=== PATIENT | male | born 1940 | race Caucasian/White ===

== ENCOUNTER 2019-05-30 20:07 | Emergency (ER) | payer MEDICARE, BC, SELFPAY ==
[2019-05-30 20:09] VITALS: BP 128/77; PULSE 89; RESP 18; TEMP 36.6; O2SAT 95; BMI 27.2
--- NOTE | 2019-05-30 20:13 | RAD_ITS ---
STUDY: X-RAY - LEFT WRIST REASON FOR EXAM: Male, 78 years old. Trauma TECHNIQUE: 3 view(s) of the wrist were obtained. COMPARISON: None. FINDINGS: The bones of the wrist are intact and located. Mineralization is normal. Soft tissues are intact. There are degenerative changes at the base of the thumb. RAD/Wrist min 3 Views IMPRESSION: 1. No acute osseous injury. Electronically Signed: Dean Peters, at 20:31 EDT Tel , Service support ,
--- NOTE | 2019-05-30 20:13 | RAD_ITS ---
STUDY: X-RAY - LEFT RADIUS AND ULNA REASON FOR EXAM: Male, 78 years old. Trauma TECHNIQUE: 2 view(s) of the forearm. COMPARISON: None. FINDINGS: Radius and ulna are intact and located. Mineralization is normal. Soft tissues are unremarkable. RAD/Forearm 2 Views IMPRESSION: 1. Unremarkable forearm. Electronically Signed: Dean Peters, at 20:33 EDT Tel , Service support ,
--- NOTE | 2019-05-30 22:24 | ED.DEP ---
ED Disposition - Plan for ED Patient: Instructions: CONTUSION, Upper Extremity Referrals: Vipin Rodriguez MD [Primary Care Provider] -
--- NOTE | 2019-05-30 22:27 | ED.VISSUMM ---
- ER Visit Summary Date of Service: 05/30/19 Chief Complaint: Left arm injury History of Present Illness: The patient is a 78 M presenting with left arm injury. Patient states he dropped a wooden gate on his left arm. This occurred just prior to arrival. He states it swelled immediately. He took Benadryl initially due to swelling. He now has ice on it and it is improving. He denies other injury. He is not on anticoagulants. Physical Examination: Vitals are stable. Patient is afebrile. Alert no acute distress. HEENT exam is unremarkable. Neck is supple. Lungs are clear and equal bilaterally. Heart is regular rate and rhythm. Extremities hematoma left dorsal forearm. Active full range of motion. Neurovascularly intact distally. Normal pulses. Compartments are soft. Skin is warm and dry. No focal neurologic deficit. Remainder of exam is unremarkable. Emergency Department Course and Treatment: X-ray left wrist and left forearm show no acute process. Patient is advised to ice and elevate. Advised to follow-up with primary care physician. Advised return to ED for worsening complaints. Disposition: Discharge home Impression: Left forearm hematoma This note was generated with [employer] dictation software. It may contain incorrect words, spelling, and punctuation that were not noted in review of the chart prior to signing ED Disposition - Plan for ED Patient: Instructions: CONTUSION, Upper Extremity Referrals: Vipin Rodriguez MD [Primary Care Provider] -
[2019-05-30 22:39] VITALS: BP 124/70; PULSE 71; RESP 16; O2SAT 98
== END 2019-05-30 22:41 | disposition home or self-care (01) ==
LOC: ED 22:14
PROVIDERS: Emergency Provider Emergency Medicine; Family Provider Family Medicine; PCP Family Medicine
DX: S50.12XA Contusion of left forearm, initial encounter (principal); W20.8XXA Other cause of strike by thrown, projected or falling object, initial encounter; Y93.9 Activity, unspecified; Y92.89 Other specified places as the place of occurrence of the external cause; Y99.9 Unspecified external cause status; I10 Essential (primary) hypertension
CPT/HCPCS: 73090; 73110; 99282

== ENCOUNTER 2022-05-26 11:34 | Emergency (ER) | payer MEDICARE, SELFPAY ==
[2022-05-26 11:35] VITALS: BP 159/80; PULSE 66; RESP 18; TEMP 36.3; O2SAT 95; BMI 29.7
--- NOTE | 2022-05-26 11:51 | CT_ITS ---
STUDY: CT ABDOMEN AND PELVIS WITHOUT CONTRAST REASON FOR EXAM: Male, 81 years old. Left flank pain RADIATION DOSAGE (If Supplied By Facility): CTDIvol = ( 12.24 ) mGy, DLP = ( 608.43 ) mGycm TECHNIQUE: Transaxial images were obtained from the dome of the diaphragm to the symphysis pubis without oral contrast, and without intravenous contrast. Sagittal and coronal images were reconstructed. Individualized dose optimization techniques were used for this CT. COMPARISON: None. FINDINGS: The visualized lung bases are unremarkable. The visualized portions of the heart are within normal limits. The lack of intravenous contrast limits evaluation of solid visceral organs. There are foci of low attenuation within the liver with an appearance suggestive of fatty infiltration. There is a well-circumscribed 4.7 cm low-attenuation focus within the left hepatic lobe. Normal gallbladder and extrahepatic biliary system. Normal spleen. Normal pancreas. Normal bilateral adrenal glands. Normal right kidney. There is left hydroureteronephrosis secondary to a 3.8 mm calculus within the distal ureter. There is a small hiatal hernia. Normal small intestine. There are multiple colonic diverticula consistent with diverticulosis. There are surgical clips in the region of the appendix consistent with a prior appendectomy. Normal abdominal aorta. Normal inferior vena cava. Normal retroperitoneum. Normal urinary bladder. There is enlargement of the prostate gland. Normal abdominal wall. There are diffuse degenerative changes of the visualized lumbar spine. There is an anterior compression deformity of T11 with approximately 50% height loss within the mid vertebral body that appears chronic. CT/Abdomen/Pelvis without Cont IMPRESSION: Left hydroureteronephrosis secondary to a 3.8 mm calculus within the distal ureter. Fatty infiltration of the liver. Round low attenuation 4.7 cm focus within the left hepatic lobe which may reflect a cyst or hemangioma, consider abdominal ultrasound for further characterization. Hiatal hernia. Colonic diverticulosis. Electronically Signed: Venus Ferris MD at 12:51 EDT ,
--- NOTE | 2022-05-26 11:53 | EDS_ITS ---
HPI HPI - GI History of Present Illness Chief Complaint: Flank Pain Detail of Chief Complaint: Left Informant: patient Abdominal Pain/Flank Pain Onset: Weeks Context: Gradual Onset Timing: Intermittent Quality: Aching Location: Left Flank Current Severity: Mild Maximum Severity: Mild Worsened by: Nothing Relieved by: Nothing Nausea/Vomiting/Emesis GI Symptom: Positive for Nausea and Vomiting Onset: Today and Yesterday Severity: Mild Diarrhea/Melena/Hematochezia GI Symptom: Negative for Diarrhea, Melena or Hematochezia Associated Symptoms Associated Symptoms: Negative for Dysuria, Frequency, Hematuria or Urgency Narrative Narrative: 81-year-old male 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 Since has had left lower back and flank pain for about a month. It was mild several weeks ago. It is slightly worse now. It is worse in the morning and better when he gets up and starts moving throughout the day. The last 2 days he has had mild nausea and vomiting. He denies any fall or trauma. He is never had a kidney stone. Several weeks ago he thinks he might have a small amount of blood in his urine but that resolved. He denies any fever or chills. No weight loss. Prior similar symptoms: No Recent Illness/Hospitalization: No PFSH PFSH Medical History Disc degeneration HTN (hypertension) Home Medications lisinopril 5 mg tablet 5 mg PO DAILY 10/08/14 [History Last Taken Unknown] tadalafil 5 mg tablet 5 mg PO DAILY 05/30/19 [History Last Taken Unknown] hydrocodone-acetaminophen 5-325mg 5mg-325mg 1 tab PO Q4H PRN pain 5 days #20 tabs 05/26/22 [Rx Last Taken Unknown] ondansetron 4 mg disintegrating tablet 4 mg PO Q8H PRN nausea and vomiting #7 tabs 05/26/22 [Rx Last Taken Unknown] Allergy/AdvReac Type Severity Reaction Status Date / Time yellow dye Allergy Hives Verified 05/26/22 11:35 Social History Smoking Status: Never smoker ROS ROS ED ROS Narrative Left flank pain. Nausea and vomiting. Review of Systems ROS Unobtainable: Denies due to encephalopathy Constitutional Constitutional ED: Denies chills or fever(s) Cardiovascular Cardiovascular: Denies chest pain Respiratory/Chest Respiratory/Chest: Denies dyspnea Gastrointestinal Gastrointestinal: Reports nausea and vomiting; Denies abdominal pain, constipation, diarrhea or melena Genitourinary Genitourinary ED: Denies dysuria or hematuria Musculoskeletal Musculoskeletal: Denies arthralgias Integumentary Denies abscess Neurologic Neurologic: Denies headache(s) Psychiatric Psychiatric: Denies anxiety Endocrine Endocrinology: Denies polydipsia Hematologic/Lymphatic Hematologic/Lymphatic: Denies easy bleeding Allergic/Immunologic Allergic/Immunologic ED: Denies mouth swelling EXAM Physical Exam Narrative Exam Narrative: 81-year-old male no acute distress. Vital signs stable afebrile. seated in the room. HEENT exam unremarkable. Lungs are clear. Heart regular rhythm rate about 65 no murmur. Abdomen soft nontender normal bowel sounds no peritoneal signs. Spine and back are completely nontender. No rashes. No signs of trauma. Moving all 4 extremities. Normal motor strength. No edema. Normal range of motion both upper and lower extremities. Neurologically is awake and alert with no focal motor deficits. Const Vital Signs: 05/26/22 11:35 Temperature 97.3 F L Temperature Source Temporal Pulse Rate 66 Respiratory Rate 18 Blood Pressure 159/80 H Blood Pressure Mean 106 Pulse Ox 95 Oxygen Delivery Method Room Air Positive well nourished and well developed; Negative for cachectic, contractures or unkempt General Appearance ED: well developed; Negative for unkempt, cachectic, contractures or pallor Nutritional Appearance: Negative for cachectic HEENT Reports moist mucous membranes normocephalic and atraumatic; Negative for trauma or tenderness Eyes PERRL and EOMs intact bilaterally General Eye ED: Negative for pale conjunctiva or scleral icterus Neck no lymphadenopathy, supple and no JVD General: Negative for tenderness Lymph Lymphatic: Negative for other Resp normal respiratory effort and clear to auscultation bilaterally Effort and Inspection: Negative for respiratory distress Auscultation: Negative for rales, rhonchi or wheezes Cardio regular rate, regular rhythm, S1 normal heart sound, S2 normal heart sound and no murmurs Rate: Negative for bradycardia Rhythm: Negative for abnormal rhythm GI non-tender, non-distended and no masses Inspection: Negative for abdominal distention Auscultation: normoactive bowel sounds Palpation: soft; Negative for tender, guarding or rigid Back/Spine no CVA tenderness General Back: Negative for CVA tenderness Cervical Spine: Negative for cervical spine tenderness Thoracic Spine / Upper Back: Negative for thoracic spinal tenderness Lumbar Spine / Lower Back: Negative for lumbar spinal tenderness Extremity full ROM General Extremety ED: Negative for edema or tenderness General Extremity: Negative for edema Neuro CN's II-XII intact bilaterally and moves all extremities Sensorium / Orientation: alert, oriented to person, oriented to place and oriented to time; Negative for orientation impaired, confused, lethargic or stuporous Motor Exam: strength 5/5 throughout Psych mental status grossly normal Appearance: Negative for unkempt Attitude: No agitated Mood & Affect: Negative for depressed Skin no wounds General Skin Exam: Negative for jaundice or pallor Lesions: no lesions Rashes: no rashes Trauma: Negative for abrasion Nails: Negative for discolored MDM MDM MDM Narrative Medical decision making narrative: 80-year-old male with several week history of left flank pain. Exam is benign and nontender. CAT scan evaluating for possible kidney stone versus other etiologies along with lab work and a urinalysis. Currently he did not want a t cedric for pain or nausea. Repeat exam patient is doing well at 1:50 PM. Had a long discussion with he and his that all his test results. He basically has a 3.8 mm distal left ureteral stone that should pass. He feels much better after the IV Zofran and morphine. He will be discharged home with [place] for pain and Zofran for nausea. Urine strainer. Follow-up with his doctor if not improving or return if worse. Lab Data Attestation: I reviewed the patient's lab results. Lab results narrative: CBC shows white count 11.6. H&H of 15 and 46. Platelets 213. Electrolytes show a gap of 6 and BUN 24 creatinine 1.21. Glucose 125. Urine shows occult blood 50-100 red cells no white cells no bacteria. No signs of infection. Labs: Laboratory Results - last 24 hr 05/26/22 05/26/22 05/26/22 12:20 12:25 12:25 WBC 11.6 H RBC 4.96 Hgb 15.7 Hct 46.6 MCV 94.0 MCH 31.7 MCHC 33.7 RDW Std Deviation 44.7 H RDW Coeff of Martir 13.0 Plt Count 213 MPV 9.4 Immature Gran % (Auto) 0.500 Neut % (Auto) 77.0 H Lymph % (Auto) 15.4 L [place] % (Auto) 5.9 Eos % (Auto) 0.9 Baso % (Auto) 0.3 Absolute Neuts (auto) 8.9 H Absolute Lymphs (auto) 1.78 Nucleated RBC % 0 Sodium 136 Potassium 4.2 Chloride 106 Carbon Dioxide 24.0 Anion Gap 6 BUN 24 H Creatinine 1.21 Estim Creat Clear Calc 51.11 Est GFR (MDRD) Af Amer 74 Est GFR (MDRD) Non-Af 61 BUN/Creatinine Ratio 19.8 Glucose 125 H Calcium 10.2 H Urine Color Yellow Urine Clarity Clear Urine pH 5.0 Ur Specific [place] 1.025 Urine Protein 15 H Urine Glucose (UA) NEGATIVE Urine Ketones 5 H Urine Occult Blood 250 H Urine Nitrite Negative Urine Bilirubin Negative Urine Urobilinogen Normal Ur Leukocyte Esterase 25 H Urine RBC 50-100 SEEN Urine WBC 0-5 SEEN Ur Squamous Epith Cells 0 SEEN Urine Bacteria 0 SEEN Urine Mucus 0 SEEN Radiography Diagnostic Testing: Clinical Impression(s) from Imaging Studies Abdomen/Pelvis CT 05/26/22 11:51 IMPRESSION: Left hydroureteronephrosis secondary to a 3.8 mm calculus within the distal ureter. Fatty infiltration of the liver. Round low attenuation 4.7 cm focus within the left hepatic lobe which may reflect a cyst or hemangioma, consider abdominal ultrasound for further characterization. Hiatal hernia. Colonic diverticulosis. Electronically Signed: Venus Ferris MD at 12:51 EDT , Discharge Plan Triage Chief Complaint: Flank Pain ED Provider: Moises Parada Dx/Rx/DC Orders Clinical Impression: Kidney stone on left side, Nausea & vomiting Instructions: ED Kidney Stone w/ Colic Prescriptions: New hydrocodone-acetaminophen 5-325 mg tablet 1 tab PO Q4H PRN (Reason: pain) 5 Days Qty: 20 0RF ondansetron 4 mg tablet,disintegrating 4 mg PO Q8H PRN (Reason: nausea and vomiting) Qty: 7 0RF No Action lisinopril 5 MG tablet 5 mg PO DAILY tadalafil 5 MG tablet 5 mg PO DAILY Primary Care Provider: Vipin Rodriguez Referrals: Joe England MD [Med Staff - Active Staff] - As Needed Vipin Rodriguez MD [Primary Care Provider] - 3-5 Days if not improving Activity Restrictions/Additional Instructions: 3.8 mm left-sided kidney stone almost to your bladder. Should pass. Plenty of fluids and rest. [place] and/or Motrin for pain. Zofran as needed for nausea. Make sure you are drinking plenty of water, eating plenty of fruits, vegetables and fiber to prevent constipation. Follow-up with the urologist Dr. Uriel England if not improving. Disposition Disposition: Home, Self Care
[2022-05-26] MEDS: Ondansetron 4 MG/2 ML Vial IV (12:26)
[2022-05-26 12:27] LABS: Bacteria 0 SEEN /hpf (None Seen); Mucous, Urine 0 SEEN /hpf (<or=2+); Squamous Epithelial Cells - UA 0 SEEN /hpf (0-5)
[2022-05-26 12:32] LABS: Absolute Lymphocyte Count 1.78 X10^3/uL (0.83-4.51); Absolute Neutrophil Count 8.9 X10^3/uL (2.0-7.7); Basophil# 0.03 X10^3/uL; Basophil% 0.3 % (0-1); Eosinophils% 0.9 % (0-5); Hematocrit 46.6 % (40-54); Hemoglobin 15.7 g/dL (13.0-16.5); Lymphocyte # 1.78 X10^3/ul (0.83-4.51); Lymphocyte % 15.4 % (19-41); Mean Corp Hgb Conc 33.7 g/dL (32-36); Mean Corpuscular Hgb 31.7 pg (27.0-32.0); Mean Platelet Vol. 9.4 fl (6.2-12.0); Monocyte# 0.68 X10^3/uL; Monocyte% 5.9 % (0-10); NRBC Flagged by Analyzer 0 % (0-5); Neutrophil # 8.91 X10^3/uL (2.7-7.7); Platelet Count 213 K/mm3 (150-450); RBC Distribution Width SD 44.7 fl (35.1-43.9); Red Blood Count 4.96 M/mm3 (4.6-6.2); White Blood Count 11.6 K/mm3 (4.4-11.0)
[2022-05-26 12:44] LABS: Anion Gap 6 (5-15); BUN 24 mg/dL (7-18); BUN/Creat Ratio 19.8 RATIO (10-20); Calcium,Total 10.2 mg/dL (8.5-10.1); Chloride 106 mmol/L (98-107); Creatinine, Serum 1.21 mg/dL (0.70-1.30); EST Glomerular Filtration Rate 61 mL/min (>60); Est Glom Filt Rate - Afr Amer 74 mL/min (>60); Estimated Creatinine Clearance 51.11 ml/min; Glucose 125 mg/dL (74-106); Potassium 4.2 mmol/L (3.5-5.1); Sodium Level 136 mmol/L (136-145)
[2022-05-26] MEDS: Morphine 4 MG/ML Syringe IV (13:07)
[2022-05-26 13:20] LABS: Color, Urine Yellow (Yellow); Glucose, Dipstick NEGATIVE (Normal); Ketone-Dipstick 5 mg/dl (Negative); Leukocyte Esterase-Dipstick 25 /ul (Negative); Nitrite-Dipstick Negative (Negative); Occult Blood-Urine 250 /ul (Negative); Protein-Dipstick 15 mg/dl (Negative); Red Blood Cells-Urine 50-100 SEEN /hpf (0-5); Specific Gravity, Urine 1.025 (1.002-1.030); Urine Bilirubin Dipstick Negative (Negative); Urine Clarity Clear (Clear); Urine Urobilinogen Normal (Normal); White Blood Cells 0-5 SEEN /hpf (0-5)
[2022-05-26 13:56] VITALS: BP 136/78; PULSE 78; RESP 14; O2SAT 98
== END 2022-05-26 14:06 | disposition home or self-care (01) ==
PROVIDERS: Emergency Provider Emergency Medicine; PCP Family Medicine; Visit Provider Emergency Medicine
DX: N20.0 Calculus of kidney (principal); R11.2 Nausea with vomiting, unspecified
CPT/HCPCS: 74176; 80048; 81001; 85025; 96374; 96375; 99283; A4216; J2405

== ENCOUNTER 2023-07-19 16:06 | Emergency (ER) | payer MEDICARE, SELFPAY ==
[2023-07-19 16:08] VITALS: BP 136/78; PULSE 83; RESP 18; TEMP 36.6; O2SAT 98; BMI 31.0
--- NOTE | 2023-07-19 18:01 | EX.ED.DYSGE1 ---
HPI History of Present Illness Chief Complaint: Dizziness Detail of Chief Complaint: Dizziness that is intermittent and positional for the past several months. Informant: patient and spouse/S.O. Onset/Context/Timing Onset: Month(s) Context: Sudden Onset Timing: Intermittent Quality: Spinning sensation especially when he arises from bed in the morning Location: Home Current Severity: Gone Maximum Severity: Severe Worsened by: Change in position Relieved by: Remaining still Associated Symptoms Associated Symptoms: Nausea without visual symptoms. Narrative Narrative: Patient is a 82-year-old male who contact his physician. He was instructed to come to the emergency room because of problems with balance. This is been an intermittent problem for months. Is been worse the last several days. It is positional. Worse in the morning when he rises from bed. He denies double vision, blurred vision loss of vision. He had recent cataract surgery and occasional have pain right eye. He denies ringing's ears or decreased hearing. He denies trouble with speech or swallowing. He denies paresthesia, anesthesia motors. He does report problems with balance. He denies black or maroon stool. He denies urologic symptoms. He denies respiratory symptoms. Prior similar symptoms: Yes (Paroxysmal benign positional vertigo) Recent Illness/Hospitalization: No PFSH PFSH Medical History (Updated 07/19/23 @ 21:[address] Rocky Willis MD) Cataract CPAP (continuous positive airway pressure) dependence Disc degeneration HTN (hypertension) Home Medications lisinopril 5 mg tablet 5 mg PO DAILY 10/08/14 [History Last Taken Unknown] tadalafil 5 mg tablet 5 mg PO DAILY 05/30/19 [History Last Taken Unknown] hydrocodone-acetaminophen 5-325mg 5mg-325mg 1 tab PO Q4H PRN pain 5 days #20 tabs 05/26/22 [Rx Last Taken Unknown] ondansetron 4 mg disintegrating tablet 4 mg PO Q8H PRN nausea and vomiting #7 tabs 05/26/22 [Rx Last Taken Unknown] Allergy/AdvReac Type Severity Reaction Status Date / Time yellow dye Allergy Hives Verified 07/19/23 16:08 Social History (Updated 07/19/23 @ 18:[address] Rocky Willis MD) household members: spouse Smoking Status: Never smoker substance use type: does not use ROS ROS ED Constitutional Constitutional ED: Denies chills, fever(s), subjective, sweats or weight loss Eyes Eyes: Denies blurry vision, change in vision or diplopia ENT ENT ED: Denies ear pain, rhinorrhea or sore throat Cardiovascular Cardiovascular: Denies chest pain, orthopnea, palpitations, paroxysmal nocturnal dyspnea or racing heartbeat Respiratory/Chest Respiratory/Chest: Denies cough, dyspnea, dyspnea on exertion, orthopnea or paroxysmal nocturnal dyspnea Gastrointestinal Gastrointestinal: Reports nausea; Denies abdominal pain, constipation, diarrhea, melena or vomiting Genitourinary Genitourinary ED: Reports urinary frequency and other Details: Has had trouble with urination due to benign prostatic 50 ; Denies dysuria or hematuria Musculoskeletal Musculoskeletal: Denies arthralgias, back pain, myalgias or neck pain Integumentary Denies rash Neurologic Neurologic: Denies headache(s), paresthesias or weakness Psychiatric Psychiatric: Denies anxiety Endocrine Endocrinology: Denies cold intolerance or heat intolerance Hematologic/Lymphatic Hematologic/Lymphatic: Reports systems reviewed and no addt'l complaints, except as documented EXAM Physical Exam Const Vital Signs: 07/19/23 16:08 07/19/23 18:13 07/19/23 18:13 Temperature 98 F Temperature Source Temporal Pulse Rate 83 83 Respiratory Rate 18 16 Respiratory Pattern Normal Blood Pressure 136/78 H 131/87 H Blood Pressure Mean 97 101 Pulse Ox 98 96 Oxygen Delivery Method Room Air Room Air 07/19/23 21:00 Temperature Temperature Source Pulse Rate 83 Respiratory Rate Respiratory Pattern Blood Pressure 143/77 H Blood Pressure Mean 99 Pulse Ox 97 Oxygen Delivery Method Room Air Positive well nourished, well developed and obese General Appearance ED: well developed and NAD; Negative for pallor Nutritional Appearance: obese HEENT Reports moist mucous membranes HEENT Narrative: Head is normocephalic and atraumatic. Ears normal. Unable to see the right or left TM due to cerumen impaction. Nares patent. Posterior pharynx without erythema or exudate. Uvula is midline. There is tongue with protrusion. Eyes PERRL and EOMs intact bilaterally Eyes Narrative: There is no nystagmus. There is no APD. General Eye ED: Negative for pale conjunctiva or scleral icterus Neck no lymphadenopathy, supple and no JVD Neck Narrative: There are no carotid bruits noted. Chest Wall inspection of chest normal and palpation of chest normal Resp normal respiratory effort and clear to auscultation bilaterally Cardio regular rate, regular rhythm, S1 normal heart sound, S2 normal heart sound and no murmurs GI normal to inspection, nondistended, normoactive bowel sounds Back/Spine no CVA tenderness Extremity normal to inspection General Extremety ED: Negative for edema or tenderness General Extremity: Negative for edema Neuro oriented x3, CN's II-XII intact bilaterally and no sensory deficits noted Neuro Narrative: There is no dysmetria. [place] with eyes open and close is normal. The eye askew test was negative. The hint test was negative. Gait was observed and normal. Able to walk on heels and toes. Patient did have some difficulty with tandem gait. He did complain of dizziness. DTRs were symmetric. There is no clonus or Babinski sign noted. Sensorium / Orientation: alert Motor Exam: strength 5/5 throughout Psych mental status grossly normal Skin no rashes or lesions noted, no wounds and skin turgor normal General Skin Exam: Negative for jaundice or pallor MDM MDM MDM Narrative Medical decision making narrative: Patient's history and physical is consistent with benign paroxysmal positional vertigo. Since patient has cerumen impaction we will treat the cerumen impaction to determine if this alleviates his dizziness . He defines dizziness as balance being off. Since it is intermittent positional this is not central and there is no indication for advanced imaging at this time. History & Record Review Additional record(s) reviewed:: Prior ED visit and Prior labs Treatment and Re-Evaluation :: Was unsuccessful in irrigating the cerumen. Large piece of cerumen were both removed from both the right and left ear with irrigation and use of curette by me. [place]-Hallpike maneuver was performed. Patient's vertigo has resolved. Therefore will discharge to home. Discharge Plan Triage Chief Complaint: Dizziness ED Provider: Rocky Willis Dx/Rx/DC Orders Clinical Impression: Episodic peripheral vertigo, Bilateral impacted cerumen Instructions: Impacted Earwax Prescriptions: No Action lisinopril 5 MG tablet 5 mg PO DAILY tadalafil 5 MG tablet 5 mg PO DAILY hydrocodone-acetaminophen 5-325 mg tablet 1 tab PO Q4H PRN (Reason: pain) 5 Days Qty: 20 0RF ondansetron 4 mg tablet,disintegrating 4 mg PO Q8H PRN (Reason: nausea and vomiting) Qty: 7 0RF Primary Care Provider: Vipin Rodriguez Referrals: Vipin Rodriguez MD [Primary Care Provider] - As Needed Disposition Disposition: Home, Self Care
[2023-07-19 18:13] VITALS: BP 131/87; PULSE 83; RESP 16; O2SAT 96
[2023-07-19] MEDS: Carbamide Peroxide 15 ML Bottle 5 DRP OTIC (18:15)
[2023-07-19 21:00] VITALS: BP 143/77; PULSE 83; O2SAT 97
== END 2023-07-19 21:19 | disposition home or self-care (01) ==
PROVIDERS: Emergency Provider Emergency Medicine; PCP Family Medicine; Visit Provider Emergency Medicine
DX: H81.399 Other peripheral vertigo, unspecified ear (principal); I10 Essential (primary) hypertension; H61.23 Impacted cerumen, bilateral
CPT/HCPCS: 69209; 99282

== ENCOUNTER 2024-07-01 23:35 | Emergency (ER) | payer MEDICARE, SELFPAY ==
[2024-07-01 23:36] VITALS: BP 107/51; PULSE 125; RESP 18; TEMP 36.1; O2SAT 96; BMI 29.4
--- NOTE | 2024-07-01 23:46 | EX.ED.DYSGE1 ---
HPI History of Present Illness Chief Complaint: Rash Narrative Narrative: 83-year-old male past medical history of hypertension presents with hives and itching mainly on his torso and legs that began approximately an hour ago. He took 4 teaspoons of Benadryl already which seemed to improve his symptoms. He denies any throat closing or shortness of breath, no difficulty breathing or wheezing. He states he had an allergic reaction remotely when he was in his 30s to yellow dye. He denies any new detergents or lotions. He did have a new cheese that he ate maybe 8 hours ago and this evening he had something with seasoning on it but he read the bottle it is normal he said caramel coloring, not yellow dye. He presents because of the continued hives and itching albeit improved over previous after taking Benadryl. [facility] Medical History Cataract CPAP (continuous positive airway pressure) dependence HTN (hypertension) Disc degeneration Home Medications ?Medication ?Instructions ?Recorded ?Last Taken ?Type lisinopril 5 mg tablet 5 mg PO DAILY 10/08/14 Unknown History tadalafil 5 mg tablet 5 mg PO DAILY 05/30/19 Unknown History hydrocodone-acetaminophen 5-325mg 1 tab PO Q4H PRN pain 5 days #20 05/26/22 Unknown Rx 5mg-325mg tabs ondansetron 4 mg disintegrating 4 mg PO Q8H PRN nausea and 05/26/22 Unknown Rx tablet vomiting #7 tabs famotidine 20 mg tablet (Pepcid) 20 mg PO DAILY #7 tabs 07/02/24 Unknown Rx prednisone 20 mg tablet 40 mg (2 x 20 mg) PO DAILY #14 tabs 07/02/24 Unknown Rx Allergy/AdvReac Type Severity Reaction Status Date / Time yellow dye Allergy Hives Verified 07/01/24 23:36 Social History household members: spouse Smoking Status: Never smoker substance use type: does not use ROS ROS ED ROS Narrative Constitutional: No fever, no chills. HEENT: No sore throat. No neck pain. No loss of vision. No rhinorrhea. No throat closing. Cardiovascular: No chest pain. No palpitations. No pedal edema. Respiratory: No cough, no shortness of breath. Abdominal: No abdominal pain. No nausea. No vomiting. Genitourinary: No dysuria. No hematuria. Musculoskeletal: No myalgias. No arthralgias. Neurologic: No headaches. No dizziness. No lightheadedness. Skin: Positive hives/rash. Itchiness. No change in color. EXAM Physical Exam Narrative Exam Narrative: Afebrile. Vital signs noted. HEENT: Normocephalic. Atraumatic. PERRL, EOMI. Neck soft and supple. No point tenderness or step off. Airway patent. No stridor. No oral lesions. Cardiovascular: Regular rate and rhythm with intermittent tachycardia. No murmurs, rubs, or gallops appreciated. Respiratory: No tachypnea. Lungs clear to auscultation bilaterally. Gastrointestinal: Abdomen soft, nontender, with normoactive bowel sounds. No rebound or guarding. Neurological: Awake. Alert. Nonfocal, nonlateralizing. Skin: Positive hives, improved on torso, blood present on bilateral thighs posteriorly and in belt line and on buttocks. Rash. Normal color. No pallor. Musculoskeletal: No pedal edema. Full range of motion extremities. Const Vital Signs: 07/01/24 23:36 Temperature 97 F L Temperature Source Temporal Pulse Rate 125 H Respiratory Rate 18 Blood Pressure 107/51 L Blood Pressure Mean 69 Pulse Ox 96 Oxygen Delivery Method Room Air MDM MDM MDM Narrative Medical decision making narrative: Differential diagnosis includes but not limited to allergic reaction to yellow dye versus food allergy versus contact dermatitis, I have low suspicion for Wallace-Jordan's based on his physical examination and history. I do not feel epinephrine is indicated. Pulse ox 96% on room air without hypoxia. He states that Benadryl has already improved his symptoms. He was given oral Pepcid 40 mg and a loading dose of prednisone 60 mg orally. He was observed in the emergency department. Repeat examination at approximately 1:05 AM shows him resting comfortably, he almost fell asleep. His hives have subsided especially on his legs. At this point in time, I feel he can be discharged to follow-up with his primary care provider. He was told he may need referral to an geotechnical intern. I do not feel he requires an epinephrine pen. He was written prescriptions for a steroid burst of 40 mg for the next 7 days and for Pepcid 20 mg orally for the next 7 days. He will take [id number] Benadryl 25 to 50 mg every 4-6 hours as needed, especially over the next 2 days. He feels improved and would like to be discharged. Return instructions to the emergency department were reviewed. Disposition is discharged home in stable condition. History & Record Review Discussion w/independent historian: Patient and Family (Spouse) Discharge Plan Triage Chief Complaint: Rash ED Provider: Peter Martin Dx/Rx/DC Orders Clinical Impression: Hives, Allergic reaction Instructions: ED General Allergic Reactions, ED Hives (Adult) Prescriptions: New famotidine [Pepcid] 20 mg tablet 20 mg PO DAILY Qty: 7 0RF prednisone 20 mg tablet 40 mg PO DAILY Qty: 14 0RF No Action lisinopril 5 MG tablet 5 mg PO DAILY tadalafil 5 MG tablet 5 mg PO DAILY hydrocodone-acetaminophen 5-325 mg tablet 1 tab PO Q4H PRN (Reason: pain) 5 Days Qty: 20 0RF ondansetron 4 mg tablet,disintegrating 4 mg PO Q8H PRN (Reason: nausea and vomiting) Qty: 7 0RF Primary Care Provider: Vipin Rodriguez Referrals: Vipin Rodriguez MD [Primary Care Provider] - 3-5 Days if not improving Activity Restrictions/Additional Instructions: Continue Benadryl 25 to 50 mg every 4-6 hours as needed for hives and itching especially over the next 48 hours. Return with difficulty breathing, throat closing, new or worsening symptoms. Print Language: Lithuanian Disposition Disposition: Home, Self Care
[2024-07-01] MEDS: predniSONE 20 MG Tablet 60 MG PO (23:48)
[2024-07-01] MEDS: Famotidine 20 MG Tablet 40 MG PO (23:48)
[2024-07-02 01:13] VITALS: BP 125/84; PULSE 100; RESP 18; TEMP 36.6; O2SAT 99
== END 2024-07-02 01:16 | disposition home or self-care (01) ==
PROVIDERS: Emergency Provider Emergency Medicine; PCP Family Medicine; Visit Provider Emergency Medicine
DX: T78.40XA Allergy, unspecified, initial encounter (principal); L50.9 Urticaria, unspecified; I10 Essential (primary) hypertension
CPT/HCPCS: 99283

== ENCOUNTER 2025-09-17 19:56 | Emergency (ER) | payer MEDICARE, SELFPAY ==
[2025-09-17] VITALS (8 sets, daily range): BP systolic 131–169; BP diastolic 65–85; PULSE 85–108; RESP 16–27; TEMP 37.7–39.1; O2SAT 97–100; BMI 28.4
--- NOTE | 2025-09-17 21:12 | EKG12_ITS ---
Test Reason : WEAKNESS Blood Pressure : */* mmHG Vent. Rate : 76 BPM Atrial Rate : 76 BPM P-R Int : 156 ms QRS Dur : 88 ms QT Int : 336 ms P-R-T Axes : 53 29 15 degrees QTcB Int : 378 ms Normal sinus rhythm Normal ECG Confirmed by CHARLES ENCARNACION, YVES ([id number]), scientific publications editor MAIRA WELLS ([id number]) on 09/20/2025 1:09:25 PM Referred By: Confirmed By: YVES SOTO MD
--- NOTE | 2025-09-17 21:13 | EDS_ITS ---
HPI History of Present Illness Chief Complaint: Dizziness Informant: patient Onset/Context/Timing Onset: Days (2) Context: Gradual Onset Timing: Continuous Quality: Staggering Location: Generalized Worsened by: Nothing Relieved by: Aspirin Narrative Narrative: Patient presents with dizziness that has been getting worse over the past 2 days. Patient states he feels like he is staggering. Patient states he took some aspirin which seemed to help with it. Patient admits to a fever of 101. Patient states he was in [place] when his symptoms began. Patient states he drove back from [place]. Patient states he was able to get out of the car occasionally and ambulate. Patient denies any chest pain or shortness of breath. Patient denies any nausea or vomiting. [facility] Medical History (Updated 09/17/25 @ 23:[address] Ta Kim, DO) Cataract CPAP (continuous positive airway pressure) dependence HTN (hypertension) Disc degeneration Home Medications ?Medication ?Instructions ?Recorded ?Last Taken ?Type lisinopril 5 mg tablet 5 mg PO DAILY 10/08/14 Unkno wn History tadalafil 5 mg tablet 5 mg PO DAILY 05/30/19 Unkno wn History hydrocodone-acetaminophen 5-325mg 1 tab PO Q4H PRN [place] 5 days #20 05/26/22 Unknown Rx 5mg-325mg tabs ondansetron 4 mg disintegrating 4 mg PO Q8H PRN nausea and 05/26/22 Unknown Rx tablet vomiting #7 tabs famotidine 20 mg tablet (Pepcid) 20 mg PO DAILY #7 tab s 07/02/24 Unknown Rx prednisone 20 mg tablet 40 mg (2 x 20 mg) PO DAILY # 14 tabs 07/02/24 Unknown Rx meclizine 12.5 mg tablet 12.5 mg PO TID PRN dizziness #30 09/17/25 Unknown Rx tabs Allergy/AdvReac Type Severity Reaction Status Date / Time yellow dye Allergy Hives Verified 07/01/24 23:36 Family History no significant family his Surgical History (Updated 09/17/25 @ 22:[address] Ta Kim, DO) Hx of tonsillectomy Hx of appendectomy Social History household members: spouse Smoking Status: Never smoker substance use type: does not use ROS ROS ED Constitutional Constitutional ED: Reports fever(s); Denies chills Eyes Eyes: Denies blurry vision or change in vision ENT ENT ED: Denies rhinorrhea or sore throat Cardiovascular Cardiovascular: Denies chest pain or palpitations Respiratory/Chest Respiratory/Chest: Denies cough or dyspnea Gastrointestinal Gastrointestinal: Denies nausea or vomiting Genitourinary Genitourinary ED: Denies dysuria or hematuria Musculoskeletal Musculoskeletal: Denies back pain or neck pain Integumentary Denies abscess or rash Neurologic Neurologic: Denies headache(s) or weakness Allergic/Immunologic Allergic/Immunologic ED: Denies mouth swelling or urticaria EXAM Physical Exam Const Vital Signs: 09/17/25 19:59 09/17/25 20:37 09/17/25 21:02 Temperature 102.4 F H 102.4 F H 102.4 F H Temperature Source Oral Oral Oral Pulse Rate 85 87 107 H Pulse Rate [Lying] Pulse Rate [Sitting (for 1 minute prior to obtaining)] Pulse Rate [Standing (for 1 minute prior to obtaining)] Respiratory Rate 16 21 H 20 H Blood Pressure 155/77 H 169/84 H 155/85 H Blood Pressure [Lying] Blood Pressure [Sitting (for 1 minute prior to obtaining)] Blood Pressure [Standing (for 1 minute prior to obtaining)] Blood Pressure Mean 103 112 108 Blood Pressure Mean [Lying] Blood Pressure Mean [Sitting (for 1 minute prior to obtaining)] Blood Pressure Mean [Standing (for 1 minute prior to obtaining)] Pulse Ox 98 100 97 Oxygen Delivery Method Room Air Room Air Room Air 09/17/25 21:42 09/17/25 22:00 09/17/25 22:57 Temperature 102.4 F H 99.9 F H Temperature Source Oral Oral Pulse Rate 97 92 Pulse Rate [Lying] 91 Pulse Rate [Sitting (for 1 minute prior to obtaining)] 101 H Pulse Rate [Standing (for 1 minute prior to obtaining)] 108 H Respiratory Rate 27 H 24 H Blood Pressure 142/74 H 143/72 H Blood Pressure [Lying] 143/69 H Blood Pressure [Sitting (for 1 minute prior to obtaining)] 166/83 H Blood Pressure [Standing (for 1 minute prior to obtaining)] 142/74 H Blood Pressure Mean 96 95 Blood Pressure Mean [Lying] 93 Blood Pressure Mean [Sitting (for 1 minute prior to obtaining)] 110 Blood Pressure Mean [Standing (for 1 minute prior to obtaining)] 96 Pulse Ox 97 97 Oxygen Delivery Method Room Air Room Air 09/17/25 23:00 Temperature Temperature Source Pulse Rate Pulse Rate [Lying] Pulse Rate [Sitting (for 1 minute prior to obtaining)] Pulse Rate [Standing (for 1 minute prior to obtaining)] Respiratory Rate Blood Pressure 143/72 H Blood Pressure [Lying] Blood Pressure [Sitting (for 1 minute prior to obtaining)] Blood Pressure [Standing (for 1 minute prior to obtaining)] Blood Pressure Mean 95 Blood Pressure Mean [Lying] Blood Pressure Mean [Sitting (for 1 minute prior to obtaining)] Blood Pressure Mean [Standing (for 1 minute prior to obtaining)] Pulse Ox Oxygen Delivery Method Positive well nourished and well developed General Appearance ED: well developed and NAD HEENT Reports moist mucous membranes Eyes PERRL and EOMs intact bilaterally Eyes Narrative: There is no nystagmus noted. Neck supple and no JVD Resp normal respiratory effort and clear to auscultation bilaterally Cardio regular rate and regular rhythm GI non-tender and non-distended Palpation: soft Extremity normal to inspection General Extremety ED: Negative for edema or tenderness General Extremity: Negative for edema Neuro oriented x3, CN's II-XII intact bilaterally and no sensory deficits noted Sensorium / Orientation: alert Motor Exam: strength 5/5 throughout Psych mental status grossly normal MDM MDM MDM Narrative Medical decision making narrative: Differential diagnose includes vertigo, labyrinthitis, electrolyte abnormality, dehydration, pneumonia, bronchitis, viral illness, stroke, sinusitis, urinary tract infection, and sepsis. CT scan of the brain will be obtained to assess for intracranial bleeding and stroke. Chest x-ray will be obtained to assess for pneumonia or bronchitis. CBC will be obtained to assess for leukocytosis and anemia. Basic metabolic profile will be obtained to assess for electrolyte abnormality and renal function. PT with INR and PTT will be obtained to assess for coagulopathy. Serum lactate will be obtained to assess for sepsis. Urinalysis will be obtained to assess for urinary tract infection and hematuria. History & Record Review Additional record(s) reviewed:: Prior ED visit and Prior labs Lab Data Attestation: I reviewed the patient's lab results. Lab results narrative: CBC was reviewed. White blood cell count was low at 2.0. Platelets were low at 68. Absolute neutrophil count was 1.5 and absolute lymphocyte count was 0.31. These are decreased from previous result. Basic metabolic profile was reviewed. Sodium was slightly low at 132. Glucose was 107. The remainder is within normal limits. Serum lactate was reviewed and was normal at 1.3. Urinalysis was reviewed. There is no evidence of urinary tract infection or hematuria. Labs: Laboratory Results - last 24 hr 09/17/25 09/17/25 09/17/25 21:00 21:20 21:45 WBC 2.0 L RBC 4.99 Hgb 15.7 Hct 45.9 MCV 92.0 MCH 31.5 MCHC 34.2 RDW Std Deviation 43.8 RDW Coeff of Martir 13.0 Plt Count 68 L MPV 10.7 Immature Gran % (Auto) 0.500 Neut % (Auto) 71.5 H Lymph % (Auto) 15.2 L [place] % (Auto) 10.3 H Eos % (Auto) 1.5 Baso % (Auto) 1.0 Absolute Neuts (auto) 1.5 L Absolute Lymphs (auto) 0.31 L Nucleated RBC % 0 Differential Comment SCANNED Platelet Estimate MOD DEC PT 13.8 INR 1.0 APTT 32.0 Sodium 132 L Potassium 4.4 Chloride 98 Carbon Dioxide 24.2 Anion Gap 9 BUN 19 Creatinine 0.98 Estim Creat Clear Calc 64.40 Est GFR (MDRD) Non-Af 77 BUN/Creatinine Ratio 19.3 Glucose 107 H Lactic Acid 1.3 Calcium 10.4 Urine Color Yellow Urine Clarity Clear Urine pH 5.0 Ur Specific [place] 1.025 Urine Protein 100 H Urine Glucose (UA) Normal Urine Ketones Negative Urine Occult Blood 25 H Urine Nitrite Negative Urine Bilirubin Negative Urine Urobilinogen 1 H Ur Leukocyte Esterase Negative Urine RBC 0-5 SEEN Urine WBC 0-5 SEEN Ur Squamous Epith Cells 0-5 SEEN Amorphous Sediment 2+ Urine Bacteria 2+ Urine Mucus 0 SEEN Radiography Chest X-Ray - ED: 2 View, Read by ED Physician, Read by Radiologist and No Acute Disease Diagnostic Testing: Clinical Impression(s) from Imaging Studies Brain CT 09/17/25 21:25 IMPRESSION: No acute intracranial abnormality. Reading Location: [facility] Chest X-Ray 09/17/25 21:30 IMPRESSION: NO ACUTE FINDINGS. Reading Location: [address] scan of the brain was obtained. There is no acute intracranial abnormality. This was interpreted by the radiologist.. I also independently reviewed the images and did not see any acute intracranial bleeding. PA and lateral chest x-ray was obtained. There are 2 views. On my independent interpretation, lung coates are clear. There is normal cardiac silhouette. Bony thorax is normal. There is no acute process noted. Radiologist also interpreted the x-ray and agrees. EKG Initial EKG: Attestation: I personally reviewed and interpreted this EKG as follows: Interpretation: Sinus Rhythm (91) and No Acute Injury Pattern Comments: EKG was obtained. On my independent interpretation, it showed a normal sinus rhythm with a rate of 91. WA interval, QRS interval, and QTc intervals were all normal. [place] was normal. There are no acute ST or T wave changes. Prior EKG tracings: not available for review Prior: No Prior Treatment and Re-Evaluation :: Patient was given a dose of meclizine here. Patient was able to ambulate without difficulty. Patient was feeling better on reevaluation. Patient was advised of his findings. Patient was advised that this could be a viral illness. Patient was given a prescription for meclizine. Patient was instructe d to continue Tylenol and ibuprofen as needed for any fevers. Patient was instructed to follow-up with his primary care physician in 3 to 5 days. Patient understood and was agreeable with the plan. All questions were answered. Discharge Plan Triage Chief Complaint: Dizziness ED Provider: Ta Kim Dx/Rx/DC Orders Clinical Impression: Vertigo, Thrombocytopenia, Leukocytopenia, unspecified, HTN (hypertension) Instructions: ED Dizziness, Uncertain Cause Prescriptions: New meclizine 12.5 mg tablet 12.5 mg PO TID PRN (Reason: dizziness) Qty: 30 0RF Rx Instructions: 1 to 2 tablets every 8 hours as needed for dizziness No Action lisinopril 5 MG tablet 5 mg PO DAILY tadalafil 5 MG tablet 5 mg PO DAILY hydrocodone-acetaminophen 5-325 mg tablet 1 tab PO Q4H PRN (Reason: pain) 5 Days Qty: 20 0RF ondansetron 4 mg tablet,disintegrating 4 mg PO Q8H PRN (Reason: nausea and vomiting) Qty: 7 0RF famotidine [Pepcid] 20 mg tablet 20 mg PO DAILY Qty: 7 0RF prednisone 20 mg tablet 40 mg PO DAILY Qty: 14 0RF Primary Care Provider: Gayatri Hector Referrals: Vipin Rodriguez MD [Non-Staff, Family Practice] Gayatri Hector MD [Primary Care Provider, [facility]] - 3-5 Days Print Language: Greenlandic Disposition Disposition: Home, Self Care
--- NOTE | 2025-09-17 21:25 | CT_ITS ---
PROCEDURE: CT BRAIN/HEAD WITHOUT CONTRAST 09/17/2025 REASON FOR EXAM: DIZZINESS TECHNIQUE: Procedure Code: CTBR Modality: CT Procedure: BRAIN/HEAD WITHOUT CONTRAST Coronal and Sagittal reconstruction series were provided. One or more dose reduction techniques were used (e.g., Automated exposure control, adjustment of the mA and/or kV according to patient size, use of iterative reconstruction technique. RADIATION DOSE SUMMARY: CTDlvol: 44.99 mGy DLP: 897.835 mGycm COMPARISON: None. FINDINGS: No acute intracranial hemorrhage, extra-axial collection, mass effect or evidence of acute infarct. Mild age-appropriate generalized brain parenchymal volume loss. Prior right orbital cataract surgery. Intact skull base and calvarium. Well-aerated paranasal sinuses and mastoid air cells. CT/Brain/Head without Contrast IMPRESSION: No acute intracranial abnormality. Reading Location: [id number]
--- NOTE | 2025-09-17 21:30 | RAD_ITS ---
PROCEDURE: CHEST PA AND LATERAL 09/17/2025 REASON FOR EXAM: FEVER TECHNIQUE: Procedure Code: RADCXR Modality: DX Procedure: CHEST PA AND LATERAL FINDINGS: The heart is normal in size. The lungs are clear. No acute osseous abnormalities. RAD/Chest PA and Lateral IMPRESSION: NO ACUTE FINDINGS. Reading Location: [id number]
[2025-09-17 21:41] LABS: Hematocrit 45.9 % (40-54); Hemoglobin 15.7 g/dL (13.0-16.5); Immature Granulocytes Count 0.010 X10^3/uL (0.0-0.0); Mean Corp Hgb Conc 34.2 g/dL (32-36); Mean Corpuscular Volume 92.0 fL (80-94); NRBC Flagged by Analyzer 0 % (0-5); POSITIVE COUNT YES; POSITIVE DIFFERENTIAL YES; RBC Distribution Width CV 13.0 % (11.6-14.6); RBC Distribution Width SD 43.8 fl (35.1-43.9); Red Blood Count 4.99 M/mm3 (4.6-6.2); White Blood Count 2.0 K/mm3 (4.4-11.0)
[2025-09-17 21:51] LABS: Mucous, Urine 0 SEEN /hpf (<or=2+)
[2025-09-17 21:55] LABS: Differential Indicated SCAN CRITERIA MET
[2025-09-17 22:06] LABS: Anion Gap 9 (5-15); BUN 19 mg/dL (4-19); BUN/Creat Ratio 19.3 RATIO (10-20); Calcium,Total 10.4 mg/dL (7.6-11.0); Carbon Dioxide 24.2 mmol/L (21.0-32.0); Chloride 98 mmol/L (98-108); Estimated Creatinine Clearance 64.40 ml/min (50-250); Glucose 107 mg/dL (70-99); Potassium 4.4 mmol/L (3.3-5.1)
[2025-09-17 22:12] LABS: Color, Urine Yellow (Yellow); Glucose, Dipstick Normal (Normal); Ketone-Dipstick Negative (Negative); Leukocyte Esterase-Dipstick Negative /ul (Negative); Nitrite-Dipstick Negative (Negative); Occult Blood-Urine 25 /ul (Negative); Protein-Dipstick 100 mg/dl (Negative); Specific Gravity, Urine 1.025 (1.002-1.030); Urine Bilirubin Dipstick Negative (Negative)
[2025-09-17 22:12] LABS: Partial Thromboplast Time 32.0 Seconds (24.1-36.2); Prothrombin Time (Protime)PT. 13.8 SECONDS (11.7-14.9)
[2025-09-17 22:29] LABS: Mean Platelet Vol. 10.7 fl (6.2-12.0); Platelet Count 68 K/mm3 (150-450)
[2025-09-17 22:30] LABS: Differential Comment SCANNED
--- OUTSIDE RECORDS SUMMARY | 2025-09-17 22:32 | XMS RPT_ITS | CCD ---
Author Organization [facility] Care Team Providers Care 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 Name Role Phone Eze Rodriguez MD Primary Care Provider EZE RODRIGUEZ Referring Unavailable EZE RODRIGUEZ Primary Care Unavailable Eze Rodriguez MD Primary Care Provider Eze Rodriguez MD Primary Care Provider Rocky Willis Attending Unavailable Eze Rodriguez Primary Care Unavailable Peter Martin Attending Unavailable Eze Rodriguez Primary Care Unavailable T[place]hof AGRICULTURE ENGINEER.Ashleigh MEZA Unavailable Akira AGRICULTURE ENGINEER.Terry MEZA Unavailable [place] AGRICULTURE ENGINEER.Ashleigh MEZA Unavailable Unavail able EZE RODRIGUEZ Referring Unavailable ELDERULYSSESCK, EZE Blackwell Primary Care Unavailable ELDEREZE LOPEZ Attending Unavailable ELDERLENORA, EZE Blackwell Primary Care Unavailable ELDEREZE LOPEZ Referring Unavailable ELDERLENORA, EZE Blackwell Primary Care Unavailable PRANEETH SEGURA II Attending Unavailabl e EZE RODRIGUEZ Primary Care Unavailable ELDERULYSSESCK, EZE Blackwell Referring Unavailable ELDERBROCK, EZE Rosalva Primary Care Unavailable ELDEREZE LOPEZ Attending Unavailable ELDERLENORA, EZE Rosalva Primary Care Unavailable Allergies Allergy Classification Reported Allergen(s) Allergy Type Date of Onset Reaction(s) Facility (18 sources) yellow food dye [Other] Propensity to adverse reactions 8 [facility] Work Phone: (2 sources) yellow dye; Translations: [yellow dye] Allergy to substance 2 [facility] Repository (1 source) OTHER; Translations: [OTHER] Propensity to adverse reactions (disorder) 8 [facility] Other [place] Repository (17 sources) Yellow Food Color (Bulk); Translations: [YELLOW FOOD COLOR (BULK)] Drug Allergy 4 Hives [facility] Work Phone: Medications Current Medications Medication Drug Class(es) Dates Sig (Normalized) Sig (Original) acetaminophen 325 mg / HYDROcodone bitartrate 5 mg oral tablet (2 sources) Opioid Agonist Start: 05-26-2022 take 1 tablet by mouth every four hours Hydrocodone-Acet aminophen Active 1 TABLET PO Q4H 20 5 May 26, 2022 ascorbic acid 1000 mg oral tablet (20 sources) Vitamin C Start: 02-11-2004 VITAMIN C 1000MG TABLET Take one(1) tablet 2 x a day 0 02/11/2004 Active Comment on above: Take one(1) tablet 2 x a day aspirin 500 mg oral tablet (20 sources) Platelet Aggregation Inhibitor, Nonsteroidal Anti-inflammatory Drug Start: 02-19-2017 take 1 tablet by mouth once daily Aspirin 500 mg tab Take 500 mg by mouth once daily. 0 02/19/2017 Active Comment on above: Take 500 mg by mouth once daily. benoxinate hydrochloride 4 mg/ml / fluorescein sodium 3 mg/ml ophthalmic solution (3 sources) Diagnostic Dye Start: 06-23-2025 End: 06-23-2025 fluorescein-bhanu xinate 0.3-0.4 % 1 drop (FLURESS) Start: 06-23-2025 End: 06-23-2025 1 drop, BOTH EYES, DIRECT ED, Starting on Sat06/23/25 at 0900, Until Sat06/23/25 at 2058, Administer for applanation tonometry. In the event of a Fluress shortage, administer [place]-Fluor 1 drop into both eyes as directed for applanation tonometry Start: 02-22-2023 End: 02-22-2023 fluorescein-benoxinate 0.25- 0.4 % 1 Drop (FLURESS) dexamethasone 1 mg/ml / neomycin 3.5 mg/ml / polymyxin b 46511 unt/ml ophthalmic suspension (2 sources) Aminoglycoside Antibacterial, Polymyxin-class Antibacterial, Corticosteroid Start: 04-23-2024 End: 04-30-2024 take 1 drop(s) into the eye(s) four times daily BQCHNALD-ANAJWRAGO-IUZGBKLK 3.5 MG/ML-10,000 UNIT/ML-0.1% EYE DROPS Use 1 Drop in both eyes four times daily for 7 days. 5 mL 0 04/23/2024 04/30/2024 Active famotidine 20 mg oral tablet (1 source) Histamine-2 Receptor Antagonist Start: 07-02-2024 take 1 tablet by mouth every twelve hours as needed famotidine (PEPCID) 20 mg tablet Take 20 mg by mouth two times a day as needed (for acid reflux). 07/02/2024 Active fluticasone propionate 0.05 mg/actuat metered dose nasal spray (20 sources) Corticosteroid Start: 12-04-2018 take 2 spray(s) by mouth once daily fluticasone (FLONASE) 50 mcg/actuation nasal spray Indications: Cough Use 2 Sprays in each nostril once daily. Rinse mouth after use. 1 Bottle 1 12/04/2018 Active Comment on above: Use 2 Sprays in each nostril once daily. Rinse mouth after use. Ginkgo biloba extract (20 sources) Start: 07-07-2008 GINKGO BILOBA 120 MG TAB 1 tablet 2 times daily 0 0 07/07/2008 Active Comment on above: 1 tablet 2 times daily GLUCOSAMINE/FARZANA DROITIN SULF A (GLUCOSAMINE-CHO NDROITIN ORAL) (20 sources) take 2 tablets by mouth once daily GLUCOSAMINE/CHONDROITIN SULF A (GLUCOSAMINE-CHONDROITIN ORAL) Take 2 tablets by mouth once daily. Active take 2 tablets by [facility] once daily GLUCOSAMINE/CHONDROITIN SULF A (GLUCOSAMINE-CHONDROITIN ORAL) Take 2 tablets by mouth once daily. 0 Active Comment on above: Take 2 tablets by [facility] once daily. lisinopril 5 mg oral tablet (20 sources) Angiotensin Converting Enzyme Inhibitor Start: 08-12-2024 End: 01-21-2026 take 1 tablet by mouth once daily lisinopril (ZESTRIL) 5 mg tablet Take 1 tablet by mouth once daily. 90 tablet 3 01/21/2025 01/21/2026 Active Start: 10-08-2014 End: 07-23-2024 take 1 tablet by mouth once daily lisinopril (ZESTRIL) 5 mg tablet Indications: Essential hypertension Take 1 tablet by mouth once daily. 90 tablet 3 01/03/2024 07/23/2024 Discontinued Comment on above: Take 1 tablet by [facility] once daily. lutein 25 mg / zeaxanthin 5 mg oral capsule (20 sources) Start: 06-13-2021 take 1 capsule by mouth twice daily lutein-zeaxanthin 25-5 mg cap Take 1 capsule by mouth twice daily. 06/13/2021 Active Comment on above: Take 1 capsule by [facility] twice daily. qdkpkfgl-lhf-IL-lycop en-lutein (CENTRUM SILVER MEN) 300-600-300 mcg tab (20 sources) Start: 11-04-2017 take 300-600 tablets by mouth once daily zftqjowq-goz-CT-l ycopen-lutein (CENTRUM SILVER MEN) 300-600-300 mcg tab Take 1 tablet by mouth once daily. 11/04/2017 Active Start: 11-04-2017 take 300-600 tablets by mouth once daily iebheaok-zns-DC-lycopen-lutein (CENTRUM SILVER MEN) 300-600-300 mcg tab Take 1 tablet by mouth once daily. 0 11/04/2017 Active Comment on above: Take 1 tablet by [facility] once daily. Vina-3 Fatty Acids-Vitamin E 1,000 mg cap (20 sources) take 2 capsules by mouth once daily Vina-3 Fatty Acids-Vitamin E 1,000 mg cap Take 2 capsules by mouth once daily. Active take 2 capsules by mouth once da vicente Vina-3 Fatty Acids-Vitamin E 1,000 mg cap Take 2 capsules by mouth once daily. 0 Active Comment on above: Take 2 capsules by [facility] once daily. ondansetron 4 mg disintegrating oral tablet (2 sources) Serotonin-3 Receptor Antagonist Start: take 4 mg by mouth every eight hours Ondansetron Active 4 MG PO Q8H May 26, 2022 12:00am plant stanol lexus 450 mg oral tablet (3 sources) End: take 2 tablets by mouth once daily Plant Stanol Lexus (CHOLEST OFF) 450 mg tab Take 2 tablets by mouth once daily. 0 06/14/2022 Discontinued Comment on above: Take 2 tablets by [facility] once daily. polyethylene glycol 3350 178841 mg / potassium chloride 2980 mg / sodium bicarbonate 6720 mg / sodium chloride 5840 mg / sodium sulfate 04946 mg powder for oral solution (1 source) Osmotic Laxative Start: End: 02-20-2 023 peg 3350-electrolytes (COLYTE) 240-22.72-6.72 -5.84 gram solution Indications: Personal history of colonic polyps , Special screening for malignant neoplasms, colon Take 4,000 mL by mouth one time only for 1 dose. 4000 mL 0 12/17/2022 12/17/2022 Active Comment on above: Take 4,000 mL by jean th one time only for 1 dose. prasterone 50 mg oral tablet (20 sources) Start: 018 take 1 tablet by mouth twice daily prasterone, dhea, (DHEA) 50 mg tab Take 50 mg by mouth twice daily. 11/04/2017 Active Comment on above: Take 50 mg by mouth twice daily. SELENIUM 200 MCG TAB (20 sources) Start: SELENIUM 200 MCG TAB take one tablet daily 0 0 07/07/2008 Active Comment on above: take one tablet ariel y sildenafil 100 mg oral tablet (16 sources) Phosphodiesterase 5 Inhibitor Start: take 1 tablet by mouth once daily as needed sildenafil (VIAGRA) 100 mg tablet Indications: ED (erectile dysfunction) of organic origin Take 1 tablet by mouth once daily as needed. Take 30-60 minutes before sexual activity. 9 tablet 5 12/19/2023 Active Comment on above: Take 1 tablet by jean th once daily as needed. Take 30-60 minutes before sexual activity. tadalafil 5 mg oral tablet (20 sources) Phosphodiesterase 5 Inhibitor Start: End: take 1 tablet by mouth once daily Tadalafil (CIALIS) 5 mg tablet Indications: BPH with obstruction/lower urinary tract symptoms Take 1 tablet by mouth once daily. 90 tablet 3 02/15/2025 Active Comment on above: Take 1 tablet by jean th once daily. tropicamide 10 mg/ml ophthalmic solution (3 sources) Anticholinergic Start: End: tropicamide 1 % 1 drop (MYDRIACYL) Start: 06-23-2025 End: 06-23-2025 1 drop, BOTH EYES, DIRECT ED, Starting on Sat06/23/25 at 0900, Until Sat06/23/25 at 2058, Administer for dilation Start: 02-22-2023 End: 02-22-2023 tropicamide 1 % 1 Drop (MYDR IACYL) Completed/Discontinued Medications Medication Drug Class(es) Dates Sig (Normalized) Sig (Original) fluorometholone 1 mg/ml ophthalmic suspension (5 sources) Corticosteroid Start: 12-31-2022 End: 04-16-2023 fluorometholone (FML LIQUID FILM) 0.1 % ophthalmic suspension Use 1 Drop in both eyes three times daily. 5 mL 3 12/31/2022 04/16/2023 Discontinued (Course of therapy completed) Comment on above: Use 1 Drop in both e yes three times daily. Vina-3 Fatty Acids-Vitamin E (FISH OIL) 1,000 mg cap (7 sources) take 2 capsules by mouth once daily Vina-3 Fatty Acids-Vitamin E (FISH OIL) 1,000 mg cap Take 2 capsules by mouth once daily. 0 Active Comment on above: Take 2 capsules by m outh once daily. phenylephrine hydrochloride 25 mg/ml ophthalmic solution (1 source) alpha-1 Adrenergic Agonist Start: 02-22-2023 End: 02-22-2023 PHENYLephrine 2.5 % 1 Drop (AK-DILATE, PETR-SYNEPHRINE) prednisoLONE acetate 10 mg/ml ophthalmic suspension (3 sources) Corticosteroid Start: 04-25-2023 End: 06-18-2023 prednisoLONE acetate (PRED FORTE) 1 % ophthalmic suspension Use 1 Drop in the right eye four times daily. 5 mL 2 04/25/2023 06/18/2023 Discontinued Start: 04-25-2023 prednisoLONE a cetate (PRED FORTE) 1 % ophthalmic suspension Use 1 Drop in the right eye four times daily. 5 mL 2 04/25/2023 Active Comment on above: Use 1 Drop in the ri ght eye four times daily. proparacaine hydrochloride 5 mg/ml ophthalmic solution (1 source) Local Anesthetic Start: 02-22-2023 End: 02-22-2023 proparacaine 0.5 % 1 Drop (ALCAINE) Problems Active Problems Problem Classification Problem Date Documented Date Episodic/Chronic Blindness and vision defects (2 sources) Myopia of right eye; Translations: [Myopia, right eye] 06-23-2025 Episodic Blindness and vision defects (2 sources) Hyperopia of left eye; Translations: [Hypermetropia, left eye] 06-23-2025 Episodic Calculus of urinary tract (2 sources) Kidney stone; Translations: [Calculus of kidney] 06-03-2022 Episodic Cataract (8 sources) Senile combined form cataract of right eye; Translations: [Combined forms of age-related cataract, right eye] Onset: 06-23-2025 Chronic Disorders of lipid metabolism (20 sources) Mixed hyperlipidemia; Translations: [Mixed hyperlipidemia] Onset: 07-07-2008 07-08-2008 Chronic Essential hypertension (20 sources) Essential hypertension; Translations: [Essential (primary) hypertension] Onset: 04-26-2017 Chronic Heart valve disorders (20 sources) Mitral valve regurgitation; Translations: [Nonrheumatic mitral (valve) insufficiency] Onset: 07-08-2008 Resolved: 04-26-2017 01-21-2013 Chronic Hyperplasia of prostate (20 sources) Benign prostatic hypertrophy with outflow obstruction; Translations: [Benign prostatic hyperplasia with lower urinary tract symptoms] Onset: 01-21-2013 01-21-2013 Chronic Immunizations and screening for infectious disease (5 sources) Patient encounter status; Translations: [Encounter for immunization] Onset: 08-24-2025 07-23-2024 Episodic Inflammation; infection of eye (except that caused by tuberculosis or sexually transmitteddisease) (1 source) Conjunctivitis of left eye caused by bacteria; Translations: [Unspecified conjunctivitis] 04-23-2024 Episodic Nausea and vomiting (2 sources) Nausea and vomiting; Translations: [Nausea with vomiting, unspecified] 06-03-2022 Episodic Other aftercare (1 source) Surgical follow-up; Translations: [Encounter for follow-up examination after completed treatment for conditions other than malignant neoplasm] Episodic Other ear and sense organ disorders (1 source) Impacted cerumen; Translations: [Impacted cerumen, bilateral] 07-19-2023 Episodic Other eye disorders (1 source) Dermatochalasis of right upper eyelid; Translations: [Dermatochalasis] 06-23-2025 Episodic Other lower respiratory disease (3 sources) Cough; Translations: [Cough, unspecified type] Episodic Other male genital disorders (2 sources) Secondary erectile dysfunction; Translations: [Male erectile dysfunction, unspecified] 12-19-2023 Chronic Other male genital disorders (1 source) Male erectile dysfunction, unspecified; Translations: [ED (erectile dysfunction) of organic origin] Onset: 08-24-2025 Chronic Other non-traumatic joint disorders (1 source) Pain in right knee; Translations: [Pain in joint, lower leg] 01-21-2025 Episodic Residual codes; unclassified (20 sources) Obstructive sleep apnea syndrome; Translations: [Obstructive sleep apnea (adult) (pediatric)] Onset: 07-13-2022 Chronic Residual codes; unclassified (1 source) Obstructive sleep apnea (adult) (pediatric); Translations: [JOSE (obstructive sleep apnea)] Onset: 07-13-2022 Chronic Screening and history of mental health and substance abuse codes (2 sources) Encounter for screening for depression; Translations: [Encounter for screening examination for other mental health and behavioral disorders] Onset: 08-24-2025 Episodic Past or Other Problems Problem Classification Problem Date Documented Date Episodic/Chronic Appendicitis and other appendiceal conditions (13 sources) Appendicitis; Translations: [Unspecified appendicitis] Onset: 03-01-2011 Resolved: 04-26-2017 10-23-2021 Episodic Conditions associated with dizziness or vertigo (2 sources) Peripheral vertigo; Translations: [Other peripheral vertigo, unspecified ear] Onset: 07-24-2023 07-19-2023 Episodic E Codes: Natural/environment (1 source) Bitten or stung by nonvenomous insect and other nonvenomous arthropods, initial encounter; Translations: [Tick bite, unspecified site, initial encounter] Onset: 04-13-2025 Episodic Other and unspecified benign neoplasm (20 sources) History of polyp of colon; Translations: [Personal history of colonic polyps] Onset: 11-07-2009 03-01-2011 Episodic Other and unspecified benign neoplasm (13 sources) Benign neoplasm of colon; Translations: [Benign neoplasm of colon, unspecified] Onset: 12-29-2009 Resolved: 04-26-2017 04-26-2017 Episodic Other diseases of kidney and ureters (1 source) Other obstructive and reflux uropathy; Translations: [BPH with obstruction/lower urinary tract symptoms] Onset: 01-21-2013 Episodic Other non-traumatic joint disorders (1 source) Pain in unspecified joint; Translations: [Arthralgia, unspecified joint] Onset: 04-13-2025 Episodic Other screening for suspected conditions (not mental disorders or infectious disease) (8 sources) Raised prostate specific antigen; Translations: [Elevated prostate specific antigen [PSA]] Onset: 01-14-2025 Episodic Residual codes; unclassified (20 sources) Family history of malignant neoplasm of gastrointestinal tract; Translations: [Family history of malignant neoplasm of digestive organs] Onset: 07-07-2008 07-08-2008 Episodic Residual codes; unclassified (20 sources) Family history of prostate cancer; Translations: [Family history of malignant neoplasm of prostate] Onset: 01-21-2013 01-21-2013 Episodic Residual codes; unclassified (13 sources) Family history of ischemic heart disease and other diseases of the circulatory system; Translations: [Family history of other cardiovascular diseases] Onset: 07-07-2008 Resolved: 04-26-2017 04-26-2017 Episodic Results Test Name Value Interpretation Reference Range Facility OV 08-24-2025 CNOV Office Visit ([facility] ) DOMO BOLDEN ([id number]) 1940 M Date Time Provider Department 08/24/25 10:40 AM [facility] During your visit today, we recorded the following information about you: Pulse Respiration Blood pressure Weight 70/minute 14/minute 118/74 87.8 kg Height 1.727 m Eze Rodriguez MD 08/24/2025 11:25 AM Signed Domo Bolden is a 84 year old male here for a Medicare wellness visit. Medicare Health Risk Assessment General Health Excellent Exercise: Minutes/Day 30 min Exercise: Days/Week 4 days Alcohol: Daily Use 2-3 times a week Alcohol: Drinks/Day 1 or 2 Alcohol: 6 or more drinks Never Feel off balance Yes (thinks it is ear related) Concerns: Teeth/Dentures No Concerns: Sexual function Yes (taking Viagra as needed) Troubled by feelings None of the above Frequency: Eating healthy diet Nearly every day ADLs requiring help None of the above Safety precautions in home/vehicle Yes Smoke, vape, chews tobacco No Difficulty hearing No Difficulty seeing No Current Providers Specialists: I have reviewed specialist-related care of the patient in the medical record. Current care team: Patient Care Team: Eze Rodriguez MD as PCP - General (Family Medicine) Terry Champion APRN.DERRICK as Administrative Supervisor (Family Medicine) Outside specialists seen: Eye-Dr. Segura, Dentist Medical/Family history review Reviewed and updated problem list, medical/surgical/family/soc ial history, medications, and allergies. Opioid use review Opioid Medications (last 90 days) No data to display Anxiety/Depression screening PHQ-2 Score: 0 (Lower risk for depression) Recommendation: no further intervention at this time Cognitive screening Mini Cog Score: 5 Cognitive screening reviewed and No further action needed (score 3-5). Functional Observation Was the patient's Timed Up AND Go test unsteady or >= 12 seconds? No Advance Care Planning Patient did not wish or was not able to name a surrogate decision maker or provide an advance care plan Measurements BP 118/74 Pulse 70 Resp 14 Ht 172.7 cm (5' 8) Wt 87.8 kg (193 lb 9 oz) BMI 29.43 kg/m? Vision Screening: Follows with optometry/ophthalmology Assessment/Plan Medicare annual wellness visit, initial (Z00.00) - Counseled on healthy diet and regular exercise - Fall avoidance information provided - Personalized prevention plan provided - Discussed need for and benefit of weight loss. BMI 29.43 kg/(m2) Chief Complaint Patient presents with: 6 Month Exam Medicare Wellness Exam Immunizations: Flu vaccination Recording using ambient [employer] software for draft documentation of the visit was discussed with the patient/authorized charter representative; all questions welcomed and answered. Patient/authorized charter representative agreed to proceed HPI Domo Bolden is a 84 year old male who presents here today for Medicare Annual Visit and 6 month follow up. No bowel, Gi, or urinary issues. Uses Cialis 5 mg daily. Uses Viagra prn ED. GERD: Sx stable on Pepcid 20 mg 1 pill BID prn. Pt not sure if he is taking this. HTN: Taking Lisinopril 5 mg daily. No chest pains, dizziness, or Shortness of Breath. Does check BP with readings running 130/75. Taking Aleve 220 mg once daily for normal aches and pains. He is on CPAP therapy for JOSE and reports significant improvement in daytime sleepiness since starting the treatment. He uses the CPAP for at least 4 hours per night to meet insurance requirements, and occasionally up to 5.5 hours. He notes that prior to CPAP use, he experienced episodes of falling asleep while driving, which have since resolved. 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 He denies any issues with memory. He does not have a living will or healthcare proxy. Recent lab work from last month shows a total cholesterol level of 183 mg/dL, LDL cholesterol under 130 mg/dL, and a stable PSA level. Calcium levels were slightly elevated, but not enough to be concerning. Blood glucose and renal function tests were normal. Past medical history, appointments, medications, allergies reviewed. 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 Normal [facility] Comprehensive metabolic 2000 panelon 07-22-2025 Albumin [Mass/Vol] 4.3 g/dL Normal 3.9-4.9 [facility] Comment on above: Order Comment: Speci men Type: BLOOD SPECIMEN Ordering Facility: [facility] Address: [address] [place] [address] Performed By: #### 2 4323-8, 95564-0 #### [facility] CLIA [id number] [address] [place] [address] [place] ALP [Catalytic activity/Vol] 71 U/L Normal 38-113 [facility] Comment on above: Order Comment: Speci men Type: BLOOD SPECIMEN Ordering Facility: [facility] Address: [address] [place] [address] Performed By: #### 2 4323-8, 42842-8 #### [facility] CLIA [id number] [address] [place], [place] [id number] [place] ALT [Catalytic activity/Vol] 20 U/L Normal 10-54 [facility] Comment on above: Order Comment: Speci men Type: BLOOD SPECIMEN Ordering Facility: [facility] Address: [address] [place] [address] Performed By: #### 2 4323-8, 66552-5 #### [facility] CLIA [id number] [address] [place] [address] [place] Anion gap [Moles/Vol] 11 mmol/L Normal 8-15 [facility] Comment on above: Order Comment: Speci men Type: BLOOD SPECIMEN Ordering Facility: [facility] Address: [address] [place] [address] Performed By: #### 2 4323-8, 62340-3 #### [facility] CLIA [id number] [address] [place] [address] [place] AST [Catalytic activity/Vol] 24 U/L Normal 14-40 [facility] Comment on above: Order Comment: Speci men Type: BLOOD SPECIMEN Ordering Facility: [facility] Address: [address] [place] [address] Performed By: #### 2 4323-8, 34103-2 #### [facility] CLIA [id number] [address] [place] [address] [place] Bilirubin [Mass/Vol] 1.1 mg/dL Normal 0.2-1.3 [facility] Comment on above: Order Comment: Speci men Type: BLOOD SPECIMEN Ordering Facility: [facility] Address: [address] [place] [address] Performed By: #### 2 4323-8, 83127-6 #### [facility] CLIA [id number] [address] [place], [place] [id number] [place] Calcium [Mass/Vol] 10.7 mg/dL High 8.5-10.2 [facility] Comment on above: Order Comment: Speci men Type: BLOOD SPECIMEN Ordering Facility: [facility] Address: [address] [place], [place] [id number] Performed By: #### 2 4323-8, 72363-9 #### [facility] CLIA [id number] [address] [place], [place] [id number] [place] Chloride [Moles/Vol] 105 mmol/L Normal 98-107 [facility] Comment on above: Order Comment: Speci men Type: BLOOD SPECIMEN Ordering Facility: [facility] Address: [address] [place], [place] [address] Performed By: #### 2 4323-8, 31119-5 #### [facility] CLIA [id number] [address] [place] [address] [place] CO2 [Moles/Vol] 24 mmol/L Normal 22-30 [facility] Comment on above: Order Comment: Speci men Type: BLOOD SPECIMEN Ordering Facility: [facility] Address: [address] [place], [place] [address] Performed By: #### 2 4323-8, 30963-1 #### [facility] CLIA [id number] [address] [place], [place] [address] [place] Creatinine [Mass/Vol] 1.06 mg/dL Normal 0.73-1.22 [facility] Comment on above: Order Comment: Speci men Type: BLOOD SPECIMEN Ordering Facility: [facility] Address: [address] [place], [place] [address] Performed By: #### 2 4323-8, 22335-2 #### [facility] CLIA [id number] [address] [place], [place] [address] [place] eGFRcr SerPlBld CKD-EPI 2020 70 mL/min/1.73m??? Normal >=60 [facility] Comment on above: Order Comment: Speci men Type: BLOOD SPECIMEN Ordering Facility: [facility] Address: [address] [place] [address] Result Comment: Magalie mated Glomerular Filtration Rate (eGFR) is calculated using the 2020 CKD-EPI creatinine equation. This equation utilizes serum creatinine, sex, and age as parameters. The creatinine assay has traceable calibration to isotope dilution-mass spectrometry. Refer to KDIGO guidelines for clinical interpretation. In patients with unstable renal function, e.g. those with acute kidney injury, the eGFR may not accurately reflect actual GFR. Performed By: #### 2 4323-8, 33239-3 #### [facility] CLIA [id number] [address] [place] [address] [place] Glucose [Mass/Vol] 91 mg/dL Normal 74-99 [facility] Comment on above: Order Comment: Neisha saenz Type: BLOOD SPECIMEN Ordering Facility: [facility] Address: [address] [place] [address] Result Comment: The [place] Diabetes Association (ADA) provides guidance for cutoff values for fasting glucose and random glucose. The ADA defines fasting as no caloric intake for at least 8 hours. Fasting plasma glucose results between 100 to 125 mg/dL indicate increased risk for diabetes (prediabetes). Fasting plasma glucose results greater than or equal to 126 mg/dL meet the criteria for diagnosis of diabetes. In the absence of unequivocal hyperglycemia, results should be confirmed by repeat testing. In a patient with classic symptoms of hyperglycemia or hyperglycemic crisis, random plasma glucose results greater than or equal to 200 mg/dL meet the criteria for diagnosis of diabetes. Reference: Standards of Medical Care in Diabetes 2016, [place] Diabetes Association. Diabetes Care. 2016.39(Suppl 1). Performed By: #### 2 4323-8, 23115-5 #### [facility] CLIA [id number] [address] [place] [address] [place] Potassium [Moles/Vol] 4.9 mmol/L Normal 3.7-5.1 [facility] Comment on above: Order Comment: Neisha saenz Type: BLOOD SPECIMEN Ordering Facility: [facility] Address: [address] [place] [address] Performed By: #### 2 4323-8, 95500-0 #### [facility] CLIA [id number] [address] [place], [place] [address] [place] Protein [Mass/Vol] 6.7 g/dL Normal 6.3-8.0 [facility] Comment on above: Order Comment: Speci men Type: BLOOD SPECIMEN Ordering Facility: [facility] Address: [address] [place] [address] Performed By: #### 2 4323-8, 23878-5 #### [facility] CLIA [id number] [address] [place] [address] [place] Sodium [Moles/Vol] 140 mmol/L Normal 136-144 [facility] Comment on above: Order Comment: Speci men Type: BLOOD SPECIMEN Ordering Facility: [facility] Address: [address] [place] [address] Performed By: #### 2 4323-8, 77023-3 #### [facility] CLIA [id number] [address] [place] [address] [place] Urea nitrogen [Mass/Vol] 20 mg/dL Normal 9-24 [facility] Comment on above: Order Comment: Speci men Type: BLOOD SPECIMEN Ordering Facility: [facility] Address: [address] [place] [address] Performed By: #### 2 4323-8, 54636-5 #### [facility] CLIA [id number] [address] [place] [address] [place] Lipid 1996 panelon 5 Cholesterol [Mass/Vol] 183 mg/dL Normal <200 [facility] Comment on above: Order Comment: Speci men Type: BLOOD SPECIMEN Ordering Facility: [facility] Address: [address] [place] [address] Result Comment: <200 mg/dL, Desirable 200-239 mg/dL, Borderline high >239 mg/dL, High Performed By: #### 2 4323-8, 91405-4 #### [facility] CLIA [id number] [address] [place] [address] OF [facility] Cholesterol in HDL [Mass/Vol] 47 mg/dL Normal >39 [facility] Comment on above: Order Comment: Neisha letty Type: BLOOD SPECIMEN Ordering Facility: [facility] Address: [address] [place] [address] Result Comment: 40-5 9 mg/dL, Acceptable >59 mg/dL, High: Negative risk factor for coronary heart disease <40 mg/dL, Low: Positive risk factor for coronary heart disease Performed By: #### 2 4323-8, 69880-0 #### [facility] CLIA [id number] [address] [place] [address] [place] Cholesterol in LDL [Mass/Vol] 126 mg/dL High <100 [facility] Comment on above: Order Comment: Neisha letty Type: BLOOD SPECIMEN Ordering Facility: [facility] Address: [address] [place] [address] Result Comment: <100 mg/dL, Optimal 100-129 mg/dL, Near optimal/above optimal 130-159 mg/dL, Borderline high 160-189 mg/dL, High >189 mg/dL, Very high Secondary prevention optimal LDL Cholesterol levels are recommended to be <70 mg/dL LDL cholesterol is calculated using the Gaytan-NIH equation. Performed By: #### 2 4323-8, #### [facility] CLIA [id number] [address] [place] [address] [place] Cholesterol in LDL/Cholesterol in HDL [Mass ratio] 2.68 {ratio} High <2.54 [facility] Comment on above: Order Comment: Leydahemanth saenz Type: BLOOD SPECIMEN Ordering Facility: [facility] Address: [address] [place] [address] Result Comment: Mario mathis: 1. National Cholesterol Education Program ATP III Guideline At-A-Glance Quick Desk Reference: National Heart, Lung, and Blood [place]. National Institutes of Health. 2001: NIH Publication No. 01-3305. 2. An International Atherosclerosis Society position paper: global recommendations for the management of dyslipidemia: executive summary, Atherosclerosis. 2014: 232(2):410-413. Performed By: #### 2 4323-8, 18337-7 #### [facility] CLIA [id number] [address] [place] [address] [place] Cholesterol in VLDL [Mass/Vol] 9 mg/dL Normal <30 [facility] Comment on above: Order Comment: Speci men Type: BLOOD SPECIMEN Ordering Facility: [facility] Address: [address] [place] [address] Performed By: #### 2 4323-8, 14585-7 #### [facility] CLIA [id number] [address] [place] [address] [place] Cholesterol non HDL [Mass/Vol] 136 mg/dL High <130 [facility] Comment on above: Order Comment: Speci men Type: BLOOD SPECIMEN Ordering Facility: [facility] Address: [address] [place] [address] Result Comment: <130 mg/dL, Optimal 130-159 mg/dL, Near optimal/above optimal 160-189 mg/dL, Borderline high 190-219 mg/dL, High >219 mg/dL, Very high Secondary prevention optimal non HDL Cholesterol levels are recommended to be <100 mg/dL Performed By: #### 2 4323-8, 10322-8 #### [facility] CLIA [id number] [address] [place] [address] [place] Cholesterol.total/C holesterol in HDL [Mass ratio] 3.89 {ratio} Normal <5.10 [facility] Comment on above: Order Comment: Speci men Type: BLOOD SPECIMEN Ordering Facility: [facility] Address: [address] [place] [address] Performed By: #### 2 4323-8, 58790-8 #### [facility] CLIA [id number] [address] [place] [id number] [place] FASTING TIME 14 hrs Normal [facility] Comment on above: Order Comment: Speci men Type: BLOOD SPECIMEN Ordering Facility: [facility] Address: [address] [place] [address] Performed By: #### 2 4323-8, 29689-1 #### [facility] CLIA [id number] [address] [place] [address] [place] Triglyceride [Mass/Vol] 50 mg/dL Normal <150 [facility] Comment on above: Order Comment: Speci men Type: BLOOD SPECIMEN Ordering Facility: [facility] Address: [address] [place] [address] Result Comment: <150 mg/dL, Normal 150-199 mg/dL, Borderline high 200-499 mg/dL, High >499 mg/dL, Very high Performed By: #### 2 4323-8, 49643-1 #### [facility] CLIA [id number] [address] [place] [address] [place] [facility] Prostate specific Ag [Mass/Vol] 5.90 ng/mL High <2.60 [facility] Comment on above: Order Comment: Speci men Type: BLOOD SPECIMEN Ordering Facility: [facility] Address: [address] [place] [address] Result Comment: Jaceka odette PSA test methodology used is the Electrochemiluminescence Immunoassay by [employer]. Total PSA values by differing methodologies cannot be interchanged. For an individual patient, the significance of a PSA level should be interpreted in a broad clinical context, including age, race, family history, digital rectal exam, prostate size, results of prior testing (prostate biopsy, free PSA, PCA3), and use of 5-alpha reductase inhibitors. Considering the high incidence of asymptomatic cancer in the general population that may not pose an ultimate risk to a patient, the decision to recommend urological evaluation or prostate biopsy should be individualized after consideration of all these factors. REFERENCE: Nuno Baca M.D., M.P.H., Eliot Villeda M.D., Ph.D., Artur Sosa M.D., Elke Joy, M.P.H., Stefanie Stratton Sc.D. Effect of Verification Bias on Screening for Prostate Cancer by Measurement of Prostatic Specific Antigen. N Engl J Med 2003,349:335-42. Performed By: #### 2 857-1 #### [facility] CLIA [id number] [address] [place] [address] [place] B. burgdorferi IgG and IgM p tarik (S)on 04-13-2025 B. burgdorferi IgG+IgM Qn (S) Negative Normal Negative [facility] Comment on above: Order Comment: Speci men Type: BLOOD SPECIMEN Ordering Facility: [facility] Address: [address] [place] [address] Result Comment: Rece nt infection with B. burgdorferi sensu lato cannot be excluded if the specimen collected within four weeks after the onset of signs and symptoms or within six weeks after a known tick exposure. Clinical and epidemiological correlation is required. Performed By: #### 3 4942-3 #### [facility] CLIA [id number] [address] [place] [address] [place] [facility] ([id number]) 1940 M Date Time Provider Department 02/15/25 EZE RODRIGUEZ INTMWS During your visit today, we recorded the following information about you: Annie Day LPN 02/15/2025 11:02 AM Signed Electronic [employer] rec'd and completed for tadalafil. This was approved. Prior authorization approved Payer: Trudy Note from payer: [employer] Case: [id number], Status: Approved, Coverage Starts on: 11/17/2024 12:00:00 AM, Coverage Ends on: 02/15/2026 12:00:00 AM. Approval Details Authorization number: [id number] Authorized from November 17, 2024 to February 15, 2026 Electronic appeal: Not supported View History Notes Time User Attachment Attachment received from payer. 02/15/2025 10:53 AM Cchs, Rx Priorauth In Document Medication Being Authorized Tadalafil (CIALIS) 5 mg tablet Take 1 tablet by mouth once daily. Dispense: 90 tablet Refills: 3 Start: 02/15/2025 Class: Normal Diagnoses: BPH with obstruction/lower urinary tract symptoms This order has been released to its destination. To be filled at: [place] [address] - [address] [phone] Allergies As of Date: 02/15/2025 Noted Allergy Reaction YELLOW FOOD COLOR (BULK) 12/19/2023 4 - Hives Date Reviewed: 01/21/2025 Reviewed by: Briseyda Diaz MA - Fully Assessed Reason for Visit: Insurance Authorization [[id number]] Prescriptions as of 02/15/2025 - Tadalafil (CIALIS) 5 mg tablet Take 1 tablet by mouth once daily. - lisinopril (ZESTRIL) 5 mg tablet Take 1 tablet by mouth once daily. - sildenafil (VIAGRA) 100 mg tablet Take 1 tablet by mouth once daily as needed. Take 30-60 minutes before sexual activity. - lutein-zeaxanthin 25-5 mg cap Take 1 capsule by mouth twice daily. - fluticasone (FLONASE) 50 mcg/actuation nasal spray Use 2 Sprays in each nostril once daily. Rinse mouth after use. - prasterone, dhea, (DHEA) 50 mg tab Take 50 mg by mouth twice daily. - mzojulli-jhh-LB-lycopen-lut ein (CENTRUM SILVER MEN) 300-600-300 mcg tab Take 1 tablet by mouth once daily. - Aspirin 500 mg tab Take 500 mg by mouth once daily. - Vina-3 Fatty Acids-Vitamin E 1,000 mg cap Take 2 capsules by mouth once daily. - GLUCOSAMINE/CHONDROITIN SULF A (GLUCOSAMINE-CHONDROITIN ORAL) Take 2 tablets by mouth once daily. 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] 07/08/2008 04/26/2017 Personal history of colonic polyps [Z86.0100] 11/07/2009 Benign neoplasm of colon [D12.6] 12/29/2009 04/26/2017 Appendicitis [K37] 03/01/2011 04/26/2017 Family history of prostate cancer [Z80.42] 01/21/2013 Mitral regurgitation [I34.0] 01/21/2013 BPH with obstruction/lower urinary tract sympto*01/21/2013 Essential hypertension [I10] 04/26/2017 JOSE (obstructive sleep apnea) [G47.33] 07/13/2022 Encounter Status:Closed by ANNIE DAY on 02/15/25 [facility] CNOVon 01-21-2025 CNOV Office Visit (FAMPWS ) DOMO BOLDEN ([id number]) 1940 M Date Time Provider Department 01/21/25 9:40 AM EZE RODRIGUEZ FAMPWS During your visit today, we recorded the following information about you: Pulse Respiration Blood pressure Weight 80/minute 16/minute 140/84 92.9 kg Eze Rodriguez MD 01/21/2025 10:26 AM Signed Chief Complaint Patient presents with: F/U 6 Month HPI Domo Bolden is a 84 year old male who presents here today for 6 month follow up. Denies any bowel, Gi, or urinary issues. Using Cialis daily for BPH and Viagra prn for ED. Lipid: Trying to control with lifestyle and taking Fish Oil. Tries to watch diet, no particular diet. Stopped buying tunisian fries and eliminate potato chips. 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 Domo is a 84-year-old male, with a history of HTN and BPH, presenting for a 6-month follow-up and evaluation of bilateral knee pain. Domo reports a 10-day onset of bilateral knee pain, primarily localized around the patellae, exacerbated by ascending and descending stairs. He suspects a possible minor twist while exiting his shop but denies any significant trauma or injury. The pain has improved over the past 4-5 days. He has been using a compression knee brace, which he reports has provided some relief. He denies using ice or heat for the pain. He is currently taking lisinopril 5 mg for HTN, with home blood pressure readings typically around 130/80 mmHg. He also takes Cialis for BPH and requests a refill for lisinopril. Additionally, he has been taking 2000 mg of vitamin C daily for approximately 55 years. 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 He expresses a desire for a full-time job but has not pursued employment. 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 - Reji having Adv Dir/Living Will. Prefers to wait on Covid vaccine at this time, received in 2023. Past medical history, appointments, medications, allergies reviewed. 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 Nick Bustamante, [facility] REMV CATARACT EXTRACAP,INSERT LENS Right 07/2023 Done at [facility] TONSILLECTOMY AND ADENOIDECTOMY TONSILLECTOMY HX Family History FAMILY HISTORY Adopted: Yes Problem Relation Age of Onset Colon Cancer Brother stomach and colon Colon Cancer Other at least one half-brother Coronary Artery Disease Father known, first at about age 67 Colon Cancer Other half brother Patient Allergies ALLERGIES Allergen Reactions Yellow Food Color (* Hives Current Medications Current Outpatient Medications on File Prior to Visit Medication Sig lisinopril (ZESTRIL) 5 mg tablet Take 1 tablet by mouth once daily. Tadalafil (CIALIS) 5 mg tablet Take 1 tablet by mouth once daily. sildenafil (VIAGRA) 100 mg tablet Take 1 tablet by mouth once daily as needed. Take 30-60 minutes before sexual activity. lutein-zeaxanthin 25-5 mg cap Take 1 capsule by mouth twice daily. fluticasone (FLONASE) 50 mcg/actuation nasal spray Use 2 Sprays in each nostril once daily. Rinse mouth after use. prasterone, dhea, (DHEA) 50 mg tab Take 50 mg by mouth twice daily. vstapwzc-kdk-NV-lycopen-lut ein (CENTRUM SILVER MEN) 300-600-300 mcg tab Take 1 tablet by mouth once daily. Aspirin 500 mg tab Take 500 mg by mouth once daily. Vina-3 Fatty Acids-Vitamin E 1,000 mg cap Take 2 capsules by mouth once daily. GLUCOSAMINE/CHONDROITIN SULF A (GLUCOSAMINE-CHONDROITIN ORAL) Take 2 tablets by mouth once daily. SELENIUM 200 MCG TAB take one tablet daily GINKGO BILOBA 120 MG TAB 1 tablet 2 times daily VITAMIN C 1000MG TABLET Take one(1) tablet 2 x a day No current facility-administered medications on file prior to visit. Social History Social History Tobacco Use Smoking status: Never Smokeless tobacco: Never Vaping Use Vaping status: Never Used Substance Use Topics Alcohol use: Yes Comment: moderate Drug use: No EXAM: BP 140/84 (BP Site: Left Arm, BP Position: Sitting, BP Cuff Size: Regular Adult) Pulse 80 Resp 16 (more content not included)... Normal [facility] CBC W Auto Differential pane l (Bld)on 01-14-2025 Basophils (Bld) [#/Vol] 0.04 10*3/uL Normal <0.11 [facility] Comment on above: Order Comment: Speci men Type: BLOOD SPECIMEN Ordering Facility: [facility] Address: [address] [place] [address] Performed By: #### 5 7021-8 #### [facility] CLIA [id number] [address] [place] [address] [place] Basophils/100 WBC (Bld) 0.8 % Normal [facility] Comment on above: Order Comment: Speci men Type: BLOOD SPECIMEN Ordering Facility: [facility] Address: [address] [place] [address] Performed By: #### 5 7021-8 #### [facility] CLIA [id number] [address] [place] [address] [place] Differential cell count method Nom (Bld) Auto Normal [facility] Comment on above: Order Comment: Speci men Type: BLOOD SPECIMEN Ordering Facility: [facility] Address: [address] [place] [address] Performed By: #### 5 7021-8 #### [facility] CLIA [id number] [address] [place] [address] [place] Eosinophils (Bld) [#/Vol] 0.35 10*3/uL Normal <0.46 [facility] Comment on above: Order Comment: Speci men Type: BLOOD SPECIMEN Ordering Facility: [facility] Address: [address] [place] [address] Performed By: #### 5 7021-8 #### [facility] CLIA [id number] [address] [place] [address] [place] Eosinophils/100 WBC (Bld) 6.7 % Normal [facility] Comment on above: Order Comment: Speci men Type: BLOOD SPECIMEN Ordering Facility: [facility] Address: [address] [place] [address] Performed By: #### 5 7021-8 #### [facility] CLIA [id number] [address] [place] [address] [place] Erythrocyte distribution width (RBC) [Ratio] 13.1 % Normal 11.5-15.0 [facility] Comment on above: Order Comment: Speci men Type: BLOOD SPECIMEN Ordering Facility: [facility] Address: [address] [place] [address] Performed By: #### 5 7021-8 #### [facility] CLIA [id number] [address] [place] [address] [place] Hematocrit (Bld) [Volume fraction] 46.5 % Normal 39.0-51.0 [facility] Comment on above: Order Comment: Speci men Type: BLOOD SPECIMEN Ordering Facility: [facility] Address: [address] [place] [address] Performed By: #### 5 7021-8 #### [facility] CLIA [id number] [address] [place] [address] [place] Hemoglobin (Bld) [Mass/Vol] 15.3 g/dL Normal 13.0-17.0 [facility] Comment on above: Order Comment: Speci men Type: BLOOD SPECIMEN Ordering Facility: [facility] Address: [address] [place] [address] Performed By: #### 5 7021-8 #### [facility] CLIA [id number] [address] [place] [address] [place] Immature granulocytes (Bld) [#/Vol] 10*3/uL Normal <0.10 [facility] Comment on above: Order Comment: Speci men Type: BLOOD SPECIMEN Ordering Facility: [facility] Address: [address] [place] [address] Performed By: #### 5 7021-8 #### [facility] CLIA [id number] [address] [place] [address] [place] Immature granulocytes/100 WBC (Bld) 0.2 % Normal [facility] Comment on above: Order Comment: Speci men Type: BLOOD SPECIMEN Ordering Facility: [facility] Address: [address] [place] [address] Performed By: #### 5 7021-8 #### [facility] CLIA [id number] [address] [place] [address] [place] Lymphocytes (Bld) [#/Vol] 1.84 10*3/uL Normal 1.00-4.00 [facility] Comment on above: Order Comment: Speci men Type: BLOOD SPECIMEN [facility] [facility] Address: [address] [place] [address] Performed By: #### 5 7021-8 #### [facility] CLIA [id number] [address] [place] [address] [place] Lymphocytes/100 WBC (Bld) 35.0 % Normal [facility] Comment on above: Order Comment: Speci men Type: BLOOD SPECIMEN Ordering Facility: [facility] Address: [address] [place] [address] Performed By: #### 5 7021-8 #### [facility] CLIA [id number] [address] [place] [address] [place] MCH (RBC) [Entitic mass] 31.4 pg Normal 26.0-34.0 [facility] Comment on above: Order Comment: Speci men Type: BLOOD SPECIMEN Ordering Facility: [facility] Address: [address] [place] [address] Performed By: #### 5 7021-8 #### [facility] CLIA [id number] [address] [place] [address] [place] MCHC (RBC) [Mass/Vol] 32.9 g/dL Normal 30.5-36.0 [facility] Comment on above: Order Comment: Speci men Type: BLOOD SPECIMEN Ordering Facility: [facility] Address: [address] [place] [address] Performed By: #### 5 7021-8 #### [facility] CLIA [id number] [address] [place] [address] [place] MCV (RBC) [Entitic vol] 95.3 fL Normal 80.0-100.0 [facility] Comment on above: Order Comment: Speci men Type: BLOOD SPECIMEN Ordering Facility: [facility] Address: [address] [place] [address] Performed By: #### 5 7021-8 #### [facility] CLIA [id number] [address] [place] [address] [place] Monocytes (Bld) [#/Vol] 0.49 10*3/uL Normal <0.87 [facility] Comment on above: Order Comment: Speci men Type: BLOOD SPECIMEN Ordering Facility: [facility] Address: [address] [place] [address] Performed By: #### 5 7021-8 #### [facility] CLIA [id number] [address] [place] [address] [place] Monocytes/100 WBC (Bld) 9.3 % Normal [facility] Comment on above: Order Comment: Speci men Type: BLOOD SPECIMEN Ordering Facility: [facility] Address: [address] [place] [address] Performed By: #### 5 7021-8 #### [facility] CLIA [id number] [address] [place] [address] [place] Neutrophils (Bld) [#/Vol] 2.53 10*3/uL Normal 1.45-7.50 [facility] Comment on above: Order Comment: Speci men Type: BLOOD SPECIMEN Ordering Facility: [facility] Address: [address] [place] [address] Performed By: #### 5 7021-8 #### [facility] CLIA [id number] [address] [place] [address] [place] Neutrophils/100 WBC (Bld) 48.0 % Normal [facility] Comment on above: Order Comment: Speci men Type: BLOOD SPECIMEN Ordering Facility: [facility] Address: [address] [place] [address] Performed By: #### 5 7021-8 #### [facility] CLIA [id number] [address] [place] [address] [place] Nucleated RBC (Bld) [#/Vol] 10*3/uL Normal <0.01 [facility] Comment on above: Order Comment: Speci men Type: BLOOD SPECIMEN Ordering Facility: [facility] Address: [address] [place] [address] Performed By: #### 5 7021-8 #### [facility] CLIA [id number] [address] [place] [address] [place] Nucleated RBC/100 WBC (Bld) [Ratio] 0.0 /100 WBC Normal [facility] Comment on above: Order Comment: Speci men Type: BLOOD SPECIMEN Ordering Facility: [facility] Address: [address] [place] [address] Performed By: #### 5 7021-8 #### [facility] CLIA [id number] [address] [place] [address] [place] Platelet mean volume (Bld) [Entitic vol] 10.5 fL Normal 9.0-12.7 [facility] Comment on above: Order Comment: Speci men Type: BLOOD SPECIMEN Ordering Facility: [facility] Address: [address] [place] [address] Performed By: #### 5 7021-8 #### [facility] CLIA [id number] [address] [place] [address] [place] Platelets (Bld) [#/Vol] 206 10*3/uL Normal 150-400 [facility] Comment on above: Order Comment: Speci men Type: BLOOD SPECIMEN Ordering Facility: [facility] Address: [address] [place] [address] Performed By: #### 5 7021-8 #### [facility] CLIA [id number] [address] [place] [address] [place] RBC (Bld) [#/Vol] 4.88 10*6/uL Normal 4.20-6.[address] [facility] Comment on above: Order Comment: Speci men Type: BLOOD SPECIMEN Ordering Facility: [facility] Address: [address] [place] [address] Performed By: #### 5 7021-8 #### [facility] CLIA [id number] [address] [place] [address] [place] WBC (Bld) [#/Vol] 5.26 10*3/uL Normal 3.70-11.[address] [facility] Comment on above: Order Comment: Speci men Type: BLOOD SPECIMEN Ordering Facility: [facility] Address: [address] [place] [address] Performed By: #### 5 7021-8 #### [facility] CLIA [id number] [address] [place] [address] [place] Comprehensive metabolic 2000 panelon 01-14-2025 Albumin [Mass/Vol] 4.1 g/dL Normal 3.9-4.9 [facility] Comment on above: Order Comment: Speci men Type: BLOOD SPECIMEN Ordering Facility: [facility] Address: [address] [place] [address] Performed By: #### 2 4323-8, 05648-0 #### [facility] CLIA [id number] [address] [place] [address] [place] ALP [Catalytic activity/Vol] 65 U/L Normal 38-113 [facility] Comment on above: Order Comment: Speci men Type: BLOOD SPECIMEN Ordering Facility: [facility] Address: [address] [place] [address] Performed By: #### 2 4323-8, 60415-4 #### [facility] CLIA [id number] [address] [place] [address] [place] ALT [Catalytic activity/Vol] 18 U/L Normal 10-54 [facility] Comment on above: Order Comment: Speci men Type: BLOOD SPECIMEN Ordering Facility: [facility] Address: [address] [id number] Performed By: #### 2 4323-8, 79613-4 #### [facility] CLIA [id number] [address] [place], [place] [address] [place] Anion gap [Moles/Vol] 8 mmol/L Normal 8-15 [facility] Comment on above: Order Comment: Speci men Type: BLOOD SPECIMEN Ordering Facility: [facility] Address: [address] [place] [address] Performed By: #### 2 4323-8, 60377-3 #### [facility] CLIA [id number] [address] [place] [address] [place] AST [Catalytic activity/Vol] 21 U/L Normal 14-40 [facility] Comment on above: Order Comment: Speci men Type: BLOOD SPECIMEN Ordering Facility: [facility] Address: [address] [place] [address] Performed By: #### 2 4323-8, 20411-8 #### [facility] CLIA [id number] [address] [place] [address] [place] Bilirubin [Mass/Vol] 1.2 mg/dL Normal 0.2-1.3 [facility] Comment on above: Order Comment: Speci men Type: BLOOD SPECIMEN Ordering Facility: [facility] Address: [address] [id number] Performed By: #### 2 4323-8, 63395-1 #### [facility] CLIA [id number] [address] [place] [address] [place] Calcium [Mass/Vol] 10.2 mg/dL Normal 8.5-10.2 [facility] Comment on above: Order Comment: Speci men Type: BLOOD SPECIMEN Ordering Facility: [facility] Address: [address] [place], [place] [id number] Performed By: #### 2 4323-8, 10955-9 #### [facility] CLIA [id number] [address] [place] [address] [place] Chloride [Moles/Vol] 110 mmol/L High 98-107 [facility] Comment on above: Order Comment: Speci men Type: BLOOD SPECIMEN Ordering Facility: [facility] Address: [address] [place] [address] Performed By: #### 2 4323-8, 48891-9 #### [facility] CLIA [id number] [address] [place] [address] [place] CO2 [Moles/Vol] 26 mmol/L Normal 22-30 [facility] Comment on above: Order Comment: Speci men Type: BLOOD SPECIMEN Ordering Facility: [facility] Address: [address] [place] [address] Performed By: #### 2 4323-8, 94070-5 #### [facility] CLIA [id number] [address] [place] [address] [place] Creatinine [Mass/Vol] 1.10 mg/dL Normal 0.73-1.22 [facility] Comment on above: Order Comment: Speci men Type: BLOOD SPECIMEN Ordering Facility: [facility] Address: [address] [place] [address] Performed By: #### 2 4323-8, 94127-0 #### [facility] CLIA [id number] [address] [place] [address] [place] Creatinine and Glomerular filtration rate.predicted panel (S/P/Bld) 67 mL/min/1.73m??? Normal >=60 [facility] Comment on above: Order Comment: Speci men Type: BLOOD SPECIMEN Ordering Facility: [facility] Address: [address] [place] [address] Result Comment: Magalie mated Glomerular Filtration Rate (eGFR) is calculated using the 2020 CKD-EPI creatinine equation. This equation utilizes serum creatinine, sex, and age as parameters. The creatinine assay has traceable calibration to isotope dilution-mass spectrometry. Refer to KDIGO guidelines for clinical interpretation. In patients with unstable renal function, e.g. those with acute kidney injury, the eGFR may not accurately reflect actual GFR. Performed By: #### 2 4323-8, 07607-6 #### [facility] CLIA [id number] [address] [place] [address] [place] Glucose [Mass/Vol] 96 mg/dL Normal 74-99 [facility] Comment on above: Order Comment: Neisha saenz Type: BLOOD SPECIMEN Ordering Facility: [facility] Address: [address] [place] [address] Result Comment: The [place] Diabetes Association (ADA) provides guidance for cutoff values for fasting glucose and random glucose. The ADA defines fasting as no caloric intake for at least 8 hours. Fasting plasma glucose results between 100 to 125 mg/dL indicate increased risk for diabetes (prediabetes). Fasting plasma glucose results greater than or equal to 126 mg/dL meet the criteria for diagnosis of diabetes. In the absence of unequivocal hyperglycemia, results should be confirmed by repeat testing. In a patient with classic symptoms of hyperglycemia or hyperglycemic crisis, random plasma glucose results greater than or equal to 200 mg/dL meet the criteria for diagnosis of diabetes. Reference: Standards of Medical Care in Diabetes 2016, [place] [employer]. Diabetes Care. 2016.39(Suppl 1). Performed By: #### 2 4323-8, #### [facility] CLIA [id number] [address] [place], [place] [address] [place] Potassium [Moles/Vol] 4.6 mmol/L Normal 3.7-5.1 [facility] Comment on above: Order Comment: Neisha saenz Type: BLOOD SPECIMEN Ordering Facility: [facility] Address: [address] [place] [address] Performed By: #### 2 4323-8, 83896-4 #### [facility] CLIA [id number] [address] [place], [place] [address] [place] Protein [Mass/Vol] 6.5 g/dL Normal 6.3-8.0 [facility] Comment on above: Order Comment: Speci men Type: BLOOD SPECIMEN Ordering Facility: [facility] Address: [address] [place] [address] Performed By: #### 2 4323-8, 68088-2 #### [facility] CLIA [id number] [address] [place] [address] [place] Sodium [Moles/Vol] 144 mmol/L Normal 136-144 [facility] Comment on above: Order Comment: Speci men Type: BLOOD SPECIMEN Ordering Facility: [facility] Address: [address] [place] [address] Performed By: #### 2 4323-8, 79328-5 #### [facility] CLIA [id number] [address] [place] [address] [place] Urea nitrogen [Mass/Vol] 20 mg/dL Normal 9-24 [facility] Comment on above: Order Comment: Speci men Type: BLOOD SPECIMEN Ordering Facility: [facility] Address: [address] [place] [address] Performed By: #### 2 4323-8, 65882-4 #### [facility] CLIA [id number] [address] [place], [place] [address] [place] Lipid 1996 panelon 5 Cholesterol [Mass/Vol] 161 mg/dL Normal <200 [facility] Comment on above: Order Comment: Speci men Type: BLOOD SPECIMEN Ordering Facility: [facility] Address: [address] [place], [place] [id number] Result Comment: <200 mg/dL, Desirable 200-239 mg/dL, Borderline high >239 mg/dL, High Performed By: #### 2 4323-8, 41166-5 #### [facility] CLIA [id number] [address] [place], [place] [address] [place] Cholesterol in HDL [Mass/Vol] 46 mg/dL Normal >39 [facility] Comment on above: Order Comment: Neisha asenz Type: BLOOD SPECIMEN Ordering Facility: [facility] Address: [address] [place] [address] Result Comment: 40-5 9 mg/dL, Acceptable >59 mg/dL, High: Negative risk factor for coronary heart disease <40 mg/dL, Low: Positive risk factor for coronary heart disease Performed By: #### 2 4323-8, 73873-9 #### [facility] CLIA [id number] [address] [place] [address] STATES OF [facility] Cholesterol in LDL [Mass/Vol] 104 mg/dL High <100 [facility] Comment on above: Order Comment: Neisha letty Type: BLOOD SPECIMEN Ordering Facility: [facility] Address: [address] [place] [address] Result Comment: <100 mg/dL, Optimal 100-129 mg/dL, Near optimal/above optimal 130-159 mg/dL, Borderline high 160-189 mg/dL, High >189 mg/dL, Very high Secondary prevention optimal LDL Cholesterol levels are recommended to be < 70 mg/dL Performed By: #### 2 4323-8, 49340-1 #### [facility] CLIA [id number] [address] [place] [address] STATES OF [facility] Cholesterol in LDL/Cholesterol in HDL [Mass ratio] 2.26 {ratio} Normal <2.54 [facility] Comment on above: Order Comment: Leydahemanth saenz Type: BLOOD SPECIMEN Ordering Facility: [facility] Address: [address] [place] [address] Result Comment: Refe rence: 1. National Cholesterol Education Program ATP III Guideline At-A-Glance Quick Desk Reference: National Heart, Lung, and Blood [place]. National Institutes of Health. 2001: NIH Publication No. 01-3305. 2. An International Atherosclerosis Society position paper: global recommendations for the management of dyslipidemia: executive summary, Atherosclerosis. 2014: 232(2):410-413. Performed By: #### 2 4323-8, 52553-8 #### [facility] CLIA [id number] [address] [place], [place] [address] [place] Cholesterol in VLDL [Mass/Vol] 11 mg/dL Normal <30 [facility] Comment on above: Order Comment: Speci men Type: BLOOD SPECIMEN Ordering Facility: [facility] Address: [address] [place] [address] Performed By: #### 2 4323-8, 92655-9 #### [facility] CLIA [id number] [address] [place] [address] [place] Cholesterol non HDL [Mass/Vol] 115 mg/dL Normal <130 [facility] Comment on above: Order Comment: Speci men Type: BLOOD SPECIMEN Ordering Facility: [facility] Address: [address] [place] [address] Result Comment: <130 mg/dL, Optimal 130-159 mg/dL, Near optimal/above optimal 160-189 mg/dL, Borderline high 190-219 mg/dL, High >219 mg/dL, Very high Secondary prevention optimal non HDL Cholesterol levels are recommended to be <100 mg/dL Performed By: #### 2 4323-8, 51909-0 #### [facility] CLIA [id number] [address] [place] [address] [place] Cholesterol.total/C holesterol in HDL [Mass ratio] 3.50 {ratio} Normal <5.10 [facility] Comment on above: Order Comment: Speci men Type: BLOOD SPECIMEN Ordering Facility: [facility] Address: [address] [place] [address] Performed By: #### 2 4323-8, 28653-2 #### [facility] CLIA [id number] [address] [place] [address] [place] FASTING TIME 12 hrs Normal [facility] Comment on above: Order Comment: Speci men Type: BLOOD SPECIMEN Ordering Facility: [facility] Address: [address] [place] [address] Performed By: #### 2 4323-8, 76876-6 #### [facility] CLIA [id number] [address] [place] [address] [place] Triglyceride [Mass/Vol] 53 mg/dL Normal <150 [facility] Comment on above: Order Comment: Speci men Type: BLOOD SPECIMEN Ordering Facility: [facility] Address: [address] [place] [address] Result Comment: <150 mg/dL, Normal 150-199 mg/dL, Borderline high 200-499 mg/dL, High >499 mg/dL, Very high Performed By: #### 2 4323-8, 81205-6 #### [facility] CLIA [id number] [address] [place] [address] [place] [facility] Prostate specific Ag [Mass/Vol] 5.73 ng/mL High <2.60 [facility] Comment on above: Order Comment: Speci men Type: BLOOD SPECIMEN Ordering Facility: [facility] Address: [address] [place] [address] Result Comment: Tota l PSA test methodology used is the Electrochemiluminescence Immunoassay by [employer]. Total PSA values by differing methodologies cannot be interchanged. For an individual patient, the significance of a PSA level should be interpreted in a broad clinical context, including age, race, family history, digital rectal exam, prostate size, results of prior testing (prostate biopsy, free PSA, PCA3), and use of 5-alpha reductase inhibitors. Considering the high incidence of asymptomatic cancer in the general population that may not pose an ultimate risk to a patient, the decision to recommend urological evaluation or prostate biopsy should be individualized after consideration of all these factors. REFERENCE: Nuno Baca M.D., M.P.H., Eliot Villeda M.D., Ph.D., Artur Sosa M.D., Elke Joy, M.P.H., Stefanie Stratton Sc.D. Effect of Verification Bias on Screening for Prostate Cancer by Measurement of Prostatic Specific Antigen. N Engl J Med 2003,349:335-42. Performed By: #### 2 857-1 #### [facility] CLIA [id number] [address] [place] [address] [place] [address] [place] Emergency Department Summary on 07-01-2024 Emergency Department Summary [facility] Medical Records Department [address] [place] [address] Emergency Department Summary 07/01/24 MR#: [id number] Acct: [id number] Name: DOMO BOLDEN Rep #: [id number] : 1940 83 From: Peter Martin MD PCP: Dr. Eze Rodriguez MD Status:REG ER Location: ED HPI History of Present Illness Chief Complaint: Rash Narrative Narrative: 83-year-old male past medical history of hypertension presents with hives and itching mainly on his torso and legs that began approximately an hour ago. He took 4 teaspoons of Benadryl already which seemed to improve his symptoms. He denies any throat closing or shortness of breath, no difficulty breathing or wheezing. He states he had an allergic reaction remotely when he was in his 30s to yellow dye. He denies any new detergents or lotions. He did have a new cheese that he ate maybe 8 hours ago and this evening he had something with seasoning on it but he read the bottle it is normal he said caramel coloring, not yellow dye. He presents because of the continued hives and itching albeit improved over previous after taking Benadryl. [facility] Medical History Cataract CPAP (continuous positive airway pressure) dependence HTN (hypertension) Disc degeneration Home Medications ???Medication ???Instructions ???Recorded ???Last Taken ???Type lisinopril 5 mg tablet 5 mg PO DAILY 10/08/14 Unknown History tadalafil 5 mg tablet 5 mg PO DAILY 05/30/19 Unknown History hydrocodone-acetaminophen 5-325mg 1 tab PO Q4H PRN pain 5 days #20 05/26/22 Unknown Rx 5mg-325mg tabs ondansetron 4 mg disintegrating 4 mg PO Q8H PRN nausea and 05/26/22 Unknown Rx tablet vomiting #7 tabs famotidine 20 mg tablet (Pepcid) 20 mg PO DAILY #7 tabs 07/02/24 Unknown Rx prednisone 20 mg tablet 40 mg (2 x 20 mg) PO DAILY #14 tabs 07/02/24 Unknown Rx Allergy/AdvReac Type Severity Reaction Status Date / Time yellow dye Allergy Hives Verified 07/01/24 23:36 Social History household members: spouse Smoking Status: Never smoker substance use type: does not use ROS ROS ED ROS Narrative Constitutional: No fever, no chills. HEENT: No sore throat. No neck pain. No loss of vision. No rhinorrhea. No throat closing. Cardiovascular: No chest pain. No palpitations. No pedal edema. Respiratory: No cough, no shortness of breath. Abdominal: No abdominal pain. No nausea. No vomiting. Genitourinary: No dysuria. No hematuria. Musculoskeletal: No myalgias. No arthralgias. Neurologic: No headaches. No dizziness. No lightheadedness. Skin: Positive hives/rash. Itchiness. No change in color. EXAM Physical Exam Narrative Exam Narrative: Afebrile. Vital signs noted. HEENT: Normocephalic. Atraumatic. PERRL, EOMI. Neck soft and supple. No point tenderness or step off. Airway patent. No stridor. No oral lesions. Cardiovascular: Regular rate and rhythm with intermittent tachycardia. No murmurs, rubs, or gallops appreciated. Respiratory: No tachypnea. Lungs clear to auscultation bilaterally. Gastrointestinal: Abdomen soft, nontender, with normoactive bowel sounds. No rebound or guarding. Neurological: Awake. Alert. Nonfocal, nonlateralizing. Skin: Positive hives, improved on torso, blood present on bilateral thighs posteriorly and in belt line and on buttocks. Rash. Normal color. No pallor. Musculoskeletal: No pedal edema. Full range of motion extremities. Const Vital Signs: 07/01/24 23:36 Temperature 97 F L Temperature Source Temporal Pulse Rate 125 H Respiratory Rate 18 Blood Pressure 107/51 L Blood Pressure Mean 69 Pulse Ox 96 Oxygen Delivery Method Room Air MDM MDM MDM Narrative Medical decision making narrative: Differential diagnosis includes but not limited to allergic reaction to yellow dye versus food allergy versus contact dermatitis, I have low suspicion for Wallace-Jordan's based on his physical examination and history. I do not feel epinephrine is indicated. Pulse ox 96% on room air without hypoxia. He states that Benadryl has already improved his symptoms. He was given oral Pepcid 40 mg and a loading dose of prednisone 60 mg orally. He was observed in the emergency department. Repeat examination at approximately 1:05 AM shows him resting comfortably, he almost fell asleep. His hives have subsided especially on his legs. At this point in time, I feel he can be discharged to follow-up with his primary care provider. He was told he may need referral to an recreational assistant. I do not feel he requires an epinephrine pen. He was written prescriptions for a steroid burst of 40 mg for the next 7 days and for Pepcid 20 mg orally for the next 7 days. He will take pgrw-ctc-[id number] Benadryl 25 to 50 mg (more content not included)... Normal [facility] Emergency Department Summary on 07-19-2023 Emergency Department Summary [facility] Medical Records Department [address] [place] [address] Emergency Department Summary 07/19/23 MR#: [id number] Acct: [id number] Name: DOMO BOLDEN Rep #: [id number] : 1940 82 From: Rocky Willis MD PCP: Dr. Eze Rodriguez MD Status:REG ER Location: ED HPI History of Present Illness Chief Complaint: Dizziness Detail of Chief Complaint: Dizziness that is intermittent and positional for the past several months. Informant: patient and spouse/S.O. Onset/Context/Timing Onset: Month(s) Context: Sudden Onset Timing: Intermittent Quality: Spinning sensation especially when he arises from bed in the morning Location: Home Current Severity: Gone Maximum Severity: Severe Worsened by: Change in position Relieved by: Remaining still Associated Symptoms Associated Symptoms: Nausea without visual symptoms. Narrative Narrative: Patient is a 82-year-old male who contact his physician. He was instructed to come to the emergency room because of problems with balance. This is been an intermittent problem for months. Is been worse the last several days. It is positional. Worse in the morning when he rises from bed. He denies double vision, blurred vision loss of vision. He had recent cataract surgery and occasional have pain right eye. He denies ringing's ears or decreased hearing. He denies trouble with speech or swallowing. He denies paresthesia, anesthesia motors. He does report problems with balance. He denies black or maroon stool. He denies urologic symptoms. He denies respiratory symptoms. Prior similar symptoms: Yes (Paroxysmal benign positional vertigo) Recent Illness/Hospitalization: No PFSH PFSH Medical History (Updated 07/19/23 @ 21:[address] Rocky Willis MD) Cataract CPAP (continuous positive airway pressure) dependence Disc degeneration HTN (hypertension) Home Medications lisinopril 5 mg tablet 5 mg PO DAILY 10/08/14 [History Last Taken Unknown] tadalafil 5 mg tablet 5 mg PO DAILY 05/30/19 [History Last Taken Unknown] hydrocodone-acetaminophen 5-325mg 5mg-325mg 1 tab PO Q4H PRN pain 5 days #20 tabs 05/26/22 [Rx Last Taken Unknown] ondansetron 4 mg disintegrating tablet 4 mg PO Q8H PRN nausea and vomiting #7 tabs 05/26/22 [Rx Last Taken Unknown] Allergy/AdvReac Type Severity Reaction Status Date / Time yellow dye Allergy Hives Verified 07/19/23 16:08 Social History (Updated 07/19/23 @ 18:[address] Rocky Willis MD) household members: spouse Smoking Status: Never smoker substance use type: does not use ROS ROS ED Constitutional Constitutional ED: Denies chills, fever(s), subjective, sweats or weight loss Eyes Eyes: Denies blurry vision, change in vision or diplopia ENT ENT ED: Denies ear pain, rhinorrhea or sore throat Cardiovascular Cardiovascular: Denies chest pain, orthopnea, palpitations, paroxysmal nocturnal dyspnea or racing heartbeat Respiratory/Chest Respiratory/Chest: Denies cough, dyspnea, dyspnea on exertion, orthopnea or paroxysmal nocturnal dyspnea Gastrointestinal Gastrointestinal: Reports nausea; Denies abdominal pain, constipation, diarrhea, melena or vomiting Genitourinary Genitourinary ED: Reports urinary frequency and other Details: Has had trouble with urination due to benign prostatic 50 ; Denies dysuria or hematuria Musculoskeletal Musculoskeletal: Denies arthralgias, back pain, myalgias or neck pain Integumentary Denies rash Neurologic Neurologic: Denies headache(s), paresthesias or weakness Psychiatric Psychiatric: Denies anxiety Endocrine Endocrinology: Denies cold intolerance or heat intolerance Hematologic/Lymphatic Hematologic/Lymphatic: Reports systems reviewed and no addt'l complaints, except as documented EXAM Physical Exam Const Vital Signs: 07/19/23 16:08 07/19/23 18:13 07/19/23 18:13 Temperature 98 F Temperature Source Temporal Pulse Rate 83 83 Respiratory Rate 18 16 Respiratory Pattern Normal Blood Pressure 136/78 H 131/87 H Blood Pressure Mean 97 101 Pulse Ox 98 96 Oxygen Delivery Method Room Air Room Air 07/19/23 21:00 Temperature Temperature Source Pulse Rate 83 Respiratory Rate Respiratory Pattern Blood Pressure 143/77 H Blood Pressure Mean 99 Pulse Ox 97 Oxygen Delivery Method Room Air Positive well nourished, well developed and obese General Appearance ED: well developed and NAD; Negative for pallor Nutritional Appearance: obese HEENT Reports moist mucous membranes HEENT Narrative: Head is normocephalic and atraumatic. Ears normal. Unable to see the right or left TM due to cerumen impaction. Nares patent. Posterior pharynx without erythema or exudate. Uvula is midline. There is tongue with protrusion. Eyes PERRL and EOMs intact bilaterally Eyes Narrative: T (more content not included)... Normal [facility] 02-09-2023 [facility] Telephone (MEPRAD) DOMO BOLDEN ([id number]) 1940 Date Time Provider Department 02/09/23 BRENDA MOORE During your visit today, we recorded the following information about you: Brenda Moore MD 02/09/2023 11:19 AM Signed FOLLOW UP ENDOSCOPY - RESULTS AND RECOMMENDATIONS NAME: Domo Bolden CLINIC NO.: [id number] : 1940 DATE: February 09, 2023 PRIMARY CARE PROVIDER: MD Domo Matta is a patient referred for endoscopy for screening colonoscopy . I performed lower endoscopy on January. The patient was found to have: Lower Endoscopy: Impression: - One 6 mm polyp in the sigmoid colon, removed with a cold snare. Resected and retrieved. - Diverticulosis in the left colon. - The examination was otherwise normal on direct and retroflexion views. Pathology demonstrated: FINAL DIAGNOSIS A. Sigmoid colon, polypectomy: - Tubular adenoma. IMPRESSION: Adenomatous polyp PLAN: INSTRUCTIONS FOLLOWING A POLYP FOUND AT COLONOSCOPY You were found to have an adenomatous colon polyp. I recommend you undergo repeat endoscopy in 5 years. If you note bleeding, change in bowel habits, or other suspicious colon related symptoms before that time, those symptoms should be evaluated as necessary. If you have any difficulties or concerns, you should contact our office immediately. The patient is instructed to follow-up with your primary care provider I have instructed my staff to forward the above information to the patient and to the appropriate providers Cally Euceda RN 02/11/2023 12:13 PM Signed My Chart message sent to patient. Health maintenance and surgical history updated. Recall letter placed. Cally Euceda RN Allergies As of Date: 02/09/2023 Noted Allergy Reaction yellow food dye [Other] 07/02/2008 4 - Hives Date Reviewed: 02/05/2023 Reviewed by: Nan Amaya RN - Fully Assessed Reason for Visit: Results [95] Prescriptions as of 02/11/2023 - fluorometholone (FML LIQUID FILM) 0.1 % ophthalmic suspension Use 1 Drop in both eyes three times daily. - lisinopril (ZESTRIL, PRINIVIL) 5 mg tablet Take 1 tablet by mouth once daily. - Tadalafil (CIALIS) 5 mg tablet Take 1 tablet by mouth once daily. - lutein-zeaxanthin 25-5 mg cap Take 1 capsule by mouth twice daily. - fluticasone (FLONASE) 50 mcg/actuation nasal spray Use 2 Sprays in each nostril once daily. Rinse mouth after use. - prasterone, dhea, (DHEA) 50 mg tab Take 50 mg by mouth twice daily. - divtamws-dfd-FB-lycopen-lut ein (CENTRUM SILVER MEN) 300-600-300 mcg tab Take 1 tablet by mouth once daily. - Aspirin 500 mg tab Take 500 mg by mouth once daily. - Vina-3 Fatty Acids-Vitamin E 1,000 mg cap Take 2 capsules by mouth once daily. - GLUCOSAMINE/CHONDROITIN SULF A (GLUCOSAMINE-CHONDROITIN ORAL) Take 2 tablets by mouth once daily. 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] 07/08/2008 04/26/2017 Personal history of colonic polyps [Z86.010] 11/07/2009 Benign neoplasm of colon [D12.6] 12/29/2009 04/26/2017 Appendicitis [K37] 03/01/2011 04/26/2017 Family history of prostate cancer [Z80.42] 01/21/2013 Mitral regurgitation [I34.0] 01/21/2013 BPH with obstruction/lower urinary tract sympto*01/21/2013 Essential hypertension [I10] 04/26/2017 JOSE (obstructive sleep apnea) [G47.33] 07/13/2022 Encounter Status:Closed by BRENDA MOORE on 02/09/23 [facility] XR CHEST 2V FRONTAL/LATon [facility] XR Chest PA and Lateralon IMPRESSION: No acute radiographic abnormality. Mild wedging of lower thoracic vertebral body Director Paid Media: JAVON Transcribe Date/Time: Jun 14 2022 1:46P Dictated by : LINDA BOYD MD This examination was interpreted and the report reviewed and electronically signed by: LINDA BOYD MD on Jun 14 2022 1:49PM [facility] DIVISION OF RADIOLOGY * * *Final Report* * * DATE OF EXAM: Jun 14 2022 10:05AM WOX [id number] - XR CHEST 2V FRONTAL/LAT / PROCEDURE REASON: Cough, unspecified type * * * * Physician Interpretation * * * * EXAMINATION: CHEST RADIOGRAPH (2 VIEW FRONTAL & LATERAL) CLINICAL HISTORY: Cough, unspecified type MQ: XC2_6 EXAM DATE/TIME: 06/14/2022 10:05 AM COMPARISON: No relevant prior studies available. RESULT: Lines, tubes, and devices: None. Lungs and pleura: No consolidation. No lung mass. No pleural effusion. No pneumothorax. Cardiomediastinal silhouette: Normal cardiomediastinal silhouette. Bones and soft tissues: Mild wedging of lower thoracic vertebral body. Age indeterminate DIVISION [facility]OLOGY [facility] * * *Final Report* * * DATE OF EXAM: Jun 14 2022 10:05AM WOX [id number] - XR CHEST 2V FRONTAL/LAT / PROCEDURE REASON: Cough, unspecified type * * * * Physician Interpretation * * * * EXAMINATION: CHEST RADIOGRAPH (2 VIEW FRONTAL & LATERAL) CLINICAL HISTORY: Cough, unspecified type MQ: XC2_6 EXAM DATE/TIME: 06/14/2022 10:05 AM COMPARISON: No relevant prior studies available. RESULT: Lines, tubes, and devices: None. Lungs and pleura: No consolidation. No lung mass. No pleural effusion. No pneumothorax. Cardiomediastinal silhouette: Normal cardiomediastinal silhouette. Bones and soft tissues: Mild wedging of lower thoracic vertebral body. Age indeterminate IMPRESSION IMPRESSION: No acute radiographic abnormality. Mild wedging of lower thoracic vertebral body Director Paid Media: [facility] Transcribe Date/Time: Jun 14 2022 1:46P Dictated by : LINDA BOYD MD This examination was interpreted and the report reviewed and electronically signed by: LINDA BOYD MD on Jun 14 2022 1:49PM EST [facility] Radiology Study observation (narrative) [facility] XR Chest PA and LateralOrder ed By: [facility]cf Provider on 06-14-2022 [facility] Absolute lymphocyte counton 05-26-2022 Lymphocytes Auto (Unsp spec) [#/Vol] 1.78 10*3/uL 0.83-4.51 [facility] Work Phone: Basophil percentageon 2021 Basophils/100 WBC (Bld) 0.3 % 0-1 [facility] Work Phone: Chloride [Moles/Vol] 106 mmol/L 98-107 [facility] Work Phone: Eosinophils/100 WBC (Bld) 0.9 % 0-5 [facility] Work Phone: Glucose [Mass/Vol] 125 mg/dL 74-106 [facility] Work Phone: Comment on above: Fasting Glucose resu lt from 100 to 125 mg/dL suggests IMPAIRED HOMEOSTASIS per A.D.A. criteria. Neutrophils (Bld) [#/Vol] 8.9 10*3/uL 2.0-7.7 [facility] Work Phone: Neutrophils/100 WBC (Bld) 77.0 % 47-70 [facility] Work Phone: Potassium [Moles/Vol] 4.2 mmol/L 3.5-5.1 [facility] Work Phone: [phone] Sodium [Moles/Vol] 136 mmol/L 136-145 [facility] Work Phone: WBC (Bld) [#/Vol] 11.6 10*3/uL 4.4-11.0 [facility] Work Phone: Basophil percentage 0-5 SEEN /hpf 0-5 [facility] Work Phone: [phone] Bilirubin Test strip Ql (U)o n 05-26-2022 Bilirubin Ql (U) Negative Negative [facility] Work Phone: [phone] Blood erythrocytes count (nu mber/volume)on 05-26-2022 RBC (Bld) [#/Vol] 4.96 10*6/uL 4.6-6.2 [facility] Work Phone: Blood hemoglobin measurement (mass/volume)on 05-26-2022 Hemoglobin (Bld) [Mass/Vol] 15.7 g/dL 13.0-16.5 [facility] Work Phone: Blood lymphocytes/100 leukoc yteson 05-26-2022 Lymphocytes/100 WBC (Bld) 15.4 % 19-41 [facility] Work Phone: Blood monocytes/100 leukocyt eson 05-26-2022 Monocytes/100 WBC (Bld) 5.9 % 0-10 [facility] Work Phone: [phone] Blood platelet mean volumeon 05-26-2022 Platelet mean volume (Bld) [Entitic vol] 9.4 fL 6.2-12.0 [facility] Work Phone: [phone] Determination of erythrocyte mean corpuscular volume (MCV)on 05-26-2022 MCV (RBC) [Entitic vol] 94.0 fL 80-94 [facility] Work Phone: [phone] Hematocrit Auto (Bld) [Volum e fraction]on 05-26-2022 Hematocrit (Bld) [Volume fraction] 46.6 % 40-54 [facility] Work Phone: [phone] Ketones Test strip Ql (U)on 05-26-2022 Ketones Ql (U) 5 mg/dl Negative [facility] Work Phone: [phone] Laboratory - Chemistry and C hemistry - challengeon 05-26-2022 CO2 [Moles/Vol] 24.0 mmol/L 21.0-32.0 [facility] Work Phone: [phone] Urea nitrogen/Creatinine [Mass ratio] 19.8 mg/mg 10-20 [facility] Work Phone: [phone] Laboratory - Hematology and Cell countson 05-26-2022 Erythrocyte distribution width (RBC) [Entitic vol] 44.7 fL 35.1-43.9 [facility] Work Phone: [phone] Erythrocyte distribution width (RBC) [Ratio] 13.0 % 11.6-14.6 [facility] Work Phone: [phone] Immature granulocytes/100 WBC (Bld) 0.500 % 0.0-0.9 [facility] Work Phone: [phone] Comment on above: IG% - Immature Granu locytes (promyelocytes, myelocytes and metamyelocytes) > 1% indicates that a LEFT SHIFT is Present. MCH (RBC) [Entitic mass] 31.7 pg 27.0-32.0 [facility] Work Phone: [phone] Nucleated RBC/100 WBC (Bld) [Ratio] 0 % 0-5 [facility] Work Phone: MCHC Auto (RBC) [Mass/Vol]on 05-26-2022 MCHC (RBC) [Mass/Vol] 33.7 g/dL 32-36 [facility] Work Phone: Mucus LM Ql (Urine sed)on Mucus Ql (Urine sed) 0 SEEN /hpf [facility] Work Phone: [phone] Nitrite Test strip Ql (U)on 05-26-2022 Nitrite Ql (U) Negative Negative [facility] Work Phone: No Panel Informationon 05-26 Estimated Creatinine Clearance Calc 51.11 ml/min [facility] Work Phone: Estimated GFR (MDRD) Amer 74 mL/min >60 [facility] Work Phone: Comment on above: GFR Calc Estimated GFR (MDRD) Non-Af Amer 61 mL/min >60 [facility] Work Phone: Comment on above: Non- GFR Calc Platelets bldon 05-26-2022 Platelets (Bld) [#/Vol] 213 10*3/uL 150-450 [facility] Work Phone: Protein Test strip Ql (U)on 05-26-2022 Protein Ql (U) 15 mg/dl Negative [facility] Work Phone: [phone] Serum or plasma calcium cody urement (mass/volume)on 05-26-2022 Calcium [Mass/Vol] 10.2 mg/dL 8.5-10.1 [facility] Work Phone: [phone] Serum or plasma creatinine m easurement (mass/volume)on 05-26-2022 Creatinine [Mass/Vol] 1.21 mg/dL 0.70-1.30 [facility] Work Phone: Comment on above: The validity of the calculated GFR & GFRAA in patients over 70 years has not been determined. Clinical correlation is essential. Serum or plasma urea nitroge n measurement (mass/volume)on 05-26-2022 Urea nitrogen [Mass/Vol] 24 mg/dL 7-18 [facility] Work Phone: Squamous epithelial cells de tection in urine sediment by light microscopyon 05-26-2022 Epithelial cells.squamous LM Ql (Urine sed) 0 SEEN /hpf 0-5 [facility] Work Phone: Thin prep Papanicolaou smear with manual screeningon 05-26-2022 Thin prep Papanicolaou smear with manual screening 6 5-15 [facility] Work Phone: Urine blood detectionon 04-29 RBC Ql (U) 250 /ul Negative [facility] Work Phone: [phone] RBC Ql (U) 50-100 SEEN /hpf 0-5 [facility] Work Phone: Urine clarityon 05-26-2022 Clarity (U) Clear Clear [facility] Work Phone: Urine color determinationon 05-26-2022 Color (U) Yellow Yellow [facility] Work Phone: Urine glucose detectionon Glucose Ql (U) Negative Normal [facility] Work Phone: Urine leukocyte esterase det ection by dipstickon 05-26-2022 Leukocyte esterase Test strip Ql (U) 25 /ul Negative [facility] Work Phone: Urine pHon 05-26-2022 pH (U) 5.0 [pH] 5.0 - 8.0 [facility] Work Phone: Urine sediment bacteria coun t by microscopy (number/high power field)on 05-26-2022 Bacteria LM.HPF (Urine sed) [#/Area] 0 /[HPF] None Seen [facility] Work Phone: Urine specific gravity measu rementon 05-26-2022 Specific gravity (U) [Rel density] 1.025 1.002-1.030 [facility] Work Phone: Urobilinogen Auto test strip Ql (U)on 05-26-2022 Urobilinogen Ql (U) Normal mg/dl Normal [facility] Work Phone: Vital Signs Date Time Vital Sign Value Performing Clinician Marge lopez 01-21-2025 09:56-0400 Body mass index (BMI) [Ratio] 29.81 kg/m2 Eze Rodriguez MD Work Phone: [facility] 01-21-2025 09:56-0400 Body weight 92.9 kg Eze Rodriguez MD Work Phone: [facility] 01-21-2025 09:56-0400 Diastolic blood pressure 84 mm[Hg] Eze Rodriguez MD Work Phone: [facility] 01-21-2025 09:56-0400 Heart rate 80 /min Eze Rodriguez MD Work Phone: [facility] 01-21-2025 09:56-0400 Respiratory rate 16 /min Eze Rodriguez MD Work Phone: [facility] 01-21-2025 09:56-0400 Systolic blood pressure 140 mm[Hg] Eze Rodriguez MD Work Phone: [facility] 07-23-2024 08:17-0400 Diastolic blood pressure 84 mm[Hg] Eze Rodriguez MD Work Phone: [facility] 07-23-2024 08:17-0400 Systolic blood pressure 142 mm[Hg] Eze Rodriguez MD Work Phone: [facility] 07-23-2024 08:15-0400 Body height 176.5 cm Eze Rodriguez MD Work Phone: [facility] 07-23-2024 08:15-0400 Body mass index (BMI) [Ratio] 30.07 kg/m2 Eze Rodriguez MD Work Phone: [facility] 07-23-2024 08:15-0400 Body weight 93.7 kg Eze Rodriguez MD Work Phone: [facility] 07-23-2024 08:15-0400 Heart rate 76 /min Eze Rodriguez MD Work Phone: [facility] 07-23-2024 08:15-0400 Respiratory rate 18 /min Eze Rodriguez MD Work Phone: [facility] 12-19-2023 11:27-0500 Body weight 93.53 kg Eze Rodriguez MD Work Phone: [facility] 12-19-2023 11:27-0500 Diastolic blood pressure 74 mm[Hg] Eze Rodriguez MD Work Phone: [facility] 12-19-2023 11:27-0500 Heart rate 74 /min Eze Rodriguez MD Work Phone: [facility] 12-19-2023 11:27-0500 Respiratory rate 1 /min Eze Rodriguez MD Work Phone: [facility] 12-19-2023 11:27-0500 Systolic blood pressure 124 mm[Hg] Eze Rodriguez MD Work Phone: [facility] 07-19-2023 21:00-0400 Diastolic blood pressure 77 mm[Hg] [facility] 07-19-2023 21:00-0400 Heart rate 83 /min [facility] 07-19-2023 21:00-0400 SaO2% (BldA) [Mass fraction] 97 % [facility] 07-19-2023 21:00-0400 Systolic blood pressure 143 mm[Hg] [facility] 07-19-2023 18:13-0400 Respiratory rate 16 /min [facility] 07-19-2023 16:08-0400 Body height 175.26 cm [facility] 07-19-2023 16:08-0400 Body mass index (BMI) [Ratio] 31 kg/m2 [facility] 07-19-2023 16:08-0400 Body temperature 98 [degF] [facility] 07-19-2023 16:08-0400 Body weight 95.29 kg [facility] 06-18-2023 11:34-0400 Body weight 92.14 kg Eze Rodriguez MD Work Phone: [facility] 06-18-2023 11:34-0400 Diastolic blood pressure 80 mm[Hg] Eze Rodriguez MD Work Phone: [facility] 06-18-2023 11:34-0400 Heart rate 74 /min Eze Rodriguez MD Work Phone: [facility] 06-18-2023 11:34-0400 Respiratory rate 16 /min Eze Rodriguez MD Work Phone: [facility] 06-18-2023 11:34-0400 Systolic blood pressure 116 mm[Hg] Eze Rodriguez MD Work Phone: [facility] 04-16-2023 10:56-0400 Body height 176.5 cm Nicki Loffelmann PA-C Work Phone: [facility] 04-16-2023 10:56-0400 Body weight 93.67 kg Nicki Loffelmann PA-C Work Phone: [facility] 04-16-2023 10:56-0400 Diastolic blood pressure 74 mm[Hg] Nicki Loffelmann PA-C Work Phone: [facility] 04-16-2023 10:56-0400 Heart rate 72 /min Nicki Loffelmann PA-C Work Phone: [facility] 04-16-2023 10:56-0400 SaO2% (BldA) [Mass fraction] 97 % Nicki Loffelmann PA-C Work Phone: [facility] 04-16-2023 10:56-0400 Systolic blood pressure 126 mm[Hg] Nicki Loffelmann PA-C Work Phone: [facility] 01-21-2023 04:20-0400 Body height 176.5 cm [facility] Work Phone: [facility] 01-21-2023 04:20-0400 Body weight 94.8 kg [facility] Work Phone: [facility] 12-17-2022 12:41-0500 Body weight 94.85 kg Eze Rodriguez MD Work Phone: [facility] 12-17-2022 12:41-0500 Diastolic blood pressure 78 mm[Hg] Eze Rodriguez MD Work Phone: [facility] 12-17-2022 12:41-0500 Heart rate 74 /min Eze Rodriguez MD Work Phone: [facility] 12-17-2022 12:41-0500 Respiratory rate 16 /min Eze Rodriguez MD Work Phone: [facility] 12-17-2022 12:41-0500 Systolic blood pressure 120 mm[Hg] Eze Rodriguez MD Work Phone: [facility] 06-14-2022 09:16-0400 Body weight 91.44 kg Eze Rodriguez MD Work Phone: [facility] 06-14-2022 09:16-0400 Diastolic blood pressure 74 mm[Hg] Eze Rodriguez MD Work Phone: [facility] 06-14-2022 09:16-0400 Heart rate 80 /min Eze Rodriguez MD Work Phone: [facility] 06-14-2022 09:16-0400 Respiratory rate 16 /min Eze Rodriguez MD Work Phone: [facility] 06-14-2022 09:16-0400 Systolic blood pressure 122 mm[Hg] Eze Rodriguez MD Work Phone: [facility] 05-26-2022 13:56-0400 Diastolic blood pressure 78 mm[Hg] [facility] Work Phone: 05-26-2022 13:56-0400 Heart rate 78 /min [facility] Work Phone: 05-26-2022 13:56-0400 Respiratory rate 14 /min [facility] Work Phone: 05-26-2022 13:56-0400 SaO2% (BldA) [Mass fraction] 98 % [facility] Work Phone: 05-26-2022 13:56-0400 Systolic blood pressure 136 mm[Hg] [facility] Work Phone: 05-26-2022 11:35-0400 Body height 177.8 cm [facility] Work Phone: 05-26-2022 11:35-0400 Body mass index (BMI) [Ratio] 29.7 kg/m2 [facility] Work Phone: 05-26-2022 11:35-0400 Body temperature 97.3 [degF] [facility] Work Phone: 05-26-2022 11:35-0400 Body weight 93.89 kg [facility] Work Phone: Encounters Encounter Date Encounter Type Care Provider Facility Start: 08-24-2025 End: 08-24-2025 ambulatory EZE RODRIGUEZ Facility:[facility] Start: 08-24-2025 Patient encounter procedure EZE RODRIGUEZ [facility] Start: 07-22-2025 End: 07-22-2025 ambulatory EZE RODRIGUEZ Facility:[facility] Start: 06-23-2025 End: 06-23-2025 ambulatory PRANEETH SEGURA II Facility:[facility] Start: 06-23-2025 End: 06-23-2025 Patient encounter procedure Praneeth Segura OD Work Phone: Optometry Comment on above: 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); Dermatochalasis of both upper eyelids; Pseudophakia of right eye; Myopia, right; Hyperopia, left; Regular astigmatism of left eye; Presbyopia Start: 04-14-2025 End: 06-14-2025 Follow-up encounter Eze Rodriguez MD Work Phone: [facility] Start: 04-13-2025 End: 04-13-2025 ambulatory EZE RODRIGUEZ Facility:[facility] Start: 02-15-2025 End: 02-15-2025 Refill Eze Rodriguez MD Work Phone: [facility] [place] Comment on above: Refill Request Insurance Authorizat ion Start: 01-21-2025 End: 01-21-2025 ambulatory EZE RODRIGUEZ Facility:[facility] Start: 01-21-2025 End: 01-21-2025 Office outpatient visit 25 minutes Eze Rodriguez MD Work Phone: [facility] Comment on above: Essential hypertensi on (Primary Dx); Mixed hyperlipidemia; BPH with obstruction/lower urinary tract symptoms; Elevated PSA; Acute pain of right knee Start: 01-14-2025 End: 01-14-2025 ambulatory EZE RODRIGUEZ Facility:[facility] Start: 08-12-2024 End: 08-12-2024 Refill Eze Rodriguez MD Work Phone: [facility] [place] Comment on above: Refill Request Start: 07-23-2024 End: 07-23-2024 Patient encounter procedure Eze Rodriguez MD Work Phone: [facility] Comment on above: Encounter for Medica re annual wellness exam (Primary Dx); Essential hypertension; Mixed hyperlipidemia; BPH with obstruction/lower urinary tract symptoms; ED (erectile dysfunction) of organic origin; Elevated PSA; Screening for depression; Encounter for screening examination for other mental health and behavioral disorders; Encounter for immunization Start: 07-01-2024 End: 07-02-2024 Emergency department patient visit Peter Martin Facility:[facility] Start: 05-19-2024 ambulatory Sabiha Estrada [facility] Start: 05-19-2024 Patient encounter [facility] Comment on above: Population Health Na vigation Outreach (Trudy Montesinos - [facility] PCSA) Start: 04-27-2024 ambulatory Varsha Ohara [facility] Start: 04-27-2024 Patient encounter procedure [facility] Comment on above: Population Health Na vigation Outreach (Trudy Med Adherence ) Start: 04-23-2024 End: 04-23-2024 Patient encounter procedure Praneeth Segura OD Work Phone: Optometry Comment on above: Bacterial conjunctiv itis of left eye (Primary Dx); Pseudophakia of right eye; Combined forms of age-related cataract of left eye Start: 04-09-2024 ambulatory Varsha Ohara [facility] Start: 04-09-2024 Patient encounter procedure Varsha Ohara MA [facility] Comment on above: Population Health Na vigation Outreach ([place] [facility] Adherence ) Start: 03-28-2024 Refill Terry AMEZCUA RN.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 Work Phone: Family [facility] Comment on above: Refill Request Start: 01-06-2024 Telephone encounter Eze alva MD Work Phone: [facility] [place] Comment on above: Insurance Authorizat ion Start: 01-03-2024 Refill Eze olsen MD Work Phone: [facility] Comment on above: Refill Request Start: 12-19-2023 End: 12-19-2023 Patient encounter procedure Eze Rodriguez MD Work Phone: [facility] Comment on above: Essential hypertensi on (Primary Dx); Mixed hyperlipidemia; JOSE (obstructive sleep apnea); BPH with obstruction/lower urinary tract symptoms; Family history of prostate cancer; Acute cough; ED (erectile dysfunction) of organic origin; Elevated PSA Start: 12-17-2023 ambulatory Eze olsen MD Work Phone: [facility] Comment on above: Allied Health Visit (Medication Adherence Outreach) Start: 07-19-2023 End: 07-19-2023 Emergency department patient visit [facility] Work Phone: Start: 07-19-2023 ambulatory Eze olsen MD Work Phone: [facility] Comment on above: Unsteadiness of Feet Start: 06-18-2023 End: 06-18-2023 Patient encounter procedure Eze Rodriguez MD Work Phone: [facility] Comment on above: Essential hypertensi on (Primary Dx); Mixed hyperlipidemia; BPH with obstruction/lower urinary tract symptoms; JOSE (obstructive sleep apnea); Elevated PSA Start: 05-24-2023 End: 05-24-2023 Patient encounter procedure Nick Abreu OD Work Phone: Ophthalmology Comment on above: Pseudophakia (Primar y Dx) Start: 04-26-2023 End: 04-26-2023 Patient encounter procedure Isamar Platt MD Work Phone: Ophthalmology Comment on above: Follow-up examinatio n following surgery (Primary Dx) Start: 04-16-2023 End: 04-16-2023 Patient encounter procedure Nicki Gomez PA-C Work Phone: Internal Medicine Comment on above: Preoperative examina tion (Primary Dx); Combined form of age-related cataract, right eye; Essential hypertension; Mitral valve insufficiency, unspecified etiology; JOSE (obstructive sleep apnea) Start: 04-16-2023 End: 04-16-2023 Preprocedural examination done Nicki Gomez PA-C Work Phone: Internal Medicine Start: 02-22-2023 End: 02-22-2023 Patient encounter procedure Isamar Platt MD Work Phone: Ophthalmology Comment on above: Combined forms of ag e-related cataract of right eye (Primary Dx) Start: 02-11-2023 ambulatory Brenda morse MD Work Phone: General Surgery Comment on above: Colonoscopy Results Start: 02-11-2023 E-mail encounter fro m caregiver Brenda Moore MD Work Phone: [facility] Start: 02-09-2023 Telephone encounter Brenda Moore MD Work Phone: [facility] Comment on above: Results Start: 01-24-2023 Telephone encounter Eze alva MD Work Phone: [facility] Comment on above: DME to fax Cpap orde rs to Start: 01-20-2023 End: 01-21-2023 [facility] Start: 12-19-2022 Telephone encounter Eze alva MD Work Phone: [facility] Comment on above: Orders Start: 12-18-2022 Chart abstracting [facility] Work Phone: Neurology Start: 12-17-2022 End: 12-17-2022 Patient encounter procedure Eze Rodriguez MD Work Phone: [facility] Comment on above: Essential hypertensi on (Primary Dx); Mixed hyperlipidemia; JOSE (obstructive sleep apnea); BPH with obstruction/lower urinary tract symptoms; Screening PSA (prostate specific antigen); Personal history of colonic polyps; Special screening for malignant neoplasms, colon Start: 07-13-2022 Telephone encounter Terry Lopezhemanth pino APRN.CNP Work Phone: [facility] Comment on above: Results Start: 06-15-2022 Chart abstracting [facility] Work Phone: Neurology Start: 06-14-2022 End: 06-14-2022 Subsequent hospital visit by physician X[facility] Work Phone: Radiology Comment on above: Cough, unspecified t ype [R05.9] Start: 06-14-2022 End: 06-14-2022 Patient encounter procedure Eze Rodriguez MD Work Phone: [facility] Comment on above: Essential hypertensi on (Primary Dx); Cough, unspecified type; JOSE (obstructive sleep apnea); Mixed hyperlipidemia; Elevated PSA Start: 05-28-2022 Chart abstracting Eze lopez MD Work Phone: [facility] Comment on above: external report Start: 05-26-2022 End: 05-26-2022 [facility] Start: 02-07-2022 Refill Eze olsen MD Work Phone: [facility] Comment on above: Refill Request Procedures Date Procedure Procedure Detail Performing Clinician Start: 07-23-2024 PFIZER-BIONTECH COVI D-19 VACCINE AGE 12+ YR (COMIRNATY) Eze Rodriguez MD Work Phone: Start: 07-23-2024 Adult depression scr eening assessment Eze Rodrgiuez MD Work Phone: Start: 02-05-2023 Colonoscopy Brenda montoya MD Work Phone: Start: 06-14-2022 Radiologic exam ches t 2 views Eze Rodriguez MD Work Phone: Start: 06-14-2022 Adult depression scr eening assessment Eze Rodriguez MD Work Phone: Start: 05-26-2022 CT of abdomen and pe lvis without contrast Start: 06-13-2021 Adult depression scr eening assessment Eze Rodriguez MD Work Phone: Plan of Treatment Date Care Activity Detail Author Start: 12-04-2028 Urine microalbumin profile [facility] Start: 02-06-2028 Colonoscopy COLONOSCOPY [facility] Start: 02-06-2028 COLORECTAL CANCER SCREENING COLORECTAL CANCER SCREENING [facility] Start: 02-06-2028 Screening for malign ant neoplasm of colon [facility] Start: 01-15-2028 [facility] Start: 12-16-2026 Diabetes Screening Diabetes Screenin [facility] Start: 06-29-2026 End: 06-29-2026 Patient encounter procedure 06/29/2026 8:30 AM EDT Office Visit [facility] [address] [place] [address] Praneeth Segura II, OD [address] [place] [address] [facility] [address] [address] Return in about one year for Eye Exam; Optometry Comment on above: Return in about one year for Eye Exam; Start: 06-13-2026 DIABETES SCREEN DIABETES SCREEN [facility] Start: 06-13-2026 Diabetes Screening Diabetes Screenin g [facility] Start: 01-21-2026 Covid-19 Vaccine ( season) Covid-19 Vaccine () [facility] Comment on above: Postponed from 01/20 (Declined at this time) Start: 12-12-2025 DIABETES SCREEN DIABETES SCREEN [facility] Start: 07-27-2025 End: 07-27-2025 Patient encounter procedure 07/27/2025 10:40 AM EDT Office Visit [facility] [address] [place] [address] zEe Rodriguez MD [address] [facility] [place] [id number] 6 mo f/u [facility] Comment on above: 6 mo f/u Start: 07-24-2025 End: 10-23-2025 Comprehensive metabolic 2000 panel - Serum or Plasma COMPREHENSIVE METABOLIC PANEL Lab Routine Essential hypertension Mixed hyperlipidemia Expected: 07/24/2025 (Approximate), Expires: 10/23/2025 [facility] Comment on above: Expected: 07/24/2025 (Approximate), Expires: 10/23/2025 Start: 07-24-2025 End: 10-23-2025 Lipid 1996 panel - Serum or Plasma LIPID PANEL, FASTING Lab Routine Essential hypertension Mixed hyperlipidemia Expected: 07/24/2025 (Approximate), Expires: 10/23/2025 [facility] Comment on above: Expected: 07/24/2025 (Approximate), Expires: 10/23/2025 Start: 07-24-2025 End: 10-23-2025 Prostate specific Ag [Mass/volume] in Serum or Plasma PROSTATE-SPECIFIC ANTIGEN DIAGNOSTIC Lab Routine Elevated PSA Expected: 07/24/2025 (Approximate), Expires: 10/23/2025 [facility] Work Phone: Comment on above: Expected: 07/24/2025 (Approximate), Expires: 10/23/2025 Start: 07-23-2025 Anxiety Screening Anxiety Screening [facility] Start: 07-23-2025 Depression Screening Depression Scre ening [facility] Start: 06-28-2025 Influenza vaccination Influenza Vacc ine (#1) [facility] Start: 06-11-2025 DIABETES SCREEN DIABETES SCREEN [facility] Start: 01-21-2025 End: 01-21-2025 Patient encounter procedure 01/21/2025 9:40 AM EDT Office Visit [facility] [address] [place] [address] Eze Rodriguez MD [address] [place] [address] 6 mo f/u [facility] Comment on above: 6 mo f/u Start: 01-20-2025 End: 04-21-2025 CBC W Auto Differential panel - Blood COMPLETE BLOOD COUNT AND DIFFERENTIAL Lab Routine Essential hypertension Expected: 01/20/2025 (Approximate), Expires: 04/21/2025 [facility] Comment on above: Expected: 01/20/2025 (Approximate), Expires: 04/21/2025 Start: 01-20-2025 End: 04-21-2025 Comprehensive metabolic 2000 panel - Serum or Plasma COMPREHENSIVE METABOLIC PANEL Lab Routine Essential hypertension Mixed hyperlipidemia Expected: 01/20/2025 (Approximate), Expires: 04/21/2025 [facility] Work Phone: Comment on above: Expected: 01/20/2025 (Approximate), Expires: 04/21/2025 Start: 01-20-2025 End: 04-21-2025 Lipid 1996 panel - Serum or Plasma LIPID PANEL BASIC Lab Routine Essential hypertension Mixed hyperlipidemia Expected: 01/20/2025 (Approximate), Expires: 04/21/2025 [facility] Comment on above: Expected: 01/20/2025 (Approximate), Expires: 04/21/2025 Start: 01-20-2025 End: 04-21-2025 Prostate specific Ag [Mass/volume] in Serum or Plasma PROSTATE-SPECIFIC ANTIGEN DIAGNOSTIC Lab Routine BPH with obstruction/lower urinary tract symptoms Elevated PSA Expected: 01/20/2025 (Approximate), Expires: 04/21/2025 [facility] Comment on above: Expected: 01/20/2025 (Approximate), Expires: 04/21/2025 Start: 01-14-2025 End: 01-14-2025 ambulatory 01/14/2025 9:30 AM EDT [facility] [address] [place] [address] lab [facility] Comment on above: lab Start: 12-07-2024 DIABETES SCREEN DIABETES SCREEN [facility] Start: 10-28-2024 Medicare Advantage Annual Wellness Visit Medicare Advantage Annual Wellness Visit [facility] Start: 07-23-2024 End: 07-23-2024 Patient encounter procedure 07/23/2024 8:00 AM EDT Office Visit [facility] [address] [place] [address] Eze Rodriguez MD [address] [place] [address] Annual Wellness - 6 month follow up [facility] Comment on above: Annual Wellness - 6 month follow up Start: 06-28-2024 Influenza vaccination Influenza Vacc ine (#1) [facility] Start: 06-23-2024 End: 06-23-2024 Patient encounter procedure 06/23/2024 9:00 AM EDT Office Visit Family [facility] [address] [place] [address] Eze Rodriguez MD [address] [place] [address] 6 month follow up [facility] Bel[facility] L[facility] Comment on above: 6 month follow up Start: 06-18-2024 ANNUAL PCP TEAM SCHEDULE ANALYST RADHA DISEASE VISIT ANNUAL PCP TEAM CHRONIC DISEASE VISIT [facility] Start: 06-18-2024 End: 09-17-2024 Prostate specific Ag [Mass/volume] in Serum or Plasma PSA/PROSTSPECAG DIAG Lab Routine BPH with obstruction/lower urinary tract symptoms Elevated PSA Expected: 06/18/2024 (Approximate), Expires: 09/17/2024 [facility] Work Phone: Comment on above: Expected: 06/18/2024 (Approximate), Expires: 09/17/2024 Start: 06-18-2024 End: 06-18-2024 ambulatory 06/18/2024 10:00 AM EDT Results Only [facility] [address] [place] [address] [facility] Start: 04-16-2024 BP CONTROLLED (<130/80) BP CONTROLLE D (<130/80) [facility] Start: 03-08-2024 End: 08-15-2024 OCT MACULA CIRRUS OU (BOTH EYES) OCT MACULA CIRRUS OU (BOTH EYES) [facility] Imaging Routine Combined forms of age-related cataract of right eye Expected: 03/08/2024, Expires: 08/15/2024 [facility] Work Phone: Comment on above: Expected: 03/08/2024 , Expires: 08/15/2024 Start: 12-19-2023 End: 02-18-2024 Comprehensive metabolic 2000 panel - Serum or Plasma COMP METABOLIC PANEL Lab Routine Mixed hyperlipidemia Expected: 12/19/2023 (Approximate), Expires: 02/18/2024 [facility] Work Phone: Comment on above: Expected: 12/19/2023 (Approximate), Expires: 02/18/2024 Start: 12-19-2023 End: 02-18-2024 Lipid 1996 panel - Serum or Plasma LIPID PANEL BASIC Lab Routine Mixed hyperlipidemia Expected: 12/19/2023 (Approximate), Expires: 02/18/2024 [facility] Work Phone: Comment on above: Expected: 12/19/2023 (Approximate), Expires: 02/18/2024 Start: 12-19-2023 End: 02-18-2024 Prostate specific Ag [Mass/volume] in Serum or Plasma PSA/PROSTSPECAG DIAG Lab Routine BPH with obstruction/lower urinary tract symptoms Elevated PSA Expected: 12/19/2023 (Approximate), Expires: 02/18/2024 [facility] Work Phone: Comment on above: Expected: 12/19/2023 (Approximate), Expires: 02/18/2024 Start: 12-17-2023 ANNUAL PCP TEAM SCHEDULE ANALYST RADHA DISEASE VISIT ANNUAL PCP TEAM CHRONIC DISEASE VISIT [facility] Start: 12-17-2023 BP CONTROLLED (<130/80) BP CONTROLLE D (<130/80) [facility] Start: 10-28-2023 Advance Directive Discussion Advance Directive Discussion [facility] Start: 10-28-2023 Behavioral Health Screening Behavioral Health Screening [facility] Start: 10-28-2023 Depression Assessment Depression Ass essment [facility] Start: 06-28-2023 Covid-19 Vaccine () Covid-19 Vaccine () [facility] Start: 06-28-2023 Influenza vaccination C [facility] Start: 06-16-2023 End: 08-16-2023 Comprehensive metabolic 2000 panel - Serum or Plasma COMP METABOLIC PANEL Lab Routine Mixed hyperlipidemia Expected: 06/16/2023 (Approximate), Expires: 08/16/2023 [facility] Work Phone: Comment on above: Expected: 06/16/2023 (Approximate), Expires: 08/16/2023 Start: 06-16-2023 End: 08-16-2023 Lipid 1996 panel - Serum or Plasma LIPID PANEL BASIC Lab Routine Mixed hyperlipidemia Expected: 06/16/2023 (Approximate), Expires: 08/16/2023 [facility] Work Phone: Comment on above: Expected: 06/16/2023 (Approximate), Expires: 08/16/2023 Start: 06-16-2023 End: 08-16-2023 PSA/PROSTSPECAG SCRN PSA/PROSTSPECAG SCRN Lab Routine BPH with obstruction/lower urinary tract symptoms Screening PSA (prostate specific antigen) Expected: 06/16/2023 (Approximate), Expires: 08/16/2023 [facility] Work Phone: Comment on above: Expected: 06/16/2023 (Approximate), Expires: 08/16/2023 Start: 06-14-2023 Adult depression screening assessment DEPRESSION SCREENING [facility] Start: 06-14-2023 ANNUAL PCP TEAM SCHEDULE ANALYST RADHA DISEASE VISIT ANNUAL PCP TEAM CHRONIC DISEASE VISIT [facility] Start: 06-14-2023 BP CONTROLLED (<130/80) BP CONTROLLE D (<130/80) [facility] Start: 05-13-2023 SHINGRIX VACCINE (3 of 3) SHINGRIX VACCINE (3 of 3) [facility] Start: 02-08-2023 COVID-19 VACCINE (7 - Mixed Product series) COVID-19 VACCINE (7 - Mixed Product series) [facility] Start: 12-15-2022 End: 02-14-2023 CBC panel - Blood by Automated count CBC Lab Routine Essential hypertension Expected: 12/15/2022 (Approximate), Expires: 02/14/2023 [facility] Work Phone: Comment on above: Expected: 12/15/2022 (Approximate), Expires: 02/14/2023 Start: 12-15-2022 End: 02-14-2023 Comprehensive metabolic 2000 panel - Serum or Plasma COMP METABOLIC PANEL Lab Routine Essential hypertension Mixed hyperlipidemia Expected: 12/15/2022 (Approximate), Expires: 02/14/2023 [facility] Work Phone: Comment on above: Expected: 12/15/2022 (Approximate), Expires: 02/14/2023 Start: 12-15-2022 End: 02-14-2023 Lipid 1996 panel - Serum or Plasma LIPID PANEL BASIC Lab Routine Essential hypertension Mixed hyperlipidemia Expected: 12/15/2022 (Approximate), Expires: 02/14/2023 [facility] Work Phone: Comment on above: Expected: 12/15/2022 (Approximate), Expires: 02/14/2023 Start: 12-15-2022 End: 02-14-2023 Prostate specific Ag [Mass/volume] in Serum or Plasma PSA/PROSTSPECAG DIAG Lab Routine Elevated PSA Expected: 12/15/2022 (Approximate), Expires: 02/14/2023 [facility] Work Phone: Comment on above: Expected: 12/15/2022 (Approximate), Expires: 02/14/2023 Start: 12-14-2022 ANNUAL PCP TEAM SCHEDULE ANALYST RADHA DISEASE VISIT ANNUAL PCP TEAM CHRONIC DISEASE VISIT [facility] Start: 12-14-2022 BP CONTROLLED (<130/80) BP CONTROLLE D (<130/80) [facility] Start: 07-12-2022 COVID-19 VACCINE (5 - Booster) COVID-19 VACCINE (5 - Booster) [facility] Start: 06-28-2022 Influenza vaccination INFLUENZA (#1) [facility] Start: 06-13-2022 Adult depression screening assessment DEPRESSION SCREENING [facility] Start: 12-25-2021 COVID-19 VACCINE (4 - Booster) COVID-19 VACCINE (4 - Booster) [facility] Start: 10-28-2021 ADVANCE DIRECTIVE DISCUSSION ADVANCE DIRECTIVE DISCUSSION [facility] Start: 12-04-2011 SHINGRIX VACCINE (2 of 3) SHINGRIX VACCINE (2 of 3) [facility] Start: 1987 COLOGUARD (FIT-DNA) COLOGUARD (FIT-D NA) [facility] Start: [address] COLONOGRAPHY [facility] Start: 1987 FECAL OCCULT BLOOD FECAL OCCULT BLOO D [facility] Start: 1987 Screening for malign ant neoplasm of colon [facility] Start: 1987 SIGMOIDOSCOPY SIGMOIDOSCOPY [facility] Start: 1960 BP CONTROLLED (<130/80) BP CONTROLLE D (<130/80) [facility] CORNEAL TOPOGRAPHY ATLAS OU (BOTH EYES) CORNEAL TOPOGRAPHY ATLAS OU (BOTH EYES) [facility] Imaging Routine Combined forms of age-related cataract of right eye Ordered: 02/22/2023 [facility] Work Phone: Comment on above: Ordered: 02/22/2023 End: 06-14-2023 HOME SLEEP APNEA TEST (HSAT) HOME SLEEP APNEA TEST (HSAT) Procedures Routine JOSE (obstructive sleep apnea) 1 Occurrences starting 06/14/2022 until 06/14/2023 [facility] Work Phone: Comment on above: 1 Occurrences starti ng 06/14/2022 until 06/14/2023 End: 12-17-2023 HOME SLEEP APNEA TEST (HSAT) HOME SLEEP APNEA TEST (HSAT) Procedures Routine JOSE (obstructive sleep apnea) 1 Occurrences starting 12/17/2022 until 12/17/2023 [facility] Work Phone: Comment on above: 1 Occurrences starti ng 12/17/2022 until 12/17/2023 End: 08-12-2023 PAP TITRATION PSG (CPAP, BIPAP, ASV) PAP TITRATION PSG (CPAP, BIPAP, ASV) Procedures Routine JOSE (obstructive sleep apnea) 1 Occurrences starting 07/13/2022 until 08/12/2023 [facility] Work Phone: Comment on above: 1 Occurrences starti ng 07/13/2022 until 08/12/2023 End: 01-16-2024 PAP TITRATION PSG (CPAP, BIPAP, ASV) PAP TITRATION PSG (CPAP, BIPAP, ASV) Procedures Routine JOSE (obstructive sleep apnea) 1 Occurrences starting 12/17/2022 until 01/16/2024 [facility] Work Phone: Comment on above: 1 Occurrences starti ng 12/17/2022 until 01/16/2024 Patient Education [facility] Work Phone: Patient referral [facility] Work Phone: End: 12-17-2023 Screening colonoscopy COLONOSCOPY SCREENING Endoscopy Routine Personal history of colonic polyps Special screening for malignant neoplasms, colon 1 Occurrences starting 12/17/2022 until 12/17/2023 [facility] Work Phone: Comment on above: 1 Occurrences starti ng 12/17/2022 until 12/17/2023 [facility] Immunizations Immunization Date Immunization Notes Care Provider Fa [facility] 07-23-2024 COVID-19 vaccine, ag e 12+ yr ([employer] [facility]) Eze Rodriguez MD Work Phone: [facility] 07-23-2024 influenza, high dose seasonal, preservative-free Eze Rodriguez MD Work Phone: [facility] 07-23-2024 influenza virus vacc ine, unspecified formulation Eze Rodriguez MD Work Phone: [facility] 08-12-2023 influenza (aIIV4) vaccine, age 65+ yr, quadrivalent, PF (FLUAD QUAD) Eze Rodriguez MD Work Phone: [facility] 08-12-2023 pneumococcal conjuga te (PCV20) vaccine, 20 valent (PREVNAR 20) Eze Rodriguez MD Work Phone: [facility] 08-12-2023 respiratory syncytia l virus (RSV) vaccine, bivalent (ABRYSVO) Eze Rodriguez MD Work Phone: [facility] 08-12-2023 influenza virus vacc ine, unspecified formulation Varsha Manleyarmin GRAVES [facility] [facility] 05-20-2023 zoster vaccine recombinant Eze Rodriguez MD Work Phone: [facility] 03-18-2023 zoster vaccine recombinant Nicki Gomez PA-C Work Phone: [facility] Work Phone: 10-10-2022 influenza (aIIV4) vaccine, age 65+ yr, quadrivalent, PF (FLUAD QUAD) Nicki Patricia PA-C Work Phone: [facility] Work Phone: 10-10-2022 influenza virus vacc ine, unspecified formulation Eze Rodriguez MD Work Phone: [facility] 05-25-2022 zoster vaccine recombinant Eze Rodriguez MD Work Phone: [facility] 05-17-2022 COVID-19 original vaccine, full dose, monovalent (MODERNA) Nicki Shemarann PA-C Work Phone: [facility] Work Phone: 10-17-2021 influenza (aIIV4) vaccine, age 65+ yr, quadrivalent, PF (FLUAD QUAD) Nicki Toddlmann PA-C Work Phone: [facility] Work Phone: 08-24-2021 COVID-19 original vaccine, full dose, monovalent (MODERNA) Nicki oTddlmann PA-C Work Phone: [facility] Work Phone: 12-29-2020 COVID-19 vaccine, fu ll dose (MODERNA) Eze Rodriguez MD Work Phone: [facility] 12-01-2020 COVID-19 original vaccine, full dose, monovalent (MODERNA) Nicki Toddlmann PA-C Work Phone: [facility] Work Phone: 12-01-2020 COVID-19 vaccine (UNSPECIFIED) Eze Rodriguez MD Work Phone: [facility] 07-08-2020 influenza, injectabl e, quadrivalent, preservative free Nicki Gomez PA-C Work Phone: [facility] Work Phone: 08-26-2019 Seasonal trivalent influenza vaccine, adjuvanted, preservative free Nicki Gomez PA-C Work Phone: [facility] Work Phone: 12-04-2018 tetanus toxoid, redu natacha diphtheria toxoid, and acellular pertussis vaccine, adsorbed Eze Rodriguez MD Work Phone: [facility] 10-04-2018 Seasonal trivalent influenza vaccine, adjuvanted, preservative free Eze Rodriguez MD Work Phone: [facility] 10-02-2018 influenza, high dose seasonal, preservative-free Eze Rodriguez MD Work Phone: [facility] 08-28-2017 influenza, high dose seasonal, preservative-free Eze Rodriguez MD Work Phone: [facility] 08-17-2017 Seasonal trivalent influenza vaccine, adjuvanted, preservative free Eze Rodriguez MD Work Phone: [facility] 07-22-2015 influenza, seasonal, injectable Eze Rodriguez MD Work Phone: [facility] 07-22-2015 pneumococcal conjuga te vaccine, 13 valent Eze Rodriguez MD Work Phone: [facility] 07-20-2014 influenza, seasonal, injectable Eze Rodriguez MD Work Phone: [facility] 10-09-2011 pneumococcal polysaccharide vaccine, 23 valent Eze Rodriguez MD Work Phone: [facility] Work Phone: 10-09-2011 tetanus toxoid, adsorbed Kylie Rodriguez MD Work Phone: [facility] Work Phone: 10-09-2011 zoster vaccine, live Eze desir MD Work Phone: [facility] Work Phone: 07-31-2011 influenza virus vacc ine, unspecified formulation Eze Rodriguez MD Work Phone: [facility] Work Phone: 10-14-2009 influenza virus vacc ine, unspecified formulation Eze Rodriguez MD Work Phone: [facility] Work Phone: 09-09-2007 influenza virus vacc ine, whole virus Eze Rodriguez MD Work Phone: [facility] Payers Date Payer Category Payer Private Health Insurance [employer] [facility] Address: [address] [place] [address] [address] [place] [address] [id number] 10-28-2024 Unknown [id number] 07-19-2023 Self-pay [id number] 10-28-2021 Medicare (Managed Care) [employer] PPO [id number] 10-28-2021 Unknown ANTHEM BLUE [facility] S AND BLUE SHIELD ANTHEM MEDIBLUE ACCESS [id number] 10/28/2021-Present [phone] [address] [place] [address] PPO [id number] 10-28-2021 Unknown [id number] 10-28-2021 Unknown [id number] Medicare [id number] Unknown [id number] Unknown [id number] Social History Date Type Detail Facility Start: 08-15-2015 Tobacco smoking status WYIS Never smoked tobacco [facility] Start: 12-14-2021 End: 06-23-2025 Alcohol intake Current drinker of alcohol (finding) [facility] Start: 10-09-2011 History SDOH Alcohol Comment moderate [facility] Start: 1940 Sex Assigned At Male [facility] Start: 05-26-2022 End: 07-19-2023 Tobacco smoking status WYIS Unknown if ever smoked [facility] Start: 08-15-2015 Tobacco use and exposure Smokeless tobacco non-user [facility] Start: 06-04-2022 End: 06-14-2022 Exposure to SARS-CoV-2 (event) Not sure [facility] Start: 05-03-2023 End: 07-22-2024 History of Social function [facility] Work Phone: Start: 05-03-2023 End: 07-22-2024 Tobacco use panel [facility] Work Phone: Start: 09-28-2012 Adult Depression Screening Assessment 0 [facility] Work Phone: Start: 12-07-2021 Gender identity Identifies as male gender (finding) [facility] Start: 10-16-2018 Sexual orientation Heterosexual (finding) [facility] Do you belong to any clubs or organizations such as adventism groups, unions, fraternal or athletic groups, or school groups? No [facility] Are you now , , , , never or living with a partner? [facility] How often to you hav e a drink containing alcohol? 2-3 time sa week [facility] How many standard dr inks containing alcohol do you have on a typical day? 1 or 2 [facility] How often do you hav e 6 or more drinks on 1 occasion? Never [facility] Do you feel stress - tense, restless, nervous, or anxious, or unable to sleep at night because your mind is troubled all the time - these days [OSQ] Not at all [facility] ([facility]We[facility] would run out before (I/we) got money to buy more. Never true [facility] Medical Equipment Procedure Code Equipment Code Equipment Origin al Text Equipment Identifier Dates [employer] [id number] 18.0d [id number] Start: 04-25-2023 Comment on above: Description: -0.19 Mental Status Date Assessment Result Facility 07-19-2023 Cognitive function Level Of Cons ciousness Awake;Alert;Appropriate;Follow s Commands [facility] Work Phone: Clinical Notes 03-01-2011 to 08-24-2025 Patient InstructionsCoPraneeth fagan II, OD - 06/23/2025 9:52 AM EDTTelephone Encounter - Annie Day LPN - 02/15/2025 11:01 AM Eze Nicolas MD - 01/21/2025 9:40 AM EDT Note Date & Type Note Facility 08-24-2025 Note HNO ID: [id number] Author: EZE RODRIGUEZ MD Service: ? Author Type: Physician Type: Progress Notes Filed: 08/24/2025 11:25 Note Text: Domo Bolden is a 84 year old male here for a Medicare wellness visit. Medicare Health Risk Assessment General Health Excellent Exercise: Minutes/Day 30 min Exercise: Days/Week 4 days Alcohol: Daily Use 2-3 times a week Alcohol: Drinks/Day 1 or 2 Alcohol: 6 or more drinks Never Feel off balance Yes (thinks it is ear related) Concerns: Teeth/Dentures No Concerns: Sexual function Yes (taking Viagra as needed) Troubled by feelings None of the above Frequency: Eating healthy diet Nearly every day ADLs requiring help None of the above Safety precautions in home/vehicle Yes Smoke, vape, chews tobacco No Difficulty hearing No Difficulty seeing No Current Providers Specialists: I have reviewed specialist-related care of the patient in the medical record. Current care team: Patient Care Team: Eze Rodriguez MD as PCP - General (Family Medicine) Terry Champion APRN.DERRICK as Administrative Supervisor (Family Medicine) Outside specialists seen: Eye-Dr. Segura, Dentist Medical/Family history review Reviewed and updated problem list, medical/surgical/family/social history, medications, and allergies. Opioid use review Opioid Medications (last 90 days) No data to display Anxiety/Depression screening PHQ-2 Score: 0 (Lower risk for depression) Recommendation: no further intervention at this time Cognitive screening Mini Cog Score: 5 Cognitive screening reviewed and No further action needed (score 3-5). Functional Observation Was the patient's Timed Up AND Go test unsteady or >= 12 seconds? No Advance Care Planning Patient did not wish or was not able to name a surrogate decision maker or provide an advance care plan Measurements BP 118/74 Pulse 70 Resp 14 Ht 172.7 cm (5' 8) Wt 87.8 kg (193 lb 9 oz) BMI 29.43 kg/m? Vision Screening: Follows with optometry/ophthalmology Assessment/Plan Medicare annual wellness visit, initial (Z00.00) - Counseled on healthy diet and regular exercise - Fall avoidance information provided - Personalized prevention plan provided - Discussed need for and benefit of weight loss. BMI 29.43 kg/(m2) Chief Complaint Patient presents with: 6 Month Exam Medicare Wellness Exam Immunizations: Flu vaccination Recording using ambient [employer] software for draft documentation of the visit was discussed with the patient/authorized charter representative; all questions welcomed and answered. Patient/authorized charter representative agreed to proceed HPI Domo Bolden is a 84 year old male who presents here today for Medicare Annual Visit and 6 month follow up. No bowel, Gi, or urinary issues. Uses Cialis 5 mg daily. Uses Viagra prn ED. GERD: Sx stable on Pepcid 20 mg 1 pill BID prn. Pt not sure if he is taking this. HTN: Taking Lisinopril 5 mg daily. No chest pains, dizziness, or Shortness of Breath. Does check BP with readings running 130/75. Taking Aleve 220 mg once daily for normal aches and pains. He is on CPAP therapy for JOSE and reports significant improvement in daytime sleepiness since starting the treatment. He uses the CPAP for at least 4 hours per night to meet insurance requirements, and occasionally up to 5.5 hours. He notes that prior to CPAP use, he experienced episodes of falling asleep while driving, which have since resolved. 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 He denies any issues with memory. He does not have a living will or healthcare proxy. Recent lab work from last month shows a total cholesterol level of 183 mg/dL, LDL cholesterol under 130 mg/dL, and a stable PSA level. Calcium levels were slightly elevated, but not enough to be concerning. Blood glucose and renal function tests were normal. Past medical history, appointments, medications, allergies reviewed. 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 Nick Bustamante, [facility] REMV CATARACT EXTRACAP,INSERT LENS Right 07/2023 Done at [facility] TONSILLECTOMY AND ADENOIDECTOMY TONSILLECTOMY HX Family Histor (more content not included)... 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 H25.812 Combined forms of age-related cataract of left eye Comment: Patient noticing yellowing of vision left eye. Will tolerate. Monitor. H02.831, H02.834 Dermatochalasis of both upper eyelids Comment: Patient notes more interference with vision L>R. Will tolerate. Monitor. Z96.1 Pseudophakia of right eye Comment: Posterior chamber intraocular lens is well positioned and clear. I have confirmed and edited as necessary the relevant HPI, ophthalmic history, ROS, and the neuro exam findings as obtained by others. I have seen and examined Domo Bolden. I have discussed the case and the management of this patient's care with the Resident/Fellow, if applicable. I also have reviewed and agree with the assessment and plan as stated above and agree with all of its relevant components. documented in this encounter [facility] 06-23-2025 Note HNO ID: [id number] Author: PRANEETH SEGURA II, OD Service: ? 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 H25.812 Combined forms of age-related cataract of left eye Comment: Patient noticing yellowing of vision left eye. Will tolerate. Monitor. H02.831, H02.834 Dermatochalasis of both upper eyelids Comment: Patient notes more interference with vision L>R. Will tolerate. Monitor. Z96.1 Pseudophakia of right eye Comment: Posterior chamber intraocular lens is well positioned and clear. I have confirmed and edited as necessary the relevant HPI, ophthalmic history, ROS, and the neuro exam findings as obtained by others. I have seen and examined Domo Bolden. I have discussed the case and the management of this patient's care with the Resident/Fellow, if applicable. I also have reviewed and agree with the assessment and plan as stated above and agree with all of its relevant components. 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 H25.812 Combined forms of age-related cataract of left eye Comment: Patient noticing yellowing of vision left eye. Will tolerate. Monitor. H02.831, H02.834 Dermatochalasis of both upper eyelids Comment: Patient notes more interference with vision L>R. Will tolerate. Monitor. Z96.1 Pseudophakia of right eye Comment: Posterior chamber intraocular lens is well positioned and clear. I have confirmed and edited as necessary the relevant HPI, ophthalmic history, ROS, and the neuro exam findings as obtained by others. I have seen and examined Domo Bolden. I have discussed the case and the management of this patient's care with the Resident/Fellow, if applicable. I also have reviewed and agree with the assessment and plan as stated above and agree with all of its relevant components. documented in this encounter [facility] 02-15-2025 Telephone encounter Note Images from the original note were not included. Electronic PA rec'd and completed for tadalafil. This was approved. Prior authorization approved Payer: Trudy Note from radha: [employer] Case: [id number], Status: Approved, Coverage Starts on: 11/17/2024 12:00:00 AM, Coverage Ends on: 02/15/2026 12:00:00 AM. Approval Details Authorization number: [id number] Authorized from November 17, 2024 to February 15, 2026 Electronic appeal: Not supported View History Notes Time User Attachment Attachment received from pay. 02/15/2025 10:53 AM [facility], Rx Priorauth In Document Medication Being Authorized Tadalafil (CIALIS) 5 mg tablet Take 1 tablet by mouth once daily. Dispense: 90 tablet Refills: 3 Start: 02/15/2025 Class: Normal Diagnoses: BPH with obstruction/lower urinary tract symptoms This order has been released to its destination. To be filled at: [place] [address] - [address] [phone] [facility] 02-15-2025 Miscellaneous Notes Images from the original note were not included. Electronic [employer] rec'd and completed for tadalafil. This was approved. Prior authorization approved Payer: Trudy Note from payer: [employer] Case: [id number], Status: Approved, Coverage Starts on: 11/17/2024 12:00:00 AM, Coverage Ends on: 02/15/2026 12:00:00 AM. Approval Details Authorization number: [id number] Authorized from November 17, 2024 to February 15, 2026 Electronic appeal: Not supported View History Notes Time User Attachment Attachment received from [employer]. 02/15/2025 10:53 AM [facility], Rx Priorauth In Document Medication Being Authorized Tadalafil (CIALIS) 5 mg tablet Take 1 tablet by mouth once daily. Dispense: 90 tablet Refills: 3 Start: 02/15/2025 Class: Normal Diagnoses: BPH with obstruction/lower urinary tract symptoms This order has been released to its destination. To be filled at: [place] [address] - [address] [facility] [phone] documented in this encounter [facility] 02-15-2025 Telephone encounter Note The following approved medication requests have been transmitted electronically. Requested Prescriptions Pending Prescriptions Disp Refills Tadalafil (CIALIS) 5 mg tablet 90 tablet 3 Sig: Take 1 tablet by mouth once daily. Terry Champion APRN.CNP [facility] 02-15-2025 Miscellaneous Notes The following approved medication requests have been transmitted electronically. Requested Prescriptions Pending Prescriptions Disp Refills Tadalafil (CIALIS) 5 mg tablet 90 tablet 3 Sig: Take 1 tablet by mouth once daily. Terry Champion APRN.CNP Prescription Refill Information The patient has been identified by name and date of : Yes Caregiver verified no other encounters exist for this prescription request: Yes Caregiver confirmed with patient/requestor that no other refills are due, in the near future, with this provider at this time: Yes The last office visit in the department: 01/21/2025 Does the patient have a future office visit with this provider/department: Yes Requested Prescriptions Pending Prescriptions Disp Refills Tadalafil (CIALIS) 5 mg tablet 90 tablet 3 Sig: Take 1 tablet by mouth once daily. Sara Mendoza LPN February 15, 2025 10:21 AM documented in this encounter [facility] 02-15-2025 Telephone encounter Note Prescription Refill Information The patient has been identified by name and date of : Yes Caregiver verified no other encounters exist for this prescription request: Yes Caregiver confirmed with patient/requestor that no other refills are due, in the near future, with this provider at this time: Yes The last office visit in the department: 01/21/2025 Does the patient have a future office visit with this provider/department: Yes Requested Prescriptions Pending Prescriptions Disp Refills Tadalafil (CIALIS) 5 mg tablet 90 tablet 3 Sig: Take 1 tablet by mouth once daily. Sara Mendoza LPN February 15, 2025 10:21 AM [facility] 01-21-2025 History of Presen t illness Narrative Chief Complaint Patient presents with: F/U 6 Month HPI Domo Bolden is a 84 year old male who presents here today for 6 month follow up. Denies any bowel, Gi, or urinary issues. Using Cialis daily for BPH and Viagra prn for ED. Lipid: Trying to control with lifestyle and taking Fish Oil. Tries to watch diet, no particular diet. Stopped buying tunisian fries and eliminate potato chips. 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 Domo is a 84-year-old male, with a history of HTN and BPH, presenting for a 6-month follow-up and evaluation of bilateral knee pain. Domo reports a 10-day onset of bilateral knee pain, primarily localized around the patellae, exacerbated by ascending and descending stairs. He suspects a possible minor twist while exiting his shop but denies any significant trauma or injury. The pain has improved over the past 4-5 days. He has been using a compression knee brace, which he reports has provided some relief. He denies using ice or heat for the pain. He is currently taking lisinopril 5 mg for HTN, with home blood pressure readings typically around 130/80 mmHg. He also takes Cialis for BPH and requests a refill for lisinopril. Additionally, he has been taking 2000 mg of vitamin C daily for approximately 55 years. 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 He expresses a desire for a full-time job but has not pursued employment. 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 HM - Reji having Adv Dir/Living Will. Prefers to wait on Covid vaccine at this time, received in 2023. Past medical history, appointments, medications, allergies reviewed. 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 Nick Bustamante, [facility] REMV CATARACT EXTRACAP,INSERT LENS Right 07/2023 Done at [facility] TONSILLECTOMY & ADENOIDECTOMY <AGE 14 childhood TONSILLECTOMY HX Family History FAMILY HISTORY Adopted: Yes Problem Relation Age of Onset Colon Cancer Brother stomach and colon Colon Cancer Other at least one half-brother Coronary Artery Disease Father known, first at about age 67 Colon Cancer Other half brother Patient Allergies ALLERGIES Allergen Reactions Yellow Food Color (* Hives Current Medications Current Outpatient Medications on File Prior to Visit Medication Sig lisinopril (ZESTRIL) 5 mg tablet Take 1 tablet by mouth once daily. Tadalafil (CIALIS) 5 mg tablet Take 1 tablet by mouth once daily. sildenafil (VIAGRA) 100 mg tablet Take 1 tablet by mouth once daily as needed. Take 30-60 minutes before sexual activity. lutein-zeaxanthin 25-5 mg cap Take 1 capsule by mouth twice daily. fluticasone (FLONASE) 50 mcg/actuation nasal spray Use 2 Sprays in each nostril once daily. Rinse mouth after use. prasterone, dhea, (DHEA) 50 mg tab Take 50 mg by mouth twice daily. dbtkzuth-rvb-UP-lycopen-lutein (CENTRUM SILVER MEN) 300-600-300 mcg tab Take 1 tablet by mouth once daily. Aspirin 500 mg tab Take 500 mg by mouth once daily. Vina-3 Fatty Acids-Vitamin E 1,000 mg cap Take 2 capsules by mouth once daily. GLUCOSAMINE/CHONDROITIN SULF A (GLUCOSAMINE-CHONDROITIN ORAL) Take 2 tablets by mouth once daily. SELENIUM 200 MCG TAB take one tablet daily GINKGO BILOBA 120 MG TAB 1 tablet 2 times daily VITAMIN C 1000MG TABLET Take one(1) tablet 2 x a day No current facility-administered medications on file prior to visit. Social History Social History Tobacco Use Smoking status: Never Smokeless tobacco: Never Vaping Use Vaping status: Never Used Substance Use Topics Alcohol use: Yes Comment: moderate Drug use: No EXAM: BP 140/84 (BP Site: Left Arm, BP Position: Sitting, BP Cuff Size: Regular Adult) Pulse 80 Resp 16 Wt 92.9 kg (204 lb 12.9 oz) BMI 29.81 kg/m General Appearance: Well appearing, alert, in no acute distress, well-hydrated, well nourished.. Lungs: Lungs clear to auscultation. No wheezing, rhonchi, rales.. Heart: RRR without murmur, gallop, or rubs. No ectopy. Extremities: right knee: FROM, no swelling, indicates pian around kneecap area. Health Maintenance List Advance Directive Discussion due on 10/28/2024 Covid-19 Vaccine() due on 01/20/2025 Depression Screening due on 07/23/2025 Anxiety Screening due on 07/23/2025 Diabetes Screening due on 01/15/2028 Colorectal Cancer Screening due on 02/06/2028 DTaP,Tdap,Td Vaccine(2 - Td or Tdap) due on 12/04/2028 Influenza Vaccine Completed RSV Vaccine Completed Shingrix Vaccine Completed Pneumococcal Vaccine: 50+ Completed Data reviewed Appointment on 01/14/2025 Component Date Value Protein, Total 01/14/2025 6.5 Albumin 01/14/2025 4.1 Calcium, Total 01/14/2025 10.2 Bilirubin, Total 01/14/2025 1.2 Alkaline Phosphatase 01/14/2025 65 AST 01/14/2025 21 ALT 01/14/2025 18 Glucose 01/14/2025 96 BUN 01/14/2025 20 Creatinine 01/14/2025 1.10 Sodium 01/14/2025 144 Potassium 01/14/2025 4.6 Chloride 01/14/2025 110 (H) CO2 01/14/2025 26 Anion Gap 01/14/2025 8 Estimated Glomerular Eric* 01/14/2025 67 Cholesterol, Total 01/14/2025 161 Triglyceride 01/14/2025 53 HDL Cholesterol 01/14/2025 46 Non HDL Cholesterol 01/14/2025 115 Fasting Time 01/14/2025 12 VLDL Cholesterol 01/14/2025 11 TC:HDL Ratio 01/14/2025 3.50 LDL Cholesterol 01/14/2025 104 (H) LDL:HDL Ratio 01/14/2025 2.26 WBC 01/14/2025 5.26 RBC 01/14/2025 4.88 Hemoglobin 01/14/2025 15.3 Hematocrit 01/14/2025 46.5 MCV 01/14/2025 95.3 MCH 01/14/2025 31.4 MCHC 01/14/2025 32.9 RDW-CV 01/14/2025 13.1 Platelet Count 01/14/2025 206 MPV 01/14/2025 10.5 Neutrophils % 01/14/2025 48.0 Abs Neut 01/14/2025 2.53 Lymphocytes % 01/14/2025 35.0 Abs Lymph 01/14/2025 1.84 Monocytes % 01/14/2025 9.3 Abs Jasper 01/14/2025 0.49 Eosinophils % 01/14/2025 6.7 Abs Eosin 01/14/2025 0.35 Basophils % 01/14/2025 0.8 Abs Baso 01/14/2025 0.04 Immature Granulocytes % 01/14/2025 0.2 Abs Immature Gran 01/14/2025 <0.03 NRBC 01/14/2025 0.0 Absolute nRBC 01/14/2025 <0.01 Diff Type 01/14/2025 Auto PSA 01/14/2025 5.73 (H) 1. Essential hypertension (I10) Blood pressure readings are consistently near high but not elevated, with home measurements around 130 mmHg systolic. Current medication regimen includes Lisinopril 5 mg daily. - Continue Lisinopril 5 mg daily; refill sent to [facility]. - Monitor blood pressure at home. 2. Mixed hyperlipidemia (E78.2) Cholesterol levels are well-controlled with a total cholesterol of 160 mg/dL and LDL slightly above 100 mg/dL. - Continue current management. 3. BPH with obstruction/lower urinary tract symptoms (N40.1) Symptoms are managed with Cialis. - Continue Cialis as prescribed. 4. Elevated PSA (R97.20) PSA levels show typical fluctuations but are stable compared to previous measurements. - Order annual PSA test prior to next visit. 5. Acute pain of right knee (M25.561) Onset of pain in the right knee, localized around the patella, began approximately 10 days ago. No significant injury reported. Pain is improving and is also present in the left knee. Physical exam reveals no signs of significant damage or structural abnormalities. - Continue using knee brace for support. - Apply ice to the affected area as needed. - Monitor for any changes or worsening symptoms. Follow up in 6 months with labs prior Call if knee not improving Medical Decision Making: Problems: Low: Acute, uncomplicated illness or injury Moderate: 2+ stable chronic illnesses Data: Unique test result(s) reviewed: 3+ Unique test(s) ordered: 3+ Risk: Moderate: Drug management Medical Decision Making Level: 4 - Moderate Eze Rodriguez MD The patient consented to the use of [employer] software for draft documentation of the visit consistent with [facility] s Notice of Privacy Practices. documented in this encounter [facility] 01-21-2025 Note HNO ID: [id number] Author: EZE RODRIGUEZ MD Service: ? Author Type: Physician Type: Progress Notes Filed: 01/21/2025 10:26 Note Text: Chief Complaint Patient presents with: F/U 6 Month HPI Domo Bolden is a 84 year old male who presents here today for 6 month follow up. Denies any bowel, Gi, or urinary issues. Using Cialis daily for BPH and Viagra prn for ED. Lipid: Trying to control with lifestyle and taking Fish Oil. Tries to watch diet, no particular diet. Stopped buying tunisian fries and eliminate potato chips. 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 Domo is a 84-year-old male, with a history of HTN and BPH, presenting for a 6-month follow-up and evaluation of bilateral knee pain. Domo reports a 10-day onset of bilateral knee pain, primarily localized around the patellae, exacerbated by ascending and descending stairs. He suspects a possible minor twist while exiting his shop but denies any significant trauma or injury. The pain has improved over the past 4-5 days. He has been using a compression knee brace, which he reports has provided some relief. He denies using ice or heat for the pain. He is currently taking lisinopril 5 mg for HTN, with home blood pressure readings typically around 130/80 mmHg. He also takes Cialis for BPH and requests a refill for lisinopril. Additionally, he has been taking 2000 mg of vitamin C daily for approximately 55 years. 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 He expresses a desire for a full-time job but has not pursued employment. 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 HM - Reji having Adv Dir/Living Will. Prefers to wait on Covid vaccine at this time, received in 2023. Past medical history, appointments, medications, allergies reviewed. 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 Nick Bustamante, [facility] REMV CATARACT EXTRACAP,INSERT LENS Right 07/2023 Done at [facility] TONSILLECTOMY AND ADENOIDECTOMY TONSILLECTOMY HX Family History FAMILY HISTORY Adopted: Yes Problem Relation Age of Onset Colon Cancer Brother stomach and colon Colon Cancer Other at least one half-brother Coronary Artery Disease Father known, first at about age 67 Colon Cancer Other half brother Patient Allergies ALLERGIES Allergen Reactions Yellow Food Color (* Hives Current Medications Current Outpatient Medications on File Prior to Visit Medication Sig lisinopril (ZESTRIL) 5 mg tablet Take 1 tablet by mouth once daily. Tadalafil (CIALIS) 5 mg tablet Take 1 tablet by mouth once daily. sildenafil (VIAGRA) 100 mg tablet Take 1 tablet by mouth once daily as needed. Take 30-60 minutes before sexual activity. lutein-zeaxanthin 25-5 mg cap Take 1 capsule by mouth twice daily. fluticasone (FLONASE) 50 mcg/actuation nasal spray Use 2 Sprays in each nostril once daily. Rinse mouth after use. prasterone, dhea, (DHEA) 50 mg tab Take 50 mg by mouth twice daily. iwodzdfh-url-JP-lycopen-lutein (CENTRUM SILVER MEN) 300-600-300 mcg tab Take 1 tablet by mouth once daily. Aspirin 500 mg tab Take 500 mg by mouth once daily. Vina-3 Fatty Acids-Vitamin E 1,000 mg cap Take 2 capsules by mouth once daily. GLUCOSAMINE/CHONDROITIN SULF A (GLUCOSAMINE-CHONDROITIN ORAL) Take 2 tablets by mouth once daily. SELENIUM 200 MCG TAB take one tablet daily GINKGO BILOBA 120 MG TAB 1 tablet 2 times daily VITAMIN C 1000MG TABLET Take one(1) tablet 2 x a day No current facility-administered medications on file prior to visit. Social History Social History Tobacco Use Smoking status: Never Smokeless tobacco: Never Vaping Use Vaping status: Never Used Substance Use Topics Alcohol use: Yes Comment: moderate Drug use: No EXAM: BP 140/84 (BP Site: Left Arm, BP Position: Sitting, BP Cuff Size: Regular Adult) Pulse 80 Resp 16 Wt 92.9 kg (204 lb 12.9 oz) BMI 29.81 kg/m? General Appearance: Well appearing, alert, in no acute distress, well-hydrated, well nourished.. Lungs: Lungs clear to auscultation. No wheezing, rhonchi, rales.. Heart: RRR without murmur, gallop, or rubs. No ectopy. Extrem (more content not included)... [facility] 08-12-2024 Telephone encounter Note Patient calling to request refill of Lisinopril 5 mg. He says his BP was running 170's-180's/80's-90's so he resumed his Lisinopril 5 mg a few days ago. His BP since then is running 130-140's/70's-80's. HR-70's-80's. No symptoms of dizziness or lightheadedness since resuming med. Pended. Gabbi Esparza, RN [facility] 08-12-2024 Miscellaneous Notes Patient calling to request refill of Lisinopril 5 mg. He says his BP was running 170's-180's/80's-90's so he resumed his Lisinopril 5 mg a few days ago. His BP since then is running 130-140's/70's-80's. HR-70's-80's. No symptoms of dizziness or lightheadedness since resuming med. Pended. Gabbi Esparza, RN documented in this encounter [facility] 07-23-2024 History of Presen t illness Narrative Images from the original note were not included. Domo Bolden is a 83 year old male here for a Medicare wellness visit. Uro - Has routine PSA checks due to being elevated. Takes Cialis 5 mg daily for BPH. Overall urinating is okay. ED - Taking Viagra prn. HTN - Checks BP at home couple times per week, generally WNL occasionally not. Feels he needs a new BP cuff. Denies any chest pain or sob. Started having dizziness upon standing earlier this week and stopped taking Lisinopril 5 mg once daily. Symptoms have since stopped, unsure if related. Feels different from when he went to the ED. Pt notes possible hx of heart murmur with cardiac testing over 10 years ago. Lipids - Acceptable diet. Exercise is fair, could probably do a little more. Feels he is doing pretty well for his age with activity. On on current medication, takes Fish Oil. Reports last week he was having difficulty walking a straight line, almost like he was drunk but he wasn't. This has seemed to improve since going off the Lisinopril. Was seen in the ED on 07/01/24 for dizziness. Had his ears lavaged which seemed to help. Does clean out his ear every month. Does wear hearing aids. HM - Anxiety/Depression screening negative. Does not have Adv Dir/Living Will. Agreeable to Flu and Covid. Medicare Health Risk Assessment General Health Very good Exercise: Minutes/Day Patient declined Exercise: Days/Week 4 days Alcohol: Daily Use 2-3 times a week Alcohol: Drinks/Day 1 or 2 Alcohol: 6 or more drinks Never Feel off balance Yes Concerns: Teeth/Dentures No Concerns: Sexual function No Troubled by feelings None of the above Frequency: Eating healthy diet Nearly every day ADLs requiring help None of the above Safety precautions in home/vehicle Yes Smoke, vape, chews tobacco No Difficulty hearing Yes, I wear a hearing aid Difficulty seeing No Current Providers Specialists: I have reviewed specialist-related care of the patient in the medical record. Current care team: Patient Care Team: Eze Rodriguez MD as PCP - General (Family Medicine) Praneeth Alvarez II OD - Optometry. Dentist - Follows with Provider in [place]. Medical/Family history review Reviewed and updated problem list, medical/surgical/family/social history, medications, and allergies. Opioid use review Opioid Medications (last 90 days) No data to display Anxiety/Depression screening PHQ-9 Score: 0. STEPHANIE-7 Score: 0. Recommendation: no further intervention at this time Cognitive screening Cognitive screening reviewed and No further action needed (score 3-5). Functional Observation Was the patient's Timed Up & Go test unsteady or >= 12 seconds? No Advance Care Planning Patient did not wish or was not able to name a surrogate decision maker or provide an advance care plan Measurements BP 142/84 Pulse 76 Resp 18 Ht 176.5 cm (5' 9.5) Wt 93.7 kg (206 lb 9.1 oz) BMI 30.07 kg/m Vision Screening: Follows with optometry/ophthalmology - recent visit on 04/23/24 Physical Exam Constitutional: Appearance: Normal appearance. HENT: Right Ear: Tympanic membrane, ear canal and external ear normal. Left Ear: Tympanic membrane, ear canal and external ear normal. Ears: Comments: Minimal wax noted on exam. Cardiovascular: Rate and Rhythm: Normal rate and regular rhythm. Pulses: Normal pulses. Heart sounds: Normal heart sounds. No murmur heard. No gallop. Pulmonary: Effort: Pulmonary effort is normal. No respiratory distress. Breath sounds: Normal breath sounds. No wheezing or rales. Comments: Does have a cough on exam. Neurological: General: No focal deficit present. Mental Status: He is alert and oriented to person, place, and time. Psychiatric: Mood and Affect: Mood normal. Behavior: Behavior normal. Assessment/Plan Medicare annual wellness visit, subsequent (Z00.00) - Counseled on healthy diet and regular exercise - Fall avoidance information provided - Personalized prevention plan provided Chief Complaint Follow up HPI Domo Bolden is a 83 year old male who presents here today for follow up, in addition to Medicare Wellness. Uro - Has routine PSA checks due to being elevated. Takes Cialis 5 mg daily for BPH. Overall urinating is okay. ED - Taking Viagra prn. HTN - Checks BP at home couple times per week, generally WNL occasionally not. Feels he needs a new BP cuff. Denies any chest pain or sob. Started having dizziness upon standing earlier this week and stopped taking Lisinopril 5 mg once daily. Symptoms have since stopped, unsure if related. Feels different from when he went to the ED. Pt notes possible hx of heart murmur with cardiac testing over 10 years ago. Lipids - Acceptable diet. Exercise is fair, could probably do a little more. Feels he is doing pretty well for his age with activity. On on current medication, takes Fish Oil. Reports last week he was having difficulty walking a straight line, almost like he was drunk but he wasn't. This has seemed to improve since going off the Lisinopril. Was seen in the ED on 07/01/24 for dizziness. Had his ears lavaged which seemed to help. Does clean out his ear every month. Does wear hearing aids. Past medical history, appointments, medications, allergies reviewed. 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 Nick Bustamante, [facility] REMV CATARACT EXTRACAP,INSERT LENS Right 07/2023 Done at [facility] TONSILLECTOMY & ADENOIDECTOMY <AGE 14 childhood TONSILLECTOMY HX Family History FAMILY HISTORY Adopted: Yes Problem Relation Age of Onset Colon Cancer Brother stomach and colon Colon Cancer Other at least one half-brother Coronary Artery Disease Father known, first at about age 67 Colon Cancer Other half brother Patient Allergies ALLERGIES Allergen Reactions Yellow Food Color (* Hives Current Medications Current Outpatient Medications on File Prior to Visit Medication Sig Tadalafil (CIALIS) 5 mg tablet Take 1 tablet by mouth once daily. sildenafil (VIAGRA) 100 mg tablet Take 1 tablet by mouth once daily as needed. Take 30-60 minutes before sexual activity. lutein-zeaxanthin 25-5 mg cap Take 1 capsule by mouth twice daily. fluticasone (FLONASE) 50 mcg/actuation nasal spray Use 2 Sprays in each nostril once daily. Rinse mouth after use. prasterone, dhea, (DHEA) 50 mg tab Take 50 mg by mouth twice daily. uzwomuej-voa-AP-lycopen-lutein (CENTRUM SILVER MEN) 300-600-300 mcg tab Take 1 tablet by mouth once daily. Aspirin 500 mg tab Take 500 mg by mouth once daily. Vina-3 Fatty Acids-Vitamin E 1,000 mg cap Take 2 capsules by mouth once daily. GLUCOSAMINE/CHONDROITIN SULF A (GLUCOSAMINE-CHONDROITIN ORAL) Take 2 tablets by mouth once daily. SELENIUM 200 MCG TAB take one tablet daily GINKGO BILOBA 120 MG TAB 1 tablet 2 times daily VITAMIN C 1000MG TABLET Take one(1) tablet 2 x a day No current facility-administered medications on file prior to visit. Social History Social History Tobacco Use Smoking status: Never Smokeless tobacco: Never Vaping Use Vaping status: Never Used Substance Use Topics Alcohol use: Yes Comment: moderate Drug use: No EXAM: BP 142/84 Pulse 76 Resp 18 Ht 176.5 cm (5' 9.5) Wt 93.7 kg (206 lb 9.1 oz) BMI 30.07 kg/m General Appearance: Well appearing, alert, in no acute distress, well-hydrated, well nourished.. Lungs: Lungs clear to auscultation. No wheezing, rhonchi, rales.. Heart: RRR without murmur, gallop, or rubs. No ectopy. Health Maintenance List Depression Screening Never done Anxiety Screening Never done Advance Directive Discussion due on 10/28/2023 Covid-19 Vaccine( season) due on 06/28/2024 Influenza Vaccine(1) due on 06/28/2024 Diabetes Screening due on 12/16/2026 Colorectal Cancer Screening due on 02/06/2028 DTaP,Tdap,Td Vaccine(2 - Td or Tdap) due on 12/04/2028 RSV Vaccine Completed Shingrix Vaccine Completed Pneumococcal Vaccine: 65+ Completed Data reviewed Appointment on 06/19/2024 Component Date Value PSA 06/19/2024 6.34 (H) 1. Essential hypertension - ICD9: 401.9, ICD10: I10 - Elevated today in office, currently not taking medication. - Stay off Lisinopril at this time. - Start Lisinopril if BP is 150 and higher, can update office. - Recommend home blood pressure monitoring, to bring results to next visit - Encouraged sodium restriction, DASH or Mediterranean diet - Recommend regular aerobic exercise 2. 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 4. ED (erectile dysfunction) of organic origin - ICD9: 607.84, ICD10: N52.9 - Stable - Continue current medication regimen. 5. Elevated PSA - ICD9: 790.93, ICD10: R97.20 - Stable, continue to monitor. 6. Screening for depression - ICD9: V79.0, ICD10: Z13.31 - Negative screening - DEPRESSION SCREENING 7. Encounter for screening examination for other mental health and behavioral disorders - ICD9: V79.8, ICD10: Z13.39 - Negative screening. - ANXIETY SCREENING 8. Encounter for immunization - ICD9: V03.89, ICD10: Z23 - Receive in office today. - INFLUENZA VACCINE, PRSV FREE, AGE 65+ YR, HIGH DOSE, TRIVALENT (FLUZONE HIGH-DOSE) - [employer] COVID-19 VACCINE AGE 12+ YR (COMIRNATY) Follow up in 6 months with fasting labs. I agree with the Chief Complaint, ROS, and Past Histories independently gathered by the clinical bilingual patient support caseworker and the remaining scribed note accurately describes my personal service to the patient. Eze Rodriguez MD The documentation for this note was completed by Briseyda Diaz MA acting as scribe for Eze Rodriguez MD. July 23, 2024 8:29 AM. 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 Scheduled 07-23-24 with PCP. Noted upcoming appointment to address due care gaps and HCC gap closure. Reason for Outreach Care Gap/HCC or Scheduling Wellness Visits Care Gaps due: Medicare Annual Wellness Visit Advance Directives Patient Contacted: Spoke to patient/parent/or legal guardian Patient identified by name and : Yes Care Gap/HCC/Scheduling Wellness actions taken: Patient scheduled/pended labs: Medicare Annual Wellness Visit 07/23/2024 in [facility] with EZE RODRIGUEZ - Annual Wellness - 6 month follow up, Please address due care gaps and HCC gap closure Updated appointment note Navigation Signature: Sabiha Estrada MA May 19, 2024 8:30 AM documented in this encounter [facility] 04-27-2024 History of Presen t illness Narrative POPULATION HEALTH NAVIGATION OUTREACH Action/April 27, 2024 7:35 AM Patient is on [facility] Medication Adherence list for the following medications: lisinopril 5 mg tablet Sig: take 1 tablet by mouth once daily. Dispensed: 04/20/2024 12:00 AM Unit strength: 5 mg Unit form: tablet Days supply: 90 Quantity: 90 Each Refills remainin Dispense due date 03.20.2024 Unable to access [facility] at this time to review Medication dispense history. [facility] [id number] Outcome: Per Medication Dispense History, medication was dispensed on late on 04.20.2024 Reason for Outreach Med Adherence Patient Contacted: No outreach needed: RX filled per reconcile dispense Navigation Signature: Varsha Ohara MA April 27, 2024 7:35 AM documented in this encounter [facility] 04-23-2024 Instructions Praneeth Segura II, OD - 04/23/2024 9:20 AM EDT Assessment and Plan H10.9 Bacterial conjunctivitis of left eye (primary encounter diagnosis) Comment: Recommend start use of Maxitrol suspension 1 gt both eyes four times a day x 1 week. Recheck as needed. Instruct patient to immediately report any change in condition outside of expected and discussed symptoms. Z96.1 Pseudophakia of right eye Comment: Posterior chamber intraocular lens is well positioned and clear. 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 Monitor for progression. I have confirmed and edited as necessary the relevant HPI, ophthalmic history, ROS, and the neuro exam findings as obtained by others. I have seen and examined Domo Bolden. I have discussed the case and the management of this patient's care with the Resident/Fellow, if applicable. I also have reviewed and agree with the assessment and plan as stated above and agree with all of its relevant components. documented in this encounter [facility] 04-23-2024 History of Presen t illness Narrative Assessment and Plan H10.9 Bacterial conjunctivitis of left eye (primary encounter diagnosis) Comment: Recommend start use of Maxitrol suspension 1 gt both eyes four times a day x 1 week. Recheck as needed. Instruct patient to immediately report any change in condition outside of expected and discussed symptoms. Z96.1 Pseudophakia of right eye Comment: Posterior chamber intraocular lens is well positioned and clear. 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 Monitor for progression. I have confirmed and edited as necessary the relevant HPI, ophthalmic history, ROS, and the neuro exam findings as obtained by others. I have seen and examined Domo Bolden. I have discussed the case and the management of this patient's care with the Resident/Fellow, if applicable. I also have reviewed and agree with the assessment and plan as stated above and agree with all of its relevant components. documented in this encounter [facility] 04-09-2024 History of Presen t illness Narrative POPULATION HEALTH NAVIGATION OUTREACH Action/FYI April 09, 2024 11:25 AM Patient is on [employer] Medication Adherence list for the following medications: LISINOPRIL 5 MG TABLET Sig: take 1 tablet by mouth once daily Dispensed: 12/21/2023 12:00 AM Unit strength: 5 mg Unit form: tablet Days supply: 90 Quantity: 90 Each Refills remainin Dispense due date 03.20.2024 [id number] - [address] [facility] [place] [id number] lisinopril (ZESTRIL) 5 mg tablet 90 tablet 3 01/03/2024 -- Sig: Take 1 tablet by mouth once daily. Sent to [facility] pharmacy per patient request Unable to access [employer] portal at this time to review Medication dispense history. Per Medication dispense reconcile in [facility], patient is due for refill, 0 refills remain NOV with PCP is scheduled on 06.23.2024 Outcome: Spoke with patients April. Discussed his medication for Lisinopril. She will give message to patient to contact [facility]'s pharmacy to get his next refill. Thank you Reason for Outreach Med Adherence Patient Contacted: Spoke to patient/parent/or legal guardian Patient identified by name and date of : Yes Med Adherence actions taken: Patient Med Adherence responses: Patient would like to take care of managing medication(s) on their own Navigation Signature: Varsha Ohara MA April 09, 2024 11:24 AM documented in this encounter [facility] 01-06-2024 Miscellaneous Notes Images from the original note were not included. Prior authorization approved Payer: Trudy ESPITIA Case: [id number], Status: Approved, Coverage Starts on: 10/28/2023 12:00:00 AM, Coverage Ends on: 01/05/2025 12:00:00 AM. Approval Details Authorization number: [id number] Authorized from October 28, 2023 to January 05, 2025 Electronic appeal: Not supported View History Medication Being Authorized Tadalafil (CIALIS) 5 mg tablet Take 1 tablet by mouth once daily. Dispense: 90 tablet Refills: 3 Start: 01/03/2024 Class: Normal Diagnoses: BPH with obstruction/lower urinary tract symptoms This order has been released to its destination. To be filled at: [facility] [place] [address] - [address] [place] [phone] [id number] Pharmacy notified. Covermymeds PA recc'd for tadalafil. This PA was completed electronically. documented in this encounter [facility] 01-03-2024 Miscellaneous Notes OK to refill as ordered Eze Rodriguez MD Patient has been identified by name and date of : Yes, Provider Dr. Rodriguez Date 01-03-24 Time 12:13 pm Patient phones for refill(s): Requested Prescriptions Pending Prescriptions Disp Refills lisinopril (ZESTRIL) 5 mg tablet 90 tablet 3 Sig: Take 1 tablet by mouth once daily. Date of last office visit in primary care: 12/19/2023 Date of next office visit in primary care: 06/23/2024 Please advise. Thank you. Yesi Yuriy Pss. documented in this encounter [facility] 01-03-2024 Miscellaneous Notes OK to refill as ordered Eze Rodriguez MD Patient is calling in to change the pharmacy to [facility]. Yesi Elena documented in this encounter [facility] 12-19-2023 History of Presen t illness Narrative Chief Complaint Patient presents with: 6 Month Exam HPI Domo Bolden is a 83 year old male who presents here today for 6 month follow up. HM: Depression screening; denies feeling depressed or hopeless. Depression screening tool completed and reviewed. Based on score and interview, patient is not at risk for depression. Screening tool discussed with patient, and I recommended no further intervention at this time. No advanced directive. Pt does not think he has any obvious sx of memory issues other than occ forgetting peoples names but remember their faces. He says the names will come to him eventually. He is just aware of it due to knowing people who have dementia or Alzheimer's. Had right eye cataract removed and was given a special lens which cost him thousands of dollars. He has put off the left eye at this time. No bowel, Gi, or urinary issues. Uses Cialis 5 mg daily for elevated PSA and BPH, that helps with the urination some. No urologist. Hx of kidney stones, Fhx of colon cancer and prostate cancer. ED: Would like to get an rx for Viagra. Has noticed more stiffness of the hands in the mornings, harder to open up jars. HTN: Taking Lisinopril 5 mg daily. No chest pains, dizziness, or SOB. Checking BP at home with readings running 130/60. His has noticed a slight cough, sometimes with a little mucous. The cough is not worse at any time of day. He thinks it might be due to the post nasal drip, occ uses Flonase nasal spray. Lipid: Tries to control with lifestyle, no medication at this time. Getting moderate amounts of exercise but diet is sporadic. 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 JOSE: Uses CPAP machine, getting supplies through [employer]. That is working well for him. Pressure setting is 12. Since using the CPAP he has not had any further issues with daytime sleepiness especially while driving. Past medical history, appointments, medications, allergies reviewed. 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 Nick Bustamante, [facility] REMV CATARACT EXTRACAP,INSERT LENS Right 07/2023 Done at [facility] TONSILLECTOMY & ADENOIDECTOMY <AGE 14 childhood TONSILLECTOMY HX Family History FAMILY HISTORY Adopted: Yes Problem Relation Age of Onset Colon Cancer Brother stomach and colon Colon Cancer Other at least one half-brother Coronary Artery Disease Father known, first at about age 67 Colon Cancer Other half brother Patient Allergies ALLERGIES Allergen Reactions Yellow Food Dye [Ot* Hives Current Medications Current Outpatient Medications on File Prior to Visit Medication Sig lisinopril (ZESTRIL) 5 mg tablet Take 1 tablet by mouth once daily. Tadalafil (CIALIS) 5 mg tablet Take 1 tablet by mouth once daily. lutein-zeaxanthin 25-5 mg cap Take 1 capsule by mouth twice daily. fluticasone (FLONASE) 50 mcg/actuation nasal spray Use 2 Sprays in each nostril once daily. Rinse mouth after use. prasterone, dhea, (DHEA) 50 mg tab Take 50 mg by mouth twice daily. quxzyhjd-fob-DF-lycopen-lutein (CENTRUM SILVER MEN) 300-600-300 mcg tab Take 1 tablet by mouth once daily. Aspirin 500 mg tab Take 500 mg by mouth once daily. Vina-3 Fatty Acids-Vitamin E 1,000 mg cap Take 2 capsules by mouth once daily. GLUCOSAMINE/CHONDROITIN SULF A (GLUCOSAMINE-CHONDROITIN ORAL) Take 2 tablets by mouth once daily. SELENIUM 200 MCG TAB take one tablet daily GINKGO BILOBA 120 MG TAB 1 tablet 2 times daily VITAMIN C 1000MG TABLET Take one(1) tablet 2 x a day No current facility-administered medications on file prior to visit. Social History Social History Tobacco Use Smoking status: Never Smokeless tobacco: Never Substance Use Topics Alcohol use: Yes Comment: moderate Drug use: No EXAM: BP 124/74 Pulse 74 Resp (!) 1 Wt 93.5 kg (206 lb 3.2 oz) BMI 30.02 kg/m General Appearance: Well appearing, alert, in no acute distress, well-hydrated, well nourished. and Overweight. Lungs: Lungs clear to auscultation. No wheezing, rhonchi, rales.. Heart: RRR without murmur, gallop, or rubs. No ectopy. Health Maintenance List RSV Vaccine(1 - 1-dose 60+ series) Never done Influenza Vaccine(1) due on 06/28/2023 Covid-19 Vaccine(2022-24 season) due on 06/28/2023 Advance Directive Discussion due on 10/28/2023 Depression Assessment due on 10/28/2023 Diabetes Screening due on 06/13/2026 Colorectal Cancer Screening due on 02/06/2028 DTaP,Tdap,Td Vaccine(2 - Td or Tdap) due on 12/04/2028 Shingrix Vaccine Completed Pneumococcal Vaccine: 65+ Completed Data reviewed Appointment on 12/16/2023 Component Date Value Cholesterol, Total 12/16/2023 170 Triglyceride 12/16/2023 67 HDL Cholesterol 12/16/2023 45 Non HDL Cholesterol 12/16/2023 125 Fasting Time 12/16/2023 12 VLDL Cholesterol 12/16/2023 13 TC:HDL Ratio 12/16/2023 3.78 LDL Cholesterol 12/16/2023 112 (H) LDL:HDL Ratio 12/16/2023 2.49 Protein, Total 12/16/2023 6.2 (L) Albumin 12/16/2023 4.1 Calcium, Total 12/16/2023 9.9 Bilirubin, Total 12/16/2023 0.8 Alkaline Phosphatase 12/16/2023 64 AST 12/16/2023 24 ALT 12/16/2023 27 Glucose 12/16/2023 95 BUN 12/16/2023 15 Creatinine 12/16/2023 1.10 Sodium 12/16/2023 141 Potassium 12/16/2023 4.5 Chloride 12/16/2023 108 (H) CO2 12/16/2023 25 Anion Gap 12/16/2023 8 (L) Estimated Glomerular Eric* 12/16/2023 67 PSA 12/16/2023 6.50 (H) ASSESSMENT/PLAN: 1. Essential hypertension - ICD9: 401.9, ICD10: I10 (primary diagnosis) - Controlled - Continue current medications - Recommend home blood pressure monitoring, to bring results to next visit - Encouraged sodium restriction, DASH or Mediterranean diet - Recommend regular aerobic exercise 2. Mixed hyperlipidemia - ICD9: 272.2, ICD10: E78.2 - Controlled - Counseled on healthy diet and regular exercise - Discussed need for and benefit of weight loss. BMI 30.02 kg/(m^2) 3. 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 Monitor PSA labs 5. Family history of prostate cancer - ICD9: V16.42, ICD10: Z80.42 Continue current medications. Monitor with PSA labs 6. Acute cough - ICD9: 786.2, ICD10: R05.1 Continue to monitor No treatment needed Follow up in 6 months with PSA lab prior. Will check fasting labs yearly. I agree with the Chief Complaint, ROS, and Past Histories independently gathered by the clinical bilingual patient support caseworker and the remaining scribed note accurately describes my personal service to the patient. Medical Decision Making: Problems: Moderate: 2+ stable chronic illnesses Data: Unique test result(s) reviewed: 3+ Unique test(s) ordered: 1 Risk: Moderate: Drug management Medical Decision Making Level: 4 - Moderate Eze Rodrgiuez MD The documentation for this note was completed by Verena Hurt Ma acting as scribe for Eze Rodriguez MD. December 19, 2023 11:18 AM. Verena Hurt Ma documented in this encounter [facility] 12-17-2023 History of Presen t illness Narrative Domo Bolden is identified through a medication adherence outreach initiative based on pharmacy claims data from [employer] (insurer) for EMILIA medication(s). Patient is reviewed 12/17/23 due to medication adherence concerns with the following medications (name, strength, sig): Lisinopril 5mg take 1 tablet every day. Per reconcile dispense, last fill date and days supply: last fill 09/25/23 and next fill due 12/24/23 Outcome of review/outreach: (choose outcome source and status) - sent mychart reminder Ashleigh Ruth ([employer]) documented in this encounter [facility] 07-19-2023 Discharge summary Note Date/Time July 19, 2023 6:06pm [facility] Medical Records Department [address] [place] [address] Emergency Department Summary 07/19/23 MR#: [id number] Acct: [id number] Name: DOMO BOLDEN Rep #:[id number] : 1940 82 From: Rocky Willis MD PCP: Dr. Eze Rodriguez MD Status:RE G ER Location: ED HPI History of Present Illness Chief Complaint: Dizziness Detail of Chief Complaint: Dizziness that is intermittent and positional for thepast several months. Informant: patient and spouse/S.O. Onset/Context/Timing Onset: Month(s) Context: Sudden Onset Timing: Intermittent Quality: Spinning sensation especially when he arises from bed in the morning Location: Home Current Severity: Gone Maximum Severity: Severe Worsened by: Change in position Relieved by: Remaining still Associated Symptoms Associated Symptoms: Nausea without visual symptoms. Narrative Narrative: Patient is a 82-year-old male who contact his physician. He was instructed to come to the emergency room because of problems with balance. This is been an intermittent problem for months. Is been worse the last several days. It is positional. Worse in the morning when he rises from bed. He denies double vision, blurred vision loss of vision. He had recent cataract surgery and occasional have pain right eye. He denies ringing's ears or decreased hearing. Hedenies trouble with speech or swallowing. He denies paresthesia, anesthesia motors. He does report problems with balance. He denies black or maroon stool. He denies urologic symptoms. He denies respiratory symptoms. Prior similar symptoms: Yes (Paroxysmal benign positional vertigo) Recent Illness/Hospitalization: No PFSH PFSH Medical History (Updated 07/19/23 @ 21:[address] Rocky Willis MD) Cataract CPAP (continuous positive airway pressure) dependence Disc degeneration HTN (hypertension) Home Medications lisinopril 5 mg tablet 5 mg PO DAILY 10/08/14 [History Last Taken Unknown] tadalafil 5 mg tablet 5 mg PO DAILY 05/30/19 [History Last Taken Unknown] hydrocodone-acetaminophen 5-325mg 5mg-325mg 1 tab PO Q4H PRN pain 5 days #20 tabs 05/26/22 [Rx Last Taken Unknown] ondansetron 4 mg disintegrating tablet 4 mg PO Q8H PRN nausea and vomiting #7 tabs 05/26/22 [Rx Last Taken Unknown] Allergy/AdvReac Type Severity Reaction Status Date / Time yellow dye Allergy Hives Verified 07/19/23 16:08 Social History (Updated 07/19/23 @ 18:[address] Rocky Willis MD) household members: spouse Smoking Status: Never smoker substance use type: does not use ROS ROS ED Constitutional Constitutional ED: Denies chills, fever(s), subjective, sweats or weight loss Eyes Eyes: Denies blurry vision, change in vision or diplopia ENT ENT ED: Denies ear pain, rhinorrhea or sore throat Cardiovascular Cardiovascular: Denies chest pain, orthopnea, palpitations, paroxysmal nocturnaldyspnea or racing heartbeat Respiratory/Chest Respiratory/Chest: Denies cough, dyspnea, dyspnea on exertion, orthopnea or paroxysmal nocturnal dyspnea Gastrointestinal Gastrointestinal: Reports nausea; Denies abdominal pain, constipation, diarrhea,melena or vomiting Genitourinary Genitourinary ED: Reports urinary frequency and other Details: Has had trouble with urination due to benign prostatic 50 ; Denies dysuria or hematuria Musculoskeletal Musculoskeletal: Denies arthralgias, back pain, myalgias or neck pain Integumentary Denies rash Neurologic Neurologic: Denies headache(s), paresthesias or weakness Psychiatric Psychiatric: Denies anxiety Endocrine Endocrinology: Denies cold intolerance or heat intolerance Hematologic/Lymphatic Hematologic/Lymphatic: Reports systems reviewed and no addt'l complaints, exceptas documented EXAM Physical Exam Const Vital Signs: 07/19/23 16:08 07/19/23 18:13 07/19/23 18:13 Temperature 98 F Temperature Source Temporal Pulse Rate 83 83 Respiratory Rate 18 16 Respiratory Pattern Normal Blood Pressure 136/78 H 131/87 H Blood Pressure Mean 97 101 Pulse Ox 98 96 Oxygen Delivery Method Room Air Room Air 07/19/23 21:00 Temperature Temperature Source Pulse Rate 83 Respiratory Rate Respiratory Pattern Blood Pressure 143/77 H Blood Pressure Mean 99 Pulse Ox 97 Oxygen Delivery Method Room Air Positive well nourished, well developed and obese General Appearance ED: well developed and NAD; Negative for pallor Nutritional Appearance: obese HEENT Reports moist mucous membranes HEENT Narrative: Head is normocephalic and atraumatic. Ears normal. Unable to see the right or left TM due to cerumen impaction. Nares patent. Posterior pharynx without erythema or exudate. Uvula is midline. There is tongue with protrusion. Eyes PERRL and EOMs intact bilaterally Eyes Narrative: There is no nystagmus. There is no APD. General Eye ED: Negative for pale conjunctiva or scleral icterus Neck no lymphadenopathy, supple and no JVD Neck Narrative: There are no carotid bruits noted. Chest Wall inspection of chest normal and palpation of chest normal Resp normal respiratory effort and clear to auscultation bilaterally Cardio regular rate, regular rhythm, S1 normal heart sound, S2 normal heart sound and no murmurs GI normal to inspection, nondistended, normoactive bowel sounds Back/Spine no CVA tenderness Extremity normal to inspection General Extremety ED: Negative for edema or tenderness General Extremity: Negative for edema Neuro oriented x3, CN's II-XII intact bilaterally and no sensory deficits noted Neuro Narrative: There is no dysmetria. Romberg with eyes open and close is normal. The eye askew test was negative. The hint test was negative. Gait was observed and normal. Able to walk on heels and toes. Patient did have some difficulty with tandem gait. He did complain of dizziness. DTRs were symmetric. There is no clonus or Babinski sign noted. Sensorium / Orientation: alert Motor Exam: strength 5/5 throughout Psych mental status grossly normal Skin no rashes or lesions noted, no wounds and skin turgor normal General Skin Exam: Negative for jaundice or pallor MDM MDM MDM Narrative Medical decision making narrative: Patient's history and physical is consistent with benign paroxysmal positional vertigo. Since patient has cerumen impaction we will treat the cerumen impaction to determine if this alleviates his dizziness . He defines dizziness as balance being off. Since it is intermittent positional this is notcentral and there is no indication for advanced imaging at this time. History & Record Review Additional record(s) reviewed:: Prior ED visit and Prior labs Treatment and Re-Evaluation :: Was unsuccessful in irrigating the cerumen. Large piece of cerumen were both removed from both the right and left ear with irrigation and use of curette by me. Shankar-Hallpike maneuver was performed. Patient's vertigo has resolved. Therefore will discharge to home. Discharge Plan Triage Chief Complaint: Dizziness ED Provider: Rocky Willis Dx/Rx/DC Orders Clinical Impression: Episodic peripheral vertigo, Bilateral impacted cerumen Instructions: Impacted Earwax Prescriptions: No Action lisinopril 5 MG tablet 5 mg PO DAILY tadalafil 5 MG tablet 5 mg PO DAILY hydrocodone-acetaminophen 5-325 mg tablet 1 tab PO Q4H PRN (Reason: pain) 5 Days Qty: 20 0RF ondansetron 4 mg tablet,disintegrating 4 mg PO Q8H PRN (Reason: nausea and vomiting) Qty: 7 0RF Primary Care Provider: Eze Rodriguez Referrals: Eze Rodriguez MD [Primary Care Provider] - As Needed Disposition Disposition: Home, Self Care What to do if you have Problems For any increased pain, shortness of breath, bleeding, nausea or vomiting, chestpain, or any unexpected problems, contact your Primary Care Provider. Call [facility] ([phone]) or report to the closest Emergency Room. Call 911 if necessary. 07/19/232115 <Electronically signed by Rocky Willis MD> Cosigner Signature (if applicable): CC: Dr. Eze Rodriguez MD ~ Signed [facility] Work Phone: 1(209) 404-447209-22-2023 Miscellaneous Notes* Telephone Encounter - Ankita Jones RN - 07/19/2023 2:39 PM EDT Patient call in for dizziness which patient usually feels when waking up but it usually goes away. Today he notices that dizziness has not gone away. Patient reports that during these spells he feelslike the left side of body is weaker/affected. Patient concerned because he has had symptoms all day today. Nurse Triage assessment completed with protocol recommending for disposition of Go to ED now. Patient voiced understanding. Care advice reviewed with patient, patient stated understanding. Reason for Disposition [1] Weakness (i.e., paralysis, loss of muscle strength) of the face, arm / hand, or leg / foot on one side of the body AND [2] sudden onset AND [3] brief (now gone) Answer Assessment - Initial Assessment Questions 1. DESCRIPTION: Feels like he has to steady himself on wall/objects. 2. LIGHTHEADED: Feels Lightheaded upon standing 3. VERTIGO: Denies 4. SEVERITY: Moderate; Feels like he might have had a little too much to drink but hasn't drank anything. 5. ONSET: Has had issue with this in morning when he wakes up off and on for last several weeks. Today issue has not gone away. 6. AGGRAVATING FACTORS: Standing; Walking; Does not feel it when sitting. 7. HEART RATE: 75-80 8. CAUSE: Unsure 9. RECURRENT SYMPTOM: Nothing to this degree. 10. OTHER SYMPTOMS: Denies other symptoms Protocols used: Dizziness - [id number] [facility] History of Present illness Narrative* Eze Rodriguez MD - 06/18/2023 11:20 AM EDT Chief Complaint Patient presents with: 6 Month Exam HPI Domo Bolden is a 82 year old male who presents here today for 6 month follow up. No bowel, Gi, or urinary issues. Hx of kidney stones. Fhx colon cancer. His last Colonoscopy was [id number] with recommended 5 year repeat. Using Cialis 5 mg daily for prostate. PSA up from 5.20 to 5.73. Will continue to monitor. Lipid: Tries to control with diet and exercise. Not on any statins at this time. HTN: Checks BP at home with readings running 130/70. No chest pains, dizziness, or SOB. Taking Lisinopril 5 mg daily. Skin: Scab on the back of the neck that he would like to have cryo tx again. He said it was done last time but did not go away completely. JOSE: Started using CPAP machine, he is tolerating that well, feels well rested. He is unsure what the settings are at this time. He does not snore. Much improvement with the machine. He is not as fatigued during the day or while driving. Getting supplies from [employer] Past medical history, appointments, medications, allergies reviewed. 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 per stress echo 2002 Diverticulosis of colon Family history of malignant neoplasm of gastrointestinal tract Personal history of colonic polyps Previous Surgical History PAST SURGICAL HISTORY Procedure Laterality Date ABDOMINAL SURGERY HX APPENDECTOMY HX COLONOSCOPY 02/05/2023 Tubular adenoma, repeat in 5 years COLONOSCOPY FLX DX W/COLLJ SPEC WHEN PFRMD 05/02/2006 Colonoscopy COLONOSCOPY FLX DX W/COLLJ SPEC WHEN PFRMD 11/29/2017 Colonoscopy COLONOSCOPY W/BIOPSY SINGLE/MULTIPLE 12/29/2009 LAP APPY AT [facility] OTHR SRGY PAST SURGICAL HISTORY OF 02/2011 Laparoscopic Appendectomy and Drainage - Dr. Nick Bustamante, [facility] TONSILLECTOMY & ADENOIDECTOMY <AGE 14 childhood TONSILLECTOMY HX Family History FAMILY HISTORY Adopted: Yes Problem Relation Age of Onset Colon Cancer Brother stomach and colon Colon Cancer Other at least one half-brother Coronary Artery Disease Father known, first at about age 67 Colon Cancer Other half brother Patient Allergies ALLERGIES Allergen Reactions Yellow Food Dye [Ot* Hives Current Medications Current Outpatient Medications on File Prior to Visit Medication Sig prednisoLONE acetate (PRED FORTE) 1 % ophthalmic suspension Use 1 Drop in the right eye four times daily. lisinopril (ZESTRIL) 5 mg tablet Take 1 tablet by mouth once daily. Tadalafil (CIALIS) 5 mg tablet Take 1 tablet by mouth once daily. lutein-zeaxanthin 25-5 mg cap Take 1 capsule by mouth twice daily. fluticasone (FLONASE) 50 mcg/actuation nasal spray Use 2 Sprays in each nostril once daily. Rinse mouth after use. prasterone, dhea, (DHEA) 50 mg tab Take 50 mg by mouth twice daily. onfknymz-dgk-AS-lycopen-lutein (CENTRUM SILVER MEN) 300-600-300 mcg tab Take 1 tablet by mouth oncedaily. Aspirin 500 mg tab Take 500 mg by mouth once daily. Vina-3 Fatty Acids-Vitamin E 1,000 mg cap Take 2 capsules by mouth once daily. GLUCOSAMINE/CHONDROITIN SULF A (GLUCOSAMINE-CHONDROITIN ORAL) Take 2 tablets by mouth once daily. SELENIUM 200 MCG TAB take one tablet daily GINKGO BILOBA 120 MG TAB 1 tablet 2 times daily VITAMIN C 1000MG TABLET Take one(1) tablet 2 x a day No current facility-administered medications on file prior to visit. Social History Social History Tobacco Use Smoking status: Never Smokeless tobacco: Never Substance Use Topics Alcohol use: Yes Comment: moderate Drug use: No EXAM: BP 116/80 Pulse 74 Resp 16 Wt 92.1 kg (203 lb 1.9 oz) BMI 29.58 kg/m General Appearance: Well appearing, alert, in no acute distress, well-hydrated, well nourished. andOverweight. Skin: scaly area midline back of neck, with small cyst underneath Lungs: Lungs clear to auscultation. No wheezing, rhonchi, rales.. Heart: RRR without murmur, gallop, or rubs. No ectopy. Health Maintenance List COVID-19 VACCINE(7 - Mixed Product series) due on 02/08/2023 SHINGRIX VACCINE(3 of 3) due on 05/13/2023 INFLUENZA(1) due on 06/28/2023 ANNUAL PCP TEAM CHRONIC DISEASE VISIT due on 12/17/2023 BP CONTROLLED (<130/80) due on 04/16/2024 DIABETES SCREEN due on 12/12/2025 COLORECTAL CANCER SCREENING due on 02/06/2028 DTAP,TDAP,TD(2 - Td or Tdap) due on 12/04/2028 ADVANCE DIRECTIVE DISCUSSION Completed DEPRESSION ASSESSMENT Completed PNEUMOCOCCAL: 65+ Completed Data reviewed Appointment on 06/13/2023 Component Date Value Cholesterol, Total 06/13/2023 168 Triglyceride 06/13/2023 56 HDL Cholesterol 06/13/2023 45 Non HDL Cholesterol 06/13/2023 123 Fasting Time 06/13/2023 14 VLDL Cholesterol 06/13/2023 11 TC:HDL Ratio 06/13/2023 3.73 LDL Cholesterol 06/13/2023 112 (H) LDL:HDL Ratio 06/13/2023 2.49 Protein, Total 06/13/2023 6.4 Albumin 06/13/2023 4.3 Calcium, Total 06/13/2023 10.3 (H) Bilirubin, Total 06/13/2023 0.8 Alkaline Phosphatase 06/13/2023 60 AST 06/13/2023 30 ALT 06/13/2023 34 Glucose 06/13/2023 91 BUN 06/13/2023 15 Creatinine 06/13/2023 1.11 Sodium 06/13/2023 140 Potassium 06/13/2023 5.1 Chloride 06/13/2023 106 (H) CO2 06/13/2023 25 Anion Gap 06/13/2023 9 Estimated Glomerular Eric* 06/13/2023 67 PSA Screening 06/13/2023 5.73 (H) ASSESSMENT/PLAN: 1. Essential hypertension - ICD9: 401.9, ICD10: I10 (primary diagnosis) - Controlled - Continue current medications - Recommend home blood pressure monitoring, to bring results to next visit - Encouraged sodium restriction, DASH or Mediterranean diet - Recommend regular aerobic exercise - Discussed need for and benefit of weight loss. BMI 29.58 kg/(m^2) 2. Mixed hyperlipidemia - ICD9: 272.2, ICD10: E78.2 - Controlled - Counseled on healthy diet and regular exercise - Discussed need for and benefit of weight loss. 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 Monitor PSA in 6 months 4. Dermoid cyst - ICD9: 229.9, ICD10: D36.9 Cryo for scabbing lesion Consider refer to Surgeon if continues to bother pt 5. JOSE (obstructive sleep apnea) - ICD9: 327.23, ICD10: G47.33 Continue with CPAP machine Follow up in 6 months with fasting labs prior. I agree with the Chief Complaint, ROS, and Past Histories independently gathered by the clinical bilingual patient support caseworker and the remaining scribed note accurately describes my personal service to the patient. Medical Decision Making: Problems: Moderate: 2+ stable chronic illnesses Data: Unique test result(s) reviewed: 3+ Unique test(s) ordered: 3+ Risk: Moderate: Drug management Medical Decision Making Level: 4 - Moderate Eze Rodriguez MD The documentation for this note was completed by Verena Hurt Ma acting as scribe for Eze Rodriguez MD. June 18, 2023 11:43 AM. Verena Hurt Ma documented in this encounterPromedica [facility]07-28-2023 History of Present illness Narrative* Nick Abreu, OD - 05/24/2023 9:33 AM EDT S/P Cataract Surgery with a Posterior Chamber lens implant 1 week -- Doing Well with Panoptix --residual Posterior subcapsular cataract (PSC) that may need to be addressed in future --20/25 distance, 20/25 near (all without prescription) --new glasses rx given --pt. to consider phacoemulsification left eye with Panoptix Nick Abreu, JOHANN May 24, 2023 9:34 AM documented in this encounterPromedica Bay Park Hospital06-30-2023 Instructions* Patient Instructions* Isamar Platt MD - 04/26/2023 10:17 AM EDT Images from the original note were not included. INSTRUCTIONS AFTER CATARACT SURGERY It is very important to follow these instructions after your eye surgery to ensure its success. A responsible adult must drive you home after the surgery. You might feel well, but the medicines given during the surgery might affect you for several hours. Do not drive or operate machinery for the rest of the day. For 1 week: Wear the eye shield at night and the eye shield or glasses during the day. Please do not push on or rub your eye. You may shower and wash your face. However, do not let water run directly into your eye (simply close the eye if the water is running directly over your face.) Please do not swim for 2 weeks Wear your eye shield at night. Do not place make-up near the edges of your eyelids (ie eyeliner, mascara.) You may exercise, bend, and lift right away as long as you feel comfortable. Daily hygiene - You may shower and wash your hair and face as usual, but DO NOT rub your operated eye. Try to avoid getting soap or water in your eyes. Pain management - Mild pain after eye surgery is not uncommon. Most people do not need oral pain medicine. If you do have some eye pain or a headache, you may take acetaminophen, ibuprofen, naproxyn Alleve) or similar medications you have at home (unless there is some reason you cannot these this medication such liver disease, allergies, etc.). Follow the instructions on the bottle. You may resume aspirin products the day after surgery. Diet - If you feel sick to your stomach, drink only clear liquids. Clear liquids include clear broth, tea, strained fruit juices, strained vegetable soup, black coffee, plain gelatin, and nando oracio.Eat a regular meal when you do not feel sick. Do not drink alcoholic beverages for 24 hours after the surgery. Eye medications -You will be given a home-going kit with eye drops. Please bring that kit, this handout and any previous eye drops you have to your follow up appointment. Your eye medications will beexplained during your follow up appointment. How to give yourself eye drops or ointment Wash your hands with soap and warm water. Dry them with a clean towel. If you are putting in your own eye medicine, lie down or use a mirror. Ask someone to check that you are getting the medicine in your eye. Look up to the ceiling with both eyes. Pull the lower lid of your eye down with one hand. Hold the medicine bottle or tube in your other hand. (If necessary, rest part of your hand on your forehead to keep it steady). Place a drop of medicine or a small amount of ointment inside your lower lid. The tip of the medicine bottle or tube should not touch your eye. Close your eyes for a minute after putting in the medicine. If you are prescribed both eye drops and eye ointment, use the eye drops first. If you have more than one eye medicine to put in your eyes, wait about 5 minutes between drops. Call your surgeon immediately if you experience: Increased or severe eye pain Bleeding from the eye Sudden decrease in vision or decreased ability to see light Discharge from the eye Any questions or problems Call your doctor immediately or go to the nearest emergency room if you experience: Nausea or vomiting that won't go away Chest pain Leg cramps A temperature above 101 F or 38.3 C Trouble breathing If you have questions, my office phone number is [phone]. After hours, and on weekends or holidays, please call the [facility] boomswing operator at [phone] and ask for the eye doctor mechanical commissioning engineer. 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 Domo Bolden has confirmed that he is no longer able to function adequately on a day-to-day basis because of his current visual condition. Further, it is my medical opinion that the cataract is the primary cause, or at least a significantly contributory cause of his visual dysfunction. With uncomplicated cataract surgery and lens implantation, it is my expectation that his visual function and quality of life will improve, significantly. The risks, benefits, alternatives, personnel and complications of cataract surgery with lens implantation were discussed with Domo Bolden in detail. he appeared to understand and asked that I proceed with plans for surgery. Left eye at a later date I, Isamar Platt MD, have confirmed and edited as necessary the relevant ophthalmic history, ROS, and the neuro exam findings as obtained by others. I have seen and examined Domo Bolden. I have discussed the case and the management of this patient's care with the Resident/Fellow, if applicable. I also have reviewed and agree with the assessment and plan as stated above and agree withall of its relevant components. documented in this encounterPromedica Bay [facility] Hospital06-20-2023 Instructions* Patient Instructions* Nicki Gomez PA-C - 04/16/2023 11:31 AM EDT [facility] Patient Instructions for Surgery FOOD INSTRUCTIONS: NO solid food or non-clear liquids for 8 hours prior to the arrival time for your surgery. Unless you are instructed otherwise, you are allowed to drink up to 12 ounces of clear liquids (e.g. water, black tea/coffee, fruit juice without pulp, Nando Oracio, etc.) up until 2 hours prior to the arrival time for surgery. MEDICATION INSTRUCTIONS: Prior to Surgery: You are allowed to take Tylenol if needed until the day of surgery. Continue all medications until the night prior to surgery MEDICATION INSTRUCTIONS: Day/Morning of Surgery: The following medications should be taken with sips of water: take morning medications. Tylenol, if needed for pain, can be taken on morning of surgery. Because you are going under anesthesia, you must have a responsible adult armored car driver take you home, andbe with you after surgery. You may use a ride service such as Lyft, Uber, or [employer] as longas you have a responsible adult accompanying you and taking responsibility for you. We strongly recommend a reliable adult stays with you overnight to help take care of you. If you have any questions or concerns regarding today's visit please do not hesitate to contact [facility] at [phone] or [phone], ext [phone]. Signature: Nicki Merrill Date: April 16, 2023 documented in this encounterPromedica Bay [facility] Hospital06-20-2023 History and physical note * Nicki Gomez PA-C - 04/16/2023 11:05 AM EDT HISTORY AND PHYSICAL EXAMINATION (IMPACT) SERVICE DATE: 04/16/2023 SERVICE TIME: 11:05 AM PRIMARY CARE PHYSICIAN: Eze Rodriguez MD CHIEF COMPLAINT/HISTORY OF PRESENT ILLNESS: Mr. Bolden is a 82 year old male referred to me for preoperative evaluation. My final recommendations will be communicated back to the requesting physician/surgeon by the way of the shared medical record. Referring Surgeon: Dr. Isamar Platt Date of Surgery: 04/25/2023 Planned Surgery/Procedure: Phacoemulsification Cataract Toric Implant Intraocular Lens without endoscopic cyclophotocoagulation and laser photocoagulation argon right eye Indication for Planned Surgery / Procedure: Cataract right eye MAC - Veto Refer to Assessment section for details of any comorbidities. 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 Significant Anesthesia Considerations: None. 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 2+ TR per stress echo 2002 Diverticulosis of colon Family history of malignant neoplasm of gastrointestinal tract Personal history of colonic polyps PAST SURGICAL HISTORY Procedure Laterality Date ABDOMINAL SURGERY HX APPENDECTOMY HX COLONOSCOPY 02/05/2023 Tubular adenoma, repeat in 5 years COLONOSCOPY FLX DX W/COLLJ SPEC WHEN PFRMD 05/02/2006 Colonoscopy COLONOSCOPY FLX DX W/COLLJ SPEC WHEN PFRMD 11/29/2017 Colonoscopy COLONOSCOPY W/BIOPSY SINGLE/MULTIPLE 12/29/2009 LAP APPY AT [facility] OTHR SRGY PAST SURGICAL HISTORY OF 02/2011 Laparoscopic Appendectomy and Drainage - Dr. Nick Bustamante, [facility] TONSILLECTOMY & ADENOIDECTOMY <AGE 14 childhood TONSILLECTOMY HX FAMILY HISTORY Adopted: Yes Problem Relation Age of Onset Colon Cancer Brother stomach and colon Colon Cancer Other at least one half-brother Coronary Artery Disease Father known, first at about age 67 Colon Cancer Other half brother SOCIAL HISTORY Social History Tobacco Use Smoking status: Never Smokeless tobacco: Never Substance Use Topics Alcohol use: Yes Comment: moderate Drug use: No MEDICATIONS/ALLERGIES Current Outpatient Medications Medication Sig Dispense Refill lisinopril (ZESTRIL) 5 mg tablet Take 1 tablet by mouth once daily. 90 tablet 3 Tadalafil (CIALIS) 5 mg tablet Take 1 tablet by mouth once daily. 90 tablet 3 lutein-zeaxanthin 25-5 mg cap Take 1 capsule by mouth twice daily. fluticasone (FLONASE) 50 mcg/actuation nasal spray Use 2 Sprays in each nostril once daily. Rinse mouth after use. 1 Bottle 1 prasterone, dhea, (DHEA) 50 mg tab Take 50 mg by mouth twice daily. ivmpqtja-fcw-XL-lycopen-lutein (CENTRUM SILVER MEN) 300-600-300 mcg tab Take 1 tablet by mouth oncedaily. Aspirin 500 mg tab Take 500 mg by mouth once daily. 0 Vina-3 Fatty Acids-Vitamin E 1,000 mg cap Take 2 capsules by mouth once daily. GLUCOSAMINE/CHONDROITIN SULF A (GLUCOSAMINE-CHONDROITIN ORAL) Take 2 tablets by mouth once daily. SELENIUM 200 MCG TAB take one tablet daily 0 0 GINKGO BILOBA 120 MG TAB 1 tablet 2 times daily 0 0 VITAMIN C 1000MG TABLET Take one(1) tablet 2 x a day 0 fluorometholone (FML LIQUID FILM) 0.1 % ophthalmic suspension Use 1 Drop in both eyes three times daily. 5 mL 3 No current facility-administered medications for this visit. ALLERGIES Allergen Reactions Yellow Food Dye [Ot* Hives REVIEW OF SYSTEMS General: No weight loss, malaise or fevers. Neuro: No history of TIA's, stroke, CLINICAL SPECIALIST VASCULAR tumor, impaired sensorium, hemiplegia, paraplegia or quadriplegia. No neurological symptoms or problems. Respiratory: Obstructive Sleep Apnea (on CPAP), Denies orthopnea Cardiovascular: Hypertension requiring meds, Valvular heart disease tricuspid regurgitation, Denieschest pain GI: No history of GI symptoms or problems. No history of esophageal varices, recent ascites, or ETOH greater than 2 drinks per day. : No history of UTI in past 6 weeks. No history of renal failure. Not currently on or requiring dialysis. No history of symptoms or problems. Endocrine: No history of diabetes. Has not taken steroids within the past 30 days. No history of endocrinological symptoms or problems. Hematology: No history of bleeding or clotting disorder. No history of hematological symptoms or problems. Oncology: No history of CA metastasis, chemo within 30 days, or radiotherapy within 90 days. No history of oncological symptoms or problems. Psych: No history of psychiatric symptoms or problems. Skin: Negative for lesions, rash, and itching. PHYSICAL EXAM VITALS: BP 126/74 Pulse 72 Ht 5' 9.488 (1.77m) Wt 206 lb 8 oz (93.7kg) SpO2 97% BMI 30.07 kg/(m^2). General: Alert and oriented, No acute distress, Obese Skin: Normal color, no rash, no lesions. HEENT: EOM, pupils equal, round and reactive., No carotid bruits Cardiovascular: Normal S1 & S2, no rubs, murmurs or gallops. No JVD. Pulse regular. Lungs: Normal breath sounds, no wheezes or crackles., No chest deformities or chest wall tenderness. Abdomen: Soft, non-tender, no rigidity., No masses or organomegaly., Positive bowel sounds Extremities: No deformity, no edema or tenderness, no joint swelling or clubbing. Neurological: Normal cognition and motor skills. Gait normal. No weakness or sensory deficit. Pulses: Carotid and radial pulses normal +2. Pedal pulses normal +2. ASSESSMENT Mr. Bolden is a 82 year old male referred to me for preoperative evaluation. Patient has the following medical comorbidities which might affect the perioperative course: (I10) Essential hypertension Comment: controlled on lisinopril (I34.0) Mitral valve insufficiency, unspecified etiology Comment: asymptomatic - echo 01/2013 mild tricuspid regurgitation (G47.33) JOSE (obstructive sleep apnea) Comment: controlled on CPAP Patient's RCRI (Revised Cardiac Risk Index: CAD/CHF/Stroke or TIA/SCr>2/DM on Insulin/High Risk Surgery) score is 0 and is at low risk for major adverse cardiac events in the perioperative period. Diagnostic tests reviewed for today's visit: No new labs or tests All in Epic Reviewed labs PLAN/RECOMMENDATIONS CARDIAC: Patient is at optimal cardiac condition for scheduled surgery / procedure. PULMONARY: Patient is at optimal Pulmonary status for scheduled surgery / procedure. Patient is optimally prepared for surgery. Patient Instructions: As per patient instructions section. General Preoperative/Medication/Fasting Instructions No Cialis 2 days before surgery I have discussed the above recommendations with the patient in detail, in luis and lay terms, and provided a written summary of instructions as needed. We have discussed that no surgery is without risk, but that the goal of preoperative assessment is to optimize that risk, and that was clearly understood by the patient. I have given ample opportunity for the patient to ask questions, and answered all questions to their stated satisfaction. SIGNATURE: Nicki Merrill PA-C PATIENT NAME: Domo Bolden DATE: April 16, 2023 TIME: 11:05 AM documented in this encounterPromedica Bay [facility]06-20-2023 Nurse Note* Jennifer Jones LPN - 04/16/2023 10:55 AM EDT Surgeon:Dr Ester Platt Type of surgery: PHACOEMULSIFICATION CATARACT IMPLANT INTRAOCULAR LENS W/O ENDOSCOPIC CYCLOPHOTOCOAGULATION Laterality Anesthesia Op Region Right Monitored Anesthesia Care Eye Procedure: OPHTHALMIC BIOMETRY BY PARTIAL COHERENCE INTERFEROMETRY W/INTRAOCULAR LENS POWER CALCULATION Laterality Anesthesia Op Region Right Monitored Anesthesia Care Eye Procedure: LASER CORRECTION OF ASTIGMATISM MULTIFOCAL LENS (FEMTOSECOND MULTIFOCAL) Laterality Anesthesia Date of surgery:04/25/23 Identified patient by name and ?yes Pacemaker or ICD?no Last pacemaker check: Reviewed medications?yes documented in this encounterPromedica Bay [facility]04-28-2023 History of Present illness Narrative* Isamar Platt MD - 02/22/2023 11:31 AM EDT 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 Desires cataract surgery with femto and multifocal IOL Measure for panoptix and eyehance Poor pupil dilation Cataract Presurgical Documentation Cataract: Right eye (OD) Current Visual Acuity Right Eye Distance CC 20/25 Left Eye Distance CC 20/25 Glare Testing: Right Eye Off 20/25 -1 Right Eye Low 20/30-1 Right Eye Medium 20/50 Right Eye High 20/80 -2 Left Eye Off 20/20 Left Eye Low 20/20 -1 Left Eye Medium 20/25 -1 Left Eye High 20/30 Visual Function: Domo Bolden states that the decline in vision from the cataract impedes his abilities as listed in the HPI, as well as other activities of daily living. Domo Bolden has confirmed that he is no longer able to function adequately on a day-to-day basis because of his current visual condition. Further, it is my medical opinion that the cataract is the primary cause, or at least a significantly contributory cause of his visual dysfunction. With uncomplicated cataract surgery and lens implantation, it is my expectation that his visual function and quality of life will improve, significantly. The risks, benefits, alternatives, personnel and complications of cataract surgery with lens implantation were discussed with Domo Bolden in detail. he appeared to understand and asked that I proceed with plans for surgery. Left eye at a later date I, Isamar Platt MD, have confirmed and edited as necessary the relevant ophthalmic history, ROS, and the neuro exam findings as obtained by others. I have seen and examined Domo Bolden. I have discussed the case and the management of this patient's care with the Resident/Fellow, if applicable. I also have reviewed and agree with the assessment and plan as stated above and agree withall of its relevant components. documented in this encounterPromedica Bay Park Hospital04-17-2023 Miscellaneous Notes* Telephone Encounter - Cally Euceda RN - 02/11/2023 12:09 PM EDT Colonoscopy Results documented in this encounterPromedica Bay Park Hospital04-15-2023 Miscellaneous Notes* Telephone Encounter - Brenda Moore MD - 02/09/2023 11:12 AM EDT FOLLOW UP ENDOSCOPY - RESULTS AND RECOMMENDATIONS NAME: Domo Bolden CLINIC NO.: [id number] : 1940 DATE: February 09, 2023 PRIMARY CARE PROVIDER: Eze Rodriguez MD Domo Bolden is a patient referred for endoscopy for screening colonoscopy . I performed lower endoscopy on January. The patient was found to have: Lower Endoscopy: Impression: - One 6 mm polyp in the sigmoid colon, removed with a cold snare. Resected and retrieved. - Diverticulosis in the left colon. - The examination was otherwise normal on direct and retroflexion views. Pathology demonstrated: FINAL DIAGNOSIS A. Sigmoid colon, polypectomy: - Tubular adenoma. IMPRESSION: Adenomatous polyp PLAN: INSTRUCTIONS FOLLOWING A POLYP FOUND AT COLONOSCOPY You were found to have an adenomatous colon polyp. I recommend you undergo repeat endoscopy in 5 years. If you note bleeding, change in bowel habits, or other suspicious colon related symptoms beforethat time, those symptoms should be evaluated as necessary. If you have any difficulties or concerns, you should contact our office immediately. The patient is instructed to follow-up with your primary care provider I have instructed my staff to forward the above information to the patient and to the appropriate providers documented in this encounterPromedica Bay Park Hospital04-03-2023 Miscellaneous Notes* Telephone Encounter - Ankita Jones RN - 01/28/2023 11:46 AM EDT Patient calls back and is requesting CPAP order to be faxed to [facility] [phone]. Order, face sheet, office notes, PAP titration settings faxed as requested. Ankita Jones RN * Telephone Encounter - Lorin Bethea RN - 01/24/2023 4:16 PM EDT Pt called and is notified of providers message and instructions. Pt voices understanding. Pt is going to call his insurance company to see what DME they would like order sent to and will call back. Lorin Bethea RN * Telephone Encounter - Eze Rodriguez MD - 01/24/2023 4:03 PM EDT Please notify patient that I have ordered CPAP for him, based on his titration study. May fax to supplier of his choice. Eze Rodriguez MD documented in this encounterPromedica Bay Park Hospital03-27-2023 History of Present illness Narrative* Heather Arevalo - 01/21/2023 4:20 AM EDT Sleep Study Check-In Documentation Date: January 21, 2023 Name: Domo Bolden Patient was accompanied by Self. Location: [place] allergy: No Tape allergy: No Current medications were reviewed with the patient:Yes Sleep aid taken by patient for the sleep study: [place] of sleep aid: Not Applicable Procedure was explained to the patient and all questions were answered. PAP treatment discussed and shown to patient: Yes If PAP used enter mask info: Mask Name Simplus MakeF&P MaskTypeFull Face Mask SizeMedium Chin Sharp Used No Knowledge Program (KP): KP was not completed in [facility] by patient and accepted Study type: PAP titration Adverse Event: No (If yes create a new abstract) Comments: Patient was advised to follow up with their ordering provider regarding test results Heather Irina * Lucho Mello III, PhD - 12/19/2022 4:36 PM EST December 19, 2022 Standing PSG Orders signed in the last 90 days None Future PSG Orders signed in the last 90 days Ordered Auth. provider PAP TITRATION PSG (CPAP, BIPAP, ASV) [[id number]] 12/17/22 Eze Rodriguez MD Assoc. diagnoses: JOSE (obstructive sleep apnea) [G47.33] Q: Indications: A: Obstructive sleep apnea Q: STOP-BANG conditions - Select All That Apply: A: GENDER = male A2: AGE > 50 A3: high blood PRESSURE Q: Special Needs (e.g.behavior, non-ambulatory, >450 lbs)?: A: No Q: Prior PAP (CPAP or Bilevel PAP) Use?: A: No Q: Sleep History: A: Sleep apnea Q: Current use of supplemental oxygen during sleep period?: A: No Q: Add supplemental oxygen if needed per sleep lab policy?: A: Yes HOME SLEEP APNEA TEST (HSAT) [[id number]] 12/17/22 Eze Rodriguez MD Assoc. diagnoses: JOSE (obstructive sleep apnea) [G47.33] Q: Indications: A: Obstructive sleep apnea Q: STOP-BANG conditions - Select All That Apply: A: GENDER = male A2: AGE > 50 A3: high blood PRESSURE A4: SNORING that is loud or disruptive A5: OBSERVED sleep apnea Q: Current use of supplemental oxygen during sleep period?: A: No All Prior Sleep Studies (past 365 days) Some values may be hidden. Unless noted otherwise, only the newest values recorded on each date aredisplayed. 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 Indications for study: JOSE previously diagnosed: Evaluate response to PAP therapy Sleep study to be performed: PAP titration study Special instructions: Start titration at PAP setting of 5 cmH2O Target REM/supine sleep Nati Candy Sleep Medicine Staff Note: I have read the above protocol, edited as needed, and agree to the plan. Lucho Mello III, PhD 5:26 PM, 12/19/2022 * Lavern Hummel - 12/18/2022 6:46 PM EST December 18, 2022 An order has been received for Polysomnogram (PSG) from Dr. Eze Rodriguez MD, a B. [facility] Staff. Visit prep complete. Comments :No The sleep study is scheduled for 01/20. Insurance: Payor: [employer] AND World Reviewer / Plan: ANTHEM MEDIBLUE ACCESS / Product Type: PPO / Payer/Plan Subscr Sex Relation Sub. Ins. ID Effective Group Num 1. DOMO ADLER 1940 Male Self [id number] 10[birth year] [id number] Lavern Hummel documented in this encounterPromedica [facility]02-22-2023 Miscellaneous Notes* Telephone Encounter - Varsha Herrera Ma - 12/19/2022 9:58 AM EST Order was canceled for home test Varsha Herrera Ma * Telephone Encounter - Christine Kendrick Pss - 12/19/2022 9:28 AM EST Patient called stating he received a call to schedule a home sleep study. Patient states he completed that already and new order needs to be deleted. documented in this encounterPromedica Bay [facility]02-20-2023 History of Present illness Narrative* Eze Rodriguez MD - 12/17/2022 12:40 PM EST Chief Complaint Patient presents with: 6 Month Exam HPI Domo Boldne is a 82 year old male who presents here today for 6 month follow up. No advanced directive or living will. No bowel, Gi, or urinary issues. He had kidney stones 6 months ago. He had colonoscopy done in 2018, repeat 5 years. Family hx of colon cancer. Uses Cialis 5 mg daily for prostate. HTN: Taking Lisinopril 5 mg daily. Checking BP at home with readings WNL around 130/75. No chest pains, dizziness, or SOB. JOSE: Had home sleep study done in Jun 2022, showed severe sleep apnea. Pt advised to get overnightpap titration study done but pt declined, stated he didn't know if he wanted to use a machine. Pt states his and his son are on him about not using any apnea devices. His son uses a nasal pillowmask that he tolerates well. Lipid: Not on any statins. Tries to watch diet. Gets moderate exercise but plans to do more. [place] farm. He states that he feels like his weight is staying the same but his belly has become bigger. Skin: lesion on the back of the neck that he keeps bumping and becomes irritated. Does not seem to be getting in bigger. Follows with Dr. Lin for eye exams, referred to Dr. Bhatia to discuss getting cataracts removed. Nails: has ridges in the finger nails. Pain: occ back pain, has a few discs that flare up. He wonders if this pain is related to kidney stones. He feels that the pain is centrally located. He states if he uses a binder or back brace it helps. No back pain currently, has not had for a few months. Arthritis: jyothi hands, uses Aleve prn. Past medical history, appointments, medications, allergies reviewed. 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 Nick Bustamante, [facility] TONSILLECTOMY & ADENOIDECTOMY <AGE 14 childhood Family History FAMILY HISTORY Adopted: Yes Problem Relation Age of Onset Colon Cancer Brother stomach and colon Colon Cancer Other at least one half-brother Coronary Artery Disease Father known, first at about age 67 Colon Cancer Other half brother Patient Allergies ALLERGIES Allergen Reactions Yellow Food Dye [Ot* Hives Current Medications Current Outpatient Medications on File Prior to Visit Medication Sig lisinopril (ZESTRIL, PRINIVIL) 5 mg tablet Take 1 tablet by mouth once daily. Tadalafil (CIALIS) 5 mg tablet Take 1 tablet by mouth once daily. lutein-zeaxanthin 25-5 mg cap Take 1 capsule by mouth twice daily. fluticasone (FLONASE) 50 mcg/actuation nasal spray Use 2 Sprays in each nostril once daily. Rinse mouth after use. prasterone, dhea, (DHEA) 50 mg tab Take 50 mg by mouth twice daily. qopavkus-fhl-DJ-lycopen-lutein (CENTRUM SILVER MEN) 300-600-300 mcg tab Take 1 tablet by mouth oncedaily. Aspirin 500 mg tab Take 500 mg by mouth once daily. Vina-3 Fatty Acids-Vitamin E (FISH OIL) 1,000 mg cap Take 2 capsules by mouth once daily. GLUCOSAMINE/CHONDROITIN SULF A (GLUCOSAMINE-CHONDROITIN ORAL) Take 2 tablets by mouth once daily. SELENIUM 200 MCG TAB take one tablet daily GINKGO BILOBA 120 MG TAB 1 tablet 2 times daily VITAMIN C 1000MG TABLET Take one(1) tablet 2 x a day No current facility-administered medications on file prior to visit. Social History Social History Tobacco Use Smoking status: Never Smokeless tobacco: Never Substance Use Topics Alcohol use: Yes Comment: moderate Drug use: No EXAM: BP 120/78 Pulse 74 Resp 16 Wt 94.8 kg (209 lb 1.6 oz) BMI 30.44 kg/m General Appearance: Well appearing, alert, in no acute distress, well-hydrated, well nourished. andObese. Skin: seborrheic keratosis on back of neck treated with cryotherapy times two. Lungs: Lungs clear to auscultation. No wheezing, rhonchi, rales.. Heart: RRR without murmur, gallop, or rubs. No ectopy.. Nails: hands; minimal vertical ridging Health Maintenance List SHINGRIX VACCINE(2 of 3) due on 12/04/2011 INFLUENZA(1) due on 06/28/2022 COVID-19 VACCINE(5 - Booster) due on 07/12/2022 ADVANCE DIRECTIVE DISCUSSION due on 10/28/2022 DEPRESSION ASSESSMENT Never done ANNUAL PCP TEAM CHRONIC DISEASE VISIT due on 06/14/2023 BP CONTROLLED (<130/80) due on 06/14/2023 DIABETES SCREEN due on 06/11/2025 DTAP,TDAP,TD(2 - Td or Tdap) due on 12/04/2028 PNEUMOCOCCAL: 65+ Completed Data reviewed Appointment on 12/12/2022 Component Date Value Protein, Total 12/12/2022 6.6 Albumin 12/12/2022 4.3 Calcium, Total 12/12/2022 10.5 (A) Bilirubin, Total 12/12/2022 1.1 Alkaline Phosphatase 12/12/2022 54 AST 12/12/2022 24 ALT 12/12/2022 26 Glucose 12/12/2022 86 BUN 12/12/2022 13 Creatinine 12/12/2022 1.13 Sodium 12/12/2022 139 Potassium 12/12/2022 4.5 Chloride 12/12/2022 106 (A) CO2 12/12/2022 25 Anion Gap 12/12/2022 8 (A) Estimated Glomerular Eric* 12/12/2022 66 WBC 12/12/2022 6.61 RBC 12/12/2022 5.07 Hemoglobin 12/12/2022 16.2 Hematocrit 12/12/2022 48.6 MCV 12/12/2022 95.9 MCH 12/12/2022 32.0 MCHC 12/12/2022 33.3 RDW-CV 12/12/2022 13.2 Platelet Count 12/12/2022 213 MPV 12/12/2022 10.4 Absolute nRBC 12/12/2022 <0.01 PSA 12/12/2022 5.20 (A) Cholesterol, Total 12/12/2022 185 Triglyceride 12/12/2022 64 HDL Cholesterol 12/12/2022 45 Non HDL Cholesterol 12/12/2022 140 (A) Fasting Time 12/12/2022 13 VLDL Cholesterol 12/12/2022 13 TC:HDL Ratio 12/12/2022 4.11 LDL Cholesterol 12/12/2022 127 (A) LDL:HDL Ratio 12/12/2022 2.82 (A) ASSESSMENT/PLAN: 1. Essential hypertension - ICD9: 401.9, ICD10: I10 (primary diagnosis) - good control - Continue current medication(s) - Recommended regular aerobic exercise. - Recommend home blood pressure monitoring, to bring results in on next visit - Discussed need and benefit for weight loss. - Goal of BP <140/90 2. Mixed hyperlipidemia - ICD9: 272.2, ICD10: E78.2 - good control - LIPID PANEL BASIC - COMP METABOLIC PANEL 3. 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 Screening PSA (prostate specific antigen) - ICD9: V76.44, ICD10: Z12.5 - PSA/PROSTSPECAG SCRN 6. Personal history of colonic polyps - ICD9: V12.72, ICD10: Z86.010 - COLONOSCOPY SCREENING - PEG 3350 240 GRAM-ELECTROLYTES 22.72 GRAM-6.72 G-5.84 G POWDR FOR SOLN 7. 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 Medical Decision Making: Problems: Moderate: 2+ stable chronic illnesses Data: Unique test result(s) reviewed: 3+ Unique test(s) ordered: 3+ Risk: Moderate: Drug management Medical Decision Making Level: 4 - Moderate Eze Rodriguez MD The documentation for this note was completed by Verena Hurt Ma acting as scribe for Eze Rodriguez MD. December 17, 2022 12:49 PM. Verena Hurt Ma [facility] OPEN ACCESS QUESTIONNAIRE 1. Are you currently having any new or unusual stomach/gastrointestinal issues at this time such asconstipation, diarrhea, abdominal pain, rectal bleeding etc?No 2. Do you have any difficulty swallowing? No 3. Do you have any implanted devices such as a defibrillator, pacemaker, cardiac stents or deep brain stimulator? No 4. Do you take any Blood thinners such as Coumadin, Plavix, Xarelto, Eliquis, Brilinta or any otherblood thinner? No 5. Do you have any new or past cardiac (heart) or pulmonary (lung) issues? No 6. Do you currently use any oxygen? No 7. Have you been hospitalized in the past 6 weeks? No 8. Have you had difficulty with anesthesia previously re: Difficult intubation? No Other difficulty or allergic reaction to anesthesia other than post op N/V? No 9. Are you on dialysis? No 10. Do you have any bleeding disorders such as hemophilia or Factor 5? No 11. Are you an Insulin Dependent Diabetic? No IF ANY OF THE TOP ELEVEN QUESTIONS ARE ANSWERED YES PLEASE SCHEDULE THE PATIENT FOR A CONSULT. scheduled 12. Is the patient's BMI 40 or greater? No:Body mass index is 30.44 kg/m .. 13. Do you take any narcotics or anti-Anxiety medications? No 14. Do you use any illegal or recreational drugs including marijuana? No 15. Any alcohol use: No. 16. Have you been diagnosed with chronic liver disease such as hepatitis or cirrhosis? No 17. Do you have a seizure disorder? No 18. Do you have ulcerative colitis or Crohn's disease? No 19. Are you or could you be ? NA 20. Any other important health information we should be made aware of prior to your colonoscopy? No To be completed by LIP: Did patient have MAC anesthesia with a previous endoscopy procedure? No Patient appropriate for Open Access Colonoscopy: Yes: appropriate for Open Access Procedure Checklist: Prior to closing the encounter: Complete questionnaire: Yes Confirm Prep order has been Ordered/Pended: Yes. Patient's procedure could be delayed if not given the script for the prep. Please ensure the prep is escripted to pharmacy or printed. Instructions for the prep will print upon filing or pending thissmartset. Please send all open access questionnaires to [facility] Pool #[id number] documented in this encounterPromedica Bay Park Hospital09-22-2022 Miscellaneous Notes* Telephone Encounter - Briseyda Diaz Ma - 07/19/2022 9:16 AM EDT Sent [employer] message to pt notifying him of response below from Provider. Await pt response via [employer]. Briseyda Diaz Ma * Telephone Encounter - Briseyda Diaz Ma - 07/17/2022 10:51 AM EDT Tried calling pt received busy signal. Will try calling again later. Briseyda Diaz Ma * Telephone Encounter - Terry Champion APRN.CNP - 07/17/2022 9:10 AM EDT Please let the patient know that if he does not wish to use a device, then we can have him see sleep medicine to see if there are other options. I placed a referral. Terry Champion APRN.CNP * Telephone Encounter - Jessie Ballard MA - 07/16/2022 8:50 AM EDT Unable to reach patient. Left VM to return call to office. Please read below and advise. Jessie Ballard MA * Telephone Encounter - Elena Elena - 07/14/2022 1:46 PM EDT Spoke with the patient and he is declining to schedule as he is not sure he wants to use a PAP machine. Patient is requesting a nurse call him back as he has additional questions * Telephone Encounter - Modesto Clark Ma - 07/13/2022 2:28 PM EDT Patient notified, verbalized understanding. Please contact patient to schedule. * Telephone Encounter - Terry Champion APRN.CNP - 07/13/2022 2:24 PM EDT Please let the patient know that his sleep study shows that he has severe sleep apnea. Needs an overnight PAP titration study to get settings for a device. Order placed. Terry Champion APRN.CNP documented in this encounterPromedica Bay Park Hospital09-13-2022 History of Present illness Narrative* Leigh Blackburn - 07/10/2022 10:39 AM EDT Sleep Study Check-In Documentation Date: July 10, 2022 Name: Domo Bolden Comments: HST was returned in working order with all sleep questionnaires Leigh Blackburn * Leigh Blackburn - 07/10/2022 10:39 AM EDT Nom[employer]# , date shipped out 07-03 Tracking mailout:n/a Tracking return: n/a Josselyn has this patient but didn't place notes in abstract for deployment. * Josie Mckeon PSS - 06/21/2022 6:08 PM EDT Sleep Study Check-In Documentation Date: June 21, 2022 Name: DiegoHali Bolden Comments: HST was returned in work order. Study did not occur. Poor reading from belts and SAO2 sensors. Unable to redeploy. Patient will be contacted for repeat testing. Scheduled retry for 07/04 Josie ELENA * Josselyn Alexis - 06/18/2022 8:31 AM EDT Nom[employer]# [id number] Mail out date: 07/03/2022 [employer] Shipping #: [id number] [employer] Return #: [phone] * Lucho Mello III, PhD - 06/15/2022 12:49 PM EDT June 15, 2022 Standing PSG Orders signed in the last 90 days None Future PSG Orders signed in the last 90 days Ordered Auth. provider HOME SLEEP APNEA TEST (HSAT) [[id number]] 06/14/22 Eze Rodriguez MD Assoc. diagnoses: JOSE (obstructive sleep apnea) [G47.33] Q: Indications: A: Obstructive sleep apnea Q: STOP-BANG conditions - Select All That Apply: A: GENDER = male A2: AGE > 50 A3: high blood PRESSURE A4: SNORING that is loud or disruptive A5: OBSERVED sleep apnea A6: TIREDNESS, fatigue or sleepiness during the day Q: Current use of supplemental oxygen during sleep period?: A: No All Prior Sleep Studies (past 365 days) Some values may be hidden. Unless noted otherwise, only the newest values recorded on each date aredisplayed. 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 Indications for study: JOSE suspected without comorbid medical or sleep disorders Sleep study to be performed: Home Sleep Apnea Test (HSAT) Special instructions: None-follow laboratory protocol Nati Gupta Sleep Medicine Staff Note: I have read the above protocol, edited as needed, and agree to the plan. Lucho Mello III, PhD 4:09 PM, 06/15/2022 * Chanel Jones - 06/15/2022 8:02 AM EDT June 15, 2022 An order has been received for Home Sleep Apnea Test (HSAT) from Dr. Eze Rodriguez, a B. [facility] Staff. Visit prep complete. Comments :No The sleep study is scheduled for 06/19/2022. Insurance: Payor: [employer] AND BLUE SHIELD / Plan: ANTHEM MEDIBLUE ACCESS / Product Type: PPO / Payer/Plan Subscr Sex Relation Sub. Ins. ID Effective Group Num 1. DOMO ADLER 1940 Male Self [id number] [birth year] [id number] Chanel Jones documented in this encounterPromedica Bay Park Hospital08-18-2022 History of Present illness Narrative* Cheryl Esparza, RT(R) - 06/14/2022 10:00 AM EDT Radiology Service Progress Note PATIENT NAME: Domo Bolden DATE OF SERVICE: June 14, 2022 TIME: 10:07 AM PATIENT IDENTITY VERIFICATION COMPLETED USING TWO (2) IDENTIFIERS: Name and Date of confirmedby patient verbally. FALL SCREENING: Has the patient had 2 falls in the last year or 1 fall with injury or currently using an Ambulatory Assistive Device (Walker, Cane, Wheelchair, Crutches, etc.)? No PATIENT GENDER DATA: Male PATIENT RELEVANT IMPLANT DATA REVIEWED: Not Applicable RADIOLOGY DEPARTMENT: General X-ray: Exam(s) Completed: Chest X-Ray PERIPHERAL IV DATA: Not applicable SIGNED BY: RT Yaz(R) June 14, 2022 10:07 AM documented in this encounterPromedica Bay Park Hospital08-18-2022 History of Present illness Narrative* Eze Rodriguez MD - 06/14/2022 9:00 AM EDT Chief Complaint Patient presents with: F/U 6 Month HPI Domo Bolden is a 81 year old male who presents here today for 6 month follow up. No bowel, Gi, or urinary concerns. Using Cialis 5 mg daily. HTN: No chest pains, dizziness, or SOB. Taking Lisinopril 5 mg daily. Does check his BP at home, reports readings in the normal range. Pt reports about 3-4 weeks ago he was in [facility] ED for a kidney stone. Pt states that his symptoms have resolved, but was not able to find a stone. Was in quite a bit of pain. Pt reports that he did have hematuria a few months prior to this but never f/u with anyone. Fatigue - Falls asleep in the afternoon more; less energy Back pain - Off and on, lower back. Has history of T11 compression fracture, DDD lumbar spine Cough - frequent cough with some phlegm, ongoing. Denies SOB. Sleep - says he stops breathing at night; snores. Son has sleep apnea Fogginess in right eye - comes and goes, has been seen by three Optomitrists HM - Declines having Adv Dir/Living Will. Declines depression symptoms. Past medical history, appointments, medications, allergies reviewed. 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 Nick Bustamante, [facility] TONSILLECTOMY & ADENOIDECTOMY <AGE 14 childhood Family History FAMILY HISTORY Adopted: Yes Problem Relation Age of Onset Colon Cancer Brother stomach and colon Colon Cancer Other at least one half-brother Coronary Artery Disease Father known, first at about age 67 Colon Cancer Other half brother Patient Allergies ALLERGIES Allergen Reactions Yellow Food Dye [Ot* Hives Current Medications Current Outpatient Medications on File Prior to Visit Medication Sig lisinopril (ZESTRIL, PRINIVIL) 5 mg tablet Take 1 tablet by mouth once daily. Tadalafil (CIALIS) 5 mg tablet Take 1 tablet by mouth once daily. lutein-zeaxanthin 25-5 mg cap Take 1 capsule by mouth twice daily. fluticasone (FLONASE) 50 mcg/actuation nasal spray Use 2 Sprays in each nostril once daily. Rinse mouth after use. prasterone, dhea, (DHEA) 50 mg tab Take 50 mg by mouth twice daily. wcrlsbnr-bsz-WH-lycopen-lutein (CENTRUM SILVER MEN) 300-600-300 mcg tab Take 1 tablet by mouth oncedaily. Aspirin 500 mg tab Take 500 mg by mouth once daily. Vina-3 Fatty Acids-Vitamin E (FISH OIL) 1,000 mg cap Take 2 capsules by mouth once daily. GLUCOSAMINE/CHONDROITIN SULF A (GLUCOSAMINE-CHONDROITIN ORAL) Take 2 tablets by mouth once daily. Plant Stanol Lexus (CHOLEST OFF) 450 mg tab Take 2 tablets by mouth once daily. SELENIUM 200 MCG TAB take one tablet daily GINKGO BILOBA 120 MG TAB 1 tablet 2 times daily VITAMIN C 1000MG TABLET Take one(1) tablet 2 x a day No current facility-administered medications on file prior to visit. Social History Social History Tobacco Use Smoking status: Never Smokeless tobacco: Never Substance Use Topics Alcohol use: Yes Comment: moderate Drug use: No EXAM: BP 122/74 (BP Site: Left Arm, BP Position: Sitting, BP Cuff Size: Regular Adult) Pulse 80 Resp 16 Wt 91.4 kg (201 lb 9.6 oz) BMI 29.34 kg/m General Appearance: Well appearing, alert, in no acute distress, well-hydrated, well nourished.. Back: no tenderness Lungs: Lungs clear to auscultation. No wheezing, rhonchi, rales.. Heart: RRR without murmur, gallop, or rubs. No ectopy. Health Maintenance List SHINGRIX VACCINE(2 of 3) due on 12/04/2011 ADVANCE DIRECTIVE DISCUSSION Never done COVID-19 VACCINE(4 - Booster) due on 12/25/2021 DEPRESSION SCREENING due on 06/13/2022 INFLUENZA(1) due on 06/28/2022 ANNUAL PCP TEAM CHRONIC DISEASE VISIT due on 12/14/2022 BP CONTROLLED (<130/80) due on 12/14/2022 DIABETES SCREEN due on 12/07/2024 DTAP,TDAP,TD(2 - Td or Tdap) due on 12/04/2028 PNEUMOCOCCAL: 65+ Completed Data reviewed Appointment on 06/11/2022 Component Date Value Protein, Total 06/11/2022 6.6 Albumin 06/11/2022 4.4 Calcium, Total 06/11/2022 10.3 (A) Bilirubin, Total 06/11/2022 1.1 Alkaline Phosphatase 06/11/2022 68 AST 06/11/2022 23 ALT 06/11/2022 23 Glucose 06/11/2022 82 BUN 06/11/2022 13 Creatinine 06/11/2022 1.05 Sodium 06/11/2022 139 Potassium 06/11/2022 4.7 Chloride 06/11/2022 105 CO2 06/11/2022 24 Anion Gap 06/11/2022 10 Estimated Glomerular Eric* 06/11/2022 72 Cholesterol, Total 06/11/2022 163 Triglyceride 06/11/2022 101 HDL Cholesterol 06/11/2022 44 Non HDL Cholesterol 06/11/2022 119 Fasting Time 06/11/2022 15 VLDL Cholesterol 06/11/2022 20 TC:HDL Ratio 06/11/2022 3.70 LDL Cholesterol 06/11/2022 99 LDL:HDL Ratio 06/11/2022 2.25 PSA 06/11/2022 5.56 (A) ASSESSMENT/PLAN: 1. Essential hypertension - ICD9: 401.9, ICD10: I10 (primary diagnosis) - good control - Continue current medication(s) - Recommended regular aerobic exercise. - Goal of BP <140/90 - COMP METABOLIC PANEL - CBC - LIPID PANEL BASIC 2. Cough, unspecified type - ICD9: 786.2, ICD10: R05.9 Check CXR today - XR CHEST 2V FRONTAL/LAT 3. JOSE (obstructive sleep apnea) - ICD9: 327.23, ICD10: G47.33 - HOME SLEEP APNEA TEST (HSAT) 4. Mixed hyperlipidemia - ICD9: 272.2, ICD10: E78.2 - good control - Encouraged following a low fat, low cholesterol diet. - COMP METABOLIC PANEL - LIPID PANEL BASIC 5. Elevated PSA - ICD9: 790.93, ICD10: R97.20 Monitor - PSA/PROSTSPECAG DIAG Follow up in 6 months with labs prior He mentions that his son is in need of PCP, may want to establish with me, which I would agree to Medical Decision Making: Problems: Moderate: New problem with uncertain prognosis and 2+ stable chronic illnesses Data: Unique test result(s) reviewed: 3+ Unique test(s) ordered: 3+ Risk: Moderate: Drug management Medical Decision Making Level: 4 - Moderate Eze Rodriguez MD documented [facility] History of Present illness Narrative* Verena Hurt Ma - 05/28/2022 9:44 AM EDT View External Imaging - CT Scan [ID [id number]] Scan on 05/26/2022 2:04 PM by External Provider: Consultation - Emergency Medicine [facility] ER Reports and CT abd/pelv. Has appt on 06/14/22 for 6 month follow up. Verena Hurt Ma documented in this encounterProm[facility]04-13-[facility] Miscellaneous Notes* Telephone Encounter - Verena Hurt Ma - 02/07/2022 1:08 PM EDT The following approved medication requests have been transmitted electronically. Signed Prescriptions Disp Refills lisinopril (ZESTRIL, PRINIVIL) 5 mg tablet 90 tablet 3 Sig: Take 1 tablet by mouth once daily. ADRIANNA: No Authorizing Provider: EZE RODRIGUEZ Ma * Telephone Encounter - Eze Rodriguez MD - 02/07/2022 12:45 PM EDT OK to refill as ordered Eze Rodriguez MD documented in this encounterProm[facility]05-05-[facility] History of Past illness Narrative* Problem Noted Date Resolved Date Appendicitis 03/01/2011 04/26/2017 Overview: S/p laparoscopic appendectomy/drainage -- Dr. Azucena Bustamante [facility] --- 02/2011 Benign neoplasm of colon 12/29/2009 017 Diseases of tricuspid valve 07/08/200803/30 Overview: 2+ TR per stress echo 2003 (incidental finding) 1+ in 1998 Family history of other cardiovascular diseases( V17.49) 07/07/2008 04/26/2017 Overview: Uncertain details, but father of CVD at around age 67; brother 2 years older, heart healthy documented as of this encounter (statuses as of 02/07/2022) [facility] of Past illness Narrative* Problem Noted Date Resolved Date Appendicitis 03/01/2011 04/26/2017 Overview: S/p laparoscopic appendectomy/drainage -- Dr. Azucena Bustamante [facility] --- 02/2011 Benign neoplasm of colon 12/29/2009 017 Diseases of tricuspid valve 07/08/200803/30 Overview: 2+ TR per stress echo 2004 (incidental finding) 1+ in 1998 Family history of other cardiovascular diseases( V17.49) 07/07/2008 04/26/2017 Overview: Uncertain details, but father of CVD at around age 67; brother 2 years older, heart healthy documented as of this encounter (statuses as of 06/01/2022) [facility] illness Narrative* Problem Noted Date Resolved Date Appendicitis 03/01/2011 04/26/2017 Overview: S/p laparoscopic appendectomy/drainage -- Dr. Azucena Bustamante [facility] --- 02/2011 Benign neoplasm of colon 12/29/2009 017 Diseases of tricuspid valve 07/08/200803/30 Overview: 2+ TR per stress echo 2003 (incidental finding) 1+ in 1998 Family history of other cardiovascular diseases( V17.49) 07/07/2008 04/26/2017 Overview: Uncertain details, but father of CVD at around age 67; brother 2 years older, heart healthy documented as of this encounter (statuses as of 06/14/2022) [facility] illness Narrative* Problem Noted Date Resolved Date Appendicitis 03/01/2011 04/26/2017 Overview: S/p laparoscopic appendectomy/drainage -- Dr. Azucena Bustamante [facility] --- 02/2011 Benign neoplasm of colon 12/29/2009 017 Diseases of tricuspid valve 07/08/200803/30 Overview: 2+ TR per stress echo 2003 (incidental finding) 1+ in 1998 Family history of other cardiovascular diseases( V17.49) 07/07/2008 04/26/2017 Overview: Uncertain details, but father of CVD at around age 67; brother 2 years older, heart healthy documented as of this encounter (statuses as of 07/10/2022) [facility] Narrative* Problem Noted Date Resolved Date Appendicitis 03/01/2011 04/26/2017 Overview: S/p laparoscopic appendectomy/drainage -- Dr. Azucena Bustamante [facility] --- 02/2011 Benign neoplasm of colon 12/29/2009 017 Diseases of tricuspid valve 07/08/200803/30 Overview: 2+ TR per stress echo 2004 (incidental finding) 1+ in 1998 Family history of other cardiovascular diseases( V17.49) 07/07/2008 04/26/2017 Overview: Uncertain details, but father of CVD at around age 67; brother 2 years older, heart healthy documented as of this encounter (statuses as of 07/19/2022) [facility] of [facility] illness Narrative* Problem Noted Date Resolved Date Appendicitis 03/01/2011 04/26/2017 Overview: S/p laparoscopic appendectomy/drainage -- Dr. Azucena Bustamante [facility] --- 02/2011 Benign neoplasm of colon 12/29/2009 017 Diseases of tricuspid valve 07/08/200803/30 Overview: 2+ TR per stress echo 2003 (incidental finding) 1+ in 1998 Family history of other cardiovascular diseases( V17.49) 07/07/2008 04/26/2017 Overview: Uncertain details, but father of CVD at around age 67; brother 2 years older, heart healthy documented as of this encounter (statuses as of 12/17/2022) [facility] of [facility] illness Narrative* Problem Noted Date Resolved Date Appendicitis 03/01/2011 04/26/2017 Overview: S/p laparoscopic appendectomy/drainage -- Dr. Azucena Bustamante [facility] --- 02/2011 Benign neoplasm of colon 12/29/2009 017 Diseases of tricuspid valve 07/08/200803/30 Overview: 2+ TR per stress echo 2003 (incidental finding) 1+ in 1998 Family history of other cardiovascular diseases( V17.49) 07/07/2008 04/26/2017 Overview: Uncertain details, but father of CVD at around age 67; brother 2 years older, heart healthy documented as of this encounter (statuses as of 12/19/2022) [facility] Narrative* Problem Noted Date Resolved Date Appendicitis 03/01/2011 04/26/2017 Overview: S/p laparoscopic appendectomy/drainage -- Dr. Azucena Bustamante [facility] --- 02/2011 Benign neoplasm of colon 12/29/2009 017 Diseases of tricuspid valve 07/08/200803/30 Overview: 2+ TR per stress echo 2003 (incidental finding) 1+ in 1998 Family history of other cardiovascular diseases( V17.49) 07/07/2008 04/26/2017 Overview: Uncertain details, but father of CVD at around age 67; brother 2 years older, heart healthy documented as of this encounter (statuses as of 01/21/2023) [facility] illness Narrative* Problem Noted Date Resolved Date Appendicitis 03/01/2011 04/26/2017 Overview: S/p laparoscopic appendectomy/drainage -- Dr. Azucena Bustamante [facility] --- 02/2011 Benign neoplasm of colon 12/29/2009 017 Diseases of tricuspid valve 07/08/200803/30 Overview: 2+ TR per stress echo 2003 (incidental finding) 1+ in 1998 Family history of other cardiovascular diseases( V17.49) 07/07/2008 04/26/2017 Overview: Uncertain details, but father of CVD at around age 67; brother 2 years older, heart healthy documented as of this encounter (statuses as of 01/28/2023) [facility] illness Narrative* Problem Noted Date Resolved Date Appendicitis 03/01/2011 04/26/2017 Overview: S/p laparoscopic appendectomy/drainage -- Dr. Azucena Bustamante [facility] --- 02/2011 Benign neoplasm of colon 12/29/2009 017 Diseases of tricuspid valve 07/08/200803/30 Overview: 2+ TR per stress echo 2003 (incidental finding) 1+ in 1998 Family history of other cardiovascular diseases( V17.49) 07/07/2008 04/26/2017 Overview: Uncertain details, but father of CVD at around age 67; brother 2 years older, heart healthy documented as of this encounter (statuses as of 02/09/2023) [facility] Narrative* Problem Noted Date Resolved Date Appendicitis 03/01/2011 04/26/2017 Overview: S/p laparoscopic appendectomy/drainage -- Dr. Azucena Bustamante [facility] --- 02/2011 Benign neoplasm of colon 12/29/2009 017 Diseases of tricuspid valve 07/08/200803/30 Overview: 2+ TR per stress echo 2003 (incidental finding) 1+ in 1998 Family history of other cardiovascular diseases( V17.49) 07/07/2008 04/26/2017 Overview: Uncertain details, but father of CVD at around age 67; brother 2 years older, heart healthy documented as of this encounter (statuses as of 02/11/2023) [facility] Narrative* Problem Noted Date Resolved Date Appendicitis 03/01/2011 04/26/2017 Overview: S/p laparoscopic appendectomy/drainage -- Dr. Azucena Bustamante [facility] --- 02/2011 Benign neoplasm of colon 12/29/2009 017 Diseases of tricuspid valve 07/08/200803/30 Overview: 2+ TR per stress echo 2004 (incidental finding) 1+ in 1998 Family history of other cardiovascular diseases( V17.49) 07/07/2008 04/26/2017 Overview: Uncertain details, but father of CVD at around age 67; brother 2 years older, heart healthy documented as of this encounter (statuses as of 02/26/2023) [facility] Narrative* Problem Noted Date Resolved Date Appendicitis 03/01/2011 04/26/2017 Overview: S/p laparoscopic appendectomy/drainage -- Dr. Azucena Bustamante [facility] --- 02/2011 Benign neoplasm of colon 12/29/2009 017 Diseases of tricuspid valve 07/08/200803/30 Overview: 2+ TR per stress echo 2004 (incidental finding) 1+ in 1998 Family history of other cardiovascular diseases( V17.49) 07/07/2008 04/26/2017 Overview: Uncertain details, but father of CVD at around age 67; brother 2 years older, heart healthy documented as of this encounter (statuses as of 04/16/2023) [facility] Narrative* Problem Noted Date Resolved Date Appendicitis 03/01/2011 04/26/2017 Overview: S/p laparoscopic appendectomy/drainage -- Dr. Azucena Bustamante [facility] --- 02/2011 Benign neoplasm of colon 12/29/2009 017 Diseases of tricuspid valve 07/08/200803/30 Overview: 2+ TR per stress echo 2004 (incidental finding) 1+ in 1998 Family history of other cardiovascular diseases( V17.49) 07/07/2008 04/26/2017 Overview: Uncertain details, but father of CVD at around age 67; brother 2 years older, heart healthy documented as of this encounter (statuses as of 04/26/2023) [facility] Narrative* Problem Noted Date Diagnosed Date Resolved Date Appendicitis 03/01/2011 04/26/2017 Overview: S/p laparoscopic appendectomy/drainage -- Dr. Azucena Bustamante [facility] --- 02/2011 Benign neoplasm of colon 12/29/2009 Diseases of tricuspid valve 07/08/2008 04/26/2017 Overview: 2+ TR per stress echo 2004 (incidental finding) 1+ in 1998 Family history of other card iovascular diseases(V17.49) 07/07/2008 04/26/2017 Overview: Uncertain details, but father of CVD at around age 67; brother 2 years older, heart healthy documented as of this encounter (statuses as of 05/24/2023) [facility] Narrative* Problem Noted Date Diagnosed Date Resolved Date Appendicitis 03/01/2011 04/26/2017 Overview: S/p laparoscopic appendectomy/drainage -- Dr. Azucena Bustamante [facility] --- 02/2011 Benign neoplasm of colon 12/29/2009 Diseases of tricuspid valve 07/08/2008 04/26/2017 Overview: 2+ TR per stress echo 2004 (incidental finding) 1+ in 1998 Family history of other card iovascular diseases(V17.49) 07/07/2008 04/26/2017 Overview: Uncertain details, but father of CVD at around age 67; brother 2 years older, heart healthy documented as of this encounter (statuses as of 06/18/2023) [facility] Narrative* Problem Noted Date Diagnosed Date Resolved Date Appendicitis 03/01/2011 04/26/2017 Overview: S/p laparoscopic appendectomy/drainage -- Dr. Azucena Bustamante [facility] --- 02/2011 Benign neoplasm of colon 12/29/2009 Diseases of tricuspid valve 07/08/2008 04/26/2017 Overview: 2+ TR per stress echo 2004 (incidental finding) 1+ in 1998 Family history of other card iovascular diseases(V17.49) 07/07/2008 04/26/2017 Overview: Uncertain details, but father of CVD at around age 67; brother 2 years older, heart healthy documented as of this encounter (statuses as of 07/20/2023) [facility] Narrative* Problem Noted Date Diagnosed Date Resolved Date Appendicitis 03/01/2011 04/26/2017 Overview: S/p laparoscopic appendectomy/drainage -- Dr. Azucena Bustamante [facility] --- 02/2011 Benign neoplasm of colon 12/29/2009 Diseases of tricuspid valve 07/08/2008 04/26/2017 Overview: 2+ TR per stress echo 2004 (incidental finding) 1+ in 1998 Family history of other card iovascular diseases(V17.49) 07/07/2008 04/26/2017 Overview: Uncertain details, but father of CVD at around age 67; brother 2 years older, heart healthy documented as of this encounter (statuses as of 12/17/2023) [facility] Narrative* Problem Noted Date Diagnosed Date Resolved Date Appendicitis 03/01/2011 04/26/2017 Overview: S/p laparoscopic appendectomy/drainage -- Dr. Azucena Bustamante [facility] --- 02/2011 Benign neoplasm of colon 12/29/2009 Diseases of tricuspid valve 07/08/2008 04/26/2017 Overview: 2+ TR per stress echo 2004 (incidental finding) 1+ in 1998 Family history of other card iovascular diseases(V17.49) 07/07/2008 04/26/2017 Overview: Uncertain details, but father of CVD at around age 67; brother 2 years older, heart healthy documented as of this encounter (statuses as of 12/19/2023) [facility] Narrative* Problem Noted Date Diagnosed Date Resolved Date Appendicitis 03/01/2011 04/26/2017 Overview: S/p laparoscopic appendectomy/drainage -- Dr. Azucena Bustamante, [facility] --- 02/2011 Benign neoplasm of colon 12/29/2009 Diseases of tricuspid valve 07/08/2008 04/26/2017 Overview: 2+ TR per stress echo 2004 (incidental finding) 1+ in 1998 Family history of other card iovascular diseases(V17.49) 07/07/2008 04/26/2017 Overview: Uncertain details, but father of CVD at around age 67; brother 2 years older, heart healthy documented as of this encounter (statuses as of 01/03/2024) [facility] Narrative* Problem Noted Date Diagnosed Date Resolved Date Appendicitis 03/01/2011 04/26/2017 Overview: S/p laparoscopic appendectomy/drainage -- Dr. Azucena Bustamante [facility] --- 02/2011 Benign neoplasm of colon 12/29/2009 Diseases of tricuspid valve 07/08/2008 04/26/2017 Overview: 2+ TR per stress echo 2004 (incidental finding) 1+ in 1998 Family history of other card iovascular diseases(V17.49) 07/07/2008 04/26/2017 Overview: Uncertain details, but father of CVD at around age 67; brother 2 years older, heart healthy documented as of this encounter (statuses as of 01/06/2024) [facility] Diagnosis Essential hypertension Unspecified essential hypertension [facility] noteNo assessment information availableWMercy [facility] Work Phone: Evaluation note* Diagnosis Essential hypertension- Primary Unspecified essential hypertension Cough, unspecified type JOSE (obstructive sleep apnea) Obstructive sleep apnea (adult) (pediatric) Mixed hyperlipidemia Elevated PSA Elevated prostate specific antigen (PSA) [facility]* Diagnosis JOSE (obstructive sleep apnea)- Primary Obstructive sleep apnea (adult) (pediatric) [facility]* Diagnosis Essential hypertension- Primary Unspecified essential hypertension Mixed hyperlipidemia JOSE (obstructive sleep apnea) Obstructive sleep apnea (adult) (pediatric) BPH with obstruction/lower urinary tract symptoms Hypertrophy of prostate with urinary obstruction and other lower urinary tract symptoms (LUTS) Screening PSA (prostate specific antigen) Special screening for malignant neoplasm of prostate Personal history of colonic polyps Special screening for malignant neoplasms, colon [facility]* Diagnosis JOSE (obstructive sleep apnea)- Primary Obstructive sleep apnea (adult) (pediatric) [facility]* Diagnosis 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 Other and combined forms of senile cataract [facility]* Diagnosis Preoperative examination- Primary Preoperative examination, unspecified Combined form of age-related cataract, right eye Essential hypertension Unspecified essential hypertension Mitral valve insufficiency, unspecified etiology JOSE (obstructive sleep apnea) Obstructive sleep apnea (adult) (pediatric) Combined forms of age-related cataract of right eye Other and combined forms of senile cataract documented [facility] encounter [facility]* Diagnosis Follow-up examination following surgery- Primary Follow-up examination, following unspecified surgery [facility]* Diagnosis Pseudophakia- Primary Lens replaced by other means [facility]* Diagnosis Essential hypertension- Primary Unspecified essential hypertension 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) JOSE (obstructive sleep apnea) Obstructive sleep apnea (adult) (pediatric) Elevated PSA Elevated prostate specific antigen (PSA) [facility] this [facility]* Diagnosis Essential hypertension- Primary Unspecified essential hypertension Mixed hyperlipidemia JOSE (obstructive sleep apnea) Obstructive sleep apnea (adult) (pediatric) BPH with obstruction/lower urinary tract symptoms Hypertrophy of prostate with urinary obstruction and other lower urinary tract symptoms (LUTS) Family history of prostate cancer Family history of malignant neoplasm of prostate Acute cough ED (erectile dysfunction) of organic origin Impotence of organic origin Elevated PSA Elevated prostate specific antigen (PSA) [facility] Diagnosis Essential hypertension Unspecified essential hypertension [facility]* Diagnosis BPH with obstruction/lower urinary tract symptoms Hypertrophy of prostate with urinary obstruction and other lower urinary tract symptoms (LUTS) [facility] Essential hypertension Unspecified essential hypertension [facility]* Diagnosis Bacterial conjunctivitis of left eye- Primary Other conjunctivitis Pseudophakia of right eye Lens replaced by other means Combined forms of age-related cataract of left eye Other and combined forms of senile cataract [facility]* Diagnosis Encounter for Medicare annual wellness exam- Primary Routine general medical examination at a health care facility Essential hypertension Unspecified essential hypertension 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) ED (erectile dysfunction) of organic origin Impotence of organic origin Elevated PSA Elevated prostate specific antigen (PSA) Screening for depression Encounter for screening examination for other mental health and behavioral disorders Encounter for immunization Need for other specified prophylactic vaccination against single bacterial disease [facility] this [facility]* Diagnosis Cough, unspecified type [facility] this [facility]* Diagnosis Essential hypertension- Primary Unspecified essential hypertension 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) Elevated PSA Elevated prostate specific antigen (PSA) Acute pain of right knee [facility] this [facility] Diagnosis BPH with obstruction/lower urinary tract symptoms Hypertrophy of prostate with urinary obstruction and other lower urinary tract symptoms (LUTS) documented [facility] this [facility]* Diagnosis Combined forms of age-related cataract of left eye- Primary Other and combined forms of senile cataract Dermatochalasis of both upper eyelids Pseudophakia of right eye Lens replaced by other means Myopia, right Hyperopia, left Regular astigmatism of left eye Regular astigmatism Presbyopia [facility] Additional Instructions 3.8 mm left-sided kidney stone almost to your bladder. Should pass. Plenty of fluids and rest. [place] and/or Motrin for pain. Zofran as needed for nausea. Make sure you are drinking plenty of water, eating plenty of fruits, vegetables and fiber to prevent constipation. Follow-up with the urologist Dr. Uriel England if not improving. [facility] Work Phone: Reason for referral (narrative)* Diagnostic Procedure Only (Routine) - Open Specialty Diagnoses / Procedures Referred By Natan bonilla Referred To Contact [facility] Diagnoses JOSE (obstructive sleep apnea) Procedures HOME SLEEP APNEA TEST (HSAT) SLEEP STD AIRFLOW HRT RATE&O2 [place] [address] [place] [address] [id number] [place] [address] Referral ID Status Reason Start Date Expiration Date V isits Requested Visits Authorized [id number] Open Auto-Generate d Referral 06/14/2022 06/14/2023 1 1 [facility] for referral (narrative)* Diagnostic Procedure Only (Routine) - Pending Review Specialty Diagnoses / Procedures Referred By Natan bonilla Referred To Contact [facility] Diagnoses JOSE (obstructive sleep apnea) Procedures HOME SLEEP APNEA TEST (HSAT) SLEEP STD AIRFLOW HRT RATE&O2 SAT EFFORT Eze Washington MD [address] [place] [address] [address] [address] [place] [address] Referral ID Status Reason Start Date Expiration Date Visits Requested Visits Authorized [id number] Pending Review Auto-Generat ed Referral 12/17/2022 12/17/2023 1 1 * Outpatient Procedure (Routine) - Pending Review Specialty Diagnoses / Procedures Referred By Natan bonilla Referred To Contact [facility] Diagnoses Personal history of colonic polyps Special screening for malignant neoplasms, colon Procedures COLONOSCOPY SCREENING COLONOSCOPY FLX DX W/COLLJ SPEC WHEN PFRMD Eze Rodriguez MD [address] [place] [address] [facility] [address] [place] [address] Referral ID Status Reason Start Date Expiration Date Visits Requested Visits Authorized [id number] Pending Review Auto-Generat ed Referral 12/17/2022 12/17/2023 1 1 [facility] Advance Directives No Advanced Directives Records FoundDocuments on File Type Date Recorded 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 Advance Directive(s) 11/29/2017 9:45 AM Advance Directive(s) 11/20/2017 5:46 PM Advance Directive Response Recorded Date/ Time Living Will No May 26, 2022 11:42am 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 No May 26 11:42am Advance Directive Response Recorded Date/ Time Living Will No July 19, 2023 6:13pm 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 No June 6:13pm Chief Complaint and Reason for Visit Chief Complaint LT flank pain, vomit ing Chief Complaint dizziness Reason for Referral Specialty Diagnoses / Procedures Referred By Natan bonilla Referred To Contact Diagnoses JOSE (obstructive sleep apnea) Procedures CONSULT TO SLEEP MEDICINE - ADULT OFFICE/OUTPATIENT [facility]3] 60-74 MINUTES Terry Champion APRN.CNP [address] [place] [address] Referral ID Status Reason Start Date Expiration Date Visits Requested Visits Authorized [id number] Pending Review PCP Requested Referral 07/17/2022 07/17/2023 1 1 Summary Purpose Family History No Family History Records FoundNo Family History Records FoundNo Family History Records Found Medications Administered Section Inactive Administered Medications - up to 3 most recent administrations Medication Order MAR Action Action Date Dose Rate Site fluorescein-benoxinate 0.25-0.4 % 1 Drop (FLURESS) 1 Drop, BOTH EYES, DIRECTED, Starting on Sat02/22/23 at 1000, Until Sat02/22/23 at 2159, Administer for applanation tonometry. In the event of a Fluress shortage, administer [place]-Fluor 1 drop into both eyes as directed for applanation tonometry Given 02/22/2023 10:05 AM EDT 1 Drop tropicamide 1 % 1 Drop (MYDRIACYL) 1 Drop, BOTH EYES, DIRECTED, Starting on Sat02/22/23 at 1000, Until Sat02/22/23 at 2159, Administer for dilation Given 02/22/2023 10:20 AM EDT 1 Drop Additional Source Comments Source Comments (unrecognize d section and content) In the event this informatio n is protected by the Federal Confidentiality of Alcohol and Drug Abuse Patient Records regulations: The Federal rules restrict any use of the information to criminally investigate or prosecute any alcohol or drug abuse patient.[facility] the event this information is protected by the Federal Confidentiality of Alcohol and Drug Abuse Patient Records regulations: The Federal rules restrict any use of the information to criminally investigate or prosecute any alcohol or drug abuse patient.[facility] the event this information is protected by the Federal Confidentiality of Alcohol and Drug Abuse Patient Records regulations: The Federal rules restrict any use of the information to criminally investigate or prosecute any alcohol or drug abuse patient.[facility] the event this information is protected by the Federal Confidentiality of Alcohol and Drug Abuse Patient Records regulations: The Federal rules restrict any use of the information to criminally investigate or prosecute any alcohol or drug abuse patient.[facility] the event this information is protected by the Federal Confidentiality of Alcohol and Drug Abuse Patient Records regulations: The Federal rules restrict any use of the information to criminally investigate or prosecute any alcohol or drug abuse patient.[facility] the event this information is protected by the Federal Confidentiality of Alcohol and Drug Abuse Patient Records regulations: The Federal rules restrict any use of the information to criminally investigate or prosecute any alcohol or drug abuse patient.[facility] the event this information is protected by the Federal Confidentiality of Alcohol and Drug Abuse Patient Records regulations: The Federal rules restrict any use of the information to criminally investigate or prosecute any alcohol or drug abuse patient.[facility] the event this information is protected by the Federal Confidentiality of Alcohol and Drug Abuse Patient Records regulations: The Federal rules restrict any use of the information to criminally investigate or prosecute any alcohol or drug abuse patient.[facility] the event this information is protected by the Federal Confidentiality of Alcohol and Drug Abuse Patient Records regulations: The Federal rules restrict any use of the information to criminally investigate or prosecute any alcohol or drug abuse patient.[facility] the event this information is protected by the Federal Confidentiality of Alcohol and Drug Abuse Patient Records regulations: The Federal rules restrict any use of the information to criminally investigate or prosecute any alcohol or drug abuse patient.[facility] the event this information is protected by the Federal Confidentiality of Alcohol and Drug Abuse Patient Records regulations: The Federal rules restrict any use of the information to criminally investigate or prosecute any alcohol or drug abuse patient.[facility] the event this information is protected by the Federal Confidentiality of Alcohol and Drug Abuse Patient Records regulations: The Federal rules restrict any use of the information to criminally investigate or prosecute any alcohol or drug abuse patient.[facility] the event this information is protected by the Federal Confidentiality of Alcohol and Drug Abuse Patient Records regulations: The Federal rules restrict any use of the information to criminally investigate or prosecute any alcohol or drug abuse patient.[facility] the event this information is protected by the Federal Confidentiality of Alcohol and Drug Abuse Patient Records regulations: The Federal rules restrict any use of the information to criminally investigate or prosecute any alcohol or drug abuse patient.[facility] the event this information is protected by the Federal Confidentiality of Alcohol and Drug Abuse Patient Records regulations: The Federal rules restrict any use of the information to criminally investigate or prosecute any alcohol or drug abuse patient.[facility] the event this information is protected by the Federal Confidentiality of Alcohol and Drug Abuse Patient Records regulations: The Federal rules restrict any use of the information to criminally investigate or prosecute any alcohol or drug abuse patient.[facility] HospitalIn the event this information is protected by the Federal Confidentiality of Alcohol and Drug Abuse Patient Records regulations: The Federal rules restrict any use of the information to criminally investigate or prosecute any alcohol or drug abuse patient.[facility] HospitalIn the event this information is protected by the Federal Confidentiality of Alcohol and Drug Abuse Patient Records regulations: The Federal rules restrict any use of the information to criminally investigate or prosecute any alcohol or drug abuse patient.[facility]In the event this information is protected by the Federal Confidentiality of Alcohol and Drug Abuse Patient Records regulations: The Federal rules restrict any use of the information to criminally investigate or prosecute any alcohol or drug abuse patient.[facility]In the event this information is protected by the Federal Confidentiality of Alcohol and Drug Abuse Patient Records regulations: The Federal rules restrict any use of the information to criminally investigate or prosecute any alcohol or drug abuse patient.[facility] the event this information is protected by the Federal Confidentiality of Alcohol and Drug Abuse Patient Records regulations: The Federal rules restrict any use of the information to criminally investigate or prosecute any alcohol or drug abuse patient.[facility]In the event this information is protected by the Federal Confidentiality of Alcohol and Drug Abuse Patient Records regulations: The Federal rules restrict any use of the information to criminally investigate or prosecute any alcohol or drug abuse patient.[facility] the event this information is protected by the Federal Confidentiality of Alcohol and Drug Abuse Patient Records regulations: The Federal rules restrict any use of the information to criminally investigate or prosecute any alcohol or drug abuse patient.[facility] the event this information is protected by the Federal Confidentiality of Alcohol and Drug Abuse Patient Records regulations: The Federal rules restrict any use of the information to criminally investigate or prosecute any alcohol or drug abuse patient.[facility]In the event this information is protected by the Federal Confidentiality of Alcohol and Drug Abuse Patient Records regulations: The Federal rules restrict any use of the information to criminally investigate or prosecute any alcohol or drug abuse patient.[facility] the event this information is protected by the Federal Confidentiality of Alcohol and Drug Abuse Patient Records regulations: The Federal rules restrict any use of the information to criminally investigate or prosecute any alcohol or drug abuse patient.[facility] HospitalIn the event this information is protected by the Federal Confidentiality of Alcohol and Drug Abuse Patient Records regulations: The Federal rules restrict any use of the information to criminally investigate or prosecute any alcohol or drug abuse patient.[facility]In the event this information is protected by the Federal Confidentiality of Alcohol and Drug Abuse Patient Records regulations: The Federal rules restrict any use of the information to criminally investigate or prosecute any alcohol or drug abuse patient.[facility]In the event this information is protected by the Federal Confidentiality of Alcohol and Drug Abuse Patient Records regulations: The Federal rules restrict any use of the information to criminally investigate or prosecute any alcohol or drug abuse patient.[facility] HospitalIn the event this information is protected by the Federal Confidentiality of Alcohol and Drug Abuse Patient Records regulations: The Federal rules restrict any use of the information to criminally investigate or prosecute any alcohol or drug abuse patient.[facility] HospitalIn the event this information is protected by the Federal Confidentiality of Alcohol and Drug Abuse Patient Records regulations: The Federal rules restrict any use of the information to criminally investigate or prosecute any alcohol or drug abuse patient.[facility] HospitalIn the event this information is protected by the Federal Confidentiality of Alcohol and Drug Abuse Patient Records regulations: The Federal rules restrict any use of the information to criminally investigate or prosecute any alcohol or drug abuse patient.[facility] HospitalIn the event this information is protected by the Federal Confidentiality of Alcohol and Drug Abuse Patient Records regulations: The Federal rules restrict any use of the information to criminally investigate or prosecute any alcohol or drug abuse patient.[facility] HospitalIn the event this information is protected by the Federal Confidentiality of Alcohol and Drug Abuse Patient Records regulations: The Federal rules restrict any use of the information to criminally investigate or prosecute any alcohol or drug abuse patient.[facility] HospitalIn the event this information is protected by the Federal Confidentiality of Alcohol and Drug Abuse Patient Records regulations: The Federal rules restrict any use of the information to criminally investigate or prosecute any alcohol or drug abuse patient.[facility] Reason for Visit (unrecogniz ed section and content) Reason Onset Date Comments Refill Request 02/07/2022 Reason Comments external report Reason Comments F/U 6 Month Reason Comments Results Reason Comments 6 Month Exam Reason Comments Orders Reason Comments DME to fax Cpap orders to Reason Comments Results Reason Comments Cataract Evaluation Reason Comments Pre-Op Exam Reason Comments Post-op (Ophthalmology) Right Eye Reason Comments Pseudophakia Follow Up 1month post op od Reason Comments 6 Month Exam Reason Comments Unsteadiness of Feet Reason Onset Date Comments Allied Health Visit 12/17/2023 Medication A dherence Outreach Reason Comments Refill Request Reason Onset Date Comments Refill Request 01/03/2024 Reason Comments Insurance Authorization Reason Onset Date Comments Population Health Navigation Outreach 04/09/2024 [facility] Ad[facility] Reason Comments Red Eye Left Eye Reason Onset Date Comments Population Health Navigation Outreach 04/27/2024 [facility] Reason Onset Date Comments Population Health Navigation Outreach 05/19/2024 [facility] Reason Comments Medicare Wellness Exam Reason Onset Date Comments Refill Request 08/12/2024 Reason Comments F/U 6 Month Reason Onset Date Comments Refill Request 02/15/2025 Reason Comments Cataract The left eye Care Teams (unrecognized sec tion and content) 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 Relationship Specialty Start Date End Date Eze Rodriguez MD [address] [place] [address] PCP - General Family Practice 04/26/17 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 Relationship Specialty Start Date End Date Eze Rodriguez MD [address] [facility] [place] [address] PCP - General Family Practice 04/26/17 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 Relationship Specialty Start Date End Date Eze Rodriguez MD [address] [facility] [place] [address] PCP - General Family Practice 04/26/17 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 Relationship Specialty Start Date End Date Eze Rodriguez MD [address] [facility] [place] [address] PCP - General Family Practice 04/26/17 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 Relationship Specialty Start Date End Date Eze Rodriguez MD [facility] [facility] [place] [address] PCP - General Family Medicine 04/26/17 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 Relationship Specialty Start Date End Date Eze Rodriguez MD [facility] [facility] [place] [address] PCP - General Family Medicine 04/26/17 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 Relationship Specialty Start Date End Date Eze Rodriguez MD [facility] [facility] [place] [address] PCP - General Family Medicine 04/26/17 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 Relationship Specialty Start Date End Date Eze Rodriguez MD [facility] [facility] [place] [address] PCP - General Family Medicine 04/26/17 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 Relationship Specialty Start Date End Date Eze Rodriguez MD [address] [facility] [place] [address] PCP - General Family Medicine 04/26/17 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 Relationship Specialty Start Date End Date Eze Rodriguez MD [facility] [place] [address] PCP - General Family Medicine 04/26/17 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 Relationship Specialty Start Date End Date Eze Rodriguez MD [address] [facility] [place] [address] PCP - General Family Medicine 04/26/17 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 Relationship Specialty Start Date End Date Eze Rodirguez MD [address] [facility] [place] [address] PCP - General Family Medicine 04/26/17 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 Relationship Specialty Start Date End Date Eze Rodriguez MD [address] [facility] [place] [address] PCP - General Family Medicine 04/26/17 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 Relationship Specialty Start Date End Date Eze Rodriguez MD [address] [facility] [place] [address] PCP - General Family Medicine 04/26/17 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 Relationship Specialty Start Date End Date Eze Rodriguez MD [address] [facility] [place] [address] PCP - General Family Medicine 04/26/17 Team Status: Active Member Role Status Dates Dr. Eze Rodriguez MD Family Provider Active Dr. Eze Rodriguez MD Primary Care Provider Active Team Status: Inactive Member Role Status Dates Dr. Eze Rodriguez MD Primary Care Provider Active Dr. Rocky Willis MD Emergency Provider Active 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 Relationship Specialty Start Date End Date Eze Rodriguez MD [address] [facility] [place] [address] PCP - General Family Medicine 04/26/17 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 Relationship Specialty Start Date End Date Eze Rodriguez MD [address] [facility] [place] [address] PCP - General Family Medicine 04/26/17 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 Relationship Specialty Start Date End Date Eze Rodriguez MD [address] [facility] [place] [address] PCP - General Family Medicine 04/26/17 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 Relationship Specialty Start Date End Date Eze Rodriguez MD [address] [facility] [place] [address] PCP - General Family Medicine 04/26/17 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 Relationship Specialty Start Date End Date Eze Rodriguez MD [address] [place] [address] PCP - General Family Medicine 04/26/17 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 Relationship Specialty Start Date End Date Eze Rodriguez MD [address] [place] [address] PCP - General Family Medicine 04/26/17 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 Relationship Specialty Start Date End Date Eze Rodriguez MD [address] [place] [address] PCP - General Family Medicine 04/26/17 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 Relationship Specialty Start Date End Date Eze Rodriguez MD [address] [place] [address] PCP - General Family Medicine 04/26/17 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 Relationship Specialty Start Date End Date Eze Rodriguez MD [address] [facility] [place] [address] PCP - General Family Medicine 04/26/17 Ashleigh García APRN.CNP [address] [place] [address] Administrative Supervisor Family Medicine 10/04/24 Terry Champion APRN.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 [address] [facility] [place] [address] Administrative Supervisor Family Medicine 10/13/24 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 Relationship Specialty Start Date End Date Eze Rodriguez MD [address] [facility] [place] [address] PCP - General Family Medicine 04/26/17 Ashleigh García APRN.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 [address] [facility] [place] [address] Administrative Supervisor Family Medicine 10/04/24 Terry Champion APRN.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 [address] [facility] [place] [address] Administrative Supervisor Family Medicine 10/13/24 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 Relationship Specialty Start Date End Date Eze Rodriguez MD [address] [facility] [place] [address] PCP - General Family Medicine 04/26/17 Ashleigh García AGRICULTURE ENGINEER.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 [address] [facility] [place] [address] Administrative Supervisor Family Medicine 10/04/24 Terry Champion AGRICULTURE ENGINEER.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 [address] [facility] [place] [address] Administrative Supervisor Family Medicine 10/13/24 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 Relationship Specialty Start Date End Date Eze Rodriguez MD [address] [facility] [place] [address] PCP - General Family Medicine 04/26/17 Terry Champion 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 ENGINEER.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 [address] [facility] [place] [address] Administrative Supervisor Family Medicine 10/13/24 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 Relationship Specialty Start Date End Date Eze Rodriguez MD [address], [place] [address] PCP - General Family Medicine 04/26/17 Terry Champion APRN.CNP [address], [place] [id number] [facility] 10/13/24 Goals (unrecognized section and content) Goals may be documented in a n alternate sectionGoals may be documented in an alternate section (unrecognized sect ion and content) No Status Records FoundNo Status Records FoundNo Status Records Found INFORMATION SOURCE (unrecogn ized section and content) DATE CREATED AUTHOR 02/12/2023 [facility] DATE CREATED AUTHOR AUTHOR'S ORGANIZ ATION 07/03/2024 [facility] DATE CREATED AUTHOR AUTHOR'S ORGANIZ ATION 08/25/2025 [facility] FOR RECORDS PERTAINING TO PATIENTS WHO ARE OR HAVE BEEN ENROLLED IN A CHEMICAL DEPENDENCY/SUBSTANCEABUSE PROGRAM, SOME INFORMATION MAY BE OMITTED. This clinical summary was aggregated from multiple sources. Caution should be exercised in using it in the provision of clinical care. This summary normalizes information from multiple sources, and as a consequence, information in this document may materially change the coding, format and clinical context of patient data. In addition, data may be omitted in some cases. CLINICAL DECISIONS SHOULD BE BASED ON THE PRIMARY CLINICAL RECORDS. [employer] provides no warranty or guarantee of the accuracy or completeness of information in this document.
[2025-09-17 22:46] LABS: Red Blood Cells-Urine 0-5 SEEN /hpf (0-5); Squamous Epithelial Cells - UA 0-5 SEEN /hpf (0-5)
== END 2025-09-17 23:56 | disposition home or self-care (01) ==
PROVIDERS: Emergency Provider Emergency Medicine; PCP Pediatrics; Visit Provider Emergency Medicine
DX: R42 Dizziness and giddiness (principal); D69.6 Thrombocytopenia, unspecified; R50.9 Fever, unspecified; D72.819 Decreased white blood cell count, unspecified; I10 Essential (primary) hypertension; Z99.89 Dependence on other enabling machines and devices
CPT/HCPCS: 70450; 71046; 80048; 81001; 83605; 85025; 85610; 85730; 93005; 99284; A4216

== ENCOUNTER 2025-09-19 18:48 | Observation (INO) | payer MEDICARE, SELFPAY ==
[2025-09-19 18:53] VITALS: BP 138/78; PULSE 76; RESP 18; TEMP 36.6; O2SAT 100; BMI 28.3
--- NOTE | 2025-09-19 20:02 | CT_ITS ---
PROCEDURE: CTA HEAD AND NECK W/ CONTRAST 09/19/2025 REASON FOR EXAM: STROKE, ATAXIA TECHNIQUE: Procedure Code: CTCTA.HDNCK Modality: CT Procedure: CTA HEAD AND NECK W/ CONTRAST Multiplanar Sagittal and Coronal images were obtained. CONTRAST: VOLUME: mL One or more dose reduction techniques were used (e.g., Automated exposure control, adjustment of the mA and/or kV according to patient size, use of iterative reconstruction technique). FINDINGS: HEAD: The intracranial segments of the bilateral ICAs appear unremarkable. The bilateral ACAs appear unremarkable. The anterior communicating artery is patent. The bilateral MCAs appear unremarkable. The intracranial segments of the bilateral vertebral arteries (V4) appear unremarkable. The basilar artery is unremarkable. The bilateral parking meter mechanic are unremarkable. NECK: The bilateral common carotid arteries, carotid bulbs, and cervical ICAs appear unremarkable. The cervical segments of the bilateral vertebral arteries appear unremarkable. CT/CTA Head AND Neck W/ Contrast IMPRESSION: No hemodynamically significant stenosis, major vessel occlusion/dissection, or aneurysm greater than 3 millimeters. Reading Location: [id number]
--- NOTE | 2025-09-19 20:03 | EKG12_ITS ---
Test Reason : DYSRHYTHMIA Blood Pressure : */* mmHG Vent. Rate : 91 BPM Atrial Rate : 91 BPM P-R Int : 148 ms QRS Dur : 74 ms QT Int : 316 ms P-R-T Axes : 44 26 16 degrees QTcB Int : 388 ms Normal sinus rhythm Normal ECG Confirmed by CHARLES ENCARNACION, YVES ([id number]), school photograph editor MAIRA WELLS ([id number]) on 09/20/2025 1:33:28 PM Referred By: Confirmed By: YVES SOTO MD
--- OUTSIDE RECORDS SUMMARY | 2025-09-19 20:11 | XMS RPT_ITS | CCD ---
Author Organization [facility] Care Team Providers Care Math Professor Name Role Phone Eze Rodriguez MD Primary Care Provider EZE RODRIGUEZ Referring Unavailable EZE RODRIGUEZ Primary Care Unavailable Eze Rodriguez MD Primary Care Provider Eze Rodriguez MD Primary Care Provider Rocky Willis Attending Unavailable Eze Rodriguez Primary Care Unavailable Peter Martin Attending Unavailable Eze Rodriguez Primary Care Unavailable [place] APPLICATION SUPPORT CONSULTANT.Ashleigh MEZA Unavailable Akira APPLICATION SUPPORT CONSULTANT.Terry MEZA Unavailable [place] APPLICATION SUPPORT CONSULTANT.Ashleigh MEZA Unavailable Unavail able EZE RODRIGUEZ Referring [...] dye [Other] Propensity to adverse reactions 8 [facility] Work Phone: (2 sources) yellow dye; Translations: [yellow dye] Allergy to substance 2 [facility] Repository (1 source) OTHER; Translations: [OTHER] Propensity to adverse reactions (disorder) 8 [facility] Other [place] Repository (17 sources) Yellow Food Color (Bulk); Translations: [YELLOW FOOD COLOR (BULK)] Drug Allergy 4 Hives [facility] Work Phone: Medications Current Medications Medication [...] the event of a Fluress shortage, administer [place]-Fluor 1 drop into both eyes as directed for applanation tonometry Start: 02-22-2023 End: 02-22-2023 fluorescein-benoxinate 0.25- 0.4 % 1 Drop (FLURESS) dexamethasone 1 mg/ml / neomycin 3.5 mg/ml / polymyxin b 02778 unt/ml ophthalmic suspension (2 sources) Aminoglycoside Antibacterial, Polymyxin-class Antibacterial, Corticosteroid Start: 04-23-2024 End: 04-30-2024 take 1 drop(s) into the eye(s) four times daily FOHTKCRF-YAJSYSHCI-LCGMTYVT 3.5 MG/ML-10,000 UNIT/ML-0.1% EYE DROPS Use 1 [...] once daily. Active take 2 tablets by [facility] once daily GLUCOSAMINE/CHONDROITIN SULF A (GLUCOSAMINE-CHONDROITIN ORAL) Take 2 tablets by mouth once daily. 0 Active Comment on above: Take 2 tablets by [facility] once daily. lisinopril 5 mg oral tablet [...] Comment on above: Take 1 tablet by [facility] once daily. lutein 25 mg / zeaxanthin 5 mg oral capsule (20 sources) Start: 06-13-2021 take 1 capsule by mouth twice daily lutein-zeaxanthin 25-5 mg cap Take 1 capsule by mouth twice daily. 06/13/2021 Active Comment on above: Take 1 capsule by [facility] twice daily. cgvsdwzl-oft-PR-lycop en-lutein (CENTRUM SILVER MEN) 300-600-300 mcg tab (20 sources) Start: 11-04-2017 take 300-600 tablets by mouth once daily nhmlypam-obg-DX-l ycopen-lutein (CENTRUM SILVER MEN) 300-600-300 mcg tab Take 1 tablet by mouth once daily. 11/04/2017 Active Start: 11-04-2017 take 300-600 tablets by mouth once daily nmakgbjk-avq-OP-lycopen-lutein (CENTRUM SILVER MEN) 300-600-300 mcg tab Take 1 tablet by mouth once daily. 0 11/04/2017 Active Comment on above: Take 1 tablet by [facility] once daily. [place]-3 Fatty Acids-Vitamin E 1,000 mg cap (20 sources) take 2 capsules by mouth once daily [place]-3 Fatty Acids-Vitamin E 1,000 mg cap Take 2 capsules by mouth once daily. Active take 2 capsules by mouth once da vicente [place]-3 Fatty Acids-Vitamin E 1,000 mg cap Take 2 capsules by mouth once daily. 0 Active Comment on above: Take 2 capsules by [facility] once daily. ondansetron 4 mg disintegrating oral [...] Comment on above: Take 2 tablets by [facility] once daily. polyethylene glycol 3350 476807 mg / potassium chloride 2980 mg / sodium bicarbonate 6720 mg / sodium chloride 5840 mg / sodium sulfate 07799 mg powder for oral solution (1 source) [...] in both e yes three times daily. [place]-3 Fatty Acids-Vitamin E (FISH OIL) 1,000 mg cap (7 sources) take 2 capsules by mouth once daily [place]-3 Fatty Acids-Vitamin E (FISH OIL) 1,000 mg [...] CNOV Office Visit (FAMPWS ) DOMO BOLDEN ([id number]) 1940 M Date Time Provider Department 08/24/25 10:40 AM [facility] During your visit today, we recorded the [...] General (Family Medicine) Terry Champion APRN.DERRICK as Micro Computer Data Processor (Family Medicine) Outside specialists seen: Eye-Dr. Segura, [...] Exam Immunizations: Flu vaccination Recording using ambient [employer] software for draft documentation of the visit was discussed with the patient/authorized outbound sales representative; all questions welcomed and answered. Patient/authorized outbound sales representative agreed to proceed HPI Domo Bolden [...] COLONOSCOPY W/BIOPSY (more content not included)... Normal [facility] Comprehensive metabolic 2000 panelon 07-22-2025 Albumin [Mass/Vol] 4.3 g/dL Normal 3.9-4.9 [facility] Comment on above: Order Comment: Speci men Type: BLOOD SPECIMEN Ordering Facility: [facility] Address: [address] [place] [address] Performed By: #### 2 4323-8, 73420-7 #### [facility] CLIA [id number] [address] [place] [address] [place] ALP [Catalytic activity/Vol] 71 U/L Normal 38-113 [facility] Comment on above: Order Comment: Speci men Type: BLOOD SPECIMEN Ordering Facility: [facility] Address: [address] [place] [address] Performed By: #### 2 4323-8, 15385-0 #### [facility] CLIA [id number] [address] [place], [place] [address] [place] ALT [Catalytic activity/Vol] 20 U/L Normal 10-54 [facility] Comment on above: Order Comment: Speci men Type: BLOOD SPECIMEN Ordering Facility: [facility] Address: [address] [place] [address] Performed By: #### 2 4323-8, 60363-5 #### [facility] CLIA [id number] [address] [place] [address] [place] Anion gap [Moles/Vol] 11 mmol/L Normal 8-15 [facility] Comment on above: Order Comment: Speci men Type: BLOOD SPECIMEN Ordering Facility: [facility] Address: [address] [place] [address] Performed By: #### 2 4323-8, 44144-5 #### [facility] CLIA [id number] [address] [place] [address] [place] AST [Catalytic activity/Vol] 24 U/L Normal 14-40 [facility] Comment on above: Order Comment: Speci men Type: BLOOD SPECIMEN Ordering Facility: [facility] Address: [address] [place] [address] Performed By: #### 2 4323-8, 20926-7 #### [facility] CLIA [id number] [address] [place] [address] [place] Bilirubin [Mass/Vol] 1.1 mg/dL Normal 0.2-1.3 [facility] Comment on above: Order Comment: Speci men Type: BLOOD SPECIMEN Ordering Facility: [facility] Address: [address] [place] [address] Performed By: #### 2 4323-8, 99727-1 #### [facility] CLIA [id number] [address] [place], [place] [address] [place] Calcium [Mass/Vol] 10.7 mg/dL High 8.5-10.2 [facility] Comment on above: Order Comment: Speci men Type: BLOOD SPECIMEN Ordering Facility: [facility] Address: [address] [place], [place] [address] Performed By: #### 2 4323-8, 12462-5 #### [facility] CLIA [id number] [address] [place], [place] [address] [place] Chloride [Moles/Vol] 105 mmol/L Normal 98-107 [facility] Comment on above: Order Comment: Speci men Type: BLOOD SPECIMEN Ordering Facility: [facility] Address: [address] [place], [place] [address] Performed By: #### 2 4323-8, 46968-5 #### [facility] CLIA [id number] [address] [place] [address] [place] CO2 [Moles/Vol] 24 mmol/L Normal 22-30 [facility] Comment on above: Order Comment: Speci men Type: BLOOD SPECIMEN Ordering Facility: [facility] Address: [address] [place], [place] [address] Performed By: #### 2 4323-8, 70132-6 #### [facility] CLIA [id number] [address] [place], [place] [address] [place] Creatinine [Mass/Vol] 1.06 mg/dL Normal 0.73-1.22 [facility] Comment on above: Order Comment: Speci men Type: BLOOD SPECIMEN Ordering Facility: [facility] Address: [address] [place], [place] [address] Performed By: #### 2 4323-8, 46615-7 #### [facility] CLIA [id number] [address] [place], [place] [address] [place] eGFRcr SerPlBld CKD-EPI 2020 70 mL/min/1.73m??? Normal >=60 [facility] Comment on above: Order Comment: Speci men Type: BLOOD SPECIMEN Ordering Facility: [facility] Address: [address] [place] [address] Result Comment: Magalie mated Glomerular Filtration Rate [...] actual GFR. Performed By: #### 2 4323-8, 30302-1 #### [facility] CLIA [id number] [address] [place] [address] [place] Glucose [Mass/Vol] 91 mg/dL Normal 74-99 [facility] Comment on above: Order Comment: Neisha saenz Type: BLOOD SPECIMEN Ordering Facility: [facility] Address: [address] [place] [address] Result Comment: The [place] Diabetes Association (ADA) provides guidance for cutoff [...] Standards of Medical Care in Diabetes 2016, [place] Diabetes Association. Diabetes Care. 2016.39(Suppl 1). Performed By: #### 2 4323-8, 84023-5 #### [facility] CLIA [id number] [address] [place] [address] [place] Potassium [Moles/Vol] 4.9 mmol/L Normal 3.7-5.1 [facility] Comment on above: Order Comment: Neisha saenz Type: BLOOD SPECIMEN Ordering Facility: [facility] Address: [address] [place] [address] Performed By: #### 2 4323-8, 31975-8 #### [facility] CLIA [id number] [address] [place], [place] [address] [place] Protein [Mass/Vol] 6.7 g/dL Normal 6.3-8.0 [facility] Comment on above: Order Comment: Speci men Type: BLOOD SPECIMEN Ordering Facility: [facility] Address: [address] [place] [address] Performed By: #### 2 4323-8, 70867-2 #### [facility] CLIA [id number] [address] [place] [address] [place] Sodium [Moles/Vol] 140 mmol/L Normal 136-144 [facility] Comment on above: Order Comment: Speci men Type: BLOOD SPECIMEN Ordering Facility: [facility] Address: [address] [place] [address] Performed By: #### 2 4323-8, 39005-7 #### [facility] CLIA [id number] [address] [place] [address] [place] Urea nitrogen [Mass/Vol] 20 mg/dL Normal 9-24 [facility] Comment on above: Order Comment: Speci men Type: BLOOD SPECIMEN Ordering Facility: [facility] Address: [address] [place] [address] Performed By: #### 2 4323-8, 71664-0 #### [facility] CLIA [id number] [address] [place] [address] [place] Lipid 1996 panelon 5 Cholesterol [Mass/Vol] 183 mg/dL Normal <200 [facility] Comment on above: Order Comment: Speci men Type: BLOOD SPECIMEN Ordering Facility: [facility] Address: [address] [place] [address] Result Comment: <200 mg/dL, Desirable 200-239 mg/dL, Borderline high >239 mg/dL, High Performed By: #### 2 4323-8, 96696-7 #### [facility] CLIA [id number] [address] [place] [address] OF [facility] Cholesterol in HDL [Mass/Vol] 47 mg/dL Normal >39 [facility] Comment on above: Order Comment: Neisha letty Type: BLOOD SPECIMEN Ordering Facility: [facility] Address: [address] [place] [address] Result Comment: 40-5 9 mg/dL, Acceptable >59 mg/dL, High: Negative risk factor for coronary heart disease <40 mg/dL, Low: Positive risk factor for coronary heart disease Performed By: #### 2 4323-8, 41284-9 #### [facility] CLIA [id number] [address] [place] [address] [place] Cholesterol in LDL [Mass/Vol] 126 mg/dL High <100 [facility] Comment on above: Order Comment: Neisha letty Type: BLOOD SPECIMEN Ordering Facility: [facility] Address: [address] [place] [address] Result Comment: <100 mg/dL, Optimal 100-129 mg/dL, Near optimal/above optimal 130-159 mg/dL, Borderline high 160-189 mg/dL, High >189 mg/dL, Very high Secondary prevention optimal LDL Cholesterol levels are recommended to be <70 mg/dL LDL cholesterol is calculated using the Gaytan-NIH equation. Performed By: #### 2 4323-8, #### [facility] CLIA [id number] [address] [place] [address] [place] Cholesterol in LDL/Cholesterol in HDL [Mass ratio] 2.68 {ratio} High <2.54 [facility] Comment on above: Order Comment: Leydahemanth saenz Type: BLOOD SPECIMEN Ordering Facility: [facility] Address: [address] [place] [address] Result Comment: Mario mathis: 1. National Cholesterol Education Program ATP III Guideline At-A-Glance Quick Desk Reference: National Heart, Lung, and Blood [place]. National Institutes of Health. 2001: NIH Publication No. 01-3305. 2. An International Atherosclerosis Society position paper: global recommendations for the management of dyslipidemia: executive summary, Atherosclerosis. 2014: 232(2):410-413. Performed By: #### 2 4323-8, 97904-5 #### [facility] CLIA [id number] [address] [place] [address] [place] Cholesterol in VLDL [Mass/Vol] 9 mg/dL Normal <30 [facility] Comment on above: Order Comment: Speci men Type: BLOOD SPECIMEN Ordering Facility: [facility] Address: [address] [place] [address] Performed By: #### 2 4323-8, 08244-1 #### [facility] CLIA [id number] [address] [place] [address] [place] Cholesterol non HDL [Mass/Vol] 136 mg/dL High <130 [facility] Comment on above: Order Comment: Speci men Type: BLOOD SPECIMEN Ordering Facility: [facility] Address: [address] [place] [address] Result Comment: <130 mg/dL, Optimal 130-159 mg/dL, Near optimal/above optimal 160-189 mg/dL, Borderline high 190-219 mg/dL, High >219 mg/dL, Very high Secondary prevention optimal non HDL Cholesterol levels are recommended to be <100 mg/dL Performed By: #### 2 4323-8, 75561-4 #### [facility] CLIA [id number] [address] [place] [address] [place] Cholesterol.total/C holesterol in HDL [Mass ratio] 3.89 {ratio} Normal <5.10 [facility] Comment on above: Order Comment: Speci men Type: BLOOD SPECIMEN Ordering Facility: [facility] Address: [address] [place] [address] Performed By: #### 2 4323-8, 57534-0 #### [facility] CLIA [id number] [address] [place] [id number] [place] FASTING TIME 14 hrs Normal [facility] Comment on above: Order Comment: Speci men Type: BLOOD SPECIMEN Ordering Facility: [facility] Address: [address] [place] [address] Performed By: #### 2 4323-8, 13372-9 #### [facility] CLIA [id number] [address] [place] [address] [place] Triglyceride [Mass/Vol] 50 mg/dL Normal <150 [facility] Comment on above: Order Comment: Speci men Type: BLOOD SPECIMEN Ordering Facility: [facility] Address: [address] [place] [address] Result Comment: <150 mg/dL, Normal 150-199 mg/dL, Borderline high 200-499 mg/dL, High >499 mg/dL, Very high Performed By: #### 2 4323-8, 87246-5 #### [facility] CLIA [id number] [address] [place] [address] [place] [facility] Prostate specific Ag [Mass/Vol] 5.90 ng/mL High <2.60 [facility] Comment on above: Order Comment: Speci men Type: BLOOD SPECIMEN Ordering Facility: [facility] Address: [address] [place] [address] Result Comment: Jaceka odette PSA test methodology [...] 2003,349:335-42. Performed By: #### 2 857-1 #### [facility] CLIA [id number] [address] [place] [address] [place] B. burgdorferi IgG and IgM p tarik (S)on 04-13-2025 B. burgdorferi IgG+IgM Qn (S) Negative Normal Negative [facility] Comment on above: Order Comment: Speci men Type: BLOOD SPECIMEN Ordering Facility: [facility] Address: [address] [place] [address] Result Comment: Rece nt infection with B. burgdorferi sensu lato cannot be excluded if the specimen collected within four weeks after the onset of signs and symptoms or within six weeks after a known tick exposure. Clinical and epidemiological correlation is required. Performed By: #### 3 4942-3 #### [facility] CLIA [id number] [address] [place] [address] [place] [facility] ([id number]) 1940 M Date Time Provider Department 02/15/25 EZE RODRIGUEZ INTMWS During your visit today, we recorded the following information about you: Annie Day LPN 02/15/2025 11:02 AM Signed Electronic [employer] rec'd and completed for tadalafil. This was approved. Prior authorization approved Payer: Trudy Note from payer: [employer] Case: [id number], Status: Approved, Coverage Starts on: 11/17/2024 12:00:00 AM, Coverage Ends on: 02/15/2026 12:00:00 AM. Approval Details Authorization number: [id number] Authorized from November 17, 2024 to February [...] to its destination. To be filled at: [place] [phone] - [address] [phone] Allergies As of Date: 02/15/2025 Noted Allergy [...] 50 mg by mouth twice daily. - nvnqrcwk-msy-BF-lycopen-lut ein (CENTRUM SILVER MEN) 300-600-300 mcg tab Take 1 tablet by mouth once daily. - Aspirin 500 mg tab Take 500 mg by mouth once daily. - [place]-3 Fatty Acids-Vitamin E 1,000 mg cap Take [...] Encounter Status:Closed by ANNIE DAY on 02/15/25 [facility] CNOVon 01-21-2025 CNOV Office Visit (FAMPWS ) DOMO BOLDEN ([id number]) 1940 M Date Time Provider Department 01/21/25 [...] watch diet, no particular diet. Stopped buying niuean fries and eliminate potato chips. 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 - Reji having Adv Dir/Living Will. Prefers [...] COLONOSCOPY W/BIOPSY SINGLE/MULTIPLE 12/29/2009 [facility] OTHR SRGY PAST SURGICAL HISTORY OF 02/2011 Laparoscopic Appendectomy and Drainage - Dr. Nick Bustamante, [facility] REMV CATARACT EXTRACAP,INSERT LENS Right 07/2023 Done at [facility] TONSILLECTOMY AND ADENOIDECTOMY TONSILLECTOMY HX [...] Take 50 mg by mouth twice daily. qmgqxqox-qsx-KH-lycopen-lut ein (CENTRUM SILVER MEN) 300-600-300 mcg tab Take 1 tablet by mouth once daily. Aspirin 500 mg tab Take 500 mg by mouth once daily. [place]-3 Fatty Acids-Vitamin E 1,000 mg cap Take [...] Resp 16 (more content not included)... Normal [facility] CBC W Auto Differential pane l (Bld)on 01-14-2025 Basophils (Bld) [#/Vol] 0.04 10*3/uL Normal <0.11 [facility] Comment on above: Order Comment: Speci men Type: BLOOD SPECIMEN Ordering Facility: [facility] Address: [address] [place] [address] Performed By: #### 5 7021-8 #### [facility] CLIA [id number] [address] [place] [address] [place] Basophils/100 WBC (Bld) 0.8 % Normal [facility] Comment on above: Order Comment: Speci men Type: BLOOD SPECIMEN Ordering Facility: [facility] Address: [address] [place] [address] Performed By: #### 5 7021-8 #### [facility] CLIA [id number] [address] [place] [address] [place] Differential cell count method Nom (Bld) Auto Normal [facility] Comment on above: Order Comment: Speci men Type: BLOOD SPECIMEN Ordering Facility: [facility] Address: [address] [place] [address] Performed By: #### 5 7021-8 #### [facility] CLIA [id number] [address] [place] [address] [place] Eosinophils (Bld) [#/Vol] 0.35 10*3/uL Normal <0.46 [facility] Comment on above: Order Comment: Speci men Type: BLOOD SPECIMEN Ordering Facility: [facility] Address: [address] [place] [address] Performed By: #### 5 7021-8 #### [facility] CLIA [id number] [address] [place] [address] [place] Eosinophils/100 WBC (Bld) 6.7 % Normal [facility] Comment on above: Order Comment: Speci men Type: BLOOD SPECIMEN Ordering Facility: [facility] Address: [address] [place] [address] Performed By: #### 5 7021-8 #### [facility] CLIA [id number] [address] [place] [address] [place] Erythrocyte distribution width (RBC) [Ratio] 13.1 % Normal 11.5-15.0 [facility] Comment on above: Order Comment: Speci men Type: BLOOD SPECIMEN Ordering Facility: [facility] Address: [address] [place] [address] Performed By: #### 5 7021-8 #### [facility] CLIA [id number] [address] [place] [address] [place] Hematocrit (Bld) [Volume fraction] 46.5 % Normal 39.0-51.0 [facility] Comment on above: Order Comment: Speci men Type: BLOOD SPECIMEN Ordering Facility: [facility] Address: [address] [place] [address] Performed By: #### 5 7021-8 #### [facility] CLIA [id number] [address] [place] [address] [place] Hemoglobin (Bld) [Mass/Vol] 15.3 g/dL Normal 13.0-17.0 [facility] Comment on above: Order Comment: Speci men Type: BLOOD SPECIMEN Ordering Facility: [facility] Address: [address] [place] [address] Performed By: #### 5 7021-8 #### [facility] CLIA [id number] [address] [place] [address] [place] Immature granulocytes (Bld) [#/Vol] 10*3/uL Normal <0.10 [facility] Comment on above: Order Comment: Speci men Type: BLOOD SPECIMEN Ordering Facility: [facility] Address: [address] [place] [address] Performed By: #### 5 7021-8 #### [facility] CLIA [id number] [address] [place] [address] [place] Immature granulocytes/100 WBC (Bld) 0.2 % Normal [facility] Comment on above: Order Comment: Speci men Type: BLOOD SPECIMEN Ordering Facility: [facility] Address: [address] [place] [address] Performed By: #### 5 7021-8 #### [facility] CLIA [id number] [address] [place] [address] [place] Lymphocytes (Bld) [#/Vol] 1.84 10*3/uL Normal 1.00-4.00 [facility] Comment on above: Order Comment: Speci men Type: BLOOD SPECIMEN Ordering Facility: [facility] Address: [address] [place] [address] Performed By: #### 5 7021-8 #### [facility] CLIA [id number] [address] [place] [address] [place] Lymphocytes/100 WBC (Bld) 35.0 % Normal [facility] Comment on above: Order Comment: Speci men Type: BLOOD SPECIMEN Ordering Facility: [facility] Address: [address] [place] [address] Performed By: #### 5 7021-8 #### [facility] CLIA [id number] [address] [place] [address] [place] MCH (RBC) [Entitic mass] 31.4 pg Normal 26.0-34.0 [facility] Comment on above: Order Comment: Speci men Type: BLOOD SPECIMEN Ordering Facility: [facility] Address: [address] [place] [address] Performed By: #### 5 7021-8 #### [facility] CLIA [id number] [address] [place] [address] [place] MCHC (RBC) [Mass/Vol] 32.9 g/dL Normal 30.5-36.0 [facility] Comment on above: Order Comment: Speci men Type: BLOOD SPECIMEN Ordering Facility: [facility] Address: [address] [place] [address] Performed By: #### 5 7021-8 #### [facility] CLIA [id number] [address] [place] [address] [place] MCV (RBC) [Entitic vol] 95.3 fL Normal 80.0-100.0 [facility] Comment on above: Order Comment: Speci men Type: BLOOD SPECIMEN Ordering Facility: [facility] Address: [address] [place] [address] Performed By: #### 5 7021-8 #### [facility] CLIA [id number] [address] [place] [address] [place] Monocytes (Bld) [#/Vol] 0.49 10*3/uL Normal <0.87 [facility] Comment on above: Order Comment: Speci men Type: BLOOD SPECIMEN Ordering Facility: [facility] Address: [address] [place] [address] Performed By: #### 5 7021-8 #### [facility] CLIA [id number] [address] [place] [address] [place] Monocytes/100 WBC (Bld) 9.3 % Normal [facility] Comment on above: Order Comment: Speci men Type: BLOOD SPECIMEN Ordering Facility: [facility] Address: [address] [place] [address] Performed By: #### 5 7021-8 #### [facility] CLIA [id number] [address] [place] [address] [place] Neutrophils (Bld) [#/Vol] 2.53 10*3/uL Normal 1.45-7.50 [facility] Comment on above: Order Comment: Speci men Type: BLOOD SPECIMEN Ordering Facility: [facility] Address: [address] [place] [address] Performed By: #### 5 7021-8 #### [facility] CLIA [id number] [address] [place] [address] [place] Neutrophils/100 WBC (Bld) 48.0 % Normal [facility] Comment on above: Order Comment: Speci men Type: BLOOD SPECIMEN Ordering Facility: [facility] Address: [address] [place] [address] Performed By: #### 5 7021-8 #### [facility] CLIA [id number] [address] [place] [address] [place] Nucleated RBC (Bld) [#/Vol] 10*3/uL Normal <0.01 [facility] Comment on above: Order Comment: Speci men Type: BLOOD SPECIMEN Ordering Facility: [facility] Address: [address] [place] [address] Performed By: #### 5 7021-8 #### [facility] CLIA [id number] [address] [place] [address] [place] Nucleated RBC/100 WBC (Bld) [Ratio] 0.0 /100 WBC Normal [facility] Comment on above: Order Comment: Speci men Type: BLOOD SPECIMEN Ordering Facility: [facility] Address: [address] [place] [address] Performed By: #### 5 7021-8 #### [facility] CLIA [id number] [address] [place] [address] [place] Platelet mean volume (Bld) [Entitic vol] 10.5 fL Normal 9.0-12.7 [facility] Comment on above: Order Comment: Speci men Type: BLOOD SPECIMEN Ordering Facility: [facility] Address: [address] [place] [address] Performed By: #### 5 7021-8 #### [facility] CLIA [id number] [address] [place] [address] [place] Platelets (Bld) [#/Vol] 206 10*3/uL Normal 150-400 [facility] Comment on above: Order Comment: Speci men Type: BLOOD SPECIMEN Ordering Facility: [facility] Address: [address] [place] [address] Performed By: #### 5 7021-8 #### [facility] CLIA [id number] [address] [place] [address] [place] RBC (Bld) [#/Vol] 4.88 10*6/uL Normal 4.20-6.00 [facility] Comment on above: Order Comment: Speci men Type: BLOOD SPECIMEN Ordering Facility: [facility] Address: [address] [place] [address] Performed By: #### 5 7021-8 #### [facility] CLIA [id number] [address] [place] [address] [place] WBC (Bld) [#/Vol] 5.26 10*3/uL Normal 3.70-11.00 [facility] Comment on above: Order Comment: Speci men Type: BLOOD SPECIMEN Ordering Facility: [facility] Address: [address] [place] [address] Performed By: #### 5 7021-8 #### [facility] CLIA [id number] [address] [place] [address] [place] Comprehensive metabolic 2000 panelon 01-14-2025 Albumin [Mass/Vol] 4.1 g/dL Normal 3.9-4.9 [facility] Comment on above: Order Comment: Speci men Type: BLOOD SPECIMEN Ordering Facility: [facility] Address: [address] [place] [address] Performed By: #### 2 4323-8, 00368-7 #### [facility] CLIA [id number] [address] [place] [address] [place] ALP [Catalytic activity/Vol] 65 U/L Normal 38-113 [facility] Comment on above: Order Comment: Speci men Type: BLOOD SPECIMEN Ordering Facility: [facility] Address: [address] [place] [address] Performed By: #### 2 4323-8, 21100-1 #### [facility] CLIA [id number] [address] [place] [address] [place] ALT [Catalytic activity/Vol] 18 U/L Normal 10-54 [facility] Comment on above: Order Comment: Speci men Type: BLOOD SPECIMEN Ordering Facility: [facility] Address: [address] [id number] Performed By: #### 2 4323-8, 06165-0 #### [facility] CLIA [id number] [address] [place], [place] [address] [place] Anion gap [Moles/Vol] 8 mmol/L Normal 8-15 [facility] Comment on above: Order Comment: Speci men Type: BLOOD SPECIMEN Ordering Facility: [facility] Address: [address] [place] [address] Performed By: #### 2 4323-8, 73611-0 #### [facility] CLIA [id number] [address] [place] [address] [place] AST [Catalytic activity/Vol] 21 U/L Normal 14-40 [facility] Comment on above: Order Comment: Speci men Type: BLOOD SPECIMEN Ordering Facility: [facility] Address: [address] [place] [address] Performed By: #### 2 4323-8, 65768-0 #### [facility] CLIA [id number] [address] [place] [address] [place] Bilirubin [Mass/Vol] 1.2 mg/dL Normal 0.2-1.3 [facility] Comment on above: Order Comment: Speci men Type: BLOOD SPECIMEN Ordering Facility: [facility] Address: [address] [id number] Performed By: #### 2 4323-8, 17760-6 #### [facility] CLIA [id number] [address] [place] [address] [place] Calcium [Mass/Vol] 10.2 mg/dL Normal 8.5-10.2 [facility] Comment on above: Order Comment: Speci men Type: BLOOD SPECIMEN Ordering Facility: [facility] Address: [address] [place], [place] [address] Performed By: #### 2 4323-8, 15997-4 #### [facility] CLIA [id number] [address] [place] [address] [place] Chloride [Moles/Vol] 110 mmol/L High 98-107 [facility] Comment on above: Order Comment: Speci men Type: BLOOD SPECIMEN Ordering Facility: [facility] Address: [address] [place] [address] Performed By: #### 2 4323-8, 92239-5 #### [facility] CLIA [id number] [address] [place] [address] [place] CO2 [Moles/Vol] 26 mmol/L Normal 22-30 [facility] Comment on above: Order Comment: Speci men Type: BLOOD SPECIMEN Ordering Facility: [facility] Address: [address] [place] [address] Performed By: #### 2 4323-8, 36361-0 #### [facility] CLIA [id number] [address] [place] [address] [place] Creatinine [Mass/Vol] 1.10 mg/dL Normal 0.73-1.22 [facility] Comment on above: Order Comment: Speci men Type: BLOOD SPECIMEN Ordering Facility: [facility] Address: [address] [place] [address] Performed By: #### 2 4323-8, 08081-4 #### [facility] CLIA [id number] [address] [place] [address] [place] Creatinine and Glomerular filtration rate.predicted panel (S/P/Bld) 67 mL/min/1.73m??? Normal >=60 [facility] Comment on above: Order Comment: Speci men Type: BLOOD SPECIMEN Ordering Facility: [facility] Address: [address] [place] [address] Result Comment: Magalie mated Glomerular Filtration Rate [...] actual GFR. Performed By: #### 2 4323-8, 56396-2 #### [facility] CLIA [id number] [address] [place] [address] [place] Glucose [Mass/Vol] 96 mg/dL Normal 74-99 [facility] Comment on above: Order Comment: Neisha saenz Type: BLOOD SPECIMEN Ordering Facility: [facility] Address: [address] [place] [address] Result Comment: The [place] Diabetes Association (ADA) provides guidance for cutoff [...] Standards of Medical Care in Diabetes 2016, [place] [employer]. Diabetes Care. 2016.39(Suppl 1). Performed By: #### 2 4323-8, #### [facility] CLIA [id number] [address] [place], [place] [address] [place] Potassium [Moles/Vol] 4.6 mmol/L Normal 3.7-5.1 [facility] Comment on above: Order Comment: Neisha saenz Type: BLOOD SPECIMEN Ordering Facility: [facility] Address: [address] [place] [address] Performed By: #### 2 4323-8, 79199-6 #### [facility] CLIA [id number] [address] [place], [place] [address] [place] Protein [Mass/Vol] 6.5 g/dL Normal 6.3-8.0 [facility] Comment on above: Order Comment: Speci men Type: BLOOD SPECIMEN Ordering Facility: [facility] Address: [address] [place] [address] Performed By: #### 2 4323-8, 46611-5 #### [facility] CLIA [id number] [address] [place] [address] [place] Sodium [Moles/Vol] 144 mmol/L Normal 136-144 [facility] Comment on above: Order Comment: Speci men Type: BLOOD SPECIMEN Ordering Facility: [facility] Address: [address] [place] [address] Performed By: #### 2 4323-8, 99486-0 #### [facility] CLIA [id number] [address] [place] [address] [place] Urea nitrogen [Mass/Vol] 20 mg/dL Normal 9-24 [facility] Comment on above: Order Comment: Speci men Type: BLOOD SPECIMEN Ordering Facility: [facility] Address: [address] [place] [address] Performed By: #### 2 4323-8, 72974-8 #### [facility] CLIA [id number] [address] [place], [place] [address] [place] Lipid 1996 panelon 5 Cholesterol [Mass/Vol] 161 mg/dL Normal <200 [facility] Comment on above: Order Comment: Speci men Type: BLOOD SPECIMEN Ordering Facility: [facility] Address: [address] [place], [place] [address] Result Comment: <200 mg/dL, Desirable 200-239 mg/dL, Borderline high >239 mg/dL, High Performed By: #### 2 4323-8, 97344-2 #### [facility] CLIA [id number] [address] [place], [place] [address] [place] Cholesterol in HDL [Mass/Vol] 46 mg/dL Normal >39 [facility] Comment on above: Order Comment: Neisha saenz Type: BLOOD SPECIMEN Ordering Facility: [facility] Address: [address] [place] [address] Result Comment: 40-5 9 mg/dL, Acceptable >59 mg/dL, High: Negative risk factor for coronary heart disease <40 mg/dL, Low: Positive risk factor for coronary heart disease Performed By: #### 2 4323-8, 07315-0 #### [facility] CLIA [id number] [address] [place] [address] [place] Cholesterol in LDL [Mass/Vol] 104 mg/dL High <100 [facility] Comment on above: Order Comment: Neisha letty Type: BLOOD SPECIMEN Ordering Facility: [facility] Address: [address] [place] [address] Result Comment: <100 mg/dL, Optimal 100-129 mg/dL, Near optimal/above optimal 130-159 mg/dL, Borderline high 160-189 mg/dL, High >189 mg/dL, Very high Secondary prevention optimal LDL Cholesterol levels are recommended to be < 70 mg/dL Performed By: #### 2 4323-8, 23440-3 #### [facility] CLIA [id number] [address] [place] [address] [place] Cholesterol in LDL/Cholesterol in HDL [Mass ratio] 2.26 {ratio} Normal <2.54 [facility] Comment on above: Order Comment: Leydahemanth asenz Type: BLOOD SPECIMEN Ordering Facility: [facility] Address: [address] [place] [address] Result Comment: Refe rence: 1. National Cholesterol Education Program ATP III Guideline At-A-Glance Quick Desk Reference: National Heart, Lung, and Blood [place]. National Institutes of Health. 2001: NIH Publication No. 01-3305. 2. An International Atherosclerosis Society position paper: global recommendations for the management of dyslipidemia: executive summary, Atherosclerosis. 2014: 232(2):410-413. Performed By: #### 2 4323-8, 46148-4 #### [facility] CLIA [id number] [address] [place], [place] [address] [place] Cholesterol in VLDL [Mass/Vol] 11 mg/dL Normal <30 [facility] Comment on above: Order Comment: Speci men Type: BLOOD SPECIMEN Ordering Facility: [facility] Address: [address] [place] [address] Performed By: #### 2 4323-8, 63421-7 #### [facility] CLIA [id number] [address] [place] [address] [place] Cholesterol non HDL [Mass/Vol] 115 mg/dL Normal <130 [facility] Comment on above: Order Comment: Speci men Type: BLOOD SPECIMEN Ordering Facility: [facility] Address: [address] [place] [address] Result Comment: <130 mg/dL, Optimal 130-159 mg/dL, Near optimal/above optimal 160-189 mg/dL, Borderline high 190-219 mg/dL, High >219 mg/dL, Very high Secondary prevention optimal non HDL Cholesterol levels are recommended to be <100 mg/dL Performed By: #### 2 4323-8, 50501-9 #### [facility] CLIA [id number] [address] [place] [address] [place] Cholesterol.total/C holesterol in HDL [Mass ratio] 3.50 {ratio} Normal <5.10 [facility] Comment on above: Order Comment: Speci men Type: BLOOD SPECIMEN Ordering Facility: [facility] Address: [address] [place] [address] Performed By: #### 2 4323-8, 48254-7 #### [facility] CLIA [id number] [address] [place] [address] [place] FASTING TIME 12 hrs Normal [facility] Comment on above: Order Comment: Speci men Type: BLOOD SPECIMEN Ordering Facility: [facility] Address: [address] [place] [address] Performed By: #### 2 4323-8, 30988-7 #### [facility] CLIA [id number] [address] [place] [address] [place] Triglyceride [Mass/Vol] 53 mg/dL Normal <150 [facility] Comment on above: Order Comment: Speci men Type: BLOOD SPECIMEN Ordering Facility: [facility] Address: [address] [place] [address] Result Comment: <150 mg/dL, Normal 150-199 mg/dL, Borderline high 200-499 mg/dL, High >499 mg/dL, Very high Performed By: #### 2 4323-8, 17075-5 #### [facility] CLIA [id number] [address] [place] [address] [place] [facility] Prostate specific Ag [Mass/Vol] 5.73 ng/mL High <2.60 [facility] Comment on above: Order Comment: Speci men Type: BLOOD SPECIMEN Ordering Facility: [facility] Address: [address] [place] [address] Result Comment: Tota l PSA test methodology [...] 2003,349:335-42. Performed By: #### 2 857-1 #### [facility] CLIA [id number] [address] [place] [address] [place] [address] [place] Emergency Department Summary on 07-01-2024 Emergency Department Summary [facility] Medical Records Department [address] [place] [address] Emergency Department Summary 07/01/24 MR#: [id number] Acct: [id number] Name: DOMO BOLDEN Rep #: [id number] : 1940 83 From: Peter Matrin MD PCP: Dr. Eze Rodriguez MD Status:REG [...] albeit improved over previous after taking Benadryl. [facility] Medical History Cataract CPAP (continuous positive [...] told he may need referral to an application lead. I do not feel he requires an epinephrine pen. He was written prescriptions for a steroid burst of 40 mg for the next 7 days and for Pepcid 20 mg orally for the next 7 days. He will take ilxb-onw-owptbaf Benadryl 25 to 50 mg (more content not included)... Normal [facility] Emergency Department Summary on 07-19-2023 Emergency Department Summary [facility] Medical Records Department [address] [place] [address] Emergency Department Summary 07/19/23 MR#: [id number] Acct: [id number] Name: DOMO BOLDEN Rep #: [id number] : 1940 82 From: Rocky Willis MD [...] Narrative: T (more content not included)... Normal [facility] 02-09-2023 [facility] Telephone (MEPRAD) DOMO BOLDEN ([id number]) 1940 Date Time Provider Department 02/09/23 BRENDA MOORE During your visit today, we recorded the following information about you: Brenda Moore MD 02/09/2023 11:19 AM Signed FOLLOW UP ENDOSCOPY - RESULTS AND RECOMMENDATIONS NAME: Domo Bolden CLINIC NO.: [id number] : 1940 DATE: February 09, 2023 PRIMARY [...] 50 mg by mouth twice daily. - brqfpkhe-mix-JB-lycopen-lut ein (CENTRUM SILVER MEN) 300-600-300 mcg tab Take 1 tablet by mouth once daily. - Aspirin 500 mg tab Take 500 mg by mouth once daily. - [place]-3 Fatty Acids-Vitamin E 1,000 mg cap Take [...] Encounter Status:Closed by BRENDA MOORE on 02/09/23 [facility] XR CHEST 2V FRONTAL/LATon [facility] XR Chest PA and Lateralon IMPRESSION: No acute radiographic abnormality. Mild wedging of lower thoracic vertebral body Compound Worker: JAVON Transcribe Date/Time: Jun 14 2022 1:46P Dictated by : LINDA BOYD MD This examination was interpreted and the report reviewed and electronically signed by: LINDA BOYD MD on Jun 14 2022 1:49PM [facility] DIVISION OF RADIOLOGY * * *Final [...] body. Age indeterminate DIVISION [facility] RADIOLOGY [facility] * * *Final Report* * [...] Mild wedging of lower thoracic vertebral body Compound Worker: [facility] Transcribe Date/Time: Jun 14 2022 1:46P Dictated by : LINDA BOYD MD This examination was interpreted and the report reviewed and electronically signed by: LINDA BOYD MD on Jun 14 2022 1:49PM EST [facility] Radiology Study observation (narrative) [facility] XR Chest PA and LateralOrder ed By: [facility] Provider on 06-14-2022 [facility] Absolute lymphocyte counton 05-26-2022 Lymphocytes Auto (Unsp spec) [#/Vol] 1.78 10*3/uL 0.83-4.51 [facility] Work Phone: Basophil percentageon 2021 Basophils/100 WBC (Bld) 0.3 % 0-1 [facility] Work Phone: Chloride [Moles/Vol] 106 mmol/L 98-107 [facility] Work Phone: Eosinophils/100 WBC (Bld) 0.9 % 0-5 [facility] Work Phone: Glucose [Mass/Vol] 125 mg/dL 74-106 [facility] Work Phone: Comment on above: Fasting Glucose resu lt from 100 to 125 mg/dL suggests IMPAIRED HOMEOSTASIS per A.D.A. criteria. Neutrophils (Bld) [#/Vol] 8.9 10*3/uL 2.0-7.7 [facility] Work Phone: Neutrophils/100 WBC (Bld) 77.0 % 47-70 [facility] Work Phone: Potassium [Moles/Vol] 4.2 mmol/L 3.5-5.1 [facility] Work Phone: [phone] Sodium [Moles/Vol] 136 mmol/L 136-145 [facility] Work Phone: WBC (Bld) [#/Vol] 11.6 10*3/uL 4.4-11.0 [facility] Work Phone: Basophil percentage 0-5 SEEN /hpf 0-5 [facility] Work Phone: [phone] Bilirubin Test strip Ql (U)o n 05-26-2022 Bilirubin Ql (U) Negative Negative [facility] Work Phone: [phone] Blood erythrocytes count (nu mber/volume)on 05-26-2022 RBC (Bld) [#/Vol] 4.96 10*6/uL 4.6-6.2 [facility] Work Phone: Blood hemoglobin measurement (mass/volume)on 05-26-2022 Hemoglobin (Bld) [Mass/Vol] 15.7 g/dL 13.0-16.5 [facility] Work Phone: Blood lymphocytes/100 leukoc yteson 05-26-2022 Lymphocytes/100 WBC (Bld) 15.4 % 19-41 [facility] Work Phone: Blood monocytes/100 leukocyt eson 05-26-2022 Monocytes/100 WBC (Bld) 5.9 % 0-10 [facility] Work Phone: [phone] Blood platelet mean volumeon 05-26-2022 Platelet mean volume (Bld) [Entitic vol] 9.4 fL 6.2-12.0 [facility] Work Phone: [phone] Determination of erythrocyte mean corpuscular volume (MCV)on 05-26-2022 MCV (RBC) [Entitic vol] 94.0 fL 80-94 [facility] Work Phone: [phone] Hematocrit Auto (Bld) [Volum e fraction]on 05-26-2022 Hematocrit (Bld) [Volume fraction] 46.6 % 40-54 [facility] Work Phone: [phone] Ketones Test strip Ql (U)on 05-26-2022 Ketones Ql (U) 5 mg/dl Negative [facility] Work Phone: [phone] Laboratory - Chemistry and C hemistry - challengeon 05-26-2022 CO2 [Moles/Vol] 24.0 mmol/L 21.0-32.0 [facility] Work Phone: [phone] Urea nitrogen/Creatinine [Mass ratio] 19.8 mg/mg 10-20 [facility] Work Phone: [phone] Laboratory - Hematology and Cell countson 05-26-2022 Erythrocyte distribution width (RBC) [Entitic vol] 44.7 fL 35.1-43.9 [facility] Work Phone: [phone] Erythrocyte distribution width (RBC) [Ratio] 13.0 % 11.6-14.6 [facility] Work Phone: [phone] Immature granulocytes/100 WBC (Bld) 0.500 % 0.0-0.9 [facility] Work Phone: [phone] Comment on above: IG% - Immature Granu locytes (promyelocytes, myelocytes and metamyelocytes) > 1% indicates that a LEFT SHIFT is Present. MCH (RBC) [Entitic mass] 31.7 pg 27.0-32.0 [facility] Work Phone: [phone] Nucleated RBC/100 WBC (Bld) [Ratio] 0 % 0-5 [facility] Work Phone: MCHC Auto (RBC) [Mass/Vol]on 05-26-2022 MCHC (RBC) [Mass/Vol] 33.7 g/dL 32-36 [facility] Work Phone: Mucus LM Ql (Urine sed)on Mucus Ql (Urine sed) 0 SEEN /hpf [facility] Work Phone: [phone] Nitrite Test strip Ql (U)on 05-26-2022 Nitrite Ql (U) Negative Negative [facility] Work Phone: No Panel Informationon 05-26 Estimated Creatinine Clearance Calc 51.11 ml/min [facility] Work Phone: Estimated GFR (MDRD) Amer 74 mL/min >60 [facility] Work Phone: Comment on above: GFR Calc Estimated GFR (MDRD) Non-Af Amer 61 mL/min >60 [facility] Work Phone: Comment on above: Non- GFR Calc Platelets bldon 05-26-2022 Platelets (Bld) [#/Vol] 213 10*3/uL 150-450 [facility] Work Phone: Protein Test strip Ql (U)on 05-26-2022 Protein Ql (U) 15 mg/dl Negative [facility] Work Phone: [phone] Serum or plasma calcium cody urement (mass/volume)on 05-26-2022 Calcium [Mass/Vol] 10.2 mg/dL 8.5-10.1 [facility] Work Phone: [phone] Serum or plasma creatinine m easurement (mass/volume)on 05-26-2022 Creatinine [Mass/Vol] 1.21 mg/dL 0.70-1.30 [facility] Work Phone: Comment on above: The validity of the calculated GFR & GFRAA in patients over 70 years has not been determined. Clinical correlation is essential. Serum or plasma urea nitroge n measurement (mass/volume)on 05-26-2022 Urea nitrogen [Mass/Vol] 24 mg/dL 7-18 [facility] Work Phone: Squamous epithelial cells de tection in urine sediment by light microscopyon 05-26-2022 Epithelial cells.squamous LM Ql (Urine sed) 0 SEEN /hpf 0-5 [facility] Work Phone: Thin prep Papanicolaou smear with manual screeningon 05-26-2022 Thin prep Papanicolaou smear with manual screening 6 5-15 [facility] Work Phone: Urine blood detectionon 04-29 RBC Ql (U) 250 /ul Negative [facility] Work Phone: [phone] RBC Ql (U) 50-100 SEEN /hpf 0-5 [facility] Work Phone: Urine clarityon 05-26-2022 Clarity (U) Clear Clear [facility] Work Phone: Urine color determinationon 05-26-2022 Color (U) Yellow Yellow [facility] Work Phone: Urine glucose detectionon Glucose Ql (U) Negative Normal [facility] Work Phone: Urine leukocyte esterase det ection by dipstickon 05-26-2022 Leukocyte esterase Test strip Ql (U) 25 /ul Negative [facility] Work Phone: Urine pHon 05-26-2022 pH (U) 5.0 [pH] 5.0 - 8.0 [facility] Work Phone: Urine sediment bacteria coun t by microscopy (number/high power field)on 05-26-2022 Bacteria LM.HPF (Urine sed) [#/Area] 0 /[HPF] None Seen [facility] Work Phone: Urine specific gravity measu rementon 05-26-2022 Specific gravity (U) [Rel density] 1.025 1.002-1.030 [facility] Work Phone: Urobilinogen Auto test strip Ql (U)on 05-26-2022 Urobilinogen Ql (U) Normal mg/dl Normal [facility] Work Phone: Vital Signs Date Time Vital Sign Value Performing Clinician Marge lopez 01-21-2025 09:56-0400 Body mass index (BMI) [Ratio] 29.81 kg/m2 Eze Rodriguez MD Work Phone: [facility] 01-21-2025 09:56-0400 Body weight 92.9 kg Eze Rodriguez MD Work Phone: [facility] 01-21-2025 09:56-0400 Diastolic blood pressure 84 mm[Hg] Eze Rodriguez MD Work Phone: [facility] 01-21-2025 09:56-0400 Heart rate 80 /min Eze Rodriguez MD Work Phone: [facility] 01-21-2025 09:56-0400 Respiratory rate 16 /min Eze Rodriguez MD Work Phone: [facility] 01-21-2025 09:56-0400 Systolic blood pressure 140 mm[Hg] Eze Rodriguez MD Work Phone: [facility] 07-23-2024 08:17-0400 Diastolic blood pressure 84 mm[Hg] Eze Rodriguez MD Work Phone: [facility] 07-23-2024 08:17-0400 Systolic blood pressure 142 mm[Hg] Eze Rodriguez MD Work Phone: [facility] 07-23-2024 08:15-0400 Body height 176.5 cm Eze Rodriguez MD Work Phone: [facility] 07-23-2024 08:15-0400 Body mass index (BMI) [Ratio] 30.07 kg/m2 Eze Rodriguez MD Work Phone: [facility] 07-23-2024 08:15-0400 Body weight 93.7 kg Eze Rodriguez MD Work Phone: [facility] 07-23-2024 08:15-0400 Heart rate 76 /min Eze Rodriguez MD Work Phone: [facility] 07-23-2024 08:15-0400 Respiratory rate 18 /min Eze Rodriguez MD Work Phone: [facility] 12-19-2023 11:27-0500 Body weight 93.53 kg Eze Rodriguez MD Work Phone: [facility] 12-19-2023 11:27-0500 Diastolic blood pressure 74 mm[Hg] Eze Rodriguez MD Work Phone: [facility] 12-19-2023 11:27-0500 Heart rate 74 /min Eze Rodriguez MD Work Phone: [facility] 12-19-2023 11:27-0500 Respiratory rate 1 /min Eze Rodriguez MD Work Phone: [facility] 12-19-2023 11:27-0500 Systolic blood pressure 124 mm[Hg] Eze Rodriguez MD Work Phone: [facility] 07-19-2023 21:00-0400 Diastolic blood pressure 77 mm[Hg] [facility] 07-19-2023 21:00-0400 Heart rate 83 /min [facility] 07-19-2023 21:00-0400 SaO2% (BldA) [Mass fraction] 97 % [facility] 07-19-2023 21:00-0400 Systolic blood pressure 143 mm[Hg] [facility] 07-19-2023 18:13-0400 Respiratory rate 16 /min [facility] 07-19-2023 16:08-0400 Body height 175.26 cm [facility] 07-19-2023 16:08-0400 Body mass index (BMI) [Ratio] 31 kg/m2 [facility] 07-19-2023 16:08-0400 Body temperature 98 [degF] [facility] 07-19-2023 16:08-0400 Body weight 95.29 kg [facility] 06-18-2023 11:34-0400 Body weight 92.14 kg Eze Rodriguez MD Work Phone: [facility] 06-18-2023 11:34-0400 Diastolic blood pressure 80 mm[Hg] Eze Rodriguez MD Work Phone: [facility] 06-18-2023 11:34-0400 Heart rate 74 /min Eze Rodriguez MD Work Phone: [facility] 06-18-2023 11:34-0400 Respiratory rate 16 /min Eze Rodriguez MD Work Phone: [facility] 06-18-2023 11:34-0400 Systolic blood pressure 116 mm[Hg] Eze Rodriguez MD Work Phone: [facility] 04-16-2023 10:56-0400 Body height 176.5 cm Nicki Loffelmann PA-C Work Phone: [facility] 04-16-2023 10:56-0400 Body weight 93.67 kg Nicki Loffelmann PA-C Work Phone: [facility] 04-16-2023 10:56-0400 Diastolic blood pressure 74 mm[Hg] Nicki Loffelmann PA-C Work Phone: [facility] 04-16-2023 10:56-0400 Heart rate 72 /min Nicki Loffelmann PA-C Work Phone: [facility] 04-16-2023 10:56-0400 SaO2% (BldA) [Mass fraction] 97 % Nicki Loffelmann PA-C Work Phone: [facility] 04-16-2023 10:56-0400 Systolic blood pressure 126 mm[Hg] Nicki Loffelmann PA-C Work Phone: [facility] 01-21-2023 04:20-0400 Body height 176.5 cm [facility] Work Phone: [facility] 01-21-2023 04:20-0400 Body weight 94.8 kg [facility] Work Phone: [facility] 12-17-2022 12:41-0500 Body weight 94.85 kg Eze Rodriguez MD Work Phone: [facility] 12-17-2022 12:41-0500 Diastolic blood pressure 78 mm[Hg] Eze Rodriguez MD Work Phone: [facility] 12-17-2022 12:41-0500 Heart rate 74 /min Eze Rodriguez MD Work Phone: [facility] 12-17-2022 12:41-0500 Respiratory rate 16 /min Eze Rodriguez MD Work Phone: [facility] 12-17-2022 12:41-0500 Systolic blood pressure 120 mm[Hg] Eze Rodriguez MD Work Phone: [facility] 06-14-2022 09:16-0400 Body weight 91.44 kg Eze Rodriguez MD Work Phone: [facility] 06-14-2022 09:16-0400 Diastolic blood pressure 74 mm[Hg] Eze Rodriguez MD Work Phone: [facility] 06-14-2022 09:16-0400 Heart rate 80 /min Eze Rodriguez MD Work Phone: [facility] 06-14-2022 09:16-0400 Respiratory rate 16 /min Eze Rodriguez MD Work Phone: [facility] 06-14-2022 09:16-0400 Systolic blood pressure 122 mm[Hg] Eze Rodriguez MD Work Phone: [facility] 05-26-2022 13:56-0400 Diastolic blood pressure 78 mm[Hg] [facility] Work Phone: 05-26-2022 13:56-0400 Heart rate 78 /min [facility] Work Phone: 05-26-2022 13:56-0400 Respiratory rate 14 /min [facility] Work Phone: 05-26-2022 13:56-0400 SaO2% (BldA) [Mass fraction] 98 % [facility] Work Phone: 05-26-2022 13:56-0400 Systolic blood pressure 136 mm[Hg] [facility] Work Phone: 05-26-2022 11:35-0400 Body height 177.8 cm [facility] Work Phone: 05-26-2022 11:35-0400 Body mass index (BMI) [Ratio] 29.7 kg/m2 [facility] Work Phone: 05-26-2022 11:35-0400 Body temperature 97.3 [degF] [facility] Work Phone: 05-26-2022 11:35-0400 Body weight 93.89 kg [facility] Work Phone: Encounters Encounter Date Encounter Type Care Provider Facility Start: 08-24-2025 End: 08-24-2025 ambulatory EZE RODRIGUEZ Facility:[facility] Start: 08-24-2025 Patient encounter procedure EZE RODRIGUEZ [facility] Start: 07-22-2025 End: 07-22-2025 ambulatory EZE RODRIGUEZ Facility:[facility] Start: 06-23-2025 End: 06-23-2025 ambulatory PRANEETH SEGURA II Facility:[facility] Start: 06-23-2025 End: 06-23-2025 Patient encounter procedure [...] Start: 04-13-2025 End: 04-13-2025 ambulatory EZE RODRIGUEZ Facility:[facility] Start: 02-15-2025 End: 02-15-2025 Refill Eze Rodriguez MD Work Phone: [facility] Comment on above: Refill Request Insurance Authorizat ion Start: 01-21-2025 End: 01-21-2025 ambulatory EZE RODRIGUEZ Facility:[facility] Start: 01-21-2025 End: 01-21-2025 Office outpatient visit 25 minutes Eze Rodriguez MD Work Phone: [facility] Comment on above: Essential hypertensi on (Primary Dx); Mixed hyperlipidemia; BPH with obstruction/lower urinary tract symptoms; Elevated PSA; Acute pain of right knee Start: 01-14-2025 End: 01-14-2025 ambulatory EZE RODRIGUEZ Facility:[facility] Start: 08-12-2024 End: 08-12-2024 Refill Eze Rodriguez MD Work Phone: [facility] Comment on above: Refill Request Start: 07-23-2024 End: 07-23-2024 Patient encounter procedure Eze Rodriguez MD Work Phone: [facility] Comment on above: Encounter for Medica re annual wellness exam (Primary Dx); Essential hypertension; Mixed hyperlipidemia; BPH with obstruction/lower urinary tract symptoms; ED (erectile dysfunction) of organic origin; Elevated PSA; Screening for depression; Encounter for screening examination for other mental health and behavioral disorders; Encounter for immunization Start: 07-01-2024 End: 07-02-2024 Emergency department patient visit Peter [facility] Facility:[facility] Start: 05-19-2024 ambulatory [facility] Estrada [facility] Start: 05-19-2024 [facility] Comment on above: Population Health Na vigation Outreach (Trudy Montesinos - [facility]) Start: 04-27-2024 ambulatory Varsha Ohara [facility] Start: 04-27-2024 Patient encounter [facility] Comment on above: Population Health Na vigation Outreach ([facility] ) Start: 04-23-2024 End: 04-23-2024 Patient encounter procedure Praneeth Segura OD Work Phone: Optometry Comment on above: Bacterial conjunctiv itis of left eye (Primary Dx); Pseudophakia of right eye; Combined forms of age-related cataract of left eye Start: 04-09-2024 ambulatory Varsha Ohara [facility] Start: 04-09-2024 Patient encounter procedure Varsha Ohara MA [facility] Comment on above: Population Health Na vigation Outreach ([place] [facility] ) Start: 03-28-2024 Refill Terry AMEZCUA RN.FELT CEMENTER Work Phone: Family [facility] Comment on above: Refill Request Start: 01-06-2024 Telephone encounter Eze alva MD Work Phone: [facility] Comment on above: Insurance Authorizat ion Start: 01-03-2024 Refill Eze olsen MD Work Phone: [facility] Comment on above: Refill Request Start: 12-19-2023 End: 12-19-2023 Patient encounter procedure Eze Rodriguez MD Work Phone: [facility] Comment on above: Essential hypertensi on [...] 07-19-2023 End: 07-19-2023 Emergency department patient visit [facility] Work Phone: Start: 07-19-2023 ambulatory Eze olsen MD Work Phone: [facility] Comment on above: Unsteadiness of Feet Start: 06-18-2023 End: 06-18-2023 Patient encounter procedure Eze Rodriguez MD Work Phone: [facility] Comment on above: Essential hypertensi on [...] caregiver Brenda Moore MD Work Phone: [facility] Start: 02-09-2023 Telephone encounter Brenda Moore MD Work Phone: [place] Provider Adult Comment on above: Results Start: 01-24-2023 Telephone encounter Eze alva MD Work Phone: [facility] [place] Comment on above: DME to fax Cpap orde rs to Start: 01-20-2023 End: 01-21-2023 [facility] Start: 12-19-2022 Telephone encounter Eze alva MD Work Phone: [facility] [place] Comment on above: Orders Start: 12-18-2022 Chart abstracting [facility] Work Phone: Neurology Start: 12-17-2022 End: 12-17-2022 Patient encounter procedure Eze Rodriguez MD Work Phone: [facility] Comment on above: Essential hypertensi on (Primary Dx); Mixed hyperlipidemia; JOSE (obstructive sleep apnea); BPH with obstruction/lower urinary tract symptoms; Screening PSA (prostate specific antigen); Personal history of colonic polyps; Special screening for malignant neoplasms, colon Start: 07-13-2022 Telephone encounter Terry Lopezhemanth pino APRN.CNP Work Phone: [facility] Comment on above: Results Start: 06-15-2022 Chart abstracting [facility] Work Phone: Neurology Start: 06-14-2022 End: 06-14-2022 Subsequent hospital visit by physician Xr [facility] Work Phone: Radiology Comment on above: Cough, unspecified t ype [R05.9] Start: 06-14-2022 End: 06-14-2022 Patient encounter procedure Eze Rodriguez MD Work Phone: [facility] Comment on above: Essential hypertensi on (Primary Dx); Cough, unspecified type; JOSE (obstructive sleep apnea); Mixed hyperlipidemia; Elevated PSA Start: 05-28-2022 Chart abstracting Eze lopez MD Work Phone: [facility] Comment on above: external report Start: 05-26-2022 End: 05-26-2022 [facility] Start: 02-07-2022 Refill Eze olsen MD Work Phone: [facility] Comment on above: Refill Request Procedures Date Procedure Procedure Detail Performing Clinician Start: 07-23-2024 PFIZER-BIONTECH COVI D-19 VACCINE AGE 12+ YR (COMIRNATY) Eze Rodriguez MD Work Phone: Start: 07-23-2024 Adult depression scr eening assessment Eze Rodriguez MD Work Phone: Start: 02-05-2023 Colonoscopy Brenda [...] Detail Author Start: 12-04-2028 Urine microalbumin profile [facility] Start: 02-06-2028 Colonoscopy COLONOSCOPY [facility] Start: 02-06-2028 COLORECTAL CANCER SCREENING COLORECTAL CANCER SCREENING [facility] Start: 02-06-2028 Screening for malign ant neoplasm of colon [facility] Start: 01-15-2028 [facility] Start: 12-16-2026 Diabetes Screening Diabetes [facility] Start: 06-29-2026 End: 06-29-2026 Patient encounter procedure 06/29/2026 8:30 AM EDT Office Visit [facility] [address] [place] [address] Praneeth Segura II, OD [address] [place] [address] Diagnostics[facility] [address] [address] Return in about one year for Eye Exam; Optometry Comment on above: Return in about one year for Eye Exam; Start: 06-13-2026 DIABETES SCREEN DIABETES SCREEN [facility] Start: 06-13-2026 Diabetes Screening Diabetes Screenin g [facility] Start: 01-21-2026 Covid-19 Vaccine ( season) Covid-19 Vaccine () [facility] Comment on above: Postponed from 01/20 (Declined at this time) Start: 12-12-2025 DIABETES SCREEN DIABETES SCREEN [facility] Start: 07-27-2025 End: 07-27-2025 Patient encounter procedure 07/27/2025 10:40 AM EDT Office Visit [facility] [address] [facility] [place] [address] Eze Rodriguez MD [address] [facility] [place] [id number] 6 mo f/u [facility] Comment on above: 6 mo f/u Start: 07-24-2025 End: 10-23-2025 Comprehensive metabolic 2000 panel - Serum or Plasma COMPREHENSIVE METABOLIC PANEL Lab Routine Essential hypertension Mixed hyperlipidemia Expected: 07/24/2025 (Approximate), Expires: 10/23/2025 [facility] Comment on above: Expected: 07/24/2025 (Approximate), Expires: 10/23/2025 Start: 07-24-2025 End: 10-23-2025 Lipid 1996 panel - Serum or Plasma LIPID PANEL, FASTING Lab Routine Essential hypertension Mixed hyperlipidemia Expected: 07/24/2025 (Approximate), Expires: 10/23/2025 [facility] Comment on above: Expected: 07/24/2025 (Approximate), Expires: 10/23/2025 Start: 07-24-2025 End: 10-23-2025 Prostate specific Ag [Mass/volume] in Serum or Plasma PROSTATE-SPECIFIC ANTIGEN DIAGNOSTIC Lab Routine Elevated PSA Expected: 07/24/2025 (Approximate), Expires: 10/23/2025 [facility] Work Phone: Comment on above: Expected: 07/24/2025 (Approximate), Expires: 10/23/2025 Start: 07-23-2025 Anxiety Screening Anxiety Screening [facility] Start: 07-23-2025 Depression Screening Depression Scre ening [facility] Start: 06-28-2025 Influenza vaccination Influenza Vacc ine (#1) [facility] Start: 06-11-2025 DIABETES SCREEN DIABETES SCREEN [facility] Start: 01-21-2025 End: 01-21-2025 Patient encounter procedure 01/21/2025 9:40 AM EDT Office Visit [facility] [address] [facility] [place] [address] Eze Rodriguez MD [address] [place] [address] 6 mo f/u [facility] Comment on above: 6 mo f/u Start: 01-20-2025 End: 04-21-2025 CBC W Auto Differential panel - Blood COMPLETE BLOOD COUNT AND DIFFERENTIAL Lab Routine Essential hypertension Expected: 01/20/2025 (Approximate), Expires: 04/21/2025 [facility] Comment on above: Expected: 01/20/2025 (Approximate), Expires: 04/21/2025 Start: 01-20-2025 End: 04-21-2025 Comprehensive metabolic 2000 panel - Serum or Plasma COMPREHENSIVE METABOLIC PANEL Lab Routine Essential hypertension Mixed hyperlipidemia Expected: 01/20/2025 (Approximate), Expires: 04/21/2025 [facility] Work Phone: Comment on above: Expected: 01/20/2025 (Approximate), Expires: 04/21/2025 Start: 01-20-2025 End: 04-21-2025 Lipid 1996 panel - Serum or Plasma LIPID PANEL BASIC Lab Routine Essential hypertension Mixed hyperlipidemia Expected: 01/20/2025 (Approximate), Expires: 04/21/2025 [facility] Comment on above: Expected: 01/20/2025 (Approximate), Expires: 04/21/2025 Start: 01-20-2025 End: 04-21-2025 Prostate specific Ag [Mass/volume] in Serum or Plasma PROSTATE-SPECIFIC ANTIGEN DIAGNOSTIC Lab Routine BPH with obstruction/lower urinary tract symptoms Elevated PSA Expected: 01/20/2025 (Approximate), Expires: 04/21/2025 [facility] Comment on above: Expected: 01/20/2025 (Approximate), Expires: 04/21/2025 Start: 01-14-2025 End: 01-14-2025 ambulatory 01/14/2025 9:30 AM EDT [facility] [address] [place] [address] lab [facility] Comment on above: lab Start: 12-07-2024 DIABETES SCREEN DIABETES SCREEN [facility] Start: 10-28-2024 Medicare Advantage Annual Wellness Visit Medicare Advantage Annual Wellness Visit [facility] Start: 07-23-2024 End: 07-23-2024 Patient encounter procedure 07/23/2024 8:00 AM EDT Office Visit Family [facility] [address] [place] [address] Eze Rodriguez MD [address] [place] [address] Annual Wellness - 6 month follow up [facility] Comment on above: Annual Wellness - 6 month follow up Start: 06-28-2024 Influenza vaccination Influenza Vacc ine (#1) [facility] Start: 06-23-2024 End: 06-23-2024 Patient encounter procedure 06/23/2024 9:00 AM EDT Office Visit Family Belinda Lacey [address] [place] [address] Eze Rodriguez MD [address] [place] [address] 6 month follow up [facility] Comment on above: 6 month follow up Start: 06-18-2024 ANNUAL PCP TEAM SYSTEMS DESIGN ENGINEER RADHA DISEASE VISIT ANNUAL PCP TEAM CHRONIC DISEASE VISIT [facility] Start: 06-18-2024 End: 09-17-2024 Prostate specific Ag [Mass/volume] in Serum or Plasma PSA/PROSTSPECAG DIAG Lab Routine BPH with obstruction/lower urinary tract symptoms Elevated PSA Expected: 06/18/2024 (Approximate), Expires: 09/17/2024 [facility] Work Phone: Comment on above: Expected: 06/18/2024 (Approximate), Expires: 09/17/2024 Start: 06-18-2024 End: 06-18-2024 ambulatory 06/18/2024 10:00 AM EDT Results Only [facility] Draw Station [address] [place] [address] [facility] Start: 04-16-2024 BP CONTROLLED (<130/80) BP CONTROLLE D (<130/80) [facility] Start: 03-08-2024 End: 08-15-2024 OCT MACULA CIRRUS OU (BOTH EYES) OCT MACULA CIRRUS OU (BOTH EYES) [facility] Imaging Routine Combined forms of age-related cataract of right eye Expected: 03/08/2024, Expires: 08/15/2024 [facility] Work Phone: Comment on above: Expected: 03/08/2024 , Expires: 08/15/2024 Start: 12-19-2023 End: 02-18-2024 Comprehensive metabolic 2000 panel - Serum or Plasma COMP METABOLIC PANEL Lab Routine Mixed hyperlipidemia Expected: 12/19/2023 (Approximate), Expires: 02/18/2024 [facility] Work Phone: Comment on above: Expected: 12/19/2023 (Approximate), Expires: 02/18/2024 Start: 12-19-2023 End: 02-18-2024 Lipid 1996 panel - Serum or Plasma LIPID PANEL BASIC Lab Routine Mixed hyperlipidemia Expected: 12/19/2023 (Approximate), Expires: 02/18/2024 [facility] Work Phone: Comment on above: Expected: 12/19/2023 (Approximate), Expires: 02/18/2024 Start: 12-19-2023 End: 02-18-2024 Prostate specific Ag [Mass/volume] in Serum or Plasma PSA/PROSTSPECAG DIAG Lab Routine BPH with obstruction/lower urinary tract symptoms Elevated PSA Expected: 12/19/2023 (Approximate), Expires: 02/18/2024 [facility] Work Phone: Comment on above: Expected: 12/19/2023 (Approximate), Expires: 02/18/2024 Start: 12-17-2023 ANNUAL PCP TEAM SYSTEMS DESIGN ENGINEER RADHA DISEASE VISIT ANNUAL PCP TEAM CHRONIC DISEASE VISIT [facility] Start: 12-17-2023 BP CONTROLLED (<130/80) BP CONTROLLE D (<130/80) [facility] Start: 10-28-2023 Advance Directive Discussion Advance Directive Discussion [facility] Start: 10-28-2023 Behavioral Health Screening Behavioral Health Screening [facility] Start: 10-28-2023 Depression Assessment Depression Ass essment [facility] Start: 06-28-2023 Covid-19 Vaccine () Covid-19 Vaccine () [facility] Start: 06-28-2023 Influenza vaccination C [facility] Start: 06-16-2023 End: 08-16-2023 Comprehensive metabolic 2000 panel - Serum or Plasma COMP METABOLIC PANEL Lab Routine Mixed hyperlipidemia Expected: 06/16/2023 (Approximate), Expires: 08/16/2023 [facility] Work Phone: Comment on above: Expected: 06/16/2023 (Approximate), Expires: 08/16/2023 Start: 06-16-2023 End: 08-16-2023 Lipid 1996 panel - Serum or Plasma LIPID PANEL BASIC Lab Routine Mixed hyperlipidemia Expected: 06/16/2023 (Approximate), Expires: 08/16/2023 [facility] Work Phone: Comment on above: Expected: 06/16/2023 (Approximate), Expires: 08/16/2023 Start: 06-16-2023 End: 08-16-2023 PSA/PROSTSPECAG SCRN PSA/PROSTSPECAG SCRN Lab Routine BPH with obstruction/lower urinary tract symptoms Screening PSA (prostate specific antigen) Expected: 06/16/2023 (Approximate), Expires: 08/16/2023 [facility] Work Phone: Comment on above: Expected: 06/16/2023 (Approximate), Expires: 08/16/2023 Start: 06-14-2023 Adult depression screening assessment DEPRESSION SCREENING [facility] Start: 06-14-2023 ANNUAL PCP TEAM SYSTEMS DESIGN ENGINEER RADHA DISEASE VISIT ANNUAL PCP TEAM CHRONIC DISEASE VISIT [facility] Start: 06-14-2023 BP CONTROLLED (<130/80) BP CONTROLLE D (<130/80) [facility] Start: 05-13-2023 SHINGRIX VACCINE (3 of 3) SHINGRIX VACCINE (3 of 3) [facility] Start: 02-08-2023 COVID-19 VACCINE (7 - Mixed Product series) COVID-19 VACCINE (7 - Mixed Product series) [facility] Start: 12-15-2022 End: 02-14-2023 CBC panel - Blood by Automated count CBC Lab Routine Essential hypertension Expected: 12/15/2022 (Approximate), Expires: 02/14/2023 [facility] Work Phone: Comment on above: Expected: 12/15/2022 (Approximate), Expires: 02/14/2023 Start: 12-15-2022 End: 02-14-2023 Comprehensive metabolic 2000 panel - Serum or Plasma COMP METABOLIC PANEL Lab Routine Essential hypertension Mixed hyperlipidemia Expected: 12/15/2022 (Approximate), Expires: 02/14/2023 [facility] Work Phone: Comment on above: Expected: 12/15/2022 (Approximate), Expires: 02/14/2023 Start: 12-15-2022 End: 02-14-2023 Lipid 1996 panel - Serum or Plasma LIPID PANEL BASIC Lab Routine Essential hypertension Mixed hyperlipidemia Expected: 12/15/2022 (Approximate), Expires: 02/14/2023 [facility] Work Phone: Comment on above: Expected: 12/15/2022 (Approximate), Expires: 02/14/2023 Start: 12-15-2022 End: 02-14-2023 Prostate specific Ag [Mass/volume] in Serum or Plasma PSA/PROSTSPECAG DIAG Lab Routine Elevated PSA Expected: 12/15/2022 (Approximate), Expires: 02/14/2023 [facility] Work Phone: Comment on above: Expected: 12/15/2022 (Approximate), Expires: 02/14/2023 Start: 12-14-2022 ANNUAL PCP TEAM SYSTEMS DESIGN ENGINEER RADHA DISEASE VISIT ANNUAL PCP TEAM CHRONIC DISEASE VISIT [facility] Start: 12-14-2022 BP CONTROLLED (<130/80) BP CONTROLLE D (<130/80) [facility] Start: 07-12-2022 COVID-19 VACCINE (5 - Booster) COVID-19 VACCINE (5 - Booster) [facility] Start: 06-28-2022 Influenza vaccination INFLUENZA (#1) [facility] Start: 06-13-2022 Adult depression screening assessment DEPRESSION SCREENING [facility] Start: 12-25-2021 COVID-19 VACCINE (4 - Booster) COVID-19 VACCINE (4 - Booster) [facility] Start: 10-28-2021 ADVANCE DIRECTIVE DISCUSSION ADVANCE DIRECTIVE DISCUSSION [facility] Start: 12-04-2011 SHINGRIX VACCINE (2 of 3) SHINGRIX VACCINE (2 of 3) [facility] Start: 1987 COLOGUARD (FIT-DNA) COLOGUARD (FIT-D NA) [facility] Start: [address] COLONOGRAPHY [facility] Start: 1987 FECAL OCCULT BLOOD FECAL OCCULT BLOO D [facility] Start: 1987 Screening for malign ant neoplasm of colon [facility] Start: 1987 SIGMOIDOSCOPY SIGMOIDOSCOPY [facility] Start: 1960 BP CONTROLLED (<130/80) BP CONTROLLE D (<130/80) [facility] CORNEAL TOPOGRAPHY ATLAS OU (BOTH EYES) CORNEAL TOPOGRAPHY ATLAS OU (BOTH EYES) OPHT Imaging Routine Combined forms of age-related cataract of right eye Ordered: 02/22/2023 [facility] Work Phone: Comment on above: Ordered: 02/22/2023 End: 06-14-2023 HOME SLEEP APNEA TEST (HSAT) HOME SLEEP APNEA TEST (HSAT) Procedures Routine JOSE (obstructive sleep apnea) 1 Occurrences starting 06/14/2022 until 06/14/2023 [facility] Work Phone: Comment on above: 1 Occurrences starti ng 06/14/2022 until 06/14/2023 End: 12-17-2023 HOME SLEEP APNEA TEST (HSAT) HOME SLEEP APNEA TEST (HSAT) Procedures Routine JOSE (obstructive sleep apnea) 1 Occurrences starting 12/17/2022 until 12/17/2023 [facility] Work Phone: Comment on above: 1 Occurrences starti ng 12/17/2022 until 12/17/2023 End: 08-12-2023 PAP TITRATION PSG (CPAP, BIPAP, ASV) PAP TITRATION PSG (CPAP, BIPAP, ASV) Procedures Routine JOSE (obstructive sleep apnea) 1 Occurrences starting 07/13/2022 until 08/12/2023 [facility] Work Phone: Comment on above: 1 Occurrences starti ng 07/13/2022 until 08/12/2023 End: 01-16-2024 PAP TITRATION PSG (CPAP, BIPAP, ASV) PAP TITRATION PSG (CPAP, BIPAP, ASV) Procedures Routine JOSE (obstructive sleep apnea) 1 Occurrences starting 12/17/2022 until 01/16/2024 [facility] Work Phone: Comment on above: 1 Occurrences starti ng 12/17/2022 until 01/16/2024 Patient Education [facility] Work Phone: Patient referral [facility] Work Phone: End: 12-17-2023 Screening colonoscopy COLONOSCOPY SCREENING Endoscopy Routine Personal history of colonic polyps Special screening for malignant neoplasms, colon 1 Occurrences starting 12/17/2022 until 12/17/2023 [facility] Work Phone: Comment on above: 1 Occurrences starti ng 12/17/2022 until 12/17/2023 [facility] Immunizations Immunization Date Immunization Notes Care Provider Fa [facility] 07-23-2024 COVID-19 vaccine, ag e 12+ yr ([facility] [employer] [facility]) Eze Rodriguez MD Work Phone: [facility] 07-23-2024 influenza, high dose seasonal, preservative-free Eze Rodriguez MD Work Phone: [facility] 07-23-2024 influenza virus vacc ine, unspecified formulation Eze Rodriguez MD Work Phone: [facility] 08-12-2023 influenza (aIIV4) vaccine, age 65+ yr, quadrivalent, PF (FLUAD QUAD) Eze Rodriguez MD Work Phone: [facility] 08-12-2023 pneumococcal conjuga te (PCV20) vaccine, 20 valent (PREVNAR 20) Eze Rodriguez MD Work Phone: [facility] 08-12-2023 respiratory syncytia l virus (RSV) vaccine, bivalent (ABRYSVO) Eze Rodriguez MD Work Phone: [facility] 08-12-2023 influenza virus vacc ine, unspecified formulation Varsha Manleyarmin GRAEVS [facility] 05-20-2023 zoster vaccine recombinant Eze Rodriguez MD Work Phone: [facility] 03-18-2023 zoster vaccine recombinant Nicki Gomez PA-C Work Phone: [facility] Work Phone: 10-10-2022 influenza (aIIV4) vaccine, age 65+ yr, quadrivalent, PF (FLUAD QUAD) Nicki Patricia PA-C Work Phone: [facility] Work Phone: 10-10-2022 influenza virus vacc ine, unspecified formulation Eze Rodriguez MD Work Phone: [facility] 05-25-2022 zoster vaccine recombinant Eze Rodriguez MD Work Phone: [facility] 05-17-2022 COVID-19 original vaccine, full dose, monovalent (MODERNA) Nicki Shemarann PA-C Work Phone: [facility] Work Phone: 10-17-2021 influenza (aIIV4) vaccine, age 65+ yr, quadrivalent, PF (FLUAD QUAD) Nicki Toddlmann PA-C Work Phone: [facility] Work Phone: 08-24-2021 COVID-19 original vaccine, full dose, monovalent (MODERNA) Nicki Toddlmann PA-C Work Phone: [facility] Work Phone: 12-29-2020 COVID-19 vaccine, fu ll dose (MODERNA) Eze Rodriguez MD Work Phone: [facility] 12-01-2020 COVID-19 original vaccine, full dose, monovalent (MODERNA) Nicki Toddlmann PA-C Work Phone: [facility] Work Phone: 12-01-2020 COVID-19 vaccine (UNSPECIFIED) Eze Rodriguez MD Work Phone: [facility] 07-08-2020 influenza, injectabl e, quadrivalent, preservative free Nicki Gomez PA-C Work Phone: [facility] Work Phone: 08-26-2019 Seasonal trivalent influenza vaccine, adjuvanted, preservative free Nicki Gomez PA-C Work Phone: [facility] Work Phone: 12-04-2018 tetanus toxoid, redu natacha diphtheria toxoid, and acellular pertussis vaccine, adsorbed Eze Rodriguez MD Work Phone: [facility] 10-04-2018 Seasonal trivalent influenza vaccine, adjuvanted, preservative free Eze Rodriguez MD Work Phone: [facility] 10-02-2018 influenza, high dose seasonal, preservative-free Eze Rodriguez MD Work Phone: [facility] 08-28-2017 influenza, high dose seasonal, preservative-free Eze Rodriguez MD Work Phone: [facility] 08-17-2017 Seasonal trivalent influenza vaccine, adjuvanted, preservative free Eze Rodriguez MD Work Phone: [facility] 07-22-2015 influenza, seasonal, injectable Eze Rodriguez MD Work Phone: [facility] 07-22-2015 pneumococcal conjuga te vaccine, 13 valent Eze Rodriguez MD Work Phone: [facility] 07-20-2014 influenza, seasonal, injectable Eze Rodriguez MD Work Phone: [facility] 10-09-2011 pneumococcal polysaccharide vaccine, 23 valent Eze Rodriguez MD Work Phone: [facility] Work Phone: 10-09-2011 tetanus toxoid, adsorbed Kylie Rodriguez MD Work Phone: [facility] Work Phone: 10-09-2011 zoster vaccine, live Eze desir MD Work Phone: [facility] Work Phone: 07-31-2011 influenza virus vacc ine, unspecified formulation Eze Rodriguez MD Work Phone: [facility] Work Phone: 10-14-2009 influenza virus vacc ine, unspecified formulation Eze Rodriguez MD Work Phone: [facility] Work Phone: 09-09-2007 influenza virus vacc ine, whole virus Eze Rodriguez MD Work Phone: [facility] Payers Date Payer Category Payer Private Health Insurance [employer] [place] [place] [address] [id number] 10-28-2024 Unknown [id number] 07-19-2023 Self-pay [id number] 10-28-2021 Medicare (Managed Care) [employer] PPO [id number] 10-28-2021 Unknown AN[facility]M [facility]UE [facility] AND BLUE SHIELD ANTHEM MEDIBLUE ACCESS [id number] 10/28/2021-Present [phone] [address] [place] [address] PPO [id number] 10-28-2021 Unknown [id number] 10-28-2021 Unknown [id number] Medicare [id number] Unknown [id number] Unknown [id number] Social History Date Type Detail Facility Start: 08-15-2015 Tobacco smoking status CTIS Never smoked tobacco [facility] Start: 12-14-2021 End: 06-23-2025 Alcohol intake Current drinker of alcohol (finding) [facility] Start: 10-09-2011 History SDOH Alcohol Comment moderate [facility] Start: 1940 Sex Assigned At Male [facility] Start: 05-26-2022 End: 07-19-2023 Tobacco smoking status CTIS Unknown if ever smoked [facility] Start: 08-15-2015 Tobacco use and exposure Smokeless tobacco non-user [facility] Start: 06-04-2022 End: 06-14-2022 Exposure to SARS-CoV-2 (event) Not sure [facility] Start: 05-03-2023 End: 07-22-2024 History of Social function [facility] Work Phone: Start: 05-03-2023 End: 07-22-2024 Tobacco use panel [facility] Work Phone: Start: 09-28-2012 Adult Depression Screening Assessment 0 [facility] Work Phone: Start: 12-07-2021 Gender identity Identifies as male gender (finding) [facility] Start: 10-16-2018 Sexual orientation Heterosexual (finding) [facility] Do you belong to any clubs or organizations such as sikh groups, unions, fraternal or athletic groups, or school groups? No [facility] Are you now , , , , never or living with a partner? [facility] How often to you hav e a drink containing alcohol? 2-3 time sa week [facility] How many standard dr inks containing alcohol do you have on a typical day? 1 or 2 [facility] How often do you hav e 6 or more drinks on 1 occasion? Never [facility] Do you feel stress - tense, restless, nervous, or anxious, or unable to sleep at night because your mind is troubled all the time - these days [OSQ] Not at all [facility] ([facility]/We) [facility] (my[facility]our) [facility] would run out before (I/we) got money to buy more. Never true [facility] Medical Equipment Procedure Code Equipment Code Equipment Origin al Text Equipment Identifier Dates [employer] [id number] 18.0d [id number] Start: 04-25-2023 Comment on above: Description: -0.19 Mental Status Date Assessment Result Facility 07-19-2023 Cognitive function Level Of Cons ciousness Awake;Alert;Appropriate;Follow s Commands [facility] Work Phone: Clinical Notes 03-01-2011 to 08-24-2025 Patient InstructionsCoPraneeth fagan II, OD - 06/23/2025 9:52 AM EDTTelephone Encounter - Annie Day LPN - 02/15/2025 11:01 AM Eze Nicolas MD - 01/21/2025 9:40 AM EDT Note Date & Type Note Facility 08-24-2025 Note HNO ID: [id number] Author: EZE RODRIGUEZ MD Service: ? Author [...] General (Family Medicine) Terry Champion APRN.DERRICK as [employer] Computer Data [employer]or (Family Medicine) Outside specialists seen: Eye-Dr. Segura, [...] Exam Immunizations: Flu vaccination Recording using ambient [employer] software for draft documentation of the visit was discussed with the patient/authorized outbound sales representative; all questions welcomed and answered. Patient/authorized outbound sales representative agreed to proceed HPI Domo Bolden [...] COLONOSCOPY W/BIOPSY SINGLE/MULTIPLE 12/29/2009 LAP APPY AT [facility] OTHR SRGY PAST SURGICAL HISTORY OF 02/2011 Laparoscopic Appendectomy and Drainage - Dr. Nick Bustamante, [facility] REMV CATARACT EXTRACAP,INSERT LENS Right 07/2023 Done at [facility] TONSILLECTOMY AND ADENOIDECTOMY TONSILLECTOMY HX Family Histor (more content not included)... [facility] 06-23-2025 Instructions Praneeth Segura II, OD - [...] its relevant components. documented in this encounter [facility] 06-23-2025 Note HNO ID: [id number] Author: PRANEETH SEGURA II, OD Service: ? Author Type: Wet Finisher Wool Type: Progress Notes Filed: 06/23/2025 09:56 Note [...] agree with all of its relevant components. [facility] 06-23-2025 History of Presen t illness Narrative [...] its relevant components. documented in this encounter [facility] 02-15-2025 Telephone encounter Note Images from the original note were not included. Electronic PA rec'd and completed for tadalafil. This was approved. Prior authorization approved Payer: Trudy Note from radha: [employer] Case: [id number], Status: Approved, Coverage Starts on: 11/17/2024 12:00:00 AM, Coverage Ends on: 02/15/2026 12:00:00 AM. Approval Details Authorization number: [id number] Authorized from November 17, 2024 to February [...] to its destination. To be filled at: [place] [address] - [address] [phone] [facility] 02-15-2025 Miscellaneous Notes Images from the original note were not included. Electronic OMKAR rec'd and completed for tadalafil. This was approved. Prior authorization approved Payer: Trudy Note from payer: [employer] Case: [id number], Status: Approved, Coverage Starts on: 11/17/2024 12:00:00 AM, Coverage Ends on: 02/15/2026 12:00:00 AM. Approval Details Authorization number: [id number] Authorized from November 17, 2024 to February 15, 2026 Electronic appeal: Not supported View History Notes Time User Attachment Attachment received from [employer]. 02/15/2025 10:53 AM [facility], Rx Priorauth In Document Medication Being Authorized Tadalafil (CIALIS) 5 mg tablet Take 1 tablet by mouth once daily. Dispense: 90 tablet Refills: 3 Start: 02/15/2025 Class: Normal Diagnoses: BPH with obstruction/lower urinary tract symptoms This order has been released to its destination. To be filled at: [place] [address] - [address] [facility] [phone] documented in this encounter [facility] 02-15-2025 Telephone encounter Note The following approved medication requests have been transmitted electronically. Requested Prescriptions Pending Prescriptions Disp Refills Tadalafil (CIALIS) 5 mg tablet 90 tablet 3 Sig: Take 1 tablet by mouth once daily. Terry Champion APRN.CNP [facility] 02-15-2025 Miscellaneous Notes The following approved [...] 2025 10:21 AM documented in this encounter [facility] 02-15-2025 Telephone encounter Note Prescription Refill [...] Mendoza LPN February 15, 2025 10:21 AM [facility] 01-21-2025 History of Presen t illness [...] watch diet, no particular diet. Stopped buying niuean fries and eliminate potato chips. 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 HM - Reji having Adv Dir/Living Will. [...] COLONOSCOPY W/BIOPSY SINGLE/MULTIPLE 12/29/2009 LAP APPY AT [facility] OTHR SRGY PAST SURGICAL HISTORY OF 02/2011 Laparoscopic Appendectomy and Drainage - Dr. Nick Bustamante, [facility] REMV CATARACT EXTRACAP,INSERT LENS Right 07/2023 Done at [facility] TONSILLECTOMY & ADENOIDECTOMY <AGE 12 [...] Take 50 mg by mouth twice daily. ccefecpn-eoh-SO-lycopen-lutein (CENTRUM SILVER MEN) 300-600-300 mcg tab Take 1 tablet by mouth once daily. Aspirin 500 mg tab Take 500 mg by mouth once daily. [place]-3 Fatty Acids-Vitamin E 1,000 mg cap Take [...] 01/14/2025 1.84 Monocytes % 01/14/2025 9.3 Abs [place] 01/14/2025 0.49 Eosinophils % 01/14/2025 6.7 Abs [...] Lisinopril 5 mg daily; refill sent to [facility]. - Monitor blood pressure at [...] The patient consented to the use of [employer] software for draft documentation of the visit consistent with [facility] s Notice of Privacy Practices. documented in this encounter [facility] 01-21-2025 Note HNO ID: [id number] Author: EZE RODRIGUEZ MD Service: ? Author [...] watch diet, no particular diet. Stopped buying niuean fries and eliminate potato chips. 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 HM - Reji having Adv Dir/Living Will. [...] COLONOSCOPY W/BIOPSY SINGLE/MULTIPLE 12/29/2009 LAP APPY AT [facility] OTHR SRGY PAST SURGICAL HISTORY OF 02/2011 Laparoscopic Appendectomy and Drainage - Dr. Nick Bustamante, [facility] REMV CATARACT EXTRACAP,INSERT LENS Right 07/2023 Done at [facility] TONSILLECTOMY AND ADENOIDECTOMY TONSILLECTOMY HX [...] Take 50 mg by mouth twice daily. itjtuqxc-pmg-KU-lycopen-lutein (CENTRUM SILVER MEN) 300-600-300 mcg tab Take 1 tablet by mouth once daily. Aspirin 500 mg tab Take 500 mg by mouth once daily. [place]-3 Fatty Acids-Vitamin E 1,000 mg cap Take [...] No ectopy. Extrem (more content not included)... [facility] 08-12-2024 Telephone encounter Note Patient calling to request refill of Lisinopril 5 mg. He says his BP was running 170's-180's/80's-90's so he resumed his Lisinopril 5 mg a few days ago. His BP since then is running 130-140's/70's-80's. HR-70's-80's. No symptoms of dizziness or lightheadedness since resuming med. Pended. Gabbi Esparza, RN [facility] 08-12-2024 Miscellaneous Notes Patient calling to request refill of Lisinopril 5 mg. He says his BP was running 170's-180's/80's-90's so he resumed his Lisinopril 5 mg a few days ago. His BP since then is running 130-140's/70's-80's. HR-70's-80's. No symptoms of dizziness or lightheadedness since resuming med. Pended. Gabbi Esparza, RN documented in this encounter [facility] 07-23-2024 History of Presen t illness [...] Optometry. Dentist - Follows with Provider in [place]. Medical/Family history review Reviewed and updated problem [...] COLONOSCOPY W/BIOPSY SINGLE/MULTIPLE 12/29/2009 LAP APPY AT [facility] OTHR SRGY PAST SURGICAL HISTORY OF 02/2011 Laparoscopic Appendectomy and Drainage - Dr. Nick Bustamante, [facility] REMV CATARACT EXTRACAP,INSERT LENS Right 07/2023 Done at [facility] TONSILLECTOMY & ADENOIDECTOMY <AGE 12 [...] Take 50 mg by mouth twice daily. dohvozlf-vcd-TO-lycopen-lutein (CENTRUM SILVER MEN) 300-600-300 mcg tab Take 1 tablet by mouth once daily. Aspirin 500 mg tab Take 500 mg by mouth once daily. [place]-3 Fatty Acids-Vitamin E 1,000 mg cap Take [...] YR, HIGH DOSE, TRIVALENT (FLUZONE HIGH-DOSE) - [employer] COVID-19 VACCINE AGE 12+ YR ([place]IRNATY) Follow up in 6 months with fasting labs. I agree with the Chief Complaint, ROS, and Past Histories independently gathered by the clinical lan support specialist and the remaining scribed note accurately describes my personal service to the patient. Eze Rodriguez MD The documentation for this note was completed by Briseyda Diaz MA acting as scribe for Eze Rodriguez MD. July 23, 2024 8:29 AM. Briseyda Diaz MA documented in this encounter [facility] 05-19-2024 History of Presen t illness Narrative POPULATION HEALTH NAVIGATION OUTREACH Action/FYI Patient is on [facility] CURRENT ROSTER Workbench list for below and [...] labs: Medicare Annual Wellness Visit 07/23/2024 in [facility] with EZE RODRIGUEZ - Annual Wellness - 6 month follow up, Please address due care gaps and HCC gap closure Updated appointment note Navigation Signature: Sabiha Estrada MA May 19, 2024 8:30 AM documented in this encounter [facility] 04-27-2024 History of Presen t illness Narrative POPULATION HEALTH NAVIGATION OUTREACH Action/April 27, 2024 7:35 AM Patient is on [facility] Medication Adherence list for the following medications: lisinopril 5 mg tablet Sig: take 1 tablet by mouth once daily. Dispensed: 04/20/2024 12:00 AM Unit strength: 5 mg Unit form: tablet Days supply: 90 Quantity: 90 Each Refills remainin Dispense due date 03.20.2024 Unable to access [facility] at this time to review Medication dispense history. [facility] [id number] Outcome: Per Medication Dispense History, medication was dispensed on late on 04.20.2024 Reason for Outreach Med Adherence Patient Contacted: No outreach needed: RX filled per reconcile dispense Navigation Signature: Varsha Ohara MA April 27, 2024 7:35 AM documented in this encounter [facility] 04-23-2024 Instructions Praneeth Segura II, OD [...] its relevant components. documented in this encounter [facility] 04-23-2024 History of Presen t illness [...] its relevant components. documented in this encounter [facility] 04-09-2024 History of Presen t illness Narrative POPULATION HEALTH NAVIGATION OUTREACH Action/FYI April 09, 2024 11:25 AM Patient is on [facility] Medication Adherence list for the following medications: LISINOPRIL 5 MG TABLET Sig: take 1 tablet by mouth once daily Dispensed: 12/21/2023 12:00 AM Unit strength: 5 mg Unit form: tablet Days supply: 90 Quantity: 90 Each Refills remainin Dispense due date 03.20.2024 [id number] [address] [facility] [address] lisinopril (ZESTRIL) 5 mg tablet 90 tablet 3 01/03/2024 -- Sig: Take 1 tablet by mouth once daily. Sent to [facility] pharmacy per patient request Unable to access [employer] portal at this time to review Medication dispense history. Per Medication dispense reconcile in [facility], patient is due for refill, 0 refills remain NOV with PCP is scheduled on 06.23.2024 Outcome: Spoke with patients April. Discussed his medication for Lisinopril. She will give message to patient to contact [facility]'s pharmacy to get his next refill. [...] 2024 11:24 AM documented in this encounter [facility] 01-06-2024 Miscellaneous Notes Images from the original note were not included. Prior authorization approved Payer: Trudy ESPITIA Case: [id number], Status: Approved, Coverage Starts on: 10/28/2023 12:00:00 AM, Coverage Ends on: 01/05/2025 12:00:00 AM. Approval Details Authorization number: [id number] Authorized from October 28, 2023 to January 05, 2025 Electronic appeal: Not supported View History Medication Being Authorized Tadalafil (CIALIS) 5 mg tablet Take 1 tablet by mouth once daily. Dispense: 90 tablet Refills: 3 Start: 01/03/2024 Class: Normal Diagnoses: BPH with obstruction/lower urinary tract symptoms This order has been released to its destination. To be filled at: [facility] [place] [address] - [address] [place] [phone] [id number] Pharmacy notified. Covermymeds PA recc'd for tadalafil. This PA was completed electronically. documented in this encounter [facility] 01-03-2024 Miscellaneous Notes OK to refill [...] Yesi Yuriy Pss. documented in this encounter [facility] 01-03-2024 Miscellaneous Notes OK to refill as ordered Eze Rodriguez MD Patient is calling in to change the pharmacy to [facility]. Yesi Elena documented in this encounter [facility] 12-19-2023 History of Presen t illness [...] JOSE: Uses CPAP machine, getting supplies through [facility]. That is working well for him. Pressure [...] COLONOSCOPY W/BIOPSY SINGLE/MULTIPLE 12/29/2009 LAP APPY AT [facility] OTHR SRGY PAST SURGICAL HISTORY OF 02/2011 Laparoscopic Appendectomy and Drainage - Dr. Nick Bustamante, [facility] REMV CATARACT EXTRACAP,INSERT LENS Right 07/2023 Done at [facility] TONSILLECTOMY & ADENOIDECTOMY <AGE 12 [...] Take 50 mg by mouth twice daily. mpbazfmu-qtm-VA-lycopen-lutein (CENTRUM SILVER MEN) 300-600-300 mcg tab Take 1 tablet by mouth once daily. Aspirin 500 mg tab Take 500 mg by mouth once daily. [place]-3 Fatty Acids-Vitamin E 1,000 mg cap Take [...] Past Histories independently gathered by the clinical lan support specialist and the remaining scribed note accurately describes [...] Verena Hurt Ma documented in this encounter [facility] 12-17-2023 History of Presen t illness Narrative Domo Bolden is identified through a medication adherence outreach initiative based on pharmacy claims data from [employer] (insurer) for EMILIA medication(s). Patient is reviewed 12/17/23 due to medication adherence concerns with the following medications (name, strength, sig): Lisinopril 5mg take 1 tablet every day. Per reconcile dispense, last fill date and days supply: last fill 09/25/23 and next fill due 12/24/23 Outcome of review/outreach: (choose outcome source and status) - sent mychart reminder Ashleigh Ruth ([employer]) documented in this encounter [facility] 07-19-2023 Discharge summary Note Date/Time July 19, 2023 6:06pm [facility] Medical Records Department [address] [place] [address] Emergency Department Summary 07/19/23 MR#: [id number] Acct: [id number] Name: DOMO BOLDEN Rep #:[id number] : [...] problems, contact your Primary Care Provider. Call [facility] ([phone]) or report to the closest Emergency Room. Call 911 if necessary. 07/19/232115 <Electronically signed by Rocky Willis MD> Cosigner Signature (if applicable): CC: Dr. Eze Rodriguez MD ~ Signed [facility] Work Phone: 1(432) 580-474509-22-2023 Miscellaneous Notes* Telephone Encounter - Ankita Jones [...] Denies other symptoms Protocols used: Dizziness - [id number] documented in this encounterCorey [facility] History of Present illness Narrative* Eze Rodriguez MD - 06/18/2023 11:20 AM EDT Chief Complaint Patient presents with: 6 Month Exam HPI Domo Bolden is a 82 year old male who presents here today for 6 month follow up. No bowel, Gi, or urinary issues. Hx of kidney stones. Fhx colon cancer. His last Colonoscopy was [id number] with recommended 5 year repeat. Using Cialis [...] day or while driving. Getting supplies from [employer] Past medical history, appointments, medications, allergies reviewed. [...] Appendectomy and Drainage - Dr. Nick Bustamante, [facility] TONSILLECTOMY & ADENOIDECTOMY <AGE 14 childhood TONSILLECTOMY [...] Take 50 mg by mouth twice daily. cfaaqnbk-wbs-OK-lycopen-lutein (CENTRUM SILVER MEN) 300-600-300 mcg tab Take 1 tablet by mouth oncedaily. Aspirin 500 mg tab Take 500 mg by mouth once daily. [place]-3 Fatty Acids-Vitamin E 1,000 mg cap Take [...] Past Histories independently gathered by the clinical lan support specialist and the remaining scribed note accurately describes [...] AM. Verena Hurt Ma documented [facility] encounter[facility]07-28-[facility]23 History of Present illness Narrative* Nick [...] 24, 2023 9:34 AM documented in this encounterCorey Hospital06-30-2023 Instructions* Patient Instructions* Isamar Platt MD [...] have questions, my office phone number is [phone]. After hours, and on weekends or holidays, please call the [facility] dredge lever operator at [phone] and ask for the eye doctor civil engineering draftsperson. documented in this encounterCorey Hospital06-30-2023 History of Present illness Narrative* Isamar [...] of its relevant components. documented in this encounterCorey Hospital06-20-2023 Instructions* Patient Instructions* Nicki Gomez PA-C - 04/16/2023 11:31 AM EDT [facility] Patient Instructions for Surgery FOOD INSTRUCTIONS: NO [...] anesthesia, you must have a responsible adult driver/refuse collector take you home, andbe with you after surgery. You may use a ride service such as Lyft, Uber, or [employer] as longas you have a responsible adult accompanying you and taking responsibility for you. We strongly recommend a reliable adult stays with you overnight to help take care of you. If you have any questions or concerns regarding today's visit please do not hesitate to contact [facility] at [phone] or [phone], ext [phone]. Signature: Nicki Merrill Date: April 16, 2023 documented in this encounterCorey Hospital06-20-2023 History and physical note * Nicki [...] COLONOSCOPY W/BIOPSY SINGLE/MULTIPLE 12/29/2009 LAP APPY AT [facility] OTHR SRGY PAST SURGICAL HISTORY OF 02/2011 Laparoscopic Appendectomy and Drainage - Dr. Nick Bustamante, [facility] TONSILLECTOMY & ADENOIDECTOMY <AGE 14 childhood TONSILLECTOMY [...] Take 50 mg by mouth twice daily. oajxbasp-uge-RM-lycopen-lutein (CENTRUM SILVER MEN) 300-600-300 mcg tab Take 1 tablet by mouth oncedaily. Aspirin 500 mg tab Take 500 mg by mouth once daily. 0 [place]-3 Fatty Acids-Vitamin E 1,000 mg cap Take [...] fevers. Neuro: No history of TIA's, stroke, DAIRY FEED SALES CONSULTANT tumor, impaired sensorium, hemiplegia, paraplegia or quadriplegia. [...] 2023 TIME: 11:05 AM documented in this encounterCorey Hospital06-20-2023 Nurse Note* Jennifer Jones LPN - [...] pacemaker check: Reviewed medications?yes documented in this encounterCorey Hospital04-28-2023 History of Present illness Narrative* Isamar [...] of its relevant components. documented in this encounterCorey Hospital04-17-2023 Miscellaneous Notes* Telephone Encounter - Cally Euceda RN - 02/11/2023 12:09 PM EDT Colonoscopy Results documented in this encounterCorey Hospital04-15-2023 Miscellaneous Notes* Telephone Encounter - Brenda Moore MD - 02/09/2023 11:12 AM EDT FOLLOW UP ENDOSCOPY - RESULTS AND RECOMMENDATIONS NAME: Domo Bolden CLINIC NO.: [id number] : 1940 DATE: February 09, 2023 PRIMARY [...] to the appropriate providers documented in this encounterCorey Hospital04-03-2023 Miscellaneous Notes* Telephone Encounter - Ankita Jones RN - 01/28/2023 11:46 AM EDT Patient calls back and is requesting CPAP order to be faxed to [employer] [phone]. Order, face sheet, office notes, PAP titration [...] choice. Eze Rodriguez MD documented in this encounterCorey Hospital03-27-2023 History of Present illness Narrative* Heather Arevalo - 01/21/2023 4:20 AM EDT Sleep Study Check-In Documentation Date: January 21, 2023 Name: Domo Bolden Patient was accompanied by Self. Location: [place] allergy: No Tape allergy: No Current medications were reviewed with the patient:Yes Sleep aid taken by patient for the sleep study: Angus of sleep aid: Not Applicable Procedure was explained to the patient and all questions were answered. PAP treatment discussed and shown to patient: Yes If PAP used enter mask info: Mask Name Simplus MakeF&P MaskTypeFull Face Mask SizeMedium Chin Sharp Used No Knowledge Program (KP): KP was not completed in [facility] by patient and accepted Study type: [...] provider PAP TITRATION PSG (CPAP, BIPAP, ASV) [[id number]] 12/17/22 Eze Rodriguez MD Assoc. diagnoses: JOSE [...] A: Yes HOME SLEEP APNEA TEST (HSAT) [[id number]] 12/17/22 Eze Rodriguez MD Assoc. diagnoses: JOSE [...] from Dr. Eze Rodriguez MD, a [facility] Staff. Visit prep complete. Comments :No The sleep study is scheduled for 01/20. Insurance: Payor: [employer] / Plan: ANTHEM MEDIBLUE ACCESS / Product Type: PPO / Payer/Plan Subscr Sex Relation Sub. Ins. ID Effective Group Num 1. DOMO ADLER 1940 Male Self [id number] [birth year] [address] Lavern Hummel documented in this encounterCorey Hospital02-22-2023 Miscellaneous Notes* Telephone Encounter - Varsha [...] needs to be deleted. documented in this encounterCorey Hospital02-20-2023 History of Present illness Narrative* Eze [...] Appendectomy and Drainage - Dr. Nick Bustamante, [facility] TONSILLECTOMY & ADENOIDECTOMY <AGE 14 childhood Family [...] Take 50 mg by mouth twice daily. enbakaqi-sre-HS-lycopen-lutein (CENTRUM SILVER MEN) 300-600-300 mcg tab Take 1 tablet by mouth oncedaily. Aspirin 500 mg tab Take 500 mg by mouth once daily. [place]-3 Fatty Acids-Vitamin E (FISH OIL) 1,000 mg [...] Past Histories independently gathered by the clinical lan support specialist and the remaining scribed note accurately describes [...] 17, 2022 12:49 PM. Verena Hurt Ma [facility] OPEN ACCESS QUESTIONNAIRE 1. Are you currently [...] Please send all open access questionnaires to [facility] Pool #[id number] documented in this encounterCorey Hospital09-22-2022 Miscellaneous Notes* Telephone Encounter - Briseyda Diaz Ma - 07/19/2022 9:16 AM EDT Sent [employer] message to pt notifying him of response below from Provider. Await pt response via [employer]. Briseyda Diaz Ma * Telephone Encounter - [...] placed. Terry Champion APRN.CNP documented in this encounterCorey Hospital09-13-2022 History of Present illness Narrative* Leigh [...] Alexis - 06/18/2022 8:31 AM EDT [employer]# [id number] Mail out date: 07/03/2022 [employer] Shipping #: [id number] [employer] Return #: [id number] * Lucho Mello III, PhD - 06/15/2022 12:49 PM EDT June 15, 2022 Standing PSG Orders signed in the last 90 days None Future PSG Orders signed in the last 90 days Ordered Auth. provider HOME SLEEP APNEA TEST (HSAT) [[id number]] 06/14/22 Eze Rodriguez MD Assoc. diagnoses: JOSE [...] needed, and agree to the plan. Lucho eMllo III, PhD 4:09 PM, 06/15/2022 * Chanel Jones - 06/15/2022 8:02 AM EDT June 15, 2022 An order has been received for Home Sleep Apnea Test (HSAT) from Dr. Eze Rodriguez, a [facility] Staff. Visit prep complete. Comments :No The sleep study is scheduled for 06/19/2022. Insurance: Payor: [employer] / Plan: ANTHEM MEDIBLUE ACCESS / Product Type: PPO / Payer/Plan Subscr Sex Relation Sub. Ins. ID Effective Group Num 1. DOMO ADLER 1940 Male Self [id number] [birth year] [address] Chanel Jones documented in this encounterCorey Hospital08-18-2022 History of Present illness Narrative* Cheryl [...] 14, 2022 10:07 AM documented in this encounterCorey Hospital08-18-2022 History of Present illness Narrative* Eze [...] about 3-4 weeks ago he was in [facility] ED for a kidney stone. Pt states [...] Appendectomy and Drainage - Dr. Nick Bustamante, [facility] TONSILLECTOMY & ADENOIDECTOMY <AGE 14 childhood Family [...] Take 50 mg by mouth twice daily. apiypvjc-cfj-FB-lycopen-lutein (CENTRUM SILVER MEN) 300-600-300 mcg tab Take 1 tablet by mouth oncedaily. Aspirin 500 mg tab Take 500 mg by mouth once daily. [place]-3 Fatty Acids-Vitamin E (FISH OIL) 1,000 mg [...] Moderate Eze Rodriguez MD documented in this encounterCorey Hospital08-01-2022 History of Present illness Narrative* Verena Hurt Ma - 05/28/2022 9:44 AM EDT View External Imaging - CT Scan [ID [id number]] Scan on 05/26/2022 2:04 PM by External Provider: Consultation - Emergency Medicine [facility] ER Reports and CT abd/pelv. Has appt on 06/14/22 for 6 month follow up. Verena Hurt Ma documented in this encounterCorey Hospital04-13-2022 Miscellaneous Notes* Telephone Encounter - Verena [...] ordered Eze Rodriguez MD documented in this encounterCorey Hospital05-05-2011 History of Past illness Narrative* Problem Noted Date Resolved Date Appendicitis 03/01/2011 04/26/2017 Overview: S/p laparoscopic appendectomy/drainage -- Dr. 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 07/08/2008 04/26/2017 Overview: 2+ TR per stress echo 2004 (incidental finding) 1+ in 1998 Family history of other card iovascular diseases(V17.49) 07/07/2008 04/26/2017 Overview: Uncertain details, but father of CVD at around age 67; brother 2 years older, heart healthy documented as of this encounter (statuses as of 01/06/2024) [facility]* Diagnosis Essential hypertension Unspecified essential hypertension documented in this encounter [facility] noteNo assessment information availableWTuscarawas Hospital Work Phone: Evaluation note* Diagnosis Essential hypertension- Primary Unspecified essential hypertension Cough, unspecified type JOSE (obstructive sleep apnea) Obstructive sleep apnea (adult) (pediatric) Mixed hyperlipidemia Elevated PSA Elevated prostate specific antigen (PSA) [facility]* Diagnosis JOSE (obstructive sleep apnea)- Primary Obstructive sleep apnea (adult) (pediatric) [facility]* Diagnosis Essential hypertension- Primary Unspecified essential [...] malignant neoplasms, colon [facility]* Diagnosis JOSE (obstructive sleep apnea)- Primary Obstructive sleep apnea (adult) (pediatric) documented in [facility] Diagnosis 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 Other and combined forms of senile cataract documented [facility] Diagnosis Preoperative examination- Primary Preoperative examination, unspecified Combined form of age-related cataract, right eye Essential hypertension Unspecified essential hypertension Mitral valve insufficiency, unspecified etiology JOSE (obstructive sleep apnea) Obstructive sleep apnea (adult) (pediatric) Combined forms of age-related cataract of right eye Other and combined forms of senile cataract documented [facility] Diagnosis Follow-up examination following surgery- Primary Follow-up examination, following unspecified surgery [facility] Diagnosis Pseudophakia- Primary Lens replaced by other means documented [facility] Diagnosis Essential hypertension- Primary Unspecified essential hypertension 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) JOSE (obstructive sleep apnea) Obstructive sleep apnea (adult) (pediatric) Elevated PSA Elevated prostate specific antigen (PSA) documented in [facility] Diagnosis Essential hypertension- Primary Unspecified essential [...] specific antigen (PSA) [facility] Diagnosis Essential hypertension Unspecified essential hypertension [facility] Diagnosis BPH with obstruction/lower urinary tract symptoms Hypertrophy of prostate with urinary obstruction and other lower urinary tract symptoms (LUTS) [facility] Essential hypertension Unspecified essential hypertension [facility] Diagnosis Bacterial conjunctivitis of left eye- Primary Other conjunctivitis Pseudophakia of right eye Lens replaced by other means Combined forms of age-related cataract of left eye Other and combined forms of senile cataract [facility] Diagnosis Encounter for Medicare annual wellness [...] single bacterial disease [facility] Diagnosis Cough, unspecified type [facility] Diagnosis Essential hypertension- Primary Unspecified essential hypertension 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) Elevated PSA Elevated prostate specific antigen (PSA) Acute pain of right knee [facility] Diagnosis BPH with obstruction/lower urinary tract symptoms Hypertrophy of prostate with urinary obstruction and other lower urinary tract symptoms (LUTS) [facility] Diagnosis Combined forms of age-related cataract of left eye- Primary Other and combined forms of senile cataract Dermatochalasis of both upper eyelids Pseudophakia of right eye Lens replaced by other means Myopia, right Hyperopia, left Regular astigmatism of left eye Regular astigmatism Presbyopia [facility] Additional Instructions 3.8 mm left-sided kidney stone almost to your bladder. Should pass. Plenty of fluids and rest. [place] and/or Motrin for pain. Zofran as needed for nausea. Make sure you are drinking plenty of water, eating plenty of fruits, vegetables and fiber to prevent constipation. Follow-up with the urologist Dr. Uriel England if not improving. [facility] Work Phone: Reason for referral (narrative)* Diagnostic Procedure Only (Routine) - Open Specialty Diagnoses / Procedures Referred By Naatn bonilla Referred To Contact [facility] Diagnoses JOSE (obstructive sleep apnea) Procedures HOME SLEEP APNEA TEST (HSAT) SLEEP STD AIRFLOW HRT RATE&O[place] [address] [place] [address] [facility] [address] [place] [address] Referral ID Status Reason Start Date Expiration Date V isits Requested Visits Authorized [id number] Open Auto-Generate d Referral 06/14/2022 06/14/2023 1 1 [facility] for referral (narrative)* Diagnostic Procedure Only (Routine) - Pending Review Specialty Diagnoses / Procedures Referred By Natan bonilla Referred To Contact [facility] Diagnoses JOSE (obstructive sleep apnea) Procedures HOME SLEEP APNEA TEST (HSAT) SLEEP STD AIRFLOW HRT RATE&O2 SAT EFFORT Eze Washington MD [address] [place] [address] [facility] [address] [place] [address] Referral ID Status Reason Start Date Expiration Date Visits Requested Visits Authorized [id number] Pending Review Auto-Generat ed Referral 12/17/2022 12/17/2023 1 1 * Outpatient Procedure (Routine) - Pending Review Specialty Diagnoses / Procedures Referred By Natan bonilla Referred To Contact [facility] Diagnoses Personal history of colonic polyps Special screening for malignant neoplasms, colon Procedures COLONOSCOPY SCREENING COLONOSCOPY FLX DX W/COLLJ SPEC WHEN PFRMD Eze Rodriguez MD [address] [place] [address] [facility] [address] [place] [address] Referral ID Status Reason Start Date Expiration Date Visits Requested Visits Authorized [id number] Pending Review Auto-Generat ed Referral 12/17/2022 12/17/2023 1 1 [facility] Advance Directives No Advanced Directives Records FoundDocuments on File Type Date 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 Advance Directive(s) 11/29/2017 9:45 AM Advance Directive(s) 11/20/2017 5:46 PM Advance Directive Response Recorded Date/ Time Living Will No May 26, 2022 11:42am Power of Receiver Bulk System No May 26 11:42am Advance Directive Response Recorded Date/ Time Living Will No July 19, 2023 6:13pm Power of Receiver Bulk System No June 6:13pm Chief Complaint and Reason for Visit Chief Complaint LT flank pain, vomit ing Chief Complaint dizziness Reason for Referral Specialty Diagnoses / Procedures Referred By Natan bonilla Referred To Contact Diagnoses JOSE (obstructive sleep apnea) Procedures CONSULT TO SLEEP MEDICINE - ADULT OFFICE/OUTPATIENT [facility] 60-74 MINUTES Terry Champion APRN.CNP [address] [place] [address] Referral ID Status Reason Start Date Expiration Date Visits Requested Visits Authorized [id number] Pending Review PCP Requested Referral 07/17/2022 07/17/2023 [...] the event of a Fluress shortage, administer [place]-Fluor 1 drop into both eyes as directed [...] or prosecute any alcohol or drug abuse patient.[facility] the event this information is protected by the Federal Confidentiality of Alcohol and Drug Abuse Patient Records regulations: The Federal rules restrict any use of the information to criminally investigate or prosecute any alcohol or drug abuse patient.[facility] the event this information is protected by the Federal Confidentiality of Alcohol and Drug Abuse Patient Records regulations: The Federal rules restrict any use of the information to criminally investigate or prosecute any alcohol or drug abuse patient.[facility] the event this information is protected by the Federal Confidentiality of Alcohol and Drug Abuse Patient Records regulations: The Federal rules restrict any use of the information to criminally investigate or prosecute any alcohol or drug abuse patient.[facility] the event this information is protected by the Federal Confidentiality of Alcohol and Drug Abuse Patient Records regulations: The Federal rules restrict any use of the information to criminally investigate or prosecute any alcohol or drug abuse patient.[facility] the event this information is protected by the Federal Confidentiality of Alcohol and Drug Abuse Patient Records regulations: The Federal rules restrict any use of the information to criminally investigate or prosecute any alcohol or drug abuse patient.[facility] the event this information is protected by the Federal Confidentiality of Alcohol and Drug Abuse Patient Records regulations: The Federal rules restrict any use of the information to criminally investigate or prosecute any alcohol or drug abuse patient.[facility] the event this information is protected by the Federal Confidentiality of Alcohol and Drug Abuse Patient Records regulations: The Federal rules restrict any use of the information to criminally investigate or prosecute any alcohol or drug abuse patient.[facility] the event this information is protected by the Federal Confidentiality of Alcohol and Drug Abuse Patient Records regulations: The Federal rules restrict any use of the information to criminally investigate or prosecute any alcohol or drug abuse patient.[facility] the event this information is protected by the Federal Confidentiality of Alcohol and Drug Abuse Patient Records regulations: The Federal rules restrict any use of the information to criminally investigate or prosecute any alcohol or drug abuse patient.[facility] the event this information is protected by the Federal Confidentiality of Alcohol and Drug Abuse Patient Records regulations: The Federal rules restrict any use of the information to criminally investigate or prosecute any alcohol or drug abuse patient.[facility] the event this information is protected by the Federal Confidentiality of Alcohol and Drug Abuse Patient Records regulations: The Federal rules restrict any use of the information to criminally investigate or prosecute any alcohol or drug abuse patient.[facility] the event this information is protected by the Federal Confidentiality of Alcohol and Drug Abuse Patient Records regulations: The Federal rules restrict any use of the information to criminally investigate or prosecute any alcohol or drug abuse patient.[facility] the event this information is protected by the Federal Confidentiality of Alcohol and Drug Abuse Patient Records regulations: The Federal rules restrict any use of the information to criminally investigate or prosecute any alcohol or drug abuse patient.[facility] the event this information is protected by the Federal Confidentiality of Alcohol and Drug Abuse Patient Records regulations: The Federal rules restrict any use of the information to criminally investigate or prosecute any alcohol or drug abuse patient.[facility] the event this information is protected by the Federal Confidentiality of Alcohol and Drug Abuse Patient Records regulations: The Federal rules restrict any use of the information to criminally investigate or prosecute any alcohol or drug abuse patient.[facility] the event this information is protected by the Federal Confidentiality of Alcohol and Drug Abuse Patient Records regulations: The Federal rules restrict any use of the information to criminally investigate or prosecute any alcohol or drug abuse patient.[facility] the event this information is protected by the Federal Confidentiality of Alcohol and Drug Abuse Patient Records regulations: The Federal rules restrict any use of the information to criminally investigate or prosecute any alcohol or drug abuse patient.[facility] the event this information is protected by the Federal Confidentiality of Alcohol and Drug Abuse Patient Records regulations: The Federal rules restrict any use of the information to criminally investigate or prosecute any alcohol or drug abuse patient.[facility] the event this information is protected by the Federal Confidentiality of Alcohol and Drug Abuse Patient Records regulations: The Federal rules restrict any use of the information to criminally investigate or prosecute any alcohol or drug abuse patient.[facility] the event this information is protected by the Federal Confidentiality of Alcohol and Drug Abuse Patient Records regulations: The Federal rules restrict any use of the information to criminally investigate or prosecute any alcohol or drug abuse patient.[facility] the event this information is protected by the Federal Confidentiality of Alcohol and Drug Abuse Patient Records regulations: The Federal rules restrict any use of the information to criminally investigate or prosecute any alcohol or drug abuse patient.[facility] the event this information is protected by the Federal Confidentiality of Alcohol and Drug Abuse Patient Records regulations: The Federal rules restrict any use of the information to criminally investigate or prosecute any alcohol or drug abuse patient.[facility] the event this information is protected by the Federal Confidentiality of Alcohol and Drug Abuse Patient Records regulations: The Federal rules restrict any use of the information to criminally investigate or prosecute any alcohol or drug abuse patient.[facility] the event this information is protected by the Federal Confidentiality of Alcohol and Drug Abuse Patient Records regulations: The Federal rules restrict any use of the information to criminally investigate or prosecute any alcohol or drug abuse patient.[facility] the event this information is protected by the Federal Confidentiality of Alcohol and Drug Abuse Patient Records regulations: The Federal rules restrict any use of the information to criminally investigate or prosecute any alcohol or drug abuse patient.[facility] the event this information is protected by the Federal Confidentiality of Alcohol and Drug Abuse Patient Records regulations: The Federal rules restrict any use of the information to criminally investigate or prosecute any alcohol or drug abuse patient.[facility] the event this information is protected by the Federal Confidentiality of Alcohol and Drug Abuse Patient Records regulations: The Federal rules restrict any use of the information to criminally investigate or prosecute any alcohol or drug abuse patient.[facility] the event this information is protected by the Federal Confidentiality of Alcohol and Drug Abuse Patient Records regulations: The Federal rules restrict any use of the information to criminally investigate or prosecute any alcohol or drug abuse patient.[facility] the event this information is protected by the Federal Confidentiality of Alcohol and Drug Abuse Patient Records regulations: The Federal rules restrict any use of the information to criminally investigate or prosecute any alcohol or drug abuse patient.[facility] the event this information is protected by the Federal Confidentiality of Alcohol and Drug Abuse Patient Records regulations: The Federal rules restrict any use of the information to criminally investigate or prosecute any alcohol or drug abuse patient.[facility] the event this information is protected by the Federal Confidentiality of Alcohol and Drug Abuse Patient Records regulations: The Federal rules restrict any use of the information to criminally investigate or prosecute any alcohol or drug abuse patient.[facility] the event this information is protected by the Federal Confidentiality of Alcohol and Drug Abuse Patient Records regulations: The Federal rules restrict any use of the information to criminally investigate or prosecute any alcohol or drug abuse patient.[facility] the event this information is protected by the Federal Confidentiality of Alcohol and Drug Abuse Patient Records regulations: The Federal rules restrict any use of the information to criminally investigate or prosecute any alcohol or drug abuse patient.[facility] the event this information is protected by the Federal Confidentiality of Alcohol and Drug Abuse Patient Records regulations: The Federal rules restrict any use of the information to criminally investigate or prosecute any alcohol or drug abuse patient.[facility] Reason for Visit (unrecogniz ed section [...] Date Comments Population Health Navigation Outreach 04/09/2024 [place] [facility] Adherence Reason Comments Red Eye Left Eye Reason Onset Date Comments Population Health Navigation Outreach 04/27/2024 [facility] Ad[facility] Reason Onset Date Comments Population Health Navigation Outreach 05/19/2024 [facility] PC[facility] Reason Comments Medicare Wellness Exam Reason Onset Date Comments Refill Request 08/12/2024 Reason Comments F/U 6 Month Reason Onset Date Comments Refill Request 02/15/2025 Reason Comments Cataract The left eye Care Teams (unrecognized sec tion and content) Math Professor Relationship Specialty Start Date End Date Eze Rodriguez MD [address] [place] [address] PCP - General Family Practice 04/26/17 Math Professor Relationship Specialty Start Date End Date Eze Rodriguez MD [address] [place] [address] PCP - General Family Practice 04/26/17 Math Professor Relationship Specialty Start Date End Date Eze Rodriguez MD [address] [place] [address] PCP - General Family Practice 04/26/17 Math Professor Relationship Specialty Start Date End Date Eze Rodriguez MD [address] [place] [address] PCP - General Family Practice 04/26/17 Math Professor Relationship Specialty Start Date End Date Eze Rodriguez MD [facility] [place] [address] PCP - General Family Medicine 04/26/17 Math Professor Relationship Specialty Start Date End Date Eze Rodriguez MD [facility] [place] [address] PCP - General Family Medicine 04/26/17 Math Professor Relationship Specialty Start Date End Date Eze Rodriguez MD [facility] [place] [address] PCP - General Family Medicine 04/26/17 Math Professor Relationship Specialty Start Date End Date Eze Rodrgiuez MD [facility] [place] [address] PCP - General Family Medicine 04/26/17 Math Professor Relationship Specialty Start Date End Date Eze Rodriguez MD [address] [place] [address] PCP - General Family Medicine 04/26/17 Math Professor Relationship Specialty Start Date End Date Eze Rodriguez MD [facility] [place] [address] PCP - General Family Medicine 04/26/17 Math Professor Relationship Specialty Start Date End Date Eze Rodriguez MD [address] [place] [address] PCP - General Family Medicine 04/26/17 Math Professor Relationship Specialty Start Date End Date Eze Rodriguez MD [address] [place] [address] PCP - General Family Medicine 04/26/17 Math Professor Relationship Specialty Start Date End Date Eze Rodriguez MD [address] [place] [address] PCP - General Family Medicine 04/26/17 Math Professor Relationship Specialty Start Date End Date Eze Rodriguez MD [address] [place] [address] PCP - General Family Medicine 04/26/17 Math Professor Relationship Specialty Start Date End Date Eze Rodriguez MD [address] [place] [address] PCP - General Family Medicine 04/26/17 Team Status: Active Member Role Status Dates Dr. Eze Rodriguez MD Family Provider Active Dr. Eze Rodriguez MD Primary Care Provider Active Team Status: Inactive Member Role Status Dates Dr. Eze Rodriguez MD Primary Care Provider Active Dr. Rocky Willis MD Emergency Provider Active Math Professor Relationship Specialty Start Date End Date Eze Rodriguez MD [address] [place] [address] PCP - General Family Medicine 04/26/17 Math Professor Relationship Specialty Start Date End Date Eze Rodriguez MD [address] [place] [address] PCP - General Family Medicine 04/26/17 Math Professor Relationship Specialty Start Date End Date Eze Rodriguez MD [address] [place] [address] PCP - General Family Medicine 04/26/17 Math Professor Relationship Specialty Start Date End Date Eze Rodriguez MD [address] [place] [address] PCP - General Family Medicine 04/26/17 Math Professor Relationship Specialty Start Date End Date Eze Rodriguez MD [address] [place] [address] PCP - General Family Medicine 04/26/17 Math Professor Relationship Specialty Start Date End Date Eze Rodriguez MD [address] [place] [address] PCP - General Family Medicine 04/26/17 Math Professor Relationship Specialty Start Date End Date Eze Rodriguez MD [address] [place] [address] PCP - General Family Medicine 04/26/17 Math Professor Relationship Specialty Start Date End Date Eze Rodriguez MD [address] [place] [address] PCP - General Family Medicine 04/26/17 Math Professor Relationship Specialty Start Date End Date Eez Rodriguez MD [address] [place] [address] PCP - General Family Medicine 04/26/17 Ashleigh García APRN.CNP [address] [place] [address] [employer] Computer Data Processor Family Medicine 10/04/24 Terry Champion APRN.FELT CEMENTER [address] [place] [address] [employer] Family Medicine 10/13/24 Math Professor Relationship Specialty Start Date End Date Eze Rodriguez MD [address] [place] [address] PCP - General Family Medicine 04/26/17 Ashleigh García APRN.FELT CEMENTER [address] [place] [address] [employer] Computer Data Processor Family Medicine 10/04/24 Terry Champion APRN.FELT CEMENTER [address] [place] [address] [employer] Computer Data Processor Family Medicine 10/13/24 Math Professor Relationship Specialty Start Date End Date Eze Rodriguez MD [address] [place] [address] PCP - General Family Medicine 04/26/17 Ashleigh García APPLICATION SUPPORT CONSULTANT.FELT CEMENTER [address] [place] [address] [employer] Data Processor Family Medicine 10/04/24 Terry Champion APPLICATION SUPPORT CONSULTANT.FELT CEMENTER [address] [place] [address] [employer] Computer Data Processor Family Medicine 10/13/24 Math Professor Relationship Specialty Start Date End Date Eze Rodriguez MD [address] [place] [address] PCP - General Family Medicine 04/26/17 Terry Champion APPLICATION SUPPORT CONSULTANT.FELT CEMENTER [address] [place] [address] [employer] Computer Data Processor Family Medicine 10/13/24 Math Professor Relationship Specialty Start Date End Date Eze Rodriguez MD [address] [place], [place] [address] PCP - General Family Medicine 04/26/17 Terry Champion APRN.CNP [address] [place], [place] [id number] [facility]24 Goals (unrecognized section and content) Goals may be documented in a n alternate sectionGoals may be documented in an alternate section (unrecognized sect ion and content) No Status Records FoundNo Status Records FoundNo Status Records Found INFORMATION SOURCE (unrecogn ized section and content) DATE CREATED AUTHOR 02/12/2023 [facility] DATE CREATED AUTHOR AUTHOR'S ORGANIZ ATION 07/03/2024 [facility] DATE CREATED AUTHOR AUTHOR'S ORGANIZ ATION 08/25/2025 [facility] FOR RECORDS PERTAINING TO PATIENTS WHO ARE [...] BE BASED ON THE PRIMARY CLINICAL RECORDS. [employer] provides no warranty or guarantee of the accuracy or completeness of information in this document.
--- NOTE | 2025-09-19 20:40 | RAD_ITS ---
PROCEDURE: CHEST 1 VIEW (PORTABLE) 09/19/2025 REASON FOR EXAM: COUGH TECHNIQUE: Frontal view of the chest. COMPARISON: 09/17/2025. FINDINGS: The heart is normal in size. The lungs are clear. No acute osseous abnormalities. RAD/Chest 1 View (Portable) IMPRESSION: No Acute Findings. Reading Location: [id number]
[2025-09-19 20:42] LABS: Hematocrit 45.2 % (40-54); Hemoglobin 15.4 g/dL (13.0-16.5); Immature Granulocytes Count 0.010 X10^3/uL (0.0-0.0); Mean Corp Hgb Conc 34.1 g/dL (32-36); Mean Corpuscular Volume 91.5 fL (80-94); Mean Platelet Vol. 10.8 fl (6.2-12.0); NRBC Flagged by Analyzer 0 % (0-5); POSITIVE COUNT YES; POSITIVE DIFFERENTIAL YES; POSITIVE MORPHOLOGY YES; Platelet Count 76 K/mm3 (150-450); RBC Distribution Width CV 13.0 % (11.6-14.6); RBC Distribution Width SD 43.9 fl (35.1-43.9); Red Blood Count 4.94 M/mm3 (4.6-6.2); White Blood Count 4.7 K/mm3 (4.4-11.0)
[2025-09-19 20:52] VITALS: BP 123/64; PULSE 78; RESP 18; O2SAT 98
[2025-09-19 21:05] LABS: Differential Indicated SCAN CRITERIA MET
[2025-09-19 21:09] LABS: Reactive Lymphocyte 3+
[2025-09-19 21:19] LABS: AST(SGOT) 97 U/L (<=37); Alanine Aminotransfer ALT/SGPT 116 U/L (<=46); Albumin, Serum 3.5 g/dL (3.4-4.8); Alkaline Phosphatase 108 U/L (40-129); Anion Gap 7 (5-15); BUN 15 mg/dL (4-19); BUN/Creat Ratio 12.6 RATIO (10-20); Bilirubin, Direct 0.19 mg/dL (0.00-0.30); Calcium,Total 11.6 mg/dL (7.6-11.0); Carbon Dioxide 29.9 mmol/L (21.0-32.0); Chloride 101 mmol/L (98-108); Estimated Creatinine Clearance 53.93 ml/min (50-250); Globulin 2.5 g/dL (2.2-4.2); Glucose 90 mg/dL (70-99); Potassium 4.8 mmol/L (3.3-5.1); Troponin T High Sensitivity 10 ng/L (<=22)
[2025-09-19 22:00] VITALS: BP 144/78; PULSE 79; RESP 20; O2SAT 98
[2025-09-19 22:01] VITALS: BP 144/78; PULSE 79; RESP 20; TEMP 36.6; O2SAT 98
--- NOTE | 2025-09-19 22:14 | PCM.HP.STD ---
HPI - General General Date of Admission: 09/19/25 Date of Service: 09/19/25 Chief Complaint: Generalized weakness/disequilibrium HPI Narrative DOMO DECKER, is a 85 M who presented to the emergency department at [facility] on 09/19/2025 with a chief complaint of weakness and ongoing disequilibrium. Patient did initially present here on 09/17/2025 for similar complaints. Patient had a family friend who they went and visited in [place] because he was not doing well medically. They came home and turned around and went right back because he had . The was on Saturday and in the evening he went out to dinner with family of the after he had been feeling fairly well all day long. He stated he was sitting at the table and got acutely nauseous and excused himself and went lay down. He never did have any emesis. Since that point in time he has not been feeling well in general. Family did indicate that he had some instability prior to that however it is acutely been worse over the last several days since these events. He has had no further nausea or vomiting. His appetite has been decreased. On morning they got up and drove about 200 miles and he was pretty tired so they stopped and spent the night and then got up the next day to go home. He typically does mostly driving but he was not feeling well enough so his did the rest of the driving. He did take aspirin to help with his symptoms. Since that point in time he has had some intermittent chills, fevers and was febrile here in the emergency department with a Tmax of 102.4. He states his last fever was yesterday and he has been afebrile for about 24 hours now. He has a cough that is more chronic than acute and nonproductive. He had some diarrhea but that seems to be improving at this time. He had myalgias and just felt generally fatigued and weak. He states the disequilibrium seems to be improving but he is requiring a cane to keep his balance with ambulation. Up until yesterday he was just grabbing onto his 's shoulder for balance but felt the cane would make a difference and it has however he is still feeling unbalanced which is not his norm. He had no sick contacts of which he is aware. Vital signs on presentation today showed temperature of 97.9, heart rate 76, blood pressure was 138/78 respiratory rate was 18 and pulse ox was 100% on room air. CBC showed a normal white count normal hemoglobin but he has thrombocytopenia which appears to be new. His platelet counts 76,000 and up from 68,000 from the . his differential is markedly abnormal with a 15.6% neutrophil count, 63.7 lymphocyte count, 10.9% monocyte count, 7.9% eosinophil count, and a 1.7% basophil with 3+ reactive lymphocytes noted on the peripheral smear. His chemistry panel was overtly unremarkable. He did have mild hypercalcemia with a calcium of 11.6. His AST was elevated at 97 with an ALT of 116. Baseline transaminases are unknown. Troponin x 2 was unremarkable. Chest x-ray showed no acute findings. CTA of the head and neck was unremarkable. Initially given the above we felt that this was likely viral etiology. I added on sed rate CRP. Sed rate was normal at 1. CRP was slightly elevated at 37. Procalcitonin was 0.42 so my concern for bacterial etiology did increase. We obtained cultures and I will go ahead and start him on Levaquin. He will be admitted to [facility] as inpatient status as I expect his hospitalization to be greater than 2 midnights. [facility] Medical History (Updated 09/19/25 @ 23:[address] Verena Valentino DO) Erectile dysfunction Cataract CPAP (continuous positive airway pressure) dependence HTN (hypertension) Disc degeneration Home Medications ?Medication ?Instructions ?Recorded ?Last Taken ?Type lisinopril 5 mg tablet 5 mg PO DAILY htn 10/08/14 Unknown History tadalafil 5 mg tablet 5 mg PO DAILY bph 05/30/19 Unknown History meclizine 12.5 mg tablet 12.5 mg PO TID PRN dizziness #30 09/17/25 Unknown Rx tabs sildenafil 100 mg tablet 100 - 200 mg PO DAILY PRN erectile 09/19/25 Unknown History dysfunction Allergy/AdvReac Type Severity Reaction Status Date / Time yellow dye Allergy Hives Verified 09/19/25 18:53 no significant family history Surgical History Hx of tonsillectomy Hx of appendectomy Social History (Updated 09/19/25 @ 23:[address] Verena Valentino DO) household members: spouse current occupational status: retired Smoking Status: Never smoker substance use type: does not use ROS Constitutional Constitutional: Reports anorexia, change in weight, chills, fatigue, fever(s), malaise and weakness; Denies night sweats or other Eyes Eyes: Denies blurry vision, change in eye color, change in vision, discharge from eye(s), double vision, erythema, eye pain, loss of vision or other ENT HEENT: Denies abnormal hearing, dysphagia, ear pain, epistaxis, headache(s), hearing loss, nasal congestion, nasal discharge, post nasal drip, sinus pressure, sore throat or other Cardiovascular Cardiovascular: Denies chest pain, claudication, dyspnea on exertion, edema, lightheadedness, orthopnea, palpitations, paroxysmal nocturnal dyspnea, rapid heart rate, syncope or other Respiratory/Chest Respiratory/Chest: Reports cough; Denies dyspnea, excessive phlegm production, hemoptysis, productive cough, shortness of breath at rest, shortness of breath with exertion, wheezing or other Gastrointestinal Gastrointestinal: Reports diarrhea and nausea; Denies abdominal pain, coffee ground emesis, constipation, dyspepsia, hematemesis, hematochezia, loose stools, melena, vomiting or other Genitourinary Genitourinary: Denies burning urination, difficulty urinating, dysuria, hematuria, nocturia, urinary frequency, urinary hesitancy, urinary incontinence, urinary urgency or other Musculoskeletal Musculoskeletal: Reports arthralgias and myalgias; Denies back pain, joint pain, joint stiffness, joint swelling, neck pain or other Neurologic Neurologic: Reports disequilibrium; Denies abnormal gait, abnormal speech, confusion, dizziness, focal weakness, headache(s), numbness, paresthesias, seizure-like activity, seizures, syncope, tingling, tremor(s) or other Psychiatric Psychiatric: Denies anxiety, depression, homicidal ideation, suicidal ideation or other Endocrine Endocrinology: Denies change in body appearance, cold intolerance, excessive sweating, heat intolerance, polydipsia, polyuria or other Hematologic/Lymphatic Hematologic/Lymphatic: Denies anemia, easy bleeding, easy bruising, lymphadenopathy or other Allergic/Immunologic Allergic/Immunologic: Denies rhinitis, hives, eczemia, asthma or other Vital Signs Vital Signs Vital Signs: 09/19/25 18:53 09/19/25 19:31 09/19/25 20:52 Temperature 97.9 F Temperature Source Oral Pulse Rate 76 78 Respiratory Rate 18 18 Respiratory Effort Normal Respiratory Pattern Normal Blood Pressure 138/78 H 123/64 H Blood Pressure Mean 98 83 Pulse Ox 100 98 Oxygen Delivery Method Room Air Room Air 09/19/25 22:00 09/19/25 22:01 Temperature 97.9 F Temperature Source Pulse Rate 79 79 Respiratory Rate 20 H 20 H Respiratory Effort Respiratory Pattern Blood Pressure 144/78 H 144/78 H Blood Pressure Mean 100 100 Pulse Ox 98 98 Oxygen Delivery Method Room Air Weight Weight: 89.766 kg Body Mass Index (BMI) 28.3 Physical Exam Const alert, oriented x3, no apparent distress, average body habitus and well nourished Constitutional Narrative: Very pleasant, older, white male, lying in bed, family at bedside, appears younger than stated age, very pleasant, does not appear toxic at this time General Appearance: cooperative HEENT normocephalic, head/scalp atraumatic and moist oral mucous membranes HEENT Narrative: Mallampati 3, no thrush, mild hearing loss Eyes conjunctivae normal Eyes Narrative: No scleral icterus Neck supple Neck Narrative: Neck is short and thick, trachea is midline, no thyromegaly or nodules noted Resp normal respiratory effort, no retractions, no use of accessory muscles and No clear to auscultation bilaterally Resp Narrative: Intermittent cough with rhonchi noted in left base. Rhonchi cleared with cough. No other adventitious sounds Auscultation: rhonchi; Negative for crackles or wheezes Cardio regular rate, regular rhythm, S1 normal heart sound, S2 normal heart sound, no murmurs, no rub, no gallops and no clicks GI normal to inspection, nondistended, normoactive bowel sounds, soft to palpation and non-tender Extremity no clubbing, cyanosis or edema Extremity Narrative: No splinter hemorrhages, no nodules Skin no jaundice, no petechiae and no mottling Neuro moves all extremities and no focal motor deficits Neuro Narrative: Mild generalized weakness noted with no focal deficits Speech: speech normal Psych affect normal Psych Narrative: Extremely pleasant, interacts appropriately Results Lab / Micro Data 09/19/25 20:32 09/19/25 20:32 Labs: Laboratory Results - last 24 hr 09/19/25 20:32: WBC 4.7, RBC 4.94, Hgb 15.4, Hct 45.2, MCV 91.5, MCH 31.2, MCHC 34.1, RDW Std Deviation 43.9, RDW Coeff of Martir 13.0, Plt Count 76 L, MPV 10.8, Immature Gran % (Auto) 0.200, Neut % (Auto) 15.6 L, Lymph % (Auto) 63.7 H, Geary % (Auto) 10.9 H, Eos % (Auto) 7.9 H, Baso % (Auto) 1.7 H, Absolute Neuts (auto) 0.7 L, Absolute Lymphs (auto) 2.98, Nucleated RBC % 0, Diff Path Review February, Reactive Lymphocytes 3+, Platelet Estimate MOD DEC, Sodium 138, Potassium 4.8, Chloride 101, Carbon Dioxide 29.9, Anion Gap 7, BUN 15, Creatinine 1.17, Estim Creat Clear Calc 53.93, Est GFR (MDRD) Non-Af 62, BUN/Creatinine Ratio 12.6, Glucose 90, Calcium 11.6 H, Total Bilirubin 0.42, Direct Bilirubin 0.19, AST 97 H, ALT 116 H, Alkaline Phosphatase 108, Troponin T High Sens 10, Total Protein 6.0, Albumin 3.5, Globulin 2.5 Imaging Radiology Impression Head/Neck CTA 09/19/25 20:02 IMPRESSION: No hemodynamically significant stenosis, major vessel occlusion/dissection, or aneurysm greater than 3 millimeters. Reading Location: [facility] Chest X-Ray 09/19/25 20:40 IMPRESSION: No Acute Findings. Reading Location: [address] Assessment & Plan Assessment/Plan (1) Leukocytopenia, unspecified: (2) Thrombocytopenia: (3) Vertigo: (4) Transaminitis: (5) Monocytosis: (6) Lymphocytosis: (7) Eosinophilia: (8) Hypercalcemia: (9) Dehydration: PLAN: Plan Fever - Patient with intermittent fevers as high as 102.4 here in the emergency department on the - Based on differential having a lymphocytosis, basophilia, monocytosis, eosinophilia, reactive lymphocytes and mild transaminitis my initial suspicion was that this was a viral in etiology however sed rate and CRP are overtly unremarkable but his procalcitonin is elevated at 0.42 which lowers my threshold for treatment of bacterial infection - Given this blood culture, urine culture, and sputum culture ordered and pending draws/collection - Start Levaquin 750 mg daily - Check MRSA PCR and if elevated will start vancomycin -Monitor fever curve -Clinically per history patient seems to be improving overall Dysequilibrium - Suspect etiology is related to the above - Has been ongoing for several days with a negative head CTA - Will check MRI with and without contrast but highly doubt stroke - PT/OT consultation as patient is having some mild gait disturbances - Currently using cane which is not his baseline due to the fact he feels off balance Mild hypercalcemia - Patient appears mildly dehydrated and calcium is 11.6 - 2 L LR at 100 cc/h - Repeat lab in a.m. Mild transaminitis - Pattern is liver etiology with AST of 97 and ALT of 116 - baseline overall is unknown however suspect this is elevated due to the above - Repeat lab in a.m. Thrombocytopenia - Appears to be acute next-stable when compared to 2 days ago with a mild uptrend - Will hold DVT prophylaxis with chemoprophylaxis until can verify stability - Check a.m. coags - If does not trend up may need Moraima smear Essential hypertension - Continue home lisinopril ED - Hold home medications JOSE - Patient unable to bring CPAP in from home and does not want to have to pay for our CPAP here - Will order 2 L bleed of oxygen nocturnally to avoid hypoxia - If patient requires more extended stay may need to bring in home unit DVT prophylaxis - SCDs for now - If platelet counts are stable and 75,000 and greater okay to start chemoprophylaxis--> repeat platelets in a.m. CODE STATUS - full code as verified with the patient prior to admission in the emergency department Charges/Coding Visit Charges Inpatient E&M: 26321 Init Hosp L3
[2025-09-19 22:36] LABS: CRP 37.00 mg/L (0.0-3.0); Procalcitonin 0.42 ng/mL (<=0.10)
--- OUTSIDE RECORDS SUMMARY | 2025-09-19 22:45 | XMS RPT_ITS | CCD ---
Author Organization [facility] Care Team Providers Care Corporate Paralegal Name Role Phone Eze Rodriguez MD Primary Care Provider EZE RODRIGUEZ Referring Unavailable EZE RODRIGUEZ Primary Care Unavailable Eze Rodriguez MD Primary Care Provider Eze Rodriguez MD Primary Care Provider Rocky Willis Attending Unavailable Eze Rodriguez Primary Care Unavailable Peter Martin Attending Unavailable Eze Rodriguez Primary Care Unavailable [place] PRIME MINISTER.Ahsleigh MEZA Unavailable Akira PRIME MINISTER.Terry MEZA Unavailable [place] PRIME MINISTER.Ashleigh MEZA Unavailable Unavail able EZE RODRIGUEZ Referring [...] dye [Other] Propensity to adverse reactions 8 [facility] Work Phone: (2 sources) yellow dye; Translations: [yellow dye] Allergy to substance 2 [facility] Repository (1 source) OTHER; Translations: [OTHER] Propensity to adverse reactions (disorder) 8 [facility] Other [place] Repository (17 sources) Yellow Food Color (Bulk); Translations: [YELLOW FOOD COLOR (BULK)] Drug Allergy 4 Hives [facility] Work Phone: Medications Current Medications Medication Drug [...] the event of a Fluress shortage, administer [place]ad[place]-Fluor 1 drop into both eyes as directed for applanation tonometry Start: 02-22-2023 End: 02-22-2023 fluorescein-benoxinate 0.25- 0.4 % 1 Drop (FLURESS) dexamethasone 1 mg/ml / neomycin 3.5 mg/ml / polymyxin b 25608 unt/ml ophthalmic suspension (2 sources) Aminoglycoside Antibacterial, Polymyxin-class Antibacterial, Corticosteroid Start: 04-23-2024 End: 04-30-2024 take 1 drop(s) into the eye(s) four times daily HLNZFFSV-IROYYHUOL-RQGJJBIM 3.5 MG/ML-10,000 UNIT/ML-0.1% EYE DROPS Use 1 [...] once daily. Active take 2 tablets by [facility] once daily GLUCOSAMINE/CHONDROITIN SULF A (GLUCOSAMINE-CHONDROITIN ORAL) Take 2 tablets by mouth once daily. 0 Active Comment on above: Take 2 tablets by [facility] once daily. lisinopril 5 mg oral tablet [...] Comment on above: Take 1 capsule by [facility] twice daily. alctdddt-vpw-GU-lycop en-lutein (CENTRUM SILVER MEN) 300-600-300 mcg tab (20 sources) Start: 11-04-2017 take 300-600 tablets by mouth once daily fclfvdzx-zut-VY-l ycopen-lutein (CENTRUM SILVER MEN) 300-600-300 mcg tab Take 1 tablet by mouth once daily. 11/04/2017 Active Start: 11-04-2017 take 300-600 tablets by mouth once daily uqzncsda-lti-TA-lycopen-lutein (CENTRUM SILVER MEN) 300-600-300 mcg tab Take 1 tablet by mouth once daily. 0 11/04/2017 Active Comment on above: Take 1 tablet by [facility] once daily. [place]-3 Fatty Acids-Vitamin E 1,000 mg cap (20 sources) take 2 capsules by mouth once daily [place]-3 Fatty Acids-Vitamin E 1,000 mg cap Take 2 capsules by mouth once daily. Active take 2 capsules by mouth once da vicente [place]-3 Fatty Acids-Vitamin E 1,000 mg cap Take 2 capsules by mouth once daily. 0 Active Comment on above: Take 2 capsules by [facility] once daily. ondansetron 4 mg [...] Comment on above: Take 2 tablets by [facility] once daily. polyethylene glycol 3350 238463 mg / potassium chloride 2980 mg / sodium bicarbonate 6720 mg / sodium chloride 5840 mg / sodium sulfate 48098 mg powder for oral solution (1 source) [...] in both e yes three times daily. [place]-3 Fatty Acids-Vitamin E (FISH OIL) 1,000 mg cap (7 sources) take 2 capsules by mouth once daily [place]-3 Fatty Acids-Vitamin E (FISH OIL) 1,000 mg [...] CNOV Office Visit (FAMPWS ) DOMO BOLDEN ([id number]) 1940 M Date Time Provider Department 08/24/25 10:40 AM [facility] During your visit today, we recorded the [...] General (Family Medicine) Terry Champion APRN.DERRICK as Film Waxer (Family Medicine) Outside specialists seen: Eye-Dr. Segura, [...] Exam Immunizations: Flu vaccination Recording using ambient HD Fantasy Football software for draft documentation of the visit was discussed with the patient/authorized account service representative; all questions welcomed and answered. Patient/authorized account service representative agreed to proceed HPI Domo Bolden [...] COLONOSCOPY W/BIOPSY (more content not included)... Normal [facility] Comprehensive metabolic 2000 panelon 07-22-2025 Albumin [Mass/Vol] 4.3 g/dL Normal 3.9-4.9 [facility] Comment on above: Order Comment: Speci men Type: BLOOD SPECIMEN Ordering Facility: [facility] Address: [address] [place] [address] Performed By: #### 2 4323-8, 21773-8 #### [facility] CLIA [id number] [address] [place] [address] [place] ALP [Catalytic activity/Vol] 71 U/L Normal 38-113 [facility] Comment on above: Order Comment: Speci men Type: BLOOD SPECIMEN Ordering Facility: [facility] Address: [address] [place] [address] Performed By: #### 2 4323-8, 94518-3 #### [facility] CLIA [id number] [address] [place], [place] [address] [place] ALT [Catalytic activity/Vol] 20 U/L Normal 10-54 [facility] Comment on above: Order Comment: Speci men Type: BLOOD SPECIMEN Ordering Facility: [facility] Address: [address] [place] [address] Performed By: #### 2 4323-8, 78727-0 #### [facility] CLIA [id number] [address] [place] [address] [place] Anion gap [Moles/Vol] 11 mmol/L Normal 8-15 [facility] Comment on above: Order Comment: Speci men Type: BLOOD SPECIMEN Ordering Facility: [facility] Address: [address] [place] [address] Performed By: #### 2 4323-8, 29660-0 #### [facility] CLIA [id number] [address] [place] [address] [place] AST [Catalytic activity/Vol] 24 U/L Normal 14-40 [facility] Comment on above: Order Comment: Speci men Type: BLOOD SPECIMEN Ordering Facility: [facility] Address: [address] [place] [address] Performed By: #### 2 4323-8, 93263-3 #### [facility] CLIA [id number] [address] [place] [address] [place] Bilirubin [Mass/Vol] 1.1 mg/dL Normal 0.2-1.3 [facility] Comment on above: Order Comment: Speci men Type: BLOOD SPECIMEN Ordering Facility: [facility] Address: [address] [place] [address] Performed By: #### 2 4323-8, 48964-3 #### [facility] CLIA [id number] [address] [place], [place] [address] [place] Calcium [Mass/Vol] 10.7 mg/dL High 8.5-10.2 [facility] Comment on above: Order Comment: Speci men Type: BLOOD SPECIMEN Ordering Facility: [facility] Address: [address] [place], [place] [address] Performed By: #### 2 4323-8, 15631-8 #### [facility] CLIA [id number] [address] [place], [place] [address] [place] Chloride [Moles/Vol] 105 mmol/L Normal 98-107 [facility] Comment on above: Order Comment: Speci men Type: BLOOD SPECIMEN Ordering Facility: [facility] Address: [address] [place], [place] [address] Performed By: #### 2 4323-8, 83635-1 #### [facility] CLIA [id number] [address] [place] [address] [place] CO2 [Moles/Vol] 24 mmol/L Normal 22-30 [facility] Comment on above: Order Comment: Speci men Type: BLOOD SPECIMEN Ordering Facility: [facility] Address: [address] [place], [place] [address] Performed By: #### 2 4323-8, 22079-4 #### [facility] CLIA [id number] [address] [place], [place] [address] [place] Creatinine [Mass/Vol] 1.06 mg/dL Normal 0.73-1.22 [facility] Comment on above: Order Comment: Speci men Type: BLOOD SPECIMEN Ordering Facility: [facility] Address: [address] [place], [place] [address] Performed By: #### 2 4323-8, 68672-0 #### [facility] CLIA [id number] [address] [place], [place] [address] [place] eGFRcr SerPlBld CKD-EPI 2020 70 mL/min/1.73m??? Normal >=60 [facility] Comment on above: Order Comment: Speci men Type: BLOOD SPECIMEN Ordering Facility: [facility] Address: [address] [place] [address] Result Comment: Magalie mated Glomerular Filtration Rate [...] actual GFR. Performed By: #### 2 4323-8, 27803-2 #### [facility] CLIA [id number] [address] [place] [address] [place] Glucose [Mass/Vol] 91 mg/dL Normal 74-99 [facility] Comment on above: Order Comment: Neisha saenz Type: BLOOD SPECIMEN Ordering Facility: [facility] Address: [address] [place] [address] Result Comment: The [place] Diabetes Association (ADA) provides guidance for cutoff [...] Standards of Medical Care in Diabetes 2016, [place] Diabetes Association. Diabetes Care. 2016.39(Suppl 1). Performed By: #### 2 4323-8, 79227-5 #### [facility] CLIA [id number] [address] [place] [address] [place] Potassium [Moles/Vol] 4.9 mmol/L Normal 3.7-5.1 [facility] Comment on above: Order Comment: Neisha saenz Type: BLOOD SPECIMEN Ordering Facility: [facility] Address: [address] [place] [address] Performed By: #### 2 4323-8, 94524-9 #### [facility] CLIA [id number] [address] [place], [place] [address] [place] Protein [Mass/Vol] 6.7 g/dL Normal 6.3-8.0 [facility] Comment on above: Order Comment: Speci men Type: BLOOD SPECIMEN Ordering Facility: [facility] Address: [address] [place] [address] Performed By: #### 2 4323-8, 71847-0 #### [facility] CLIA [id number] [address] [place] [address] [place] Sodium [Moles/Vol] 140 mmol/L Normal 136-144 [facility] Comment on above: Order Comment: Speci men Type: BLOOD SPECIMEN Ordering Facility: [facility] Address: [address] [place] [address] Performed By: #### 2 4323-8, 54303-8 #### [facility] CLIA [id number] [address] [place] [address] [place] Urea nitrogen [Mass/Vol] 20 mg/dL Normal 9-24 [facility] Comment on above: Order Comment: Speci men Type: BLOOD SPECIMEN Ordering Facility: [facility] Address: [address] [place] [address] Performed By: #### 2 4323-8, 59510-9 #### [facility] CLIA [id number] [address] [place] [address] [place] Lipid 1996 panelon 5 Cholesterol [Mass/Vol] 183 mg/dL Normal <200 [facility] Comment on above: Order Comment: Speci men Type: BLOOD SPECIMEN Ordering Facility: [facility] Address: [address] [place] [address] Result Comment: <200 mg/dL, Desirable 200-239 mg/dL, Borderline high >239 mg/dL, High Performed By: #### 2 4323-8, 08375-8 #### [facility] CLIA [id number] [address] [place] [address] [facility] Cholesterol in HDL [Mass/Vol] 47 mg/dL Normal >39 [facility] Comment on above: Order Comment: Neisha letty Type: BLOOD SPECIMEN Ordering Facility: [facility] Address: [address] [place] [address] Result Comment: 40-5 9 mg/dL, Acceptable >59 mg/dL, High: Negative risk factor for coronary heart disease <40 mg/dL, Low: Positive risk factor for coronary heart disease Performed By: #### 2 4323-8, 86400-2 #### [facility] CLIA [id number] [address] [place] [address] [place] Cholesterol in LDL [Mass/Vol] 126 mg/dL High <100 [facility] Comment on above: Order Comment: Neisha letty Type: BLOOD SPECIMEN Ordering Facility: [facility] Address: [address] [place] [address] Result Comment: <100 mg/dL, Optimal 100-129 mg/dL, Near optimal/above optimal 130-159 mg/dL, Borderline high 160-189 mg/dL, High >189 mg/dL, Very high Secondary prevention optimal LDL Cholesterol levels are recommended to be <70 mg/dL LDL cholesterol is calculated using the Gaytan-NIH equation. Performed By: #### 2 4323-8, #### [facility] CLIA [id number] [address] [place] [address] [place] Cholesterol in LDL/Cholesterol in HDL [Mass ratio] 2.68 {ratio} High <2.54 [facility] Comment on above: Order Comment: Leydahemanth saenz Type: BLOOD SPECIMEN Ordering Facility: [facility] Address: [address] [place] [address] Result Comment: Mario mathis: 1. National Cholesterol Education Program ATP III Guideline At-A-Glance Quick Desk Reference: National Heart, Lung, and Blood [place]. National Institutes of Health. 2001: NIH Publication No. 01-3305. 2. An International Atherosclerosis Society position paper: global recommendations for the management of dyslipidemia: executive summary, Atherosclerosis. 2014: 232(2):410-413. Performed By: #### 2 4323-8, 69683-8 #### [facility] CLIA [id number] [address] [place] [address] [place] Cholesterol in VLDL [Mass/Vol] 9 mg/dL Normal <30 [facility] Comment on above: Order Comment: Speci men Type: BLOOD SPECIMEN Ordering Facility: [facility] Address: [address] [place] [address] Performed By: #### 2 4323-8, 27765-5 #### [facility] CLIA [id number] [address] [place] [address] [place] Cholesterol non HDL [Mass/Vol] 136 mg/dL High <130 [facility] Comment on above: Order Comment: Speci men Type: BLOOD SPECIMEN Ordering Facility: [facility] Address: [address] [place] [address] Result Comment: <130 mg/dL, Optimal 130-159 mg/dL, Near optimal/above optimal 160-189 mg/dL, Borderline high 190-219 mg/dL, High >219 mg/dL, Very high Secondary prevention optimal non HDL Cholesterol levels are recommended to be <100 mg/dL Performed By: #### 2 4323-8, 33110-1 #### [facility] CLIA [id number] [address] [place] [address] [place] Cholesterol.total/C holesterol in HDL [Mass ratio] 3.89 {ratio} Normal <5.10 [facility] Comment on above: Order Comment: Speci men Type: BLOOD SPECIMEN Ordering Facility: [facility] Address: [address] [place] [address] Performed By: #### 2 4323-8, 16343-3 #### [facility] CLIA [id number] [address] [place] [id number] [place] FASTING TIME 14 hrs Normal [facility] Comment on above: Order Comment: Speci men Type: BLOOD SPECIMEN Ordering Facility: [facility] Address: [address] [place] [address] Performed By: #### 2 4323-8, 61894-6 #### [facility] CLIA [id number] [address] [place] [address] [place] Triglyceride [Mass/Vol] 50 mg/dL Normal <150 [facility] Comment on above: Order Comment: Speci men Type: BLOOD SPECIMEN Ordering Facility: [facility] Address: [address] [place] [address] Result Comment: <150 mg/dL, Normal 150-199 mg/dL, Borderline high 200-499 mg/dL, High >499 mg/dL, Very high Performed By: #### 2 4323-8, 22034-6 #### [facility] CLIA [id number] [address] [place] [address] [place] [facility] Prostate specific Ag [Mass/Vol] 5.90 ng/mL High <2.60 [facility] Comment on above: Order Comment: Speci men Type: BLOOD SPECIMEN Ordering Facility: [facility] Address: [address] [place] [address] Result Comment: Jaceka odette PSA test methodology [...] 2003,349:335-42. Performed By: #### 2 857-1 #### [facility] CLIA [id number] [address] [place] [address] [place] B. burgdorferi IgG and IgM p tarik (S)on 04-13-2025 B. burgdorferi IgG+IgM Qn (S) Negative Normal Negative [facility] Comment on above: Order Comment: Speci men Type: BLOOD SPECIMEN Ordering Facility: [facility] Address: [address] [place] [address] Result Comment: Rece nt infection with B. burgdorferi sensu lato cannot be excluded if the specimen collected within four weeks after the onset of signs and symptoms or within six weeks after a known tick exposure. Clinical and epidemiological correlation is required. Performed By: #### 3 4942-3 #### [facility] CLIA [id number] [address] [place] [address] [place] [facility] ([id number]) 1940 M Date Time Provider Department 02/15/25 EZE RODRIGUEZ INTMWS During your visit today, we recorded the following information about you: Annie Day LPN 02/15/2025 11:02 AM Signed Electronic [employer] rec'd and completed for tadalafil. This was approved. Prior authorization approved Payer: Trudy Note from payer: [employer] Case: [id number], Status: Approved, Coverage Starts on: 11/17/2024 12:00:00 AM, Coverage Ends on: 02/15/2026 12:00:00 AM. Approval Details Authorization number: [id number] Authorized from November 17, 2024 to February [...] to its destination. To be filled at: [place] [address] - [address] [phone] Allergies As of Date: 02/15/2025 Noted Allergy [...] 50 mg by mouth twice daily. - ktsvwovc-swc-JH-lycopen-lut ein (CENTRUM SILVER MEN) 300-600-300 mcg tab Take 1 tablet by mouth once daily. - Aspirin 500 mg tab Take 500 mg by mouth once daily. - [place]-3 Fatty Acids-Vitamin E 1,000 mg cap Take [...] Encounter Status:Closed by ANNIE DAY on 02/15/25 [facility] CNOVon 01-21-2025 CNOV Office Visit (FAMPWS ) DOMO BOLDEN ([id number]) 1940 M Date Time Provider Department 01/21/25 [...] watch diet, no particular diet. Stopped buying [place] fries and eliminate potato chips. 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 - Reji having Adv Dir/Living Will. Prefers [...] COLONOSCOPY W/BIOPSY SINGLE/MULTIPLE 12/29/2009 [facility] AT [facility] OTHR SRGY PAST SURGICAL HISTORY OF 02/2011 Laparoscopic Appendectomy and Drainage - Dr. Nick Bustamante, [facility] REMV CATARACT EXTRACAP,INSERT LENS Right 07/2023 Done at [facility] TONSILLECTOMY AND ADENOIDECTOMY TONSILLECTOMY HX Family History [...] Take 50 mg by mouth twice daily. hcxlnsqe-its-DQ-lycopen-lut ein (CENTRUM SILVER MEN) 300-600-300 mcg tab Take 1 tablet by mouth once daily. Aspirin 500 mg tab Take 500 mg by mouth once daily. [place]-3 Fatty Acids-Vitamin E 1,000 mg cap Take [...] Resp 16 (more content not included)... Normal [facility] CBC W Auto Differential pane l (Bld)on 01-14-2025 Basophils (Bld) [#/Vol] 0.04 10*3/uL Normal <0.11 [facility] Comment on above: Order Comment: Speci men Type: BLOOD SPECIMEN Ordering Facility: [facility] Address: [address] [place] [address] Performed By: #### 5 7021-8 #### [facility] CLIA [id number] [address] [place] [address] [place] Basophils/100 WBC (Bld) 0.8 % Normal [facility] Comment on above: Order Comment: Speci men Type: BLOOD SPECIMEN Ordering Facility: [facility] Address: [address] [place] [address] Performed By: #### 5 7021-8 #### [facility] CLIA [id number] [address] [place] [address] [place] Differential cell count method Nom (Bld) Auto Normal [facility] Comment on above: Order Comment: Speci men Type: BLOOD SPECIMEN Ordering Facility: [facility] Address: [address] [place] [address] Performed By: #### 5 7021-8 #### [facility] CLIA [id number] [address] [place] [address] [place] Eosinophils (Bld) [#/Vol] 0.35 10*3/uL Normal <0.46 [facility] Comment on above: Order Comment: Speci men Type: BLOOD SPECIMEN Ordering Facility: [facility] Address: [address] [place] [address] Performed By: #### 5 7021-8 #### [facility] CLIA [id number] [address] [place] [address] [place] Eosinophils/100 WBC (Bld) 6.7 % Normal [facility] Comment on above: Order Comment: Speci men Type: BLOOD SPECIMEN Ordering Facility: [facility] Address: [address] [place] [address] Performed By: #### 5 7021-8 #### [facility] CLIA [id number] [address] [place] [address] [place] Erythrocyte distribution width (RBC) [Ratio] 13.1 % Normal 11.5-15.0 [facility] Comment on above: Order Comment: Speci men Type: BLOOD SPECIMEN Ordering Facility: [facility] Address: [address] [place] [address] Performed By: #### 5 7021-8 #### [facility] CLIA [id number] [address] [place] [address] [place] Hematocrit (Bld) [Volume fraction] 46.5 % Normal 39.0-51.0 [facility] Comment on above: Order Comment: Speci men Type: BLOOD SPECIMEN Ordering Facility: [facility] Address: [address] [place] [address] Performed By: #### 5 7021-8 #### [facility] CLIA [id number] [address] [place] [address] [place] Hemoglobin (Bld) [Mass/Vol] 15.3 g/dL Normal 13.0-17.0 [facility] Comment on above: Order Comment: Speci men Type: BLOOD SPECIMEN Ordering Facility: [facility] Address: [address] [place] [address] Performed By: #### 5 7021-8 #### [facility] CLIA [id number] [address] [place] [address] [place] Immature granulocytes (Bld) [#/Vol] 10*3/uL Normal <0.10 [facility] Comment on above: Order Comment: Speci men Type: BLOOD SPECIMEN Ordering Facility: [facility] Address: [address] [place] [address] Performed By: #### 5 7021-8 #### [facility] CLIA [id number] [address] [place] [address] [place] Immature granulocytes/100 WBC (Bld) 0.2 % Normal [facility] Comment on above: Order Comment: Speci men Type: BLOOD SPECIMEN Ordering Facility: [facility] Address: [address] [place] [address] Performed By: #### 5 7021-8 #### [facility] CLIA [id number] [address] [place] [address] [place] Lymphocytes (Bld) [#/Vol] 1.84 10*3/uL Normal 1.00-4.00 [facility] Comment on above: Order Comment: Speci men Type: BLOOD SPECIMEN Ordering Facility: [facility] Address: [address] [place] [address] Performed By: #### 5 7021-8 #### [facility] CLIA [id number] [address] [place] [address] [place] Lymphocytes/100 WBC (Bld) 35.0 % Normal [facility] Comment on above: Order Comment: Speci men Type: BLOOD SPECIMEN Ordering Facility: [facility] Address: [address] [place] [address] Performed By: #### 5 7021-8 #### [facility] CLIA [id number] [address] [place] [address] [place] MCH (RBC) [Entitic mass] 31.4 pg Normal 26.0-34.0 [facility] Comment on above: Order Comment: Speci men Type: BLOOD SPECIMEN Ordering Facility: [facility] Address: [address] [place] [address] Performed By: #### 5 7021-8 #### [facility] CLIA [id number] [address] [place] [address] [place] MCHC (RBC) [Mass/Vol] 32.9 g/dL Normal 30.5-36.0 [facility] Comment on above: Order Comment: Speci men Type: BLOOD SPECIMEN [facility] [facility] Address: [address] [place] [address] Performed By: #### 5 7021-8 #### [facility] CLIA [id number] [address] [place] [address] [place] MCV (RBC) [Entitic vol] 95.3 fL Normal 80.0-100.0 [facility] Comment on above: Order Comment: Speci men Type: BLOOD SPECIMEN Ordering Facility: [facility] Address: [address] [place] [address] Performed By: #### 5 7021-8 #### [facility] CLIA [id number] [address] [place] [address] [place] Monocytes (Bld) [#/Vol] 0.49 10*3/uL Normal <0.87 [facility] Comment on above: Order Comment: Speci men Type: BLOOD SPECIMEN Ordering Facility: [facility] Address: [address] [place] [address] Performed By: #### 5 7021-8 #### [facility] CLIA [id number] [address] [place] [address] [place] Monocytes/100 WBC (Bld) 9.3 % Normal [facility] Comment on above: Order Comment: Speci men Type: BLOOD SPECIMEN Ordering Facility: [facility] Address: [address] [place] [address] Performed By: #### 5 7021-8 #### [facility] CLIA [id number] [address] [place] [address] [place] Neutrophils (Bld) [#/Vol] 2.53 10*3/uL Normal 1.45-7.50 [facility] Comment on above: Order Comment: Speci men Type: BLOOD SPECIMEN Ordering Facility: [facility] Address: [address] [place] [address] Performed By: #### 5 7021-8 #### [facility] CLIA [id number] [address] [place] [address] [place] Neutrophils/100 WBC (Bld) 48.0 % Normal [facility] Comment on above: Order Comment: Speci men Type: BLOOD SPECIMEN Ordering Facility: [facility] Address: [address] [place] [address] Performed By: #### 5 7021-8 #### [facility] CLIA [id number] [address] [place] [address] [place] Nucleated RBC (Bld) [#/Vol] 10*3/uL Normal <0.01 [facility] Comment on above: Order Comment: Speci men Type: BLOOD SPECIMEN Ordering Facility: [facility] Address: [address] [place] [address] Performed By: #### 5 7021-8 #### [facility] CLIA [id number] [address] [place] [address] [place] Nucleated RBC/100 WBC (Bld) [Ratio] 0.0 /100 WBC Normal [facility] Comment on above: Order Comment: Speci men Type: BLOOD SPECIMEN Ordering Facility: [facility] Address: [address] [place] [address] Performed By: #### 5 7021-8 #### [facility] CLIA [id number] [address] [place] [address] [place] Platelet mean volume (Bld) [Entitic vol] 10.5 fL Normal 9.0-12.7 [facility] Comment on above: Order Comment: Speci men Type: BLOOD SPECIMEN Ordering Facility: [facility] Address: [address] [place] [address] Performed By: #### 5 7021-8 #### [facility] CLIA [id number] [address] [place] [address] [place] Platelets (Bld) [#/Vol] 206 10*3/uL Normal 150-400 [facility] Comment on above: Order Comment: Speci men Type: BLOOD SPECIMEN Ordering Facility: [facility] Address: [address] [place] [address] Performed By: #### 5 7021-8 #### [facility] CLIA [id number] [address] [place] [address] [place] RBC (Bld) [#/Vol] 4.88 10*6/uL Normal 4.20-6.00 [facility] Comment on above: Order Comment: Speci men Type: BLOOD SPECIMEN Ordering Facility: [facility] Address: [address] [place] [address] Performed By: #### 5 7021-8 #### [facility] CLIA [id number] [address] [place] [address] [place] WBC (Bld) [#/Vol] 5.26 10*3/uL Normal 3.70-11.00 [facility] Comment on above: Order Comment: Speci men Type: BLOOD SPECIMEN Ordering Facility: [facility] Address: [address] [place] [address] Performed By: #### 5 7021-8 #### [facility] CLIA [id number] [address] [place] [address] [place] Comprehensive metabolic 2000 panelon 01-14-2025 Albumin [Mass/Vol] 4.1 g/dL Normal 3.9-4.9 [facility] Comment on above: Order Comment: Speci men Type: BLOOD SPECIMEN Ordering Facility: [facility] Address: [address] [place] [address] Performed By: #### 2 4323-8, 89027-8 #### [facility] CLIA [id number] [address] [place] [address] [place] ALP [Catalytic activity/Vol] 65 U/L Normal 38-113 [facility] Comment on above: Order Comment: Speci men Type: BLOOD SPECIMEN Ordering Facility: [facility] Address: [address] [place] [address] Performed By: #### 2 4323-8, 28595-8 #### [facility] CLIA [id number] [address] [place] [address] [place] ALT [Catalytic activity/Vol] 18 U/L Normal 10-54 [facility] Comment on above: Order Comment: Speci men Type: BLOOD SPECIMEN Ordering Facility: [facility] Address: [address] [id number] Performed By: #### 2 4323-8, 75051-9 #### [facility] CLIA [id number] [address] [place], [place] [address] [place] Anion gap [Moles/Vol] 8 mmol/L Normal 8-15 [facility] Comment on above: Order Comment: Speci men Type: BLOOD SPECIMEN Ordering Facility: [facility] Address: [address] [place] [address] Performed By: #### 2 4323-8, 51412-8 #### [facility] CLIA [id number] [address] [place] [address] [place] AST [Catalytic activity/Vol] 21 U/L Normal 14-40 [facility] Comment on above: Order Comment: Speci men Type: BLOOD SPECIMEN Ordering Facility: [facility] Address: [address] [place] [address] Performed By: #### 2 4323-8, 29485-5 #### [facility] CLIA [id number] [address] [place] [address] [place] Bilirubin [Mass/Vol] 1.2 mg/dL Normal 0.2-1.3 [facility] Comment on above: Order Comment: Speci men Type: BLOOD SPECIMEN Ordering Facility: [facility] Address: [address] [id number] Performed By: #### 2 4323-8, 60856-6 #### [facility] CLIA [id number] [address] [place] [address] [place] Calcium [Mass/Vol] 10.2 mg/dL Normal 8.5-10.2 [facility] Comment on above: Order Comment: Speci men Type: BLOOD SPECIMEN Ordering Facility: [facility] Address: [address] [place], [place] [address] Performed By: #### 2 4323-8, 51701-8 #### [facility] CLIA [id number] [address] [place] [address] [place] Chloride [Moles/Vol] 110 mmol/L High 98-107 [facility] Comment on above: Order Comment: Speci men Type: BLOOD SPECIMEN Ordering Facility: [facility] Address: [address] [place] [address] Performed By: #### 2 4323-8, 48249-3 #### [facility] CLIA [id number] [address] [place] [address] [place] CO2 [Moles/Vol] 26 mmol/L Normal 22-30 [facility] Comment on above: Order Comment: Speci men Type: BLOOD SPECIMEN Ordering Facility: [facility] Address: [address] [place] [address] Performed By: #### 2 4323-8, 51821-7 #### [facility] CLIA [id number] [address] [place] [address] [place] Creatinine [Mass/Vol] 1.10 mg/dL Normal 0.73-1.22 [facility] Comment on above: Order Comment: Speci men Type: BLOOD SPECIMEN Ordering Facility: [facility] Address: [address] [place] [address] Performed By: #### 2 4323-8, 60348-7 #### [facility] CLIA [id number] [address] [place] [address] [place] Creatinine and Glomerular filtration rate.predicted panel (S/P/Bld) 67 mL/min/1.73m??? Normal >=60 [facility] Comment on above: Order Comment: Speci men Type: BLOOD SPECIMEN Ordering Facility: [facility] Address: [address] [place] [address] Result Comment: Magalie mated Glomerular Filtration Rate [...] actual GFR. Performed By: #### 2 4323-8, 58703-6 #### [facility] CLIA [id number] [address] [place] [address] [place] Glucose [Mass/Vol] 96 mg/dL Normal 74-99 [facility] Comment on above: Order Comment: Neisha saenz Type: BLOOD SPECIMEN Ordering Facility: [facility] Address: [address] [place] [address] Result Comment: The [place] Diabetes Association (ADA) provides guidance for cutoff [...] Standards of Medical Care in Diabetes 2016, [place] [employer]. Diabetes Care. 2016.39(Suppl 1). Performed By: #### 2 4323-8, #### [facility] CLIA [id number] [address] [place], [place] [address] [place] Potassium [Moles/Vol] 4.6 mmol/L Normal 3.7-5.1 [facility] Comment on above: Order Comment: Neisha saenz Type: BLOOD SPECIMEN Ordering Facility: [facility] Address: [address] [place] [address] Performed By: #### 2 4323-8, 11821-1 #### [facility] CLIA [id number] [address] [place], [place] [address] [place] Protein [Mass/Vol] 6.5 g/dL Normal 6.3-8.0 [facility] Comment on above: Order Comment: Speci men Type: BLOOD SPECIMEN Ordering Facility: [facility] Address: [address] [place] [address] Performed By: #### 2 4323-8, 54353-2 #### [facility] CLIA [id number] [address] [place] [address] [place] Sodium [Moles/Vol] 144 mmol/L Normal 136-144 [facility] Comment on above: Order Comment: Speci men Type: BLOOD SPECIMEN Ordering Facility: [facility] Address: [address] [place] [address] Performed By: #### 2 4323-8, 64844-2 #### [facility] CLIA [id number] [address] [place] [address] [place] Urea nitrogen [Mass/Vol] 20 mg/dL Normal 9-24 [facility] Comment on above: Order Comment: Speci men Type: BLOOD SPECIMEN Ordering Facility: [facility] Address: [address] [place] [address] Performed By: #### 2 4323-8, 19625-3 #### [facility] CLIA [id number] [address] [place], [place] [address] [place] Lipid 1996 panelon 5 Cholesterol [Mass/Vol] 161 mg/dL Normal <200 [facility] Comment on above: Order Comment: Speci men Type: BLOOD SPECIMEN Ordering Facility: [facility] Address: [address] [place], [place] [address] Result Comment: <200 mg/dL, Desirable 200-239 mg/dL, Borderline high >239 mg/dL, High Performed By: #### 2 4323-8, 34386-8 #### [facility] CLIA [id number] [address] [place], [place] [address] [place] Cholesterol in HDL [Mass/Vol] 46 mg/dL Normal >39 [facility] Comment on above: Order Comment: Neisha saenz Type: BLOOD SPECIMEN Ordering Facility: [facility] Address: [address] [place] [address] Result Comment: 40-5 9 mg/dL, Acceptable >59 mg/dL, High: Negative risk factor for coronary heart disease <40 mg/dL, Low: Positive risk factor for coronary heart disease Performed By: #### 2 4323-8, 41960-4 #### [facility] CLIA [id number] [address] [place] [address] [place] [facility] Cholesterol in LDL [Mass/Vol] 104 mg/dL High <100 [facility] Comment on above: Order Comment: Neisha letty Type: BLOOD SPECIMEN Ordering Facility: [facility] Address: [address] [place] [address] Result Comment: <100 mg/dL, Optimal 100-129 mg/dL, Near optimal/above optimal 130-159 mg/dL, Borderline high 160-189 mg/dL, High >189 mg/dL, Very high Secondary prevention optimal LDL Cholesterol levels are recommended to be < 70 mg/dL Performed By: #### 2 4323-8, 94256-4 #### [facility] CLIA [id number] [address] [place] [address] [place] [facility] Cholesterol in LDL/Cholesterol in HDL [Mass ratio] 2.26 {ratio} Normal <2.54 [facility] Comment on above: Order Comment: Leydahemanth saenz Type: BLOOD SPECIMEN Ordering Facility: [facility] Address: [address] [place] [address] Result Comment: Refe rence: 1. National Cholesterol Education Program ATP III Guideline At-A-Glance Quick Desk Reference: National Heart, Lung, and Blood [place]. National Institutes of Health. 2001: NIH Publication No. 01-3305. 2. An International Atherosclerosis Society position paper: global recommendations for the management of dyslipidemia: executive summary, Atherosclerosis. 2014: 232(2):410-413. Performed By: #### 2 4323-8, 01639-0 #### [facility] CLIA [id number] [address] [place], [place] [address] [place] Cholesterol in VLDL [Mass/Vol] 11 mg/dL Normal <30 [facility] Comment on above: Order Comment: Speci men Type: BLOOD SPECIMEN Ordering Facility: [facility] Address: [address] [place] [address] Performed By: #### 2 4323-8, 07965-2 #### [facility] CLIA [id number] [address] [place] [address] [place] Cholesterol non HDL [Mass/Vol] 115 mg/dL Normal <130 [facility] Comment on above: Order Comment: Speci men Type: BLOOD SPECIMEN Ordering Facility: [facility] Address: [address] [place] [address] Result Comment: <130 mg/dL, Optimal 130-159 mg/dL, Near optimal/above optimal 160-189 mg/dL, Borderline high 190-219 mg/dL, High >219 mg/dL, Very high Secondary prevention optimal non HDL Cholesterol levels are recommended to be <100 mg/dL Performed By: #### 2 4323-8, 76204-7 #### [facility] CLIA [id number] [address] [place] [address] [place] Cholesterol.total/C holesterol in HDL [Mass ratio] 3.50 {ratio} Normal <5.10 [facility] Comment on above: Order Comment: Speci men Type: BLOOD SPECIMEN Ordering Facility: [facility] Address: [address] [place] [address] Performed By: #### 2 4323-8, 17198-8 #### [facility] CLIA [id number] [address] [place] [address] [place] FASTING TIME 12 hrs Normal [facility] Comment on above: Order Comment: Speci men Type: BLOOD SPECIMEN Ordering Facility: [facility] Address: [address] [place] [address] Performed By: #### 2 4323-8, 61798-3 #### [facility] CLIA [id number] [address] [place] [address] [place] Triglyceride [Mass/Vol] 53 mg/dL Normal <150 [facility] Comment on above: Order Comment: Speci men Type: BLOOD SPECIMEN Ordering Facility: [facility] Address: [address] [place] [address] Result Comment: <150 mg/dL, Normal 150-199 mg/dL, Borderline high 200-499 mg/dL, High >499 mg/dL, Very high Performed By: #### 2 4323-8, 72883-7 #### [facility] CLIA [id number] [address] [place] [address] [place] [facility] Prostate specific Ag [Mass/Vol] 5.73 ng/mL High <2.60 [facility] Comment on above: Order Comment: Speci men Type: BLOOD SPECIMEN Ordering Facility: [facility] Address: [address] [place] [address] Result Comment: Tota l PSA test methodology [...] 2003,349:335-42. Performed By: #### 2 857-1 #### [facility] CLIA [id number] [address] [place] [address] [place] [address] [place] Emergency Department Summary on 07-01-2024 Emergency Department Summary [facility] Medical Records Department [address] [place] [address] Emergency Department Summary 07/01/24 MR#: [id number] Acct: [id number] Name: DOMO BOLDEN Rep #: [id number] : 1940 83 From: Peter Martin MD [...] albeit improved over previous after taking Benadryl. [facility] Medical History Cataract CPAP (continuous positive [...] told he may need referral to an band straightener. I do not feel he requires an epinephrine pen. He was written prescriptions for a steroid burst of 40 mg for the next 7 days and for Pepcid 20 mg orally for the next 7 days. He will take qczd-tbo-hsnmpkf Benadryl 25 to 50 mg (more content not included)... Normal [facility] Emergency Department Summary on 07-19-2023 Emergency Department Summary [facility] Medical Records Department [address] [place] [address] Emergency Department Summary 07/19/23 MR#: [id number] Acct: [id number] Name: DOMO BOLDEN Rep #: [id number] : 1940 82 From: Rocky Willis MD [...] Narrative: T (more content not included)... Normal [facility] 02-09-2023 [facility] Telephone (MEPRAD) DOMO BOLDEN ([id number]) 1940 Date Time Provider Department 02/09/23 BRENDA MOORE During your visit today, we recorded the following information about you: Brenda Moore MD 02/09/2023 11:19 AM Signed FOLLOW UP ENDOSCOPY - RESULTS AND RECOMMENDATIONS NAME: Domo Bolden CLINIC NO.: [id number] : 1940 DATE: February 09, 2023 PRIMARY [...] 50 mg by mouth twice daily. - jnvljrmr-mlb-HA-lycopen-lut ein (CENTRUM SILVER MEN) 300-600-300 mcg tab Take 1 tablet by mouth once daily. - Aspirin 500 mg tab Take 500 mg by mouth once daily. - [place]-3 Fatty Acids-Vitamin E 1,000 mg cap Take [...] Encounter Status:Closed by BRENDA MOORE on 02/09/23 [facility] XR CHEST 2V FRONTAL/LATon [facility] XR Chest PA and Lateralon IMPRESSION: No acute radiographic abnormality. Mild wedging of lower thoracic vertebral body [employer]ibious Vehicle Crewman: JAVON Transcribe Date/Time: Jun 14 2022 1:46P Dictated by : LINDA BOYD MD This examination was interpreted and the report reviewed and electronically signed by: LINDA BOYD MD on Jun 14 2022 1:49PM [facility] DIVISION OF RADIOLOGY * * *Final [...] body. Age indeterminate [facility] * * *Final Report* * [...] Mild wedging of lower thoracic vertebral body Ass[employer] Amphibious Vehicle Crewman: [facility] Transcribe Date/Time: Jun 14 2022 1:46P Dictated by : LINDA BOYD MD This examination was interpreted and the report reviewed and electronically signed by: LINDA BOYD MD on Jun 14 2022 1:49PM EST [facility] Radiology Study observation (narrative) [facility] XR Chest PA and LateralOrder ed By: [facility] Provider on 06-14-2022 [facility] Absolute lymphocyte counton 05-26-2022 Lymphocytes Auto (Unsp spec) [#/Vol] 1.78 10*3/uL 0.83-4.51 [facility] Work Phone: Basophil percentageon 2021 Basophils/100 WBC (Bld) 0.3 % 0-1 [facility] Work Phone: Chloride [Moles/Vol] 106 mmol/L 98-107 [facility] Work Phone: Eosinophils/100 WBC (Bld) 0.9 % 0-5 [facility] Work Phone: Glucose [Mass/Vol] 125 mg/dL 74-106 [facility] Work Phone: Comment on above: Fasting Glucose resu lt from 100 to 125 mg/dL suggests IMPAIRED HOMEOSTASIS per A.D.A. criteria. Neutrophils (Bld) [#/Vol] 8.9 10*3/uL 2.0-7.7 [facility] Work Phone: Neutrophils/100 WBC (Bld) 77.0 % 47-70 [facility] Work Phone: Potassium [Moles/Vol] 4.2 mmol/L 3.5-5.1 [facility] Work Phone: [phone] Sodium [Moles/Vol] 136 mmol/L 136-145 [facility] Work Phone: WBC (Bld) [#/Vol] 11.6 10*3/uL 4.4-11.0 [facility] Work Phone: Basophil percentage 0-5 SEEN /hpf 0-5 [facility] Work Phone: [phone] Bilirubin Test strip Ql (U)o n 05-26-2022 Bilirubin Ql (U) Negative Negative [facility] Work Phone: [phone] Blood erythrocytes count (nu mber/volume)on 05-26-2022 RBC (Bld) [#/Vol] 4.96 10*6/uL 4.6-6.2 [facility] Work Phone: Blood hemoglobin measurement (mass/volume)on 05-26-2022 Hemoglobin (Bld) [Mass/Vol] 15.7 g/dL 13.0-16.5 [facility] Work Phone: Blood lymphocytes/100 leukoc yteson 05-26-2022 Lymphocytes/100 WBC (Bld) 15.4 % 19-41 [facility] Work Phone: Blood monocytes/100 leukocyt eson 05-26-2022 Monocytes/100 WBC (Bld) 5.9 % 0-10 [facility] Work Phone: [phone] Blood platelet mean volumeon 05-26-2022 Platelet mean volume (Bld) [Entitic vol] 9.4 fL 6.2-12.0 [facility] Work Phone: [phone] Determination of erythrocyte mean corpuscular volume (MCV)on 05-26-2022 MCV (RBC) [Entitic vol] 94.0 fL 80-94 [facility] Work Phone: [phone] Hematocrit Auto (Bld) [Volum e fraction]on 05-26-2022 Hematocrit (Bld) [Volume fraction] 46.6 % 40-54 [facility] Work Phone: [phone] Ketones Test strip Ql (U)on 05-26-2022 Ketones Ql (U) 5 mg/dl Negative [facility] Work Phone: [phone] Laboratory - Chemistry and C hemistry - challengeon 05-26-2022 CO2 [Moles/Vol] 24.0 mmol/L 21.0-32.0 [facility] Work Phone: [phone] Urea nitrogen/Creatinine [Mass ratio] 19.8 mg/mg 10-20 [facility] Work Phone: [phone] Laboratory - Hematology and Cell countson 05-26-2022 Erythrocyte distribution width (RBC) [Entitic vol] 44.7 fL 35.1-43.9 [facility] Work Phone: [phone] Erythrocyte distribution width (RBC) [Ratio] 13.0 % 11.6-14.6 [facility] Work Phone: [phone] Immature granulocytes/100 WBC (Bld) 0.500 % 0.0-0.9 [facility] Work Phone: [phone] Comment on above: IG% - Immature Granu locytes (promyelocytes, myelocytes and metamyelocytes) > 1% indicates that a LEFT SHIFT is Present. MCH (RBC) [Entitic mass] 31.7 pg 27.0-32.0 [facility] Work Phone: [phone] Nucleated RBC/100 WBC (Bld) [Ratio] 0 % 0-5 [facility] Work Phone: MCHC Auto (RBC) [Mass/Vol]on 05-26-2022 MCHC (RBC) [Mass/Vol] 33.7 g/dL 32-36 [facility] Work Phone: Mucus LM Ql (Urine sed)on Mucus Ql (Urine sed) 0 SEEN /hpf [facility] Work Phone: [phone] Nitrite Test strip Ql (U)on 05-26-2022 Nitrite Ql (U) Negative Negative [facility] Work Phone: No Panel Informationon 05-26 Estimated Creatinine Clearance Calc 51.11 ml/min [facility] Work Phone: Estimated GFR (MDRD) Amer 74 mL/min >60 [facility] Work Phone: Comment on above: GFR Calc Estimated GFR (MDRD) Non-Af Amer 61 mL/min >60 [facility] Work Phone: Comment on above: Non- GFR Calc Platelets bldon 05-26-2022 Platelets (Bld) [#/Vol] 213 10*3/uL 150-450 [facility] Work Phone: Protein Test strip Ql (U)on 05-26-2022 Protein Ql (U) 15 mg/dl Negative [facility] Work Phone: [phone] Serum or plasma calcium cody urement (mass/volume)on 05-26-2022 Calcium [Mass/Vol] 10.2 mg/dL 8.5-10.1 [facility] Work Phone: [phone] Serum or plasma creatinine m easurement (mass/volume)on 05-26-2022 Creatinine [Mass/Vol] 1.21 mg/dL 0.70-1.30 [facility] Work Phone: Comment on above: The validity of the calculated GFR & GFRAA in patients over 70 years has not been determined. Clinical correlation is essential. Serum or plasma urea nitroge n measurement (mass/volume)on 05-26-2022 Urea nitrogen [Mass/Vol] 24 mg/dL 7-18 [facility] Work Phone: Squamous epithelial cells de tection in urine sediment by light microscopyon 05-26-2022 Epithelial cells.squamous LM Ql (Urine sed) 0 SEEN /hpf 0-5 [facility] Work Phone: Thin prep Papanicolaou smear with manual screeningon 05-26-2022 Thin prep Papanicolaou smear with manual screening 6 5-15 [facility] Work Phone: Urine blood detectionon 04-29 RBC Ql (U) 250 /ul Negative [facility] Work Phone: [phone] RBC Ql (U) 50-100 SEEN /hpf 0-5 [facility] Work Phone: [phone] Urine clarityon 05-26-2022 Clarity (U) Clear Clear [facility] Work Phone: Urine color determinationon 05-26-2022 Color (U) Yellow Yellow [facility] Work Phone: Urine glucose detectionon Glucose Ql (U) Negative Normal [facility] Work Phone: Urine leukocyte esterase det ection by dipstickon 05-26-2022 Leukocyte esterase Test strip Ql (U) 25 /ul Negative [facility] Work Phone: Urine pHon 05-26-2022 pH (U) 5.0 [pH] 5.0 - 8.0 [facility] Work Phone: Urine sediment bacteria coun t by microscopy (number/high power field)on 05-26-2022 Bacteria LM.HPF (Urine sed) [#/Area] 0 /[HPF] None Seen [facility] Work Phone: Urine specific gravity measu rementon 05-26-2022 Specific gravity (U) [Rel density] 1.025 1.002-1.030 [facility] Work Phone: Urobilinogen Auto test strip Ql (U)on 05-26-2022 Urobilinogen Ql (U) Normal mg/dl Normal [facility] Work Phone: Vital Signs Date Time Vital Sign Value Performing Clinician Marge lopez 01-21-2025 09:56-0400 Body mass index (BMI) [Ratio] 29.81 kg/m2 Eze Rodriguez MD Work Phone: [facility] 01-21-2025 09:56-0400 Body weight 92.9 kg Eze Rodriguez MD Work Phone: [facility] 01-21-2025 09:56-0400 Diastolic blood pressure 84 mm[Hg] Eze Rodriguez MD Work Phone: [facility] 01-21-2025 09:56-0400 Heart rate 80 /min Eze Rodriguez MD Work Phone: [facility] 01-21-2025 09:56-0400 Respiratory rate 16 /min Eze Rodriguez MD Work Phone: [facility] 01-21-2025 09:56-0400 Systolic blood pressure 140 mm[Hg] Eze Rodriguez MD Work Phone: [facility] 07-23-2024 08:17-0400 Diastolic blood pressure 84 mm[Hg] Eze Rodriguez MD Work Phone: [facility] 07-23-2024 08:17-0400 Systolic blood pressure 142 mm[Hg] Eze Rodriguez MD Work Phone: [facility] 07-23-2024 08:15-0400 Body height 176.5 cm Eze Rodriguez MD Work Phone: [facility] 07-23-2024 08:15-0400 Body mass index (BMI) [Ratio] 30.07 kg/m2 Eze Rodriguez MD Work Phone: [facility] 07-23-2024 08:15-0400 Body weight 93.7 kg Eze Rodriguez MD Work Phone: [facility] 07-23-2024 08:15-0400 Heart rate 76 /min Eze Rodriguez MD Work Phone: [facility] 07-23-2024 08:15-0400 Respiratory rate 18 /min Eze Rodriguez MD Work Phone: [facility] 12-19-2023 11:27-0500 Body weight 93.53 kg Eze Rodriguez MD Work Phone: [facility] 12-19-2023 11:27-0500 Diastolic blood pressure 74 mm[Hg] Eze Rodriguez MD Work Phone: [facility] 12-19-2023 11:27-0500 Heart rate 74 /min Eze Rodriguez MD Work Phone: [facility] 12-19-2023 11:27-0500 Respiratory rate 1 /min Eze Rodriguez MD Work Phone: [facility] 12-19-2023 11:27-0500 Systolic blood pressure 124 mm[Hg] Eze Rodriguez MD Work Phone: [facility] 07-19-2023 21:00-0400 Diastolic blood pressure 77 mm[Hg] [facility] 07-19-2023 21:00-0400 Heart rate 83 /min [facility] 07-19-2023 21:00-0400 SaO2% (BldA) [Mass fraction] 97 % [facility] 07-19-2023 21:00-0400 Systolic blood pressure 143 mm[Hg] [facility] 07-19-2023 18:13-0400 Respiratory rate 16 /min [facility] 07-19-2023 16:08-0400 Body height 175.[address] [facility] 07-19-2023 16:08-0400 Body mass index (BMI) [Ratio] 31 kg/m2 [facility] 07-19-2023 16:08-0400 Body temperature 98 [degF] [facility] 07-19-2023 16:08-0400 Body weight 95.[address] [facility] 06-18-2023 11:34-0400 Body weight 92.14 kg Eze Rodriguez MD Work Phone: [facility] 06-18-2023 11:34-0400 Diastolic blood pressure 80 mm[Hg] Eze Rodriguez MD Work Phone: [facility] 06-18-2023 11:34-0400 Heart rate 74 /min Eze Rodriguez MD Work Phone: [facility] 06-18-2023 11:34-0400 Respiratory rate 16 /min Eze Rodriguez MD Work Phone: [facility] 06-18-2023 11:34-0400 Systolic blood pressure 116 mm[Hg] Eze Rodriguez MD Work Phone: [facility] 04-16-2023 10:56-0400 Body height 176.5 cm Nicki Loffelmann PA-C Work Phone: [facility] 04-16-2023 10:56-0400 Body weight 93.67 kg Nicki Loffelmann PA-C Work Phone: [facility] 04-16-2023 10:56-0400 Diastolic blood pressure 74 mm[Hg] Nicki Loffelmann PA-C Work Phone: [facility] 04-16-2023 10:56-0400 Heart rate 72 /min Nicki Loffelmann PA-C Work Phone: [facility] 04-16-2023 10:56-0400 SaO2% (BldA) [Mass fraction] 97 % Nicki Loffelmann PA-C Work Phone: [facility] 04-16-2023 10:56-0400 Systolic blood pressure 126 mm[Hg] Nicki Loffelmann PA-C Work Phone: [facility] 01-21-2023 04:20-0400 Body height 176.5 cm [facility] Work Phone: [facility] 01-21-2023 04:20-0400 Body weight 94.8 kg [facility] Work Phone: [facility] 12-17-2022 12:41-0500 Body weight 94.85 kg Eze Rodriguez MD Work Phone: [facility] 12-17-2022 12:41-0500 Diastolic blood pressure 78 mm[Hg] Eze Rodriguez MD Work Phone: [facility] 12-17-2022 12:41-0500 Heart rate 74 /min Eze Rodriguez MD Work Phone: [facility] 12-17-2022 12:41-0500 Respiratory rate 16 /min Eze Rodriguez MD Work Phone: [facility] 12-17-2022 12:41-0500 Systolic blood pressure 120 mm[Hg] Eze Rodriguez MD Work Phone: [facility] 06-14-2022 09:16-0400 Body weight 91.44 kg Eze Rodriguez MD Work Phone: [facility] 06-14-2022 09:16-0400 Diastolic blood pressure 74 mm[Hg] Eze Rodriguez MD Work Phone: [facility] 06-14-2022 09:16-0400 Heart rate 80 /min Eze Rodriguez MD Work Phone: [facility] 06-14-2022 09:16-0400 Respiratory rate 16 /min Eze Rodriguez MD Work Phone: [facility] 06-14-2022 09:16-0400 Systolic blood pressure 122 mm[Hg] Eze Rodriguez MD Work Phone: [facility] 05-26-2022 13:56-0400 Diastolic blood pressure 78 mm[Hg] [facility] Work Phone: 05-26-2022 13:56-0400 Heart rate 78 /min [facility] Work Phone: 05-26-2022 13:56-0400 Respiratory rate 14 /min [facility] Work Phone: 05-26-2022 13:56-0400 SaO2% (BldA) [Mass fraction] 98 % [facility] Work Phone: 05-26-2022 13:56-0400 Systolic blood pressure 136 mm[Hg] [facility] Work Phone: 05-26-2022 11:35-0400 Body height 177.[address] [facility] Work Phone: 05-26-2022 11:35-0400 Body mass index (BMI) [Ratio] 29.7 kg/m2 [facility] Work Phone: 05-26-2022 11:35-0400 Body temperature 97.3 [degF] [facility] Work Phone: 05-26-2022 11:35-0400 Body weight 93.[address] [facility] Work Phone: Encounters Encounter Date Encounter Type Care Provider Facility Start: 08-24-2025 End: 08-24-2025 ambulatory EZE RODRIGUEZ Facility:[facility] Start: 08-24-2025 Patient encounter procedure EZE RODRIGUEZ [facility] Start: 07-22-2025 End: 07-22-2025 ambulatory EZE RODRIGUEZ Facility:[facility] Start: 06-23-2025 End: 06-23-2025 ambulatory PRANEETH SEGURA II Facility:[facility] Start: 06-23-2025 End: 06-23-2025 Patient encounter procedure [...] Start: 04-13-2025 End: 04-13-2025 ambulatory EZE RODRIGUEZ Facility:[facility] Start: 02-15-2025 End: 02-15-2025 Refill Eze Rodriguez MD Work Phone: [facility] [place] Comment on above: Refill Request Insurance Authorizat ion Start: 01-21-2025 End: 01-21-2025 ambulatory EZE RODRIGUEZ Facility:[facility] Start: 01-21-2025 End: 01-21-2025 Office outpatient visit 25 minutes Eze Rodriguez MD Work Phone: [facility] [place] Comment on above: Essential hypertensi on (Primary Dx); Mixed hyperlipidemia; BPH with obstruction/lower urinary tract symptoms; Elevated PSA; Acute pain of right knee Start: 01-14-2025 End: 01-14-2025 ambulatory EZE RODRIGUEZ Facility:[facility] Start: 08-12-2024 End: 08-12-2024 Refill Eze Rodriguez MD Work Phone: [facility] [place] Comment on above: Refill Request Start: 07-23-2024 End: 07-23-2024 Patient encounter procedure Eze Rodriguez MD Work Phone: [facility] Comment on above: Encounter for Medica re annual wellness exam (Primary Dx); Essential hypertension; Mixed hyperlipidemia; BPH with obstruction/lower urinary tract symptoms; ED (erectile dysfunction) of organic origin; Elevated PSA; Screening for depression; Encounter for screening examination for other mental health and behavioral disorders; Encounter for immunization Start: 07-01-2024 End: 07-02-2024 Emergency department patient visit Peter Martin Facility:[facility] Start: 05-19-2024 ambulatory Sabiha Estrada [facility] [place] Start: 05-19-2024 [facility] encounter [facility] Comment on above: Population Health Na vigation Outreach ([facility]udy Montes[facility] - [place] [facility]) Start: 04-27-2024 ambulatory Varsha Ohara [facility] [place] Start: 04-27-2024 Patient encounter [facility] Comment on above: Population Health Na vigation Outreach (Tr[facility]y Med Adherence ) Start: 04-23-2024 End: 04-23-2024 Patient encounter procedure Praneeth Segura OD Work Phone: Optometry Comment on above: Bacterial conjunctiv itis of left eye (Primary Dx); Pseudophakia of right eye; Combined forms of age-related cataract of left eye Start: 04-09-2024 ambulatory Varsha Ohara [facility] [place] Start: 04-09-2024 Patient encounter procedure Varsha Ohara MA [facility] [place] Comment on above: Population Health Na vigation Outreach ([place] [facility]herence ) Start: 03-28-2024 Refill Terry AMEZCUA RN.COMPLIANCE REVIEW SPECIALIST Work Phone: Family [facility] Comment on above: Refill Request Start: 01-06-2024 Telephone encounter Eze alva MD Work Phone: [facility] [place] Comment on above: Insurance Authorizat ion Start: 01-03-2024 Refill Eze olsen MD Work Phone: [facility] Comment on above: Refill Request Start: 12-19-2023 End: 12-19-2023 Patient encounter procedure Eze Rodriguez MD Work Phone: [facility] Comment on above: Essential hypertensi on (Primary Dx); Mixed hyperlipidemia; JOSE (obstructive sleep apnea); BPH with obstruction/lower urinary tract symptoms; Family history of prostate cancer; Acute cough; ED (erectile dysfunction) of organic origin; Elevated PSA Start: 12-17-2023 ambulatory Eze olsen MD Work Phone: [facility] Comment on above: Allied Health Visit (Medication Adherence Outreach) Start: 07-19-2023 End: 07-19-2023 Emergency department patient visit [facility] Work Phone: Start: 07-19-2023 ambulatory Eze olsen MD Work Phone: [facility] Comment on above: Unsteadiness of Feet Start: 06-18-2023 End: 06-18-2023 Patient encounter procedure Eze Rodriguez MD Work Phone: [facility] Comment on above: Essential hypertensi on (Primary [...] caregiver Brenda Moore MD Work Phone: [place] [facility] Start: 02-09-2023 Telephone encounter Brenda Moore MD Work Phone: [place] [facility] Adult Comment on above: Results Start: 01-24-2023 Telephone encounter Eze alva MD Work Phone: [facility] [place] Comment on above: DME to fax Cpap orde rs to Start: 01-20-2023 End: 01-21-2023 [facility] Start: 12-19-2022 Telephone encounter Eze alva MD Work Phone: [facility] [place] Comment on above: Orders Start: 12-18-2022 Chart abstracting [facility] Work Phone: Neurology Start: 12-17-2022 End: 12-17-2022 Patient encounter procedure Eze Rodriguez MD Work Phone: [facility] Comment on above: Essential hypertensi on (Primary Dx); Mixed hyperlipidemia; JOSE (obstructive sleep apnea); BPH with obstruction/lower urinary tract symptoms; Screening PSA (prostate specific antigen); Personal history of colonic polyps; Special screening for malignant neoplasms, colon Start: 07-13-2022 Telephone encounter Terry Lopezhemanth pino APRN.CNP Work Phone: [facility] Comment on above: Results Start: 06-15-2022 Chart abstracting [facility] Work Phone: Neurology Start: 06-14-2022 End: 06-14-2022 Subsequent hospital visit by physician [facility] Work Phone: Radiology Comment on above: Cough, unspecified t ype [R05.9] Start: 06-14-2022 End: 06-14-2022 Patient encounter procedure Eze Rodriguez MD Work Phone: [facility] Comment on above: Essential hypertensi on (Primary Dx); Cough, unspecified type; JOSE (obstructive sleep apnea); Mixed hyperlipidemia; Elevated PSA Start: 05-28-2022 Chart abstracting Eze lopez MD Work Phone: [facility] Comment on above: external report Start: 05-26-2022 End: 05-26-2022 [facility] Start: 02-07-2022 Refill Eze olsen MD Work Phone: [facility] Comment on above: Refill Request Procedures Date [...] Detail Author Start: 12-04-2028 Urine microalbumin profile [facility] Start: 02-06-2028 Colonoscopy COLONOSCOPY [facility] Start: 02-06-2028 COLORECTAL CANCER SCREENING COLORECTAL CANCER SCREENING [facility] Start: 02-06-2028 Screening for malign ant neoplasm of colon [facility] Start: 01-15-2028 [facility] Start: 12-16-2026 Diabetes Screening Diabetes Screenin [facility] Start: 06-29-2026 End: 06-29-2026 Patient encounter procedure 06/29/2026 8:30 AM EDT Office Visit [facility] [address] [place] [address] Praneeth Segura II, OD [address] [place] [address] [facility] [address] [address] Return in about one year for Eye Exam; Optometry Comment on above: Return in about one year for Eye Exam; Start: 06-13-2026 DIABETES SCREEN DIABETES SCREEN [facility] Start: 06-13-2026 Diabetes Screening Diabetes Screenin g [facility] Start: 01-21-2026 Covid-19 Vaccine ( season) Covid-19 Vaccine () [facility] Comment on above: Postponed from 01/20 (Declined at this time) Start: 12-12-2025 DIABETES SCREEN DIABETES SCREEN [facility] Start: 07-27-2025 End: 07-27-2025 Patient encounter procedure 07/27/2025 10:40 AM EDT Office Visit [facility] [address] [place] [address] Eze Rodriguez MD [address] [facility] [place] [id number] 6 mo f/u [facility] Comment on above: 6 mo f/u Start: 07-24-2025 End: 10-23-2025 Comprehensive metabolic 2000 panel - Serum or Plasma COMPREHENSIVE METABOLIC PANEL Lab Routine Essential hypertension Mixed hyperlipidemia Expected: 07/24/2025 (Approximate), Expires: 10/23/2025 [facility] Comment on above: Expected: 07/24/2025 (Approximate), Expires: 10/23/2025 Start: 07-24-2025 End: 10-23-2025 Lipid 1996 panel - Serum or Plasma LIPID PANEL, FASTING Lab Routine Essential hypertension Mixed hyperlipidemia Expected: 07/24/2025 (Approximate), Expires: 10/23/2025 [facility] Comment on above: Expected: 07/24/2025 (Approximate), Expires: 10/23/2025 Start: 07-24-2025 End: 10-23-2025 Prostate specific Ag [Mass/volume] in Serum or Plasma PROSTATE-SPECIFIC ANTIGEN DIAGNOSTIC Lab Routine Elevated PSA Expected: 07/24/2025 (Approximate), Expires: 10/23/2025 [facility] Work Phone: Comment on above: Expected: 07/24/2025 (Approximate), Expires: 10/23/2025 Start: 07-23-2025 Anxiety Screening Anxiety Screening [facility] Start: 07-23-2025 Depression Screening Depression Scre ening [facility] Start: 06-28-2025 Influenza vaccination Influenza Vacc ine (#1) [facility] Start: 06-11-2025 DIABETES SCREEN DIABETES SCREEN [facility] Start: 01-21-2025 End: 01-21-2025 Patient encounter procedure 01/21/2025 9:40 AM EDT Office Visit [facility] [address] [place] [address] Eze Rodriguez MD [address] [place] [address] 6 mo f/u [facility] Comment on above: 6 mo f/u Start: 01-20-2025 End: 04-21-2025 CBC W Auto Differential panel - Blood COMPLETE BLOOD COUNT AND DIFFERENTIAL Lab Routine Essential hypertension Expected: 01/20/2025 (Approximate), Expires: 04/21/2025 [facility] Comment on above: Expected: 01/20/2025 (Approximate), Expires: 04/21/2025 Start: 01-20-2025 End: 04-21-2025 Comprehensive metabolic 2000 panel - Serum or Plasma COMPREHENSIVE METABOLIC PANEL Lab Routine Essential hypertension Mixed hyperlipidemia Expected: 01/20/2025 (Approximate), Expires: 04/21/2025 [facility] Work Phone: Comment on above: Expected: 01/20/2025 (Approximate), Expires: 04/21/2025 Start: 01-20-2025 End: 04-21-2025 Lipid 1996 panel - Serum or Plasma LIPID PANEL BASIC Lab Routine Essential hypertension Mixed hyperlipidemia Expected: 01/20/2025 (Approximate), Expires: 04/21/2025 [facility] Comment on above: Expected: 01/20/2025 (Approximate), Expires: 04/21/2025 Start: 01-20-2025 End: 04-21-2025 Prostate specific Ag [Mass/volume] in Serum or Plasma PROSTATE-SPECIFIC ANTIGEN DIAGNOSTIC Lab Routine BPH with obstruction/lower urinary tract symptoms Elevated PSA Expected: 01/20/2025 (Approximate), Expires: 04/21/2025 [facility] Comment on above: Expected: 01/20/2025 (Approximate), Expires: 04/21/2025 Start: 01-14-2025 End: 01-14-2025 ambulatory 01/14/2025 9:30 AM EDT [facility] [address] [place] [address] lab [facility] Comment on above: lab Start: 12-07-2024 DIABETES SCREEN DIABETES SCREEN [facility] Start: 10-28-2024 Medicare Advantage Annual Wellness Visit Medicare Advantage Annual Wellness Visit [facility] Start: 07-23-2024 End: 07-23-2024 Patient encounter procedure 07/23/2024 8:00 AM EDT Office Visit [facility] [address] [place] [address] Eze Rodriguez MD [address] [place] [address] Annual Wellness - 6 month follow up [facility] Comment on above: Annual Wellness - 6 month follow up Start: 06-28-2024 Influenza vaccination Influenza Vacc ine (#1) [facility] Start: 06-23-2024 End: 06-23-2024 Patient encounter procedure 06/23/2024 9:00 AM EDT Office Visit Family [facility] [address] [place] [address] Eze Rodriguez MD [address] [place] [address] 6 month follow up [facility] Comment on above: 6 month follow up Start: 06-18-2024 ANNUAL PCP TEAM FIELD MARKETING COORDINATOR RADHA DISEASE VISIT ANNUAL PCP TEAM CHRONIC DISEASE VISIT [facility] Start: 06-18-2024 End: 09-17-2024 Prostate specific Ag [Mass/volume] in Serum or Plasma PSA/PROSTSPECAG DIAG Lab Routine BPH with obstruction/lower urinary tract symptoms Elevated PSA Expected: 06/18/2024 (Approximate), Expires: 09/17/2024 [facility] Work Phone: Comment on above: Expected: 06/18/2024 (Approximate), Expires: 09/17/2024 Start: 06-18-2024 End: 06-18-2024 ambulatory 06/18/2024 10:00 AM EDT Results Only [facility] Draw Station [address] [place] [address] [facility] Draw Station Start: 04-16-2024 BP CONTROLLED (<130/80) BP CONTROLLE D (<130/80) [facility] Start: 03-08-2024 End: 08-15-2024 OCT MACULA CIRRUS OU (BOTH EYES) OCT MACULA CIRRUS OU (BOTH EYES) [facility] Imaging Routine Combined forms of age-related cataract of right eye Expected: 03/08/2024, Expires: 08/15/2024 [facility] Work Phone: Comment on above: Expected: 03/08/2024 , Expires: 08/15/2024 Start: 12-19-2023 End: 02-18-2024 Comprehensive metabolic 2000 panel - Serum or Plasma COMP METABOLIC PANEL Lab Routine Mixed hyperlipidemia Expected: 12/19/2023 (Approximate), Expires: 02/18/2024 [facility] Work Phone: Comment on above: Expected: 12/19/2023 (Approximate), Expires: 02/18/2024 Start: 12-19-2023 End: 02-18-2024 Lipid 1996 panel - Serum or Plasma LIPID PANEL BASIC Lab Routine Mixed hyperlipidemia Expected: 12/19/2023 (Approximate), Expires: 02/18/2024 [facility] Work Phone: Comment on above: Expected: 12/19/2023 (Approximate), Expires: 02/18/2024 Start: 12-19-2023 End: 02-18-2024 Prostate specific Ag [Mass/volume] in Serum or Plasma PSA/PROSTSPECAG DIAG Lab Routine BPH with obstruction/lower urinary tract symptoms Elevated PSA Expected: 12/19/2023 (Approximate), Expires: 02/18/2024 [facility] Work Phone: Comment on above: Expected: 12/19/2023 (Approximate), Expires: 02/18/2024 Start: 12-17-2023 ANNUAL PCP TEAM FIELD MARKETING COORDINATOR RADHA DISEASE VISIT ANNUAL PCP TEAM CHRONIC DISEASE VISIT [facility] Start: 12-17-2023 BP CONTROLLED (<130/80) BP CONTROLLE D (<130/80) [facility] Start: 10-28-2023 Advance Directive Discussion Advance Directive Discussion [facility] Start: 10-28-2023 Behavioral Health Screening Behavioral Health Screening [facility] Start: 10-28-2023 Depression Assessment Depression Ass essment [facility] Start: 06-28-2023 Covid-19 Vaccine () Covid-19 Vaccine () [facility] Start: 06-28-2023 Influenza vaccination [facility] Start: 06-16-2023 End: 08-16-2023 Comprehensive metabolic 2000 panel - Serum or Plasma COMP METABOLIC PANEL Lab Routine Mixed hyperlipidemia Expected: 06/16/2023 (Approximate), Expires: 08/16/2023 [facility] Work Phone: Comment on above: Expected: 06/16/2023 (Approximate), Expires: 08/16/2023 Start: 06-16-2023 End: 08-16-2023 Lipid 1996 panel - Serum or Plasma LIPID PANEL BASIC Lab Routine Mixed hyperlipidemia Expected: 06/16/2023 (Approximate), Expires: 08/16/2023 [facility] Work Phone: Comment on above: Expected: 06/16/2023 (Approximate), Expires: 08/16/2023 Start: 06-16-2023 End: 08-16-2023 PSA/PROSTSPECAG SCRN PSA/PROSTSPECAG SCRN Lab Routine BPH with obstruction/lower urinary tract symptoms Screening PSA (prostate specific antigen) Expected: 06/16/2023 (Approximate), Expires: 08/16/2023 [facility] Work Phone: Comment on above: Expected: 06/16/2023 (Approximate), Expires: 08/16/2023 Start: 06-14-2023 Adult depression screening assessment DEPRESSION SCREENING [facility] Start: 06-14-2023 ANNUAL PCP TEAM FIELD MARKETING COORDINATOR RADHA DISEASE VISIT ANNUAL PCP TEAM CHRONIC DISEASE VISIT [facility] Start: 06-14-2023 BP CONTROLLED (<130/80) BP CONTROLLE D (<130/80) [facility] Start: 05-13-2023 SHINGRIX VACCINE (3 of 3) SHINGRIX VACCINE (3 of 3) [facility] Start: 02-08-2023 COVID-19 VACCINE (7 - Mixed Product series) COVID-19 VACCINE (7 - Mixed Product series) [facility] Start: 12-15-2022 End: 02-14-2023 CBC panel - Blood by Automated count CBC Lab Routine Essential hypertension Expected: 12/15/2022 (Approximate), Expires: 02/14/2023 [facility] Work Phone: Comment on above: Expected: 12/15/2022 (Approximate), Expires: 02/14/2023 Start: 12-15-2022 End: 02-14-2023 Comprehensive metabolic 2000 panel - Serum or Plasma COMP METABOLIC PANEL Lab Routine Essential hypertension Mixed hyperlipidemia Expected: 12/15/2022 (Approximate), Expires: 02/14/2023 [facility] Work Phone: Comment on above: Expected: 12/15/2022 (Approximate), Expires: 02/14/2023 Start: 12-15-2022 End: 02-14-2023 Lipid 1996 panel - Serum or Plasma LIPID PANEL BASIC Lab Routine Essential hypertension Mixed hyperlipidemia Expected: 12/15/2022 (Approximate), Expires: 02/14/2023 [facility] Work Phone: Comment on above: Expected: 12/15/2022 (Approximate), Expires: 02/14/2023 Start: 12-15-2022 End: 02-14-2023 Prostate specific Ag [Mass/volume] in Serum or Plasma PSA/PROSTSPECAG DIAG Lab Routine Elevated PSA Expected: 12/15/2022 (Approximate), Expires: 02/14/2023 [facility] Work Phone: Comment on above: Expected: 12/15/2022 (Approximate), Expires: 02/14/2023 Start: 12-14-2022 ANNUAL PCP TEAM FIELD MARKETING COORDINATOR RADHA DISEASE VISIT ANNUAL PCP TEAM CHRONIC DISEASE VISIT [facility] Start: 12-14-2022 BP CONTROLLED (<130/80) BP CONTROLLE D (<130/80) [facility] Start: 07-12-2022 COVID-19 VACCINE (5 - Booster) COVID-19 VACCINE (5 - Booster) [facility] Start: 06-28-2022 Influenza vaccination INFLUENZA (#1) [facility] Start: 06-13-2022 Adult depression screening assessment DEPRESSION SCREENING [facility] Start: 12-25-2021 COVID-19 VACCINE (4 - Booster) COVID-19 VACCINE (4 - Booster) [facility] Start: 10-28-2021 ADVANCE DIRECTIVE DISCUSSION ADVANCE DIRECTIVE DISCUSSION [facility] Start: 12-04-2011 SHINGRIX VACCINE (2 of 3) SHINGRIX VACCINE (2 of 3) [facility] Start: 1987 COLOGUARD (FIT-DNA) COLOGUARD (FIT-D NA) [facility] Start: [address] COLONOGRAPHY [facility] Start: 1987 FECAL OCCULT BLOOD FECAL OCCULT BLOO D [facility] Start: 1987 Screening for malign ant neoplasm of colon [facility] Start: 1987 SIGMOIDOSCOPY SIGMOIDOSCOPY [facility] Start: 1960 BP CONTROLLED (<130/80) BP CONTROLLE D (<130/80) [facility] CORNEAL TOPOGRAPHY ATLAS OU (BOTH EYES) CORNEAL TOPOGRAPHY ATLAS OU (BOTH EYES) OPHT Imaging Routine Combined forms of age-related cataract of right eye Ordered: 02/22/2023 [facility] Work Phone: Comment on above: Ordered: 02/22/2023 End: 06-14-2023 HOME SLEEP APNEA TEST (HSAT) HOME SLEEP APNEA TEST (HSAT) Procedures Routine JOSE (obstructive sleep apnea) 1 Occurrences starting 06/14/2022 until 06/14/2023 [facility] Work Phone: Comment on above: 1 Occurrences starti ng 06/14/2022 until 06/14/2023 End: 12-17-2023 HOME SLEEP APNEA TEST (HSAT) HOME SLEEP APNEA TEST (HSAT) Procedures Routine JOSE (obstructive sleep apnea) 1 Occurrences starting 12/17/2022 until 12/17/2023 [facility] Work Phone: Comment on above: 1 Occurrences starti ng 12/17/2022 until 12/17/2023 End: 08-12-2023 PAP TITRATION PSG (CPAP, BIPAP, ASV) PAP TITRATION PSG (CPAP, BIPAP, ASV) Procedures Routine JOSE (obstructive sleep apnea) 1 Occurrences starting 07/13/2022 until 08/12/2023 [facility] Work Phone: Comment on above: 1 Occurrences starti ng 07/13/2022 until 08/12/2023 End: 01-16-2024 PAP TITRATION PSG (CPAP, BIPAP, ASV) PAP TITRATION PSG (CPAP, BIPAP, ASV) Procedures Routine JOSE (obstructive sleep apnea) 1 Occurrences starting 12/17/2022 until 01/16/2024 [facility] Work Phone: Comment on above: 1 Occurrences starti ng 12/17/2022 until 01/16/2024 Patient Education [facility] Work Phone: Patient referral [facility] Work Phone: End: 12-17-2023 Screening colonoscopy COLONOSCOPY SCREENING Endoscopy Routine Personal history of colonic polyps Special screening for malignant neoplasms, colon 1 Occurrences starting 12/17/2022 until 12/17/2023 [facility] Work Phone: Comment on above: 1 Occurrences starti ng 12/17/2022 until 12/17/2023 [facility] Immunizations Immunization Date Immunization Notes Care Provider [facility] 07-23-2024 COVID-19 vaccine, ag e 12+ yr ([employer] [facility]) Eze Rodriguez MD Work Phone: [facility] 07-23-2024 influenza, high dose seasonal, preservative-free Eze Rodrigeuz MD Work Phone: [facility] 07-23-2024 influenza virus vacc ine, unspecified formulation Eze Rodriguez MD Work Phone: [facility] 08-12-2023 influenza (aIIV4) vaccine, age 65+ yr, quadrivalent, PF (FLUAD QUAD) Eze Rodriguez MD Work Phone: [facility] 08-12-2023 pneumococcal conjuga te (PCV20) vaccine, 20 valent (PREVNAR 20) Eze Rodriguez MD Work Phone: [facility] 08-12-2023 respiratory syncytia l virus (RSV) vaccine, bivalent (ABRYSVO) Eze Rodriguez MD Work Phone: [facility] 08-12-2023 influenza virus vacc ine, unspecified formulation Varsha Manleyarmin GRAVES [facility] 05-20-2023 zoster vaccine recombinant Eze Rodriguez MD Work Phone: [facility] 03-18-2023 zoster vaccine recombinant Nicki Gomez PA-C Work Phone: [facility] Work Phone: 10-10-2022 influenza (aIIV4) vaccine, age 65+ yr, quadrivalent, PF (FLUAD QUAD) Nicki Patricia PA-C Work Phone: [facility] Work Phone: 10-10-2022 influenza virus vacc ine, unspecified formulation Eze Rodriguez MD Work Phone: [facility] 05-25-2022 zoster vaccine recombinant Eze Rodriguez MD Work Phone: [facility] 05-17-2022 COVID-19 original vaccine, full dose, monovalent (MODERNA) Nicki Shemarann PA-C Work Phone: [facility] Work Phone: 10-17-2021 influenza (aIIV4) vaccine, age 65+ yr, quadrivalent, PF (FLUAD QUAD) Nicki Toddlmann PA-C Work Phone: [facility] Work Phone: 08-24-2021 COVID-19 original vaccine, full dose, monovalent (MODERNA) Nicki Toddlmann PA-C Work Phone: [facility] Work Phone: 12-29-2020 COVID-19 vaccine, fu ll dose (MODERNA) Eze Rodriguez MD Work Phone: [facility] 12-01-2020 COVID-19 original vaccine, full dose, monovalent (MODERNA) Nicki Toddlmann PA-C Work Phone: [facility] Work Phone: 12-01-2020 COVID-19 vaccine (UNSPECIFIED) Eze Rodriguez MD Work Phone: [facility] 07-08-2020 influenza, injectabl e, quadrivalent, preservative free Nicki Gomez PA-C Work Phone: [facility] Work Phone: 08-26-2019 Seasonal trivalent influenza vaccine, adjuvanted, preservative free Nicki Gomez PA-C Work Phone: [facility] Work Phone: 12-04-2018 tetanus toxoid, redu natacha diphtheria toxoid, and acellular pertussis vaccine, adsorbed Eze Rodriguez MD Work Phone: [facility] 10-04-2018 Seasonal trivalent influenza vaccine, adjuvanted, preservative free Eze Rodriguez MD Work Phone: [facility] 10-02-2018 influenza, high dose seasonal, preservative-free Eze Rodriguez MD Work Phone: [facility] 08-28-2017 influenza, high dose seasonal, preservative-free Eze Rodriguez MD Work Phone: [facility] 08-17-2017 Seasonal trivalent influenza vaccine, adjuvanted, preservative free Eze Rodriguez MD Work Phone: [facility] 07-22-2015 influenza, seasonal, injectable Eze Rodriguez MD Work Phone: [facility] 07-22-2015 pneumococcal conjuga te vaccine, 13 valent Eze Rodriguez MD Work Phone: [facility] 07-20-2014 influenza, seasonal, injectable Eze Rodriguez MD Work Phone: [facility] 10-09-2011 pneumococcal polysaccharide vaccine, 23 valent Eze Rodriguez MD Work Phone: [facility] Work Phone: 10-09-2011 tetanus toxoid, adsorbed Kylie Rodriguez MD Work Phone: [facility] Work Phone: 10-09-2011 zoster vaccine, live Eze desir MD Work Phone: [facility] Work Phone: 07-31-2011 influenza virus vacc ine, unspecified formulation Eze Rodriguez MD Work Phone: [facility] Work Phone: 10-14-2009 influenza virus vacc ine, unspecified formulation Eze Rodriguez MD Work Phone: [facility] Work Phone: 09-09-2007 influenza virus vacc ine, whole virus Eze Rodriguez MD Work Phone: [facility] Payers Date Payer Category Payer Private Health Insurance [employer] [place] [address] [place] [address] [id number] 10-28-2024 Unknown [id number] 07-19-2023 Self-pay [id number] 10-28-2021 Medicare (Managed Care) [employer] PPO [id number] 10-28-2021 Unknown [facility] AND BLUE SHIELD ANTHEM MEDIBLUE ACCESS [id number] 10/28/2021-Present [phone] [address] [place] [address] PPO [id number] 10-28-2021 Unknown [id number] 10-28-2021 Unknown [id number] Medicare [id number] Unknown [id number] Unknown [id number] Social History Date Type Detail Facility Start: 08-15-2015 Tobacco smoking status OKIS Never smoked tobacco [facility] Start: 12-14-2021 End: 06-23-2025 Alcohol intake Current drinker of alcohol (finding) [facility] Start: 10-09-2011 History SDOH Alcohol Comment moderate [facility] Start: 1940 Sex Assigned At Male [facility] Start: 05-26-2022 End: 07-19-2023 Tobacco smoking status OKIS Unknown if ever smoked [facility] Start: 08-15-2015 Tobacco use and exposure Smokeless tobacco non-user [facility] Start: 06-04-2022 End: 06-14-2022 Exposure to SARS-CoV-2 (event) Not sure [facility] Start: 05-03-2023 End: 07-22-2024 History of Social function [facility] Work Phone: Start: 05-03-2023 End: 07-22-2024 Tobacco use panel [facility] Work Phone: Start: 09-28-2012 Adult Depression Screening Assessment 0 [facility] Work Phone: Start: 12-07-2021 Gender identity Identifies as male gender (finding) [facility] Start: 10-16-2018 Sexual orientation Heterosexual (finding) [facility] Do you belong to any clubs or organizations such as temple groups, unions, fraternal or athletic groups, or school groups? No [facility] Are you now , , , , never or living with a partner? [facility] How often to you hav e a drink containing alcohol? 2-3 time sa week [facility] How many standard dr inks containing alcohol do you have on a typical day? 1 or 2 [facility] How often do you hav e 6 or more drinks on 1 occasion? Never [facility] Do you feel stress - tense, restless, nervous, or anxious, or unable to sleep at night because your mind is troubled all the time - these days [OSQ] Not at all [facility] ([facility]We[facility] would run out before (I/we) got money to buy more. Never true [facility] Medical Equipment Procedure Code Equipment Code Equipment Origin al Text Equipment Identifier Dates [employer] [id number] 18.0d [id number] Start: 04-25-2023 Comment on above: Description: -0.19 Mental Status Date Assessment Result Facility 07-19-2023 Cognitive function Level Of Cons ciousness Awake;Alert;Appropriate;Follow s Commands [facility] Work Phone: Clinical Notes 03-01-2011 to 08-24-2025 Patient InstructionsCoPraneeth fagan II, OD - 06/23/2025 9:52 AM EDTTelephone Encounter - Annie Day LPN - 02/15/2025 11:01 AM Eze Nicolas MD - 01/21/2025 9:40 AM EDT Note Date & Type Note Facility 08-24-2025 Note HNO ID: [id number] Author: EZE RODRIGUEZ MD Service: ? Author [...] General (Family Medicine) Terry Champion APRN.DERRICK as Film Waxer (Family Medicine) Outside specialists seen: Eye-Dr. Segura, [...] Exam Immunizations: Flu vaccination Recording using ambient HD Fantasy Football software for draft documentation of the visit was discussed with the patient/authorized account service representative; all questions welcomed and answered. Patient/authorized account service representative agreed to proceed HPI Domo Bolden [...] COLONOSCOPY W/BIOPSY SINGLE/MULTIPLE 12/29/2009 LAP APPY AT [facility] OTHR SRGY PAST SURGICAL HISTORY OF 02/2011 Laparoscopic Appendectomy and Drainage - Dr. Nick Bustamante, [facility] REMV CATARACT EXTRACAP,INSERT LENS Right 07/2023 Done at [facility] TONSILLECTOMY AND ADENOIDECTOMY TONSILLECTOMY HX Family Histor (more content not included)... [facility] 06-23-2025 Instructions Praneeth Segura II, OD [...] its relevant components. documented in this encounter [facility] 06-23-2025 Note HNO ID: [id number] Author: PRANEETH SEGURA II, OD Service: ? Author Type: Management Psychologist Type: Progress Notes Filed: 06/23/2025 09:56 Note [...] agree with all of its relevant components. [facility] 06-23-2025 History of Presen t illness [...] its relevant components. documented in this encounter [facility] 02-15-2025 Telephone encounter Note Images from the original note were not included. Electronic PA rec'd and completed for tadalafil. This was approved. Prior authorization approved Payer: Trudy Note from radha: OMK[employer] Case: [id number], Status: Approved, Coverage Starts on: 11/17/2024 12:00:00 AM, Coverage Ends on: 02/15/2026 12:00:00 AM. Approval Details Authorization number: [id number] Authorized from November 17, 2024 to February [...] to its destination. To be filled at: [place] [address] - [address] [phone] [facility] 02-15-2025 Miscellaneous Notes Images from the original note were not included. Electronic OMKAR rec'd and completed for tadalafil. This was approved. Prior authorization approved Payer: Trudy Note from payer: [employer]MK[employer] Case: [id number], Status: Approved, Coverage Starts on: 11/17/2024 12:00:00 AM, Coverage Ends on: 02/15/2026 12:00:00 AM. Approval Details Authorization number: [id number] Authorized from November 17, 2024 to February 15, 2026 Electronic appeal: Not supported View History Notes Time User Attachment Attachment received from [employer]. 02/15/2025 10:53 AM [facility], Rx Priorauth In Document Medication Being Authorized Tadalafil (CIALIS) 5 mg tablet Take 1 tablet by mouth once daily. Dispense: 90 tablet Refills: 3 Start: 02/15/2025 Class: Normal Diagnoses: BPH with obstruction/lower urinary tract symptoms This order has been released to its destination. To be filled at: [place] [address] - [address] [facility] [phone] documented in this encounter [facility] 02-15-2025 Telephone encounter Note The following approved medication requests have been transmitted electronically. Requested Prescriptions Pending Prescriptions Disp Refills Tadalafil (CIALIS) 5 mg tablet 90 tablet 3 Sig: Take 1 tablet by mouth once daily. Terry Champion APRN.CNP [facility] 02-15-2025 Miscellaneous Notes The following approved medication [...] 2025 10:21 AM documented in this encounter [facility] 02-15-2025 Telephone encounter Note Prescription Refill Information [...] Mendoza LPN February 15, 2025 10:21 AM [facility] 01-21-2025 History of Presen t illness Narrative [...] watch diet, no particular diet. Stopped buying citizen of [place] fries and eliminate potato chips. 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 HM - Reji having Adv Dir/Living Will. [...] COLONOSCOPY W/BIOPSY SINGLE/MULTIPLE 12/29/2009 LAP APPY AT [facility] OTHR SRGY PAST SURGICAL HISTORY OF 02/2011 Laparoscopic Appendectomy and Drainage - Dr. Nick Bustamante, [facility] REMV CATARACT EXTRACAP,INSERT LENS Right 07/2023 Done at [facility] TONSILLECTOMY & ADENOIDECTOMY <AGE 14 childhood TONSILLECTOMY [...] Take 50 mg by mouth twice daily. ypncwnkt-deu-NJ-lycopen-lutein (CENTRUM SILVER MEN) 300-600-300 mcg tab Take 1 tablet by mouth once daily. Aspirin 500 mg tab Take 500 mg by mouth once daily. [place]-3 Fatty Acids-Vitamin E 1,000 mg cap Take [...] 01/14/2025 1.84 Monocytes % 01/14/2025 9.3 Abs [place] 01/14/2025 0.49 Eosinophils % 01/14/2025 6.7 Abs [...] Lisinopril 5 mg daily; refill sent to [facility]. - Monitor blood pressure at [...] The patient consented to the use of Macrotherapy software for draft documentation of the visit consistent with [facility] s Notice of Privacy Practices. documented in this encounter [facility] 01-21-2025 Note HNO ID: [id number] Author: EZE RODRIGUEZ MD Service: ? Author [...] watch diet, no particular diet. Stopped buying citizen of [place] fries and eliminate potato chips. 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 HM - Reji having Adv Dir/Living Will. [...] COLONOSCOPY W/BIOPSY SINGLE/MULTIPLE 12/29/2009 LAP APPY AT [facility] OTHR SRGY PAST SURGICAL HISTORY OF 02/2011 Laparoscopic Appendectomy and Drainage - Dr. Nick Bustamante, [facility] REMV CATARACT EXTRACAP,INSERT LENS Right 07/2023 Done at [facility] TONSILLECTOMY AND ADENOIDECTOMY TONSILLECTOMY HX Family History [...] Take 50 mg by mouth twice daily. grydjspj-ahi-ID-lycopen-lutein (CENTRUM SILVER MEN) 300-600-300 mcg tab Take 1 tablet by mouth once daily. Aspirin 500 mg tab Take 500 mg by mouth once daily. [place]-3 Fatty Acids-Vitamin E 1,000 mg cap Take [...] No ectopy. Extrem (more content not included)... [facility] 08-12-2024 Telephone encounter Note Patient calling to request refill of Lisinopril 5 mg. He says his BP was running 170's-180's/80's-90's so he resumed his Lisinopril 5 mg a few days ago. His BP since then is running 130-140's/70's-80's. HR-70's-80's. No symptoms of dizziness or lightheadedness since resuming med. Pended. Gabbi Esparza, RN [facility] 08-12-2024 Miscellaneous Notes Patient calling to request refill of Lisinopril 5 mg. He says his BP was running 170's-180's/80's-90's so he resumed his Lisinopril 5 mg a few days ago. His BP since then is running 130-140's/70's-80's. HR-70's-80's. No symptoms of dizziness or lightheadedness since resuming med. Pended. Gabbi Esparza, RN documented in this encounter [facility] 07-23-2024 History of Presen t illness Narrative [...] Optometry. Dentist - Follows with Provider in [place]. Medical/Family history review Reviewed and updated problem [...] COLONOSCOPY W/BIOPSY SINGLE/MULTIPLE 12/29/2009 LAP APPY AT [facility] OTHR SRGY PAST SURGICAL HISTORY OF 02/2011 Laparoscopic Appendectomy and Drainage - Dr. Nick Bustamante, [facility] REMV CATARACT EXTRACAP,INSERT LENS Right 07/2023 Done at [facility] TONSILLECTOMY & ADENOIDECTOMY <AGE 14 childhood TONSILLECTOMY [...] Take 50 mg by mouth twice daily. wvswmvwb-ouz-WB-lycopen-lutein (CENTRUM SILVER MEN) 300-600-300 mcg tab Take 1 tablet by mouth once daily. Aspirin 500 mg tab Take 500 mg by mouth once daily. [place]-3 Fatty Acids-Vitamin E 1,000 mg cap Take [...] YR, HIGH DOSE, TRIVALENT (FLUZONE HIGH-DOSE) - CallmyName COVID-19 VACCINE AGE 12+ YR (COMIRNATY) Follow up in 6 months with fasting labs. I agree with the Chief Complaint, ROS, and Past Histories independently gathered by the clinical product support manager and the remaining scribed note accurately describes my personal service to the patient. Eze Rodriguez MD The documentation for this note was completed by Briseyda Diaz MA acting as scribe for Eze Rodriguez MD. July 23, 2024 8:29 AM. Briseyda Diaz MA documented in this encounter [facility] 05-19-2024 History of Presen t illness Narrative POPULATION HEALTH NAVIGATION OUTREACH Action/FYI Patient is on [facility] CURRENT ROSTER Workbench list for below [...] 2024 8:30 AM documented in this encounter [facility] 04-27-2024 History of Presen t illness Narrative POPULATION HEALTH NAVIGATION OUTREACH Action/April 27, 2024 7:35 AM Patient is on [facility] Medication Adherence list for the following medications: lisinopril 5 mg tablet Sig: take 1 tablet by mouth once daily. Dispensed: 04/20/2024 12:00 AM Unit strength: 5 mg Unit form: tablet Days supply: 90 Quantity: 90 Each Refills remainin Dispense due date 03.20.2024 Unable to access [facility] at this time to review Medication dispense history. [facility] [id number] Outcome: Per Medication Dispense History, medication was dispensed on late on 04.20.2024 Reason for Outreach Med Adherence Patient Contacted: No outreach needed: RX filled per reconcile dispense Navigation Signature: Varsha Ohara MA April 27, 2024 7:35 AM documented in this encounter [facility] 04-23-2024 Instructions Praneeth Segura II, OD - [...] its relevant components. documented in this encounter [facility] 04-23-2024 History of Presen t illness Narrative [...] its relevant components. documented in this encounter [facility] 04-09-2024 History of Presen t illness Narrative POPULATION HEALTH NAVIGATION OUTREACH Action/FYI April 09, 2024 11:25 AM Patient is on [employer] Medication Adherence list for the following medications: LISINOPRIL 5 MG TABLET Sig: take 1 tablet by mouth once daily Dispensed: 12/21/2023 12:00 AM Unit strength: 5 mg Unit form: tablet Days supply: 90 Quantity: 90 Each Refills remainin Dispense due date 03.20.2024 [id number] [id number] [facility] [id number] lisinopril (ZESTRIL) 5 mg tablet 90 tablet 3 01/03/2024 -- Sig: Take 1 tablet by mouth once daily. Sent to [facility] pharmacy per patient request Unable to access [employer] portal at this time to review Medication dispense history. Per Medication dispense reconcile in [place], patient is due for refill, 0 refills remain NOV with PCP is scheduled on 06.23.2024 Outcome: Spoke with patients April. Discussed his medication for Lisinopril. She will give message to patient to contact [facility]'s pharmacy to get his next [...] 2024 11:24 AM documented in this encounter [facility] 01-06-2024 Miscellaneous Notes Images from the original note were not included. Prior authorization approved Payer: Trudy ESPITIA Case: [id number], Status: Approved, Coverage Starts on: 10/28/2023 12:00:00 AM, Coverage Ends on: 01/05/2025 12:00:00 AM. Approval Details Authorization number: [id number] Authorized from October 28, 2023 to January 05, 2025 Electronic appeal: Not supported View History Medication Being Authorized Tadalafil (CIALIS) 5 mg tablet Take 1 tablet by mouth once daily. Dispense: 90 tablet Refills: 3 Start: 01/03/2024 Class: Normal Diagnoses: BPH with obstruction/lower urinary tract symptoms This order has been released to its destination. To be filled at: [facility] [place] [address] - [address] [place] [phone] [id number] Pharmacy notified. Covermymeds PA recc'd for tadalafil. This PA was completed electronically. documented in this encounter [facility] 01-03-2024 Miscellaneous Notes OK to refill as [...] Yesi Yuriy Pss. documented in this encounter [facility] 01-03-2024 Miscellaneous Notes OK to refill as ordered Eze Rodriguez MD Patient is calling in to change the pharmacy to [facility]. Yesi Elena documented in this encounter [facility] 12-19-2023 History of Presen t illness Narrative [...] JOSE: Uses CPAP machine, getting supplies through [employer] [facility]. That is working well for him. Pressure [...] COLONOSCOPY W/BIOPSY SINGLE/MULTIPLE 12/29/2009 LAP APPY AT [facility] OTHR SRGY PAST SURGICAL HISTORY OF 02/2011 Laparoscopic Appendectomy and Drainage - Dr. Nick Bustamante, [facility] REMV CATARACT EXTRACAP,INSERT LENS Right 07/2023 Done at [facility] TONSILLECTOMY & ADENOIDECTOMY <AGE 14 childhood TONSILLECTOMY [...] Take 50 mg by mouth twice daily. nlzuhqmm-how-LJ-lycopen-lutein (CENTRUM SILVER MEN) 300-600-300 mcg tab Take 1 tablet by mouth once daily. Aspirin 500 mg tab Take 500 mg by mouth once daily. [place]-3 Fatty Acids-Vitamin E 1,000 mg cap Take [...] Past Histories independently gathered by the clinical product support manager and the remaining scribed note accurately describes my personal service to the patient. Medical Decision Making: Problems: Moderate: 2+ stable chronic illnesses Data: Unique test result(s) reviewed: 3+ Unique test(s) ordered: 1 Risk: Moderate: Drug management Medical Decision Making Level: 4 - Moderate Eez Rodriguez MD The documentation for this note was completed by Verena Hurt Ma acting as scribe for Eze Rodriguez MD. December 19, 2023 11:18 AM. Verena Hurt Ma documented in this encounter [facility] 12-17-2023 History of Presen t illness Narrative Domo Bolden is identified through a medication adherence outreach initiative based on pharmacy claims data from [employer] (insurer) for EMILIA medication(s). Patient is reviewed 12/17/23 due to medication adherence concerns with the following medications (name, strength, sig): Lisinopril 5mg take 1 tablet every day. Per reconcile dispense, last fill date and days supply: last fill 09/25/23 and next fill due 12/24/23 Outcome of review/outreach: (choose outcome source and status) - sent mychart reminder Ashleigh Ruth ([email or web address]) documented in this encounter [facility] 07-19-2023 Discharge summary Note Date/Time July 19, 2023 6:06pm [facility] Medical Records Department [address] [place] [address] Emergency Department Summary 07/19/23 MR#: [id number] Acct: [id number] Name: DOMO BOLDEN Rep #:[id number] : [...] problems, contact your Primary Care Provider. Call [facility] ([phone]) or report to the closest Emergency Room. Call 911 if necessary. 07/19/232115 <Electronically signed by Rocky Willis MD> Cosigner Signature (if applicable): CC: Dr. Eze Rodriguez MD ~ Signed [facility] Work Phone: 1(709) 879-879509-22-2023 Miscellaneous Notes* Telephone Encounter - Ankita Jones [...] Denies other symptoms Protocols used: Dizziness - Zauhuodgdtylyrc-NNSLY-MY documented in this encounterUniversity Hospitals Health System08-22-2023 History of Present illness Narrative* Eze Rodriguez MD - 06/18/2023 11:20 AM EDT Chief Complaint Patient presents with: 6 Month Exam HPI Domo Bolden is a 82 year old male who presents here today for 6 month follow up. No bowel, Gi, or urinary issues. Hx of kidney stones. Fhx colon cancer. His last Colonoscopy was [id number] with recommended 5 year repeat. Using Cialis [...] day or while driving. Getting supplies from [employer] Past medical history, appointments, medications, allergies reviewed. [...] Appendectomy and Drainage - Dr. Nick Bustamante, [facility] TONSILLECTOMY & ADENOIDECTOMY <AGE 14 childhood [...] Take 50 mg by mouth twice daily. dychjier-lin-VB-lycopen-lutein (CENTRUM SILVER MEN) 300-600-300 mcg tab Take 1 tablet by mouth oncedaily. Aspirin 500 mg tab Take 500 mg by mouth once daily. [place]-3 Fatty Acids-Vitamin E 1,000 mg cap Take [...] Past Histories independently gathered by the clinical product support manager and the remaining scribed note accurately describes [...] AM. Verena Hurt Ma documented in this encounterUniversity [facility]als [facility] System07-28-2023 History of Present illness Narrative* Nick Abreu, [...] 24, 2023 9:34 AM documented in this encounterUniversity Hospitals Health System06-30-2023 Instructions* Patient Instructions* Isamar Platt MD - [...] have questions, my office phone number is [phone]. After hours, and on weekends or holidays, please call the [facility] lacquer spray booth operator at [phone] and ask for the eye doctor electronic assembly. documented in this encounterUniversity Hospitals Health System06-30-2023 History of Present illness Narrative* Isamar Platt [...] of its relevant components. documented in this encounterUniversity Hospitals Health System06-20-2023 Instructions* Patient Instructions* Nicki Gomez PA-C - 04/16/2023 11:31 AM EDT [facility] Patient Instructions for Surgery FOOD INSTRUCTIONS: NO [...] anesthesia, you must have a responsible adult milk truck driver take you home, andbe with you after surgery. You may use a ride service such as Lyft, Uber, or [employer] as longas you have a responsible adult accompanying you and taking responsibility for you. We strongly recommend a reliable adult stays with you overnight to help take care of you. If you have any questions or concerns regarding today's visit please do not hesitate to contact [facility] at [phone] or [phone], ext [phone]. Signature: Nicki Merrill Date: April 16, 2023 documented in this encounterUniversity Hospitals Health System06-20-2023 History and physical note * Nicki Gomez [...] COLONOSCOPY W/BIOPSY SINGLE/MULTIPLE 12/29/2009 LAP APPY AT [facility] OTHR SRGY PAST SURGICAL HISTORY OF 02/2011 Laparoscopic Appendectomy and Drainage - Dr. Nick Bustamante, [facility] TONSILLECTOMY & ADENOIDECTOMY <AGE 14 childhood [...] Take 50 mg by mouth twice daily. wzjzfelq-ojx-WL-lycopen-lutein (CENTRUM SILVER MEN) 300-600-300 mcg tab Take 1 tablet by mouth oncedaily. Aspirin 500 mg tab Take 500 mg by mouth once daily. 0 [place]-3 Fatty Acids-Vitamin E 1,000 mg cap Take [...] fevers. Neuro: No history of TIA's, stroke, SHOT EXAMINER tumor, impaired sensorium, hemiplegia, paraplegia or quadriplegia. [...] 2023 TIME: 11:05 AM documented in this encounterUniversity Hospitals Health System06-20-2023 Nurse Note* Jennifer Jones LPN - 04/16/2023 [...] pacemaker check: Reviewed medications?yes documented in this encounterUniversity Hospitals Health System04-28-2023 History of Present illness Narrative* Isamar Platt [...] others. I have seen and examined Domo Boldne. I have discussed the case and the management of this patient's care with the Resident/Fellow, if applicable. I also have reviewed and agree with the assessment and plan as stated above and agree withall of its relevant components. documented in this encounterUniversity Hospitals Health System04-17-2023 Miscellaneous Notes* Telephone Encounter - Cally Euceda RN - 02/11/2023 12:09 PM EDT Colonoscopy Results documented in this encounterUniversity Hospitals Health System04-15-2023 Miscellaneous Notes* Telephone Encounter - Brenda Moore MD - 02/09/2023 11:12 AM EDT FOLLOW UP ENDOSCOPY - RESULTS AND RECOMMENDATIONS NAME: Domo Bolden CLINIC NO.: [id number] : 1940 DATE: February 09, 2023 PRIMARY [...] to the appropriate providers documented in this encounterUniversity Hospitals Health System04-03-2023 Miscellaneous Notes* Telephone Encounter - Ankita Jones RN - 01/28/2023 11:46 AM EDT Patient calls back and is requesting CPAP order to be faxed to [facility] [phone]. Order, face sheet, office notes, PAP titration [...] choice. Eze Rodriguez MD documented in this encounterUniversity Hospitals Health System03-27-2023 History of Present illness Narrative* Heather Arevalo - 01/21/2023 4:20 AM EDT Sleep Study Check-In Documentation Date: January 21, 2023 Name: Domo Bolden Patient was accompanied by Self. Location: [facility] Latex allergy: No Tape allergy: No Current medications were reviewed with the patient:Yes Sleep aid taken by patient for the sleep study: [place] of sleep aid: Not Applicable Procedure was explained to the patient and all questions were answered. PAP treatment discussed and shown to patient: Yes If PAP used enter mask info: Mask Name Simplus MakeF&P MaskTypeFull Face Mask SizeMedium Chin Sharp Used No Knowledge Program (KP): KP was not completed in [facility] by patient and accepted Study type: PAP [...] provider PAP TITRATION PSG (CPAP, BIPAP, ASV) [[id number]] 12/17/22 Eze Rodriguez MD Assoc. diagnoses: JOSE [...] A: Yes HOME SLEEP APNEA TEST (HSAT) [[id number]] 12/17/22 Eze Rodriguez MD Assoc. diagnoses: JOSE [...] from Dr. Eze Rodriguez MD, a [facility] Staff. Visit prep complete. Comments :No The sleep study is scheduled for 01/20. Insurance: Payor: [employer] AND [employer] / Plan: ANTHEM MEDIBLUE ACCESS / Product Type: PPO / Payer/Plan Subscr Sex Relation Sub. Ins. ID Effective Group Num 1. DOMO ADLER 1940 Male Self [id number] [birth year] [id number] Lavern Hummel documented in this encounterUniversity Hospitals Health System02-22-2023 Miscellaneous Notes* Telephone Encounter - Varsha Herrera Ma - 12/19/2022 9:58 AM EST Order was canceled for home test Varsha Herrera Ma * Telephone Encounter - Christine Kendrick Pss - 12/19/2022 9:28 AM EST Patient called stating he received a call to schedule a home sleep study. Patient states he completed that already and new order needs to be deleted. documented in this encounterUniversity Hospitals Health System02-20-2023 History of Present illness Narrative* Eze Rodriguez [...] Appendectomy and Drainage - Dr. Nick Bustamante, [facility] TONSILLECTOMY & ADENOIDECTOMY <AGE 14 childhood [...] Take 50 mg by mouth twice daily. mwtiqjra-fsj-BB-lycopen-lutein (CENTRUM SILVER MEN) 300-600-300 mcg tab Take 1 tablet by mouth oncedaily. Aspirin 500 mg tab Take 500 mg by mouth once daily. [place]-3 Fatty Acids-Vitamin E (FISH OIL) 1,000 mg [...] Past Histories independently gathered by the clinical product support manager and the remaining scribed note accurately describes [...] 17, 2022 12:49 PM. Verena Hurt Ma [facility] OPEN ACCESS QUESTIONNAIRE 1. Are you currently [...] Please send all open access questionnaires to [facility] Pool #[id number] documented in this encounterUniversity Hospitals Health System09-22-2022 Miscellaneous Notes* Telephone Encounter - Briseyda Diaz Ma - 07/19/2022 9:16 AM EDT Sent [employer] message to pt notifying him of response below from Provider. Await pt response via [employer]. Briseyda Diaz Ma * Telephone Encounter - [...] placed. Terry Champion APRN.CNP documented in this encounterUniversity Hospitals Health System09-13-2022 History of Present illness Narrative* Leigh Blackburn [...] Alexis - 06/18/2022 8:31 AM EDT [facility]# [id number] Mail out date: 07/03/2022 [employer] Shipping #: [id number] [employer] Return #: [id number] * Lucho Mello III, PhD - 06/15/2022 12:49 PM EDT June 15, 2022 Standing PSG Orders signed in the last 90 days None Future PSG Orders signed in the last 90 days Ordered Auth. provider HOME SLEEP APNEA TEST (HSAT) [[id number]] 06/14/22 Eze Rodriguez MD Assoc. diagnoses: JOSE [...] (HSAT) from Dr. Eze Rodriguez, a [facility] Staff. Visit prep complete. Comments :No The sleep study is scheduled for 06/19/2022. Insurance: Payor: [employer] AND [employer] / Plan: ANTHEM MEDIBLUE ACCESS / Product Type: PPO / Payer/Plan Subscr Sex Relation Sub. Ins. ID Effective Group Num 1. DOMO ADLER 1940 Male Self [id number] [birth year] [address] Chanel Jones documented in this encounterUniversity Hospitals Health System08-18-2022 History of Present illness Narrative* Cheryl Esparza, [...] 14, 2022 10:07 AM documented in this encounterUniversity Hospitals Health System08-18-2022 History of Present illness Narrative* Eze Rodriguez [...] about 3-4 weeks ago he was in [facility] ED for a kidney stone. Pt [...] Appendectomy and Drainage - Dr. Nick Bustamante, [facility] TONSILLECTOMY & ADENOIDECTOMY <AGE 14 childhood [...] Take 50 mg by mouth twice daily. sbcskeeb-hri-RC-lycopen-lutein (CENTRUM SILVER MEN) 300-600-300 mcg tab Take 1 tablet by mouth oncedaily. Aspirin 500 mg tab Take 500 mg by mouth once daily. [place]-3 Fatty Acids-Vitamin E (FISH OIL) 1,000 mg [...] Moderate Eze Rodriguez MD documented in this encounterUniversity Hospitals Health System08-01-2022 History of Present illness Narrative* Verena Hurt Ma - 05/28/2022 9:44 AM EDT View External Imaging - CT Scan [ID [id number]] Scan on 05/26/2022 2:04 PM by External Provider: Consultation - Emergency Medicine [facility] ER Reports and CT abd/pelv. Has appt on 06/14/22 for 6 month follow up. Verena Hurt Ma documented in this encounterUniversity Hospitals Health System04-13-2022 Miscellaneous Notes* Telephone Encounter - Verena Hurt [...] ordered Eze Rodriguez MD documented in this encounterUniversity Hospitals Health System05-05-2011 History of Past illness Narrative* Problem Noted Date Resolved Date Appendicitis 03/01/2011 04/26/2017 Overview: S/p laparoscopic appendectomy/drainage -- Dr. 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 07/08/2008 04/26/2017 Overview: 2+ TR per stress echo 2004 (incidental finding) 1+ in 1998 Family history of other card iovascular diseases(V17.49) 07/07/2008 04/26/2017 Overview: Uncertain details, but father of CVD at around age 67; brother 2 years older, heart healthy documented as of this encounter (statuses as of 01/06/2024) [facility] Diagnosis Essential hypertension Unspecified essential hypertension [facility]No assessment [facility] Work Phone: Evaluation note* Diagnosis Essential hypertension- Primary Unspecified essential hypertension Cough, unspecified type JOSE (obstructive sleep apnea) Obstructive sleep apnea (adult) (pediatric) Mixed hyperlipidemia Elevated PSA Elevated prostate specific antigen (PSA) [facility]* Diagnosis JOSE (obstructive sleep apnea)- Primary Obstructive sleep apnea (adult) (pediatric) [facility]* Diagnosis Essential hypertension- Primary Unspecified essential [...] malignant neoplasms, colon [facility]* Diagnosis JOSE (obstructive sleep apnea)- Primary Obstructive sleep apnea (adult) (pediatric) [facility]* Diagnosis 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 Other and combined forms of senile cataract [facility]* Diagnosis Preoperative examination- Primary Preoperative examination, unspecified Combined form of age-related cataract, right eye Essential hypertension Unspecified essential hypertension Mitral valve insufficiency, unspecified etiology JOSE (obstructive sleep apnea) Obstructive sleep apnea (adult) (pediatric) Combined forms of age-related cataract of right eye Other and combined forms of senile cataract [facility]* Diagnosis Follow-up examination following surgery- Primary Follow-up examination, following unspecified surgery [facility]* Diagnosis Pseudophakia- Primary Lens replaced by other means [facility]* Diagnosis Essential hypertension- Primary Unspecified essential hypertension 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) JOSE (obstructive sleep apnea) Obstructive sleep apnea (adult) (pediatric) Elevated PSA Elevated prostate specific antigen (PSA) documented [facility]* Diagnosis Essential hypertension- Primary Unspecified essential [...] specific antigen (PSA) [facility]* Diagnosis Essential hypertension Unspecified essential hypertension [facility]* Diagnosis BPH with obstruction/lower urinary tract symptoms Hypertrophy of prostate with urinary obstruction and other lower urinary tract symptoms (LUTS) [facility] Essential hypertension Unspecified essential hypertension [facility]* Diagnosis Bacterial conjunctivitis of left eye- Primary Other conjunctivitis Pseudophakia of right eye Lens replaced by other means Combined forms of age-related cataract of left eye Other and combined forms of senile cataract [facility]* Diagnosis Encounter for Medicare annual wellness [...] single bacterial disease [facility]* Diagnosis Cough, unspecified type documented [facility] this [facility]* Diagnosis Essential hypertension- Primary Unspecified essential hypertension 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) Elevated PSA Elevated prostate specific antigen (PSA) Acute pain of right knee [facility]* Diagnosis BPH with obstruction/lower urinary tract symptoms Hypertrophy of prostate with urinary obstruction and other lower urinary tract symptoms (LUTS) [facility]* Diagnosis Combined forms of age-related cataract of left eye- Primary Other and combined forms of senile cataract Dermatochalasis of both upper eyelids Pseudophakia of right eye Lens replaced by other means Myopia, right Hyperopia, left Regular astigmatism of left eye Regular astigmatism Presbyopia [facility] Additional Instructions 3.8 mm left-sided kidney stone almost to your bladder. Should pass. Plenty of fluids and rest. Spout [place] and/or Motrin for pain. Zofran as needed for nausea. Make sure you are drinking plenty of water, eating plenty of fruits, vegetables and fiber to prevent constipation. Follow-up with the urologist Dr. Uriel England if not improving. [facility] Work Phone: Reason for referral (narrative)* Diagnostic Procedure Only (Routine) - Open Specialty Diagnoses / Procedures Referred By Natan bonilla Referred To Contact [facility] Diagnoses JOSE (obstructive sleep apnea) Procedures HOME SLEEP APNEA TEST (HSAT) SLEEP STD AIRFLOW HRT RATE&O[place] [address] [place] [id number] [facility] [address] [place] [address] Referral ID Status Reason Start Date Expiration Date V isits Requested Visits Authorized [id number] Open Auto-Generate d Referral 06/14/2022 06/14/2023 1 1 [facility] for referral (narrative)* Diagnostic Procedure Only (Routine) - Pending Review Specialty Diagnoses / Procedures Referred By Natan bonilla Referred To Contact [facility] Diagnoses JOSE (obstructive sleep apnea) Procedures HOME SLEEP APNEA TEST (HSAT) SLEEP STD AIRFLOW HRT RATE&O2 SAT EFFORT Eze Washington MD [address] [place] [address] [facility] [address] [place] [address] Referral ID Status Reason Start Date Expiration Date Visits Requested Visits Authorized [id number] Pending Review Auto-Generat ed Referral 12/17/2022 12/17/2023 1 1 * Outpatient Procedure (Routine) - Pending Review Specialty Diagnoses / Procedures Referred By Natan bonilla Referred To Contact [facility] Diagnoses Personal history of colonic polyps Special screening for malignant neoplasms, colon Procedures COLONOSCOPY SCREENING COLONOSCOPY FLX DX W/COLLJ SPEC WHEN PFRMD Eze Rodriguez MD [address] [place] [address] [facility] [address] [place] [address] Referral ID Status Reason Start Date Expiration Date Visits Requested Visits Authorized [id number] Pending Review Auto-Generat ed Referral 12/17/2022 12/17/2023 1 1 [facility] Advance Directives No Advanced Directives Records FoundDocuments on File Type Date Recorded Patient 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 Specialist Expl anation Advance Directive(s) 11/29/2017 9:45 AM Advance Directive(s) 11/20/2017 5:46 PM Advance Directive Response Recorded Date/ Time Living Will No May 26, 2022 11:42am Power of Environmental Studies Professor No May 26 11:42am Advance Directive Response Recorded Date/ Time Living Will No July 19, 2023 6:13pm Power of Environmental Studies Professor No June 6:13pm Chief Complaint and Reason for Visit Chief Complaint LT flank pain, vomit ing Chief Complaint dizziness Reason for Referral Specialty Diagnoses / Procedures Referred By Natan bonilla Referred To Contact Diagnoses JOSE (obstructive sleep apnea) Procedures CONSULT TO SLEEP MEDICINE - ADULT OFFICE/OUTPATIENT [facility] 60-74 MINUTES Terry Champion APRN.CNP [address] [place] [address] Referral ID Status Reason Start Date Expiration Date Visits Requested Visits Authorized [id number] Pending Review PCP Requested Referral 07/17/2022 07/17/2023 [...] the event of a Fluress shortage, administer Bajadero-Fluor 1 drop into both eyes as directed [...] or prosecute any alcohol or drug abuse patient.[facility] the event this information is protected by the Federal Confidentiality of Alcohol and Drug Abuse Patient Records regulations: The Federal rules restrict any use of the information to criminally investigate or prosecute any alcohol or drug abuse patient.[facility] System[facility] the event this information is protected by the Federal Confidentiality of Alcohol and Drug Abuse Patient Records regulations: The Federal rules restrict any use of the information to criminally investigate or prosecute any alcohol or drug abuse patient.[facility] System[facility] the event this information is protected by the Federal Confidentiality of Alcohol and Drug Abuse Patient Records regulations: The Federal rules restrict any use of the information to criminally investigate or prosecute any alcohol or drug abuse patient.[facility] System[facility] the event this information is protected by the Federal Confidentiality of Alcohol and Drug Abuse Patient Records regulations: The Federal rules restrict any use of the information to criminally investigate or prosecute any alcohol or drug abuse patient.[facility] SystemIn the event this information is protected by the Federal Confidentiality of Alcohol and Drug Abuse Patient Records regulations: The Federal rules restrict any use of the information to criminally investigate or prosecute any alcohol or drug abuse patient.[facility] System[facility] the event this information is protected by the Federal Confidentiality of Alcohol and Drug Abuse Patient Records regulations: The Federal rules restrict any use of the information to criminally investigate or prosecute any alcohol or drug abuse patient.[facility] System[facility] the event this information is protected by the Federal Confidentiality of Alcohol and Drug Abuse Patient Records regulations: The Federal rules restrict any use of the information to criminally investigate or prosecute any alcohol or drug abuse patient.[facility] SystemIn the event this information is protected by the Federal Confidentiality of Alcohol and Drug Abuse Patient Records regulations: The Federal rules restrict any use of the information to criminally investigate or prosecute any alcohol or drug abuse patient.[facility] SystemIn the event this information is protected by the Federal Confidentiality of Alcohol and Drug Abuse Patient Records regulations: The Federal rules restrict any use of the information to criminally investigate or prosecute any alcohol or drug abuse patient.[facility] SystemIn the event this information is protected by the Federal Confidentiality of Alcohol and Drug Abuse Patient Records regulations: The Federal rules restrict any use of the information to criminally investigate or prosecute any alcohol or drug abuse patient.[facility] System[facility] the event this information is protected by the Federal Confidentiality of Alcohol and Drug Abuse Patient Records regulations: The Federal rules restrict any use of the information to criminally investigate or prosecute any alcohol or drug abuse patient.[facility] SystemIn the event this information is protected by the Federal Confidentiality of Alcohol and Drug Abuse Patient Records regulations: The Federal rules restrict any use of the information to criminally investigate or prosecute any alcohol or drug abuse patient.[facility] SystemIn the event this information is protected by the Federal Confidentiality of Alcohol and Drug Abuse Patient Records regulations: The Federal rules restrict any use of the information to criminally investigate or prosecute any alcohol or drug abuse patient.[facility] SystemIn the event this information is protected by the Federal Confidentiality of Alcohol and Drug Abuse Patient Records regulations: The Federal rules restrict any use of the information to criminally investigate or prosecute any alcohol or drug abuse patient.[facility] SystemIn the event this information is protected by the Federal Confidentiality of Alcohol and Drug Abuse Patient Records regulations: The Federal rules restrict any use of the information to criminally investigate or prosecute any alcohol or drug abuse patient.[facility] System[facility] the event this information is protected by the Federal Confidentiality of Alcohol and Drug Abuse Patient Records regulations: The Federal rules restrict any use of the information to criminally investigate or prosecute any alcohol or drug abuse patient.[facility] System[facility] the event this information is protected by the Federal Confidentiality of Alcohol and Drug Abuse Patient Records regulations: The Federal rules restrict any use of the information to criminally investigate or prosecute any alcohol or drug abuse patient.[facility] SystemIn the event this information is protected by the Federal Confidentiality of Alcohol and Drug Abuse Patient Records regulations: The Federal rules restrict any use of the information to criminally investigate or prosecute any alcohol or drug abuse patient.[facility] SystemIn the event this information is protected by the Federal Confidentiality of Alcohol and Drug Abuse Patient Records regulations: The Federal rules restrict any use of the information to criminally investigate or prosecute any alcohol or drug abuse patient.[facility] SystemIn the event this information is protected by the Federal Confidentiality of Alcohol and Drug Abuse Patient Records regulations: The Federal rules restrict any use of the information to criminally investigate or prosecute any alcohol or drug abuse patient.[facility] System[facility] the event this information is protected by the Federal Confidentiality of Alcohol and Drug Abuse Patient Records regulations: The Federal rules restrict any use of the information to criminally investigate or prosecute any alcohol or drug abuse patient.[facility] System[facility] the event this information is protected by the Federal Confidentiality of Alcohol and Drug Abuse Patient Records regulations: The Federal rules restrict any use of the information to criminally investigate or prosecute any alcohol or drug abuse patient.[facility] System[facility] the event this information is protected by the Federal Confidentiality of Alcohol and Drug Abuse Patient Records regulations: The Federal rules restrict any use of the information to criminally investigate or prosecute any alcohol or drug abuse patient.[facility] System[facility] the event this information is protected by the Federal Confidentiality of Alcohol and Drug Abuse Patient Records regulations: The Federal rules restrict any use of the information to criminally investigate or prosecute any alcohol or drug abuse patient.[facility] SystemIn the event this information is protected by the Federal Confidentiality of Alcohol and Drug Abuse Patient Records regulations: The Federal rules restrict any use of the information to criminally investigate or prosecute any alcohol or drug abuse patient.[facility] SystemIn the event this information is protected by the Federal Confidentiality of Alcohol and Drug Abuse Patient Records regulations: The Federal rules restrict any use of the information to criminally investigate or prosecute any alcohol or drug abuse patient.[facility] System[facility] the event this information is protected by the Federal Confidentiality of Alcohol and Drug Abuse Patient Records regulations: The Federal rules restrict any use of the information to criminally investigate or prosecute any alcohol or drug abuse patient.[facility] SystemIn the event this information is protected by the Federal Confidentiality of Alcohol and Drug Abuse Patient Records regulations: The Federal rules restrict any use of the information to criminally investigate or prosecute any alcohol or drug abuse patient.[facility] SystemIn the event this information is protected by the Federal Confidentiality of Alcohol and Drug Abuse Patient Records regulations: The Federal rules restrict any use of the information to criminally investigate or prosecute any alcohol or drug abuse patient.[facility] SystemIn the event this information is protected by the Federal Confidentiality of Alcohol and Drug Abuse Patient Records regulations: The Federal rules restrict any use of the information to criminally investigate or prosecute any alcohol or drug abuse patient.[facility] SystemIn the event this information is protected by the Federal Confidentiality of Alcohol and Drug Abuse Patient Records regulations: The Federal rules restrict any use of the information to criminally investigate or prosecute any alcohol or drug abuse patient.[facility] SystemIn the event this information is protected by the Federal Confidentiality of Alcohol and Drug Abuse Patient Records regulations: The Federal rules restrict any use of the information to criminally investigate or prosecute any alcohol or drug abuse patient.[facility] SystemIn the event this information is protected by the Federal Confidentiality of Alcohol and Drug Abuse Patient Records regulations: The Federal rules restrict any use of the information to criminally investigate or prosecute any alcohol or drug abuse patient.[facility] SystemIn the event this information is protected by the Federal Confidentiality of Alcohol and Drug Abuse Patient Records regulations: The Federal rules restrict any use of the information to criminally investigate or prosecute any alcohol or drug abuse patient.[facility] Reason for Visit (unrecogniz ed section and [...] Date Comments Population Health Navigation Outreach 04/09/2024 [facility] Adherence Reason Comments Red Eye Left Eye Reason Onset Date Comments Population Health Navigation Outreach 04/27/2024 [facility] Adherence Reason Onset Date Comments Population Health Navigation Outreach 05/19/2024 [facility] PCSA Reason Comments Medicare Wellness Exam Reason Onset Date Comments Refill Request 08/12/2024 Reason Comments F/U 6 Month Reason Onset Date Comments Refill Request 02/15/2025 Reason Comments Cataract The left eye Care Teams (unrecognized sec tion and content) Corporate Paralegal Relationship Specialty Start Date End Date Eze Rodriguez MD [address] [place] [address] PCP - General Family Practice 04/26/17 Corporate Paralegal Relationship Specialty Start Date End Date Eze Rodriguez MD [address] [place] [address] PCP - General Family Practice 04/26/17 Corporate Paralegal Relationship Specialty Start Date End Date Eze Rodriguez MD [address] [place] [address] PCP - General Family Practice 04/26/17 Corporate Paralegal Relationship Specialty Start Date End Date Eze Rodriguez MD [address] [place] [address] PCP - General Family Practice 04/26/17 Corporate Paralegal Relationship Specialty Start Date End Date Eze Rodriguez MD [facility] [place] [address] PCP - General Family Medicine 04/26/17 Corporate Paralegal Relationship Specialty Start Date End Date Eze Rodriguez MD [facility] [place] [place] [address] PCP - General Family Medicine 04/26/17 Corporate Paralegal Relationship Specialty Start Date End Date Eze Rodriguez MD [facility] [place] [address] PCP - General Family Medicine 04/26/17 Corporate Paralegal Relationship Specialty Start Date End Date Eze Rodriguez MD [facility] [place] [address] PCP - General Family Medicine 04/26/17 Corporate Paralegal Relationship Specialty Start Date End Date Eze Rodriguez MD [address] [place] [address] PCP - General Family Medicine 04/26/17 Corporate Paralegal Relationship Specialty Start Date End Date Eze Rodriguez MD [facility] [place] [address] PCP - General Family Medicine 04/26/17 Corporate Paralegal Relationship Specialty Start Date End Date Eze Rodriguez MD [address] [place] [address] PCP - General Family Medicine 04/26/17 Corporate Paralegal Relationship Specialty Start Date End Date Eze Rodriguez MD [address] [place] [address] PCP - General Family Medicine 04/26/17 Corporate Paralegal Relationship Specialty Start Date End Date Eze Rodriguez MD [address] [place] [address] PCP - General Family Medicine 04/26/17 Corporate Paralegal Relationship Specialty Start Date End Date Eze Rodriguez MD [address] [place] [address] PCP - General Family Medicine 04/26/17 Corporate Paralegal Relationship Specialty Start Date End Date Eze Rodriguez MD [address] [place] [address] PCP - General Family Medicine 04/26/17 Team Status: Active Member Role Status Dates Dr. Eze Rodriguez MD Family Provider Active Dr. Eze Rodriguez MD Primary Care Provider Active Team Status: Inactive Member Role Status Dates Dr. Eze Rodriguez MD Primary Care Provider Active Dr. Rocky Willis MD Emergency Provider Active Corporate Paralegal Relationship Specialty Start Date End Date Eze Rodriguez MD [address] [place] [address] PCP - General Family Medicine 04/26/17 Corporate Paralegal Relationship Specialty Start Date End Date Eze Rodriguez MD [address] [place] [address] PCP - General Family Medicine 04/26/17 Corporate Paralegal Relationship Specialty Start Date End Date Eze Rodriguez MD [address] [place] [address] PCP - General Family Medicine 04/26/17 Corporate Paralegal Relationship Specialty Start Date End Date Eze Rodriguez MD [address] [place] [address] PCP - General Family Medicine 04/26/17 Corporate Paralegal Relationship Specialty Start Date End Date Eze Rodriguez MD [address] [place] [address] PCP - General Family Medicine 04/26/17 Corporate Paralegal Relationship Specialty Start Date End Date Eze Rodriguez MD [address] [place] [address] PCP - General Family Medicine 04/26/17 Corporate Paralegal Relationship Specialty Start Date End Date Eze Rodriguez MD [address] [place] [address] PCP - General Family Medicine 04/26/17 Corporate Paralegal Relationship Specialty Start Date End Date Eze Rodriguez MD [address] [place] [address] PCP - General Family Medicine 04/26/17 Corporate Paralegal Relationship Specialty Start Date End Date Eze Rodriguez MD [address] [place] [address] PCP - General Family Medicine 04/26/17 Ashleigh García APRN.CNP [address] [place] [address] [employer] 10/04/24 Terry Champion APRN.COMPLIANCE REVIEW SPECIALIST [address] [place] [address] [facility] 10/13/24 Corporate Paralegal Relationship Specialty Start Date End Date Eze Rodriguez MD [address] [place] [address] PCP - General Family Medicine 04/26/17 Ashleigh García APRN.COMPLIANCE REVIEW SPECIALIST [address] [place] [address] [facility] 10/04/24 Terry Champion APRN.COMPLIANCE REVIEW SPECIALIST [address] [place] [address] [facility] 10/13/24 Corporate Paralegal Relationship Specialty Start Date End Date Eze Rodriguez MD [address] [place] [address] PCP - General Family Medicine 04/26/17 Ashleigh García PRIME MINISTER.COMPLIANCE REVIEW SPECIALIST [address] [place] [address] [facility] 10/04/24 Terry Champion PRIME MINISTER.COMPLIANCE REVIEW SPECIALIST [address] [place] [address] [facility] 10/13/24 Corporate Paralegal Relationship Specialty Start Date End Date Eze Rodriguez MD [address] [place] [address] PCP - General Family Medicine 04/26/17 Terry Champion PRIME MINISTER.COMPLIANCE REVIEW SPECIALIST [address] [place] [address] [facility] 10/13/24 Corporate Paralegal Relationship Specialty Start Date End Date Eze Rodriguez MD [address] [place], [place] [address] PCP - General Family Medicine 04/26/17 Terry Champion APRN.CNP [address] [place], [place] [id number] [facility] 10/13/24 Goals (unrecognized section and content) Goals may be documented in a n alternate sectionGoals may be documented in an alternate section (unrecognized sect ion and content) No Status Records FoundNo Status Records FoundNo Status Records Found INFORMATION SOURCE (unrecogn ized section and content) DATE CREATED AUTHOR 02/12/2023 [facility] DATE CREATED AUTHOR AUTHOR'S ORGANIZ ATION 07/03/2024 [facility] DATE CREATED AUTHOR AUTHOR'S ORGANIZ ATION 08/25/2025 [facility] FOR RECORDS PERTAINING TO PATIENTS WHO [...] BE BASED ON THE PRIMARY CLINICAL RECORDS. [employer] provides no warranty or guarantee of the accuracy or completeness of information in this document.
[2025-09-19 22:48] LABS: Troponin T High Sens 2 HR 9 ng/L (<=22)
--- NOTE | 2025-09-19 23:07 | EX.ED.DYSGE1 ---
HPI History of Present Illness Chief Complaint: Dizziness Informant: patient, spouse/S.O. and family Narrative Narrative: Very pleasant 85-year-old male presenting to the emergency room with altered mental status. Patient states that this past week he traveled to [place] for a . Saturday after the he was at a restaurant and suddenly felt extremely nauseated. He went back to the hotel and lay down. On he attempted to drive home and noticed that he was not driving quite right seemed to be swerving a bit and they got a hotel room. On Saturday his drove home as he was very unsteady on his feet describing significant dizziness. They came to the emergency room once they got back into town. He states he was diagnosed with vertigo. He had a head CT that was negative. He states he was prescribed meclizine has been taking that every 8 hours. He states that he has pretty much just been sleeping and today noticed that he is using a cane to steady himself. States his vision does not seem as crisp they does not have any diplopia. States that his speech is very slow as he is trying to be deliberate is to speak correctly. States that despite sleeping he is very tired. No fevers. He notes a slight cough but it is unchanged from baseline. No significant rhinorrhea. No diarrhea no vomiting. He does not feel any weakness or paresthesia in his arms legs or face. [facility] Medical History Cataract CPAP (continuous positive airway pressure) dependence HTN (hypertension) Disc degeneration Home Medications ?Medication ?Instructions ?Recorded ?Last Taken ?Type lisinopril 5 mg tablet 5 mg PO DAILY htn 10/08/14 Unknown History tadalafil 5 mg tablet 5 mg PO DAILY bph 05/30/19 Unknown History meclizine 12.5 mg tablet 12.5 mg PO TID PRN dizziness #30 09/17/25 Unknown Rx tabs sildenafil 100 mg tablet 100 - 200 mg PO DAILY PRN erectile 09/19/25 Unknown History dysfunction Allergy/AdvReac Type Severity Reaction Status Date / Time yellow dye Allergy Hives Verified 09/19/25 18:53 Surgical History Hx of tonsillectomy Hx of appendectomy Social History household members: spouse Smoking Status: Never smoker substance use type: does not use ROS ROS ED Constitutional Constitutional ED: Denies chills, fever(s) or weight loss Eyes Eyes: Reports change in vision; Denies diplopia ENT ENT ED: Denies ear pain, rhinorrhea or sore throat Cardiovascular Cardiovascular: Denies chest pain, orthopnea, palpitations or racing heartbeat Respiratory/Chest Respiratory/Chest: Reports cough; Denies dyspnea or orthopnea Gastrointestinal Gastrointestinal: Reports nausea; Denies abdominal pain, diarrhea or vomiting Genitourinary Genitourinary ED: Denies dysuria, hematuria or urinary frequency Musculoskeletal Musculoskeletal: Denies arthralgias or myalgias Integumentary Denies abscess or rash Neurologic Neurologic: Reports other Details: Fatigue slowed speech off balance ; Denies headache(s), paresthesias or weakness Psychiatric Psychiatric: Denies anxiety, depression, suicidal ideation or suicidal thoughts Endocrine Endocrinology: Denies polydipsia, polyphagia or polyuria Allergic/Immunologic Allergic/Immunologic ED: Denies mouth swelling, tongue swelling or urticaria EXAM Physical Exam Const Vital Signs: 09/19/25 18:53 09/19/25 19:31 09/19/25 20:52 Temperature 97.9 F Temperature Source Oral Pulse Rate 76 78 Respiratory Rate 18 18 Respiratory Effort Normal Respiratory Pattern Normal Blood Pressure 138/78 H 123/64 H Blood Pressure Mean 98 83 Pulse Ox 100 98 Oxygen Delivery Method Room Air Room Air 09/19/25 22:00 09/19/25 22:01 Temperature 97.9 F Temperature Source Pulse Rate 79 79 Respiratory Rate 20 H 20 H Respiratory Effort Respiratory Pattern Blood Pressure 144/78 H 144/78 H Blood Pressure Mean 100 100 Pulse Ox 98 98 Oxygen Delivery Method Room Air Positive well nourished and well developed General Appearance ED: well developed and NAD HEENT Reports normocephalic, head/scalp atraumatic and moist mucous membranes Eyes PERRL and EOMs intact bilaterally Eyes Narrative: No nystagmus Neck no lymphadenopathy, supple and no JVD Neck Narrative: No bruits Resp normal respiratory effort and clear to auscultation bilaterally Cardio regular rate, regular rhythm and no murmurs GI normal to inspection, nondistended, normoactive bowel sounds and non-tender Palpation: soft Back/Spine no CVA tenderness and normal ROM Extremity normal to inspection General Extremety ED: Negative for edema General Extremity: Negative for edema Neuro oriented x3 and CN's II-XII intact bilaterally Neuro Narrative: Slow deliberate speech Sensorium / Orientation: alert Motor Exam: strength 5/5 throughout Psych mental status grossly normal Mood & Affect: Negative for depressed or tearful Skin no rashes or lesions noted and no wounds MDM MDM MDM Narrative Medical decision making narrative: Differential diagnosis includes vertigo labyrinth Avinash posterior circulation stroke arterial dissection malignancy dehydration electrolyte abnormalities medication side effect I explained to patient is could be side effects. I performed a CTA of the head and neck read by radiology reviewed by myself. No dissection or obvious stroke. White count is 4.7. He did have a leukopenia 2 nights ago. His neutrophil count is 15.6 lymphocyte is 63.7. He is noted to be thrombocytopenic at 76. He does have a mild transaminitis. Calcium noted to be elevated 11.6. Normal sodium potassium. Independent or potation of the chest x-ray is no acute process. EKG shows a normal sinus rhythm at a rate of 76. Because of the above symptoms and workup I spoke with our hospitalist would recommend admission. This could be viral syndrome we discussed MRI. Patient and family are comfortable with this plan History & Record Review Discussion w/independent historian: Patient and Family Additional record(s) reviewed:: Prior ED visit and Prior labs Lab Data Attestation: I reviewed the patient's lab results. Labs: Laboratory Results - last 24 hr 09/19/25 20:32 WBC 4.7 RBC 4.94 Hgb 15.4 Hct 45.2 MCV 91.5 MCH 31.2 MCHC 34.1 RDW Std Deviation 43.9 RDW Coeff of Martir 13.0 Plt Count 76 L MPV 10.8 Immature Gran % (Auto) 0.200 Neut % (Auto) 15.6 L Lymph % (Auto) 63.7 H Otero % (Auto) 10.9 H Eos % (Auto) 7.9 H Baso % (Auto) 1.7 H Absolute Neuts (auto) 0.7 L Absolute Lymphs (auto) 2.98 Nucleated RBC % 0 Diff Path Review May foll Reactive Lymphocytes 3+ Platelet Estimate MOD DEC ESR 1 Sodium 138 Potassium 4.8 Chloride 101 Carbon Dioxide 29.9 Anion Gap 7 BUN 15 Creatinine 1.17 Estim Creat Clear Calc 53.93 Est GFR (MDRD) Non-Af 62 BUN/Creatinine Ratio 12.6 Glucose 90 Calcium 11.6 H Total Bilirubin 0.42 Direct Bilirubin 0.19 AST 97 H ALT 116 H Alkaline Phosphatase 108 Troponin T High Sens 10 C-React Prot Ext Range 37.00 H Total Protein 6.0 Albumin 3.5 Globulin 2.5 Procalcitonin 0.42 H Radiography Diagnostic Testing: Clinical Impression(s) from Imaging Studies Head/Neck CTA 09/19/25 20:02 IMPRESSION: No hemodynamically significant stenosis, major vessel occlusion/dissection, or aneurysm greater than 3 millimeters. Reading Location: [facility] Chest X-Ray 09/19/25 20:40 IMPRESSION: No Acute Findings. Reading Location: [address] EKG Initial EKG: Attestation: I personally reviewed and interpreted this EKG as follows: Comments: Normal sinus rhythm ventricular rate of 76 bpm Management Discussion w/another healthcare provider: Hospitalist Discharge Plan Triage Chief Complaint: Dizziness Other Complaint: General Illness ED Provider: Raphael Frye Dx/Rx/DC Orders Primary Care Provider: Gayatri Hector NIHSS NIHSS 1a. Level of Consciousness: 0 - Alert; keenly responsive 1b. LOC Questions: 0 - Answers BOTH questions correctly 1c. LOC Commands: 0 - Performs BOTH tasks correctly 2. Best Gaze: 0 - Normal 3. Visual: 0 - No visual loss 4. Facial Palsy: 0 - Normal symmetrical movements 5a. Left Arm: 0 - No drift; arm holds 90 (or 45) degrees for full 10 seconds 5b. Right Arm: 0 - No drift; arm holds 90 (or 45) degrees for full 10 seconds 6a. Left Le - No drift; leg holds 30-degree position for full 5 seconds 6b. Right Le - No drift; leg holds 30-degree position for full 5 seconds 7. Limb Ataxia: 0 - Absent 8. Sensory: 0 - Normal; no sensory loss 9. Best Language: 0 - No aphasia; normal 10. Dysarthria: 0 - Normal 11. Extinction and Inattention: 0 - No abnormality Total: 0
[2025-09-19 23:36] VITALS: BMI 29.6
[2025-09-19 23:42] VITALS: BP 174/89; PULSE 87; RESP 17; TEMP 37; O2SAT 98
[2025-09-19] MEDS: Lactated Ringers 1,000 ML 100 ML IV (23:57)
[2025-09-20] MEDS: levoFLOXacin IV 750 MG/150 ML BAG 100 MG IV ×2 (00:34→21:18)
[2025-09-20 04:57] LABS: Hematocrit 40.9 % (40-54); Hemoglobin 14.0 g/dL (13.0-16.5); Mean Corp Hgb Conc 34.2 g/dL (32-36); Mean Corpuscular Volume 91.3 fL (80-94); Mean Platelet Vol. 10.6 fl (6.2-12.0); POSITIVE COUNT YES; POSITIVE MORPHOLOGY YES; Platelet Count 84 K/mm3 (150-450); RBC Distribution Width CV 12.8 % (11.6-14.6); RBC Distribution Width SD 43.2 fl (35.1-43.9); Red Blood Count 4.48 M/mm3 (4.6-6.2); White Blood Count 5.5 K/mm3 (4.4-11.0)
[2025-09-20 05:17] VITALS: BP 135/76; PULSE 78; RESP 18; TEMP 36.5; O2SAT 95
[2025-09-20 05:51] LABS: AST(SGOT) 79 U/L (<=37); Alanine Aminotransfer ALT/SGPT 96 U/L (<=46); Albumin, Serum 3.2 g/dL (3.4-4.8); Alkaline Phosphatase 82 U/L (40-129); Anion Gap 8 (5-15); BUN 14 mg/dL (4-19); BUN/Creat Ratio 15.7 RATIO (10-20); Calcium,Total 10.9 mg/dL (7.6-11.0); Carbon Dioxide 25.7 mmol/L (21.0-32.0); Chloride 102 mmol/L (98-108); Estimated Creatinine Clearance 67.96 ml/min (50-250); Globulin 2.3 g/dL (2.2-4.2); Glucose 100 mg/dL (70-99); Magnesium 2.0 mg/dL (1.5-2.2); Potassium 4.6 mmol/L (3.3-5.1)
[2025-09-20 06:35] LABS: Differential Indicated MANUAL DIFF
[2025-09-20 06:36] LABS: Neutrophil-Segmented 24 % (47-70); Total Cells Counted 100 (MANUAL DIFF)
--- NOTE | 2025-09-20 07:36 | PCM.PN.HOSP ---
Reason for Visit Chief Complaint: Generalized weakness/disequilibrium Subjective Subjective Patient is an 85-year-old gentleman who presented with progressive generalized weakness and intermittent fever Objective Data Objective Data Vital Signs: Vital Signs Temp Pulse Resp BP Pulse Ox O2 Del Method 97.7 F L 78 18 135/76 H 95 Room Air 09/20/25 05:17 09/20/25 05:17 09/20/25 05:17 09/20/25 05:17 09/20/25 05:17 09/20/25 05:17 Oxygen Delivery Method Room Air Weight: 88.4 kg Body Mass Index (BMI) 29.6 Intake & Output: Intake and Output for Last 24 Hours 09/18/25 09/19/25 09/20/25 23:59 23:59 23:59 Intake Total 1150 / 1150 Balance 1150 / 1150 Lab / Micro Data 09/20/25 04:30 09/20/25 04:30 Labs: Laboratory Results - last 24 hr 09/19/25 20:32: WBC 4.7, RBC 4.94, Hgb 15.4, Hct 45.2, MCV 91.5, MCH 31.2, MCHC 34.1, RDW Std Deviation 43.9, RDW Coeff of Martir 13.0, Plt Count 76 L, MPV 10.8, Immature Gran % (Auto) 0.200, Neut % (Auto) 15.6 L, Lymph % (Auto) 63.7 H, [place] % (Auto) 10.9 H, Eos % (Auto) 7.9 H, Baso % (Auto) 1.7 H, Absolute Neuts (auto) 0.7 L, Absolute Lymphs (auto) 2.98, Nucleated RBC % 0, Diff Path Review May foll, Reactive Lymphocytes 3+, Platelet Estimate MOD DEC, ESR 1, Sodium 138, Potassium 4.8, Chloride 101, Carbon Dioxide 29.9, Anion Gap 7, BUN 15, Creatinine 1.17, Estim Creat Clear Calc 53.93, Est GFR (MDRD) Non-Af 62, BUN/Creatinine Ratio 12.6, Glucose 90, Calcium 11.6 H, Total Bilirubin 0.42, Direct Bilirubin 0.19, AST 97 H, ALT 116 H, Alkaline Phosphatase 108, Troponin T High Sens 10, C-React Prot Ext Range 37.00 H, Total Protein 6.0, Albumin 3.5, Globulin 2.5, Procalcitonin 0.42 H 09/19/25 22:28: Troponin T Hi Sens 2 Hr 9 09/20/25 00:03: MRSA (PCR) Negative 09/20/25 04:30: WBC 5.5, RBC 4.48 L, Hgb 14.0, Hct 40.9, MCV 91.3, MCH 31.3, MCHC 34.2, RDW Std Deviation 43.2, RDW Coeff of Martir 12.8, Plt Count 84 L, MPV 10.6, Immature Gran % (Auto) Not Reportable, Neut % (Auto) Not Reportable, Lymph % (Auto) Not Reportable, [place] % (Auto) Not Reportable, Eos % (Auto) Not Reportable, Baso % (Auto) Not Reportable, Absolute Neuts (auto) 1.3 L, Absolute Lymphs (auto) 3.33, Total Counted 100, Neutrophils % (Manual) 24 L, Lymphocytes % (Manual) 61 H, Monocytes % (Manual) 7, Eosinophils % (Manual) 3, Myelocytes % 3 H, Promyelocytes % 2 H, Nucleated RBC % Not Reportable, Platelet Estimate MOD DEC, Sodium 136, Potassium 4.6, Chloride 102, Carbon Dioxide 25.7, Anion Gap 8, BUN 14, Creatinine 0.89, Estim Creat Clear Calc 67.96, Est GFR (MDRD) Non-Af 85, BUN/Creatinine Ratio 15.7, Glucose 100 H, Calcium 10.9, Phosphorus 2.3 L, Magnesium 2.0, Total Bilirubin 0.38, AST 79 H, ALT 96 H, Alkaline Phosphatase 82, Total Protein 5.4 L, Albumin 3.2 L, Globulin 2.3, Albumin/Globulin Ratio 1.4, TSH 4.300 H Micro: Microbiology 09/19/25 23:15 Mucosa - Nasopharyngeal Respiratory Panel (PCR) - Final 09/19/25 22:28 Mucosa - Nose SARS-CoV-2, Influenza & RSV (PCR) - Final Radiography Diagnostic Testing: Radiology Impression Head/Neck CTA 09/19/25 20:02 IMPRESSION: No hemodynamically significant stenosis, major vessel occlusion/dissection, or aneurysm greater than 3 millimeters. Reading Location: [id number] Chest X-Ray 09/19/25 20:40 IMPRESSION: No Acute Findings. Reading Location: [address] Physical Exam Narrative GENERAL: cooperative HEENT: Atraumatic; normocephalic EYES; Anicteric, Normal Conjunctiva NECK; supple, normal thyroid, RESPIRATORY: Diminished to auscultation CARDIOVASCULAR: Regular S1 S2, GI: soft, normoactive bowel sounds, : No Renal angle tenderness; EXTREMITIES: No edema, no clubbing, MUSCULOSKELETAL: no muscle wasting NEURO: Awake; no lateralizing signs. SKIN: No Rash PSYCH; Flat affect Assessment & Plan Assessment/Plan (1) Leukocytopenia, unspecified: (2) Thrombocytopenia: (3) Vertigo: (4) Transaminitis: (5) Monocytosis: (6) Lymphocytosis: (7) Eosinophilia: (8) Hypercalcemia: (9) Dehydration: PLAN: Plan Patient is an 85-year-old gentleman who presented with progressive generalized weakness and intermittent fever 1. Fever ? Etiology not clear. Patient WBC count obtained on admission had lymphocytosis predominant a arrest from CBC with differential obtained on 09/17/2025.. Patient was empirically started on Levaquin culture sent. Also ordered D-dimer given patient recent long travel to rule out VTE which can be a cause of fever of unknown origin 2. Thrombocytopenia ? May be related to patient's suspected underlying viral illness will continue with monitoring 3. Disequilibrium ? MRI ordered to rule out posterior circulation CVA 4. Hypophosphatemia ? Corrected per protocol 5. Acute transaminitis ? Ordered RUQ ultrasound for subsequent eval 6. Hypercalcemia ? Patient hydrated with subsequent monitoring of calcium levels ordered 7. Hypertension ? Blood pressure controlled, home medications continued with dose adjustment as needed 8. Obstructive sleep apnea ? Consistent use of PAP therapy encouraged 9. DVT prophylaxis ? SCDs only given patient low platelets count on admission Time spent in the patient's overall evaluation,decision-making process, review of diagnostic data, adjustment of management, discussion with other providers, nursing nursing and ancillary staff involved in patient's care documentation, 50 Minutes Charges/Coding Visit Charges Inpatient E&M: [id number] [place] [address]
--- NOTE | 2025-09-20 08:30 | MRI_ITS ---
PROCEDURE: BRAIN W/WO CONTRAST 09/20/2025 REASON FOR EXAM: WEAKNESS/DIZZINESS TECHNIQUE: Procedure Code: MRIBRWW Modality: MR Procedure: BRAIN W/WO CONTRAST Multiplanar and multisequence images were obtained. CONTRAST: Clariscan VOLUME: 18 mL COMPARISON: September 17, 2025. FINDINGS: Brain: Foci of hyperintense signal on T2 and FLAIR which are nonspecific but most likely due to chronic small vessel ischemia. Parenchymal volume loss consistent with brain atrophy. No restricted diffusion. No hemorrhage. No mass-effect or midline shift. The orbits are unremarkable. The midline structures and craniocervical junctions are within normal limits. No ventriculomegaly. Diffusion: No restricted diffusion Ventricles: No ventriculomegaly. Major Intracranial Vessels: Patent. Sinuses: Clear. Mastoids: Clear. MRI/Brain W/WO Contrast IMPRESSION: No acute brain abnormalities. Reading Location: [id number]
[2025-09-20 09:00] VITALS: BP 110/63; PULSE 90; RESP 16; TEMP 36.6; O2SAT 96
--- NOTE | 2025-09-20 09:42 | US_ITS ---
PROCEDURE: LIVER 09/20/2025 REASON FOR EXAM: ABNORMAL LFT PROCEDURE: Abdominal ultrasound was performed. FINDINGS: The liver measures 21.2 cm. Echogenicity is increased, consistent with fatty infiltration. Hepatic echotexture is not coarse. No intrahepatic biliary ductal dilatation. Portal venous flow is hepatopetal. A cyst is present in the left hepatic lobe measuring 5.1 x 6.0 x 5.1 cm. The gallbladder measures 6.7 cm in length. No gallstones. No sludge. No polyps. Gallbladder wall measures 2.2 mm. White's sign is negative. No pericholecystic fluid. The common bile duct measures 4.4 mm. The pancreas appears within normal limits. The right kidney measures 12.9 x 5.1 x 6.1 cm. Cortical thickness measures 1.1 cm. No hydronephrosis. No calculi. US/Liver IMPRESSION: Hepatomegaly with increased hepatic echogenicity consistent with fatty infiltra tion. Left hepatic lobe cyst measuring 5.1 x 6.0 x 5.1 cm. Reading Location: [id number]
[2025-09-20 11:14] LABS: D-Dimer Quantitative (DVT/PE) 2.08 FEU/ug/m (0.27-0.49)
--- NOTE | 2025-09-20 11:23 | CASEMGMT ---
GRISELDA VALLES Assessment Face to Face with patient for initial transition planning/care coordination assessment. GRISELDA VALLES introduced self and role at [facility], pt voices understanding. Pt is A&Ox4 and is resting comfortably in the chair and is calm. Care providers, pharmacy, and demographics verified. Admitting dx: Disequilibrium/ Weakness PCP: Gayatri Hector Specialists: Denies Preferred Pharmacy: [facility] Insurance: [facility] Prescription Benefit: Yes LNOK: April (W) Living Arrangements: Pt lives with his in a 2 story home with one step to enter ADLs/IADLs: Indep. Pt was cleared by PT, see notes. Transportation: Self, . Pt reports that they have driven to [place] and back 2 times within the last 3 weeks DME: Access to a FWW and cane but does not use HHC/SNF: denies hx or needs Pt?s goal: Home Plan: Home, no additional needs identified. Pt states that he feels safe returning home with his once medically ready and denies the need for any additional therapy or resources. Pt denies further questions or concerns at this time. Nahum Dailey RN, CM
[2025-09-20 11:30] LABS: Potassium 4.3 mmol/L (3.3-5.1)
[2025-09-20] MEDS: Lactated Ringers 1,000 ML 100 ML IV (13:44)
--- NOTE | 2025-09-20 13:50 | CT_ITS ---
PROCEDURE: CTA CHEST W/WO CONTRAST 09/20/2025 REASON FOR EXAM: ELEVATED DDIMER Hypertension. TECHNIQUE: Procedure Code: [id number] Modality: CT Procedure: CTA CHEST W/WO CONTRAST Multiplanar Sagittal and Coronal images were obtained. 3D post processing was performed CONTRAST: Isovue 370. VOLUME: 100 mL One or more dose reduction techniques were used (e.g., Automated exposure control, adjustment of the mA and/or kV according to patient size, use of iterative reconstruction technique). RADIATION DOSE SUMMARY: CTDlvol: 15.6 mGy DLP: 444.13 mGycm COMPARISON: Prior chest radiograph dated September 19, 2025. FINDINGS: Hardware: None Lymph nodes: Unremarkable Heart: Unremarkable Thoracic Aorta: No thoracic aortic aneurysm or dissection. Pulmonary Vessels: No evidence of acute pulmonary emboli through the major subsegmental branches. Lungs and Airways: No focal abnormality is seen. Pleura: No pleural effusion. Upper Abdomen: There is a 4.7 cm x 6.1 cm cyst in the left lobe of the liver. Bones: Bone windows are unremarkable. 50% loss of height of a lower dorsal vertebrae kyphosis. CT/CTA Chest W/WO Contrast IMPRESSION: No acute abnormality is seen. Cysts seen in the left lobe of the liver. Reading Location: [place] [address]
--- NOTE | 2025-09-20 13:50 | VDLE_ITS ---
Reason For Study Reason For Study: BLE Weakness RIGHT LEFT GSV is normal. GSV is normal. CFV is compressible, spontaneous, phasic, competent CFV is compressible, spontaneous, phasic, competent, and demonstrates normal augmentation. and demonstrates normal augmentation. FV is compressible, spontaneous, phasic, competent FV is compressible, spontaneous, phasic, competent and demonstrates normal augmentation. and demonstrates normal augmentation. POP V is compressible, spontaneous, phasic, competent POP V is compressible, spontaneous, phasic, competent and demonstrates normal augmentation. and demonstrates normal augmentation. T/P Trunk is compressible. T/P Trunk is compressible. PTV is compressible. PTV is compressible. RT PerV is compressible. LT PerV is compressible. Procedure This is a venous duplex using B-mode, color flow and spectral Doppler. Exam performed portable in patient room. The exam was diagnostic. A preliminary report was called and/or faxed to M/S 3 linotypist Jody. VL/Venous Duplex US - Aniket Extrem Interpretation Summary Deep veins of the lower extremities are bilaterally patent and compressible seg mentally. There is no evidence of deep vein thrombosis on either side. Valvular competence appears intact within the p roximal deep venous systems bilaterally. The great saphenous veins appear bilaterally patent and compressible segmentall y. Ordering Physician: Robin Rdz Referring Physician: Gayatri Hector Performed By: Michael Richter RVT
[2025-09-20 14:00] VITALS: BP 123/63; PULSE 72; RESP 18; TEMP 36.6; O2SAT 95
--- NOTE | 2025-09-20 14:08 | CASEMGMT ---
CARPIO Met with patient to complete CARPIO form. CARPIO form and its content were verbally explained and patient's questions were answered to the best of my ability.? Patient voiced understanding and signed CARPIO form.? Patient provided a copy of signed CARPIO form and original placed in patient's chart.? Patient had no further questions. Ignacia Cardenas, Discharge Planning Asst
[2025-09-20 20:46] VITALS: BP 121/105; PULSE 87; RESP 20; TEMP 36.9; O2SAT 97
[2025-09-20] MEDS: 0.9% Saline Lock 10 ML Syringe IV (21:17)
[2025-09-20] MEDS: Na Biphos/Potassium Phosphate PACKET 1 PACKET PO (21:18)
[2025-09-20 23:49] VITALS: BP 157/74; PULSE 79; RESP 18; TEMP 36.5; O2SAT 96
[2025-09-21 05:13] VITALS: BP 134/66; PULSE 68; RESP 18; TEMP 36.4; O2SAT 95
[2025-09-21] MEDS: 0.9% Saline Lock 10 ML Syringe IV (05:16)
[2025-09-21 05:53] VITALS: BMI 29.7
[2025-09-21 07:26] LABS: Hematocrit 44.9 % (40-54); Hemoglobin 15.0 g/dL (13.0-16.5); Immature Granulocytes Count 0.020 X10^3/uL (0.0-0.0); Mean Corp Hgb Conc 33.4 g/dL (32-36); Mean Corpuscular Volume 93.5 fL (80-94); Mean Platelet Vol. 10.8 fl (6.2-12.0); NRBC Flagged by Analyzer 0 % (0-5); POSITIVE MORPHOLOGY YES; Platelet Count 127 K/mm3 (150-450); RBC Distribution Width CV 13.1 % (11.6-14.6); RBC Distribution Width SD 45.1 fl (35.1-43.9); Red Blood Count 4.80 M/mm3 (4.6-6.2); White Blood Count 6.2 K/mm3 (4.4-11.0)
[2025-09-21 07:29] LABS: Differential Indicated SCAN CRITERIA MET
--- NOTE | 2025-09-21 07:32 | PCM.PN.HOSP ---
Reason for Visit Chief Complaint: Generalized weakness/disequilibrium Subjective Subjective Patient diagnostic workup so far negative to date. Plan is for patient to be assessed for discharge Objective Data Objective Data Vital Signs: Vital Signs Temp Pulse Resp BP Pulse Ox O2 Del Method 97.5 F L 68 18 134/66 H 95 Room Air 09/21/25 05:13 09/21/25 05:13 09/21/25 05:13 09/21/25 05:13 09/21/25 05:13 09/21/25 05:13 Oxygen Delivery Method Room Air Weight: 88.9 kg Body Mass Index (BMI) 29.7 Intake & Output: Intake and Output for Last 24 Hours 09/19/25 09/20/25 09/21/25 23:59 23:59 23:59 Intake Total 2326.67 / 2326.67 Balance 2326.67 / 2326.67 Lab / Micro Data 09/21/25 06:46 09/21/25 06:46 Labs: Laboratory Results - last 24 hr 09/19/25 20:32: Diff Path Review Reviewed 09/20/25 10:40: D-Dimer Quant (PE/DVT) 2.08 H*, Potassium 4.3 09/21/25 06:46: WBC 6.2, RBC 4.80, Hgb 15.0, Hct 44.9, MCV 93.5, MCH 31.3, MCHC 33.4, RDW Std Deviation 45.1 H, RDW Coeff of Martir 13.1, Plt Count 127 L, MPV 10.8, Immature Gran % (Auto) 0.300, Neut % (Auto) 22.9 L, Lymph % (Auto) 64.5 H, [place] % (Auto) 6.6, Eos % (Auto) 4.7, Baso % (Auto) 1.0, Absolute Neuts (auto) 1.4 L, Absolute Lymphs (auto) 3.98, Nucleated RBC % 0 Micro: Microbiology 09/20/25 01:30 Sputum, Expectorated/Coughed Gram Stain - Final 09/19/25 23:15 Mucosa - Nasopharyngeal Respiratory Panel (PCR) - Final 09/19/25 22:28 Mucosa - Nose SARS-CoV-2, Influenza & RSV (PCR) - Final Radiography Diagnostic Testing: Radiology Impression Brain MRI 09/20/25 08:30 IMPRESSION: No acute brain abnormalities. Reading Location: [id number] Liver Ultrasound 09/20/25 09:42 IMPRESSION: Hepatomegaly with increased hepatic echogenicity consistent with fatty infiltration. Left hepatic lobe cyst measuring 5.1 x 6.0 x 5.1 cm. Reading Location: [address] Chest CTA 09/20/25 13:50 IMPRESSION: No acute abnormality is seen. Cysts seen in the left lobe of the liver. Reading Location: [facility] Venous Doppler Study 09/20/25 13:50 Interpretation Summary Deep veins of the lower extremities are bilaterally patent and compressible segmentally. There is no evidence of deep vein thrombosis on either side. Valvular competence appears intact within the proximal deep venous systems bilaterally. The great saphenous veins appear bilaterally patent and compressible segmentally. Ordering Physician: Robin Rdz Referring Physician: Gayatri Hector Performed By: Michael Richter RVT Physical Exam Narrative GENERAL: cooperative HEENT: Atraumatic; normocephalic EYES; Anicteric, Normal Conjunctiva NECK; supple, normal thyroid, RESPIRATORY: Diminished to auscultation CARDIOVASCULAR: Regular S1 S2, GI: soft, normoactive bowel sounds, : No Renal angle tenderness; EXTREMITIES: No edema, no clubbing, MUSCULOSKELETAL: no muscle wasting NEURO: Awake; no lateralizing signs. SKIN: No Rash PSYCH; Flat affect Assessment & Plan Assessment/Plan (1) Vertigo: PLAN: Plan Patient is an 85-year-old gentleman who presented with progressive generalized weakness and intermittent fever 1. Fever ? Etiology not clear. Patient WBC count obtained on admission had lymphocytosis predominant a arrest from CBC with differential obtained on 09/17/2025.. Patient was empirically started on Levaquin culture sent. Also ordered D-dimer given patient recent long travel to rule out VTE which can be a cause of fever of unknown origin ? 05/21/2025 patient fever has resolved 2. Thrombocytopenia ? May be related to patient's suspected underlying viral illness will continue with monitoring ? 09/21/2025 patient platelet count improving 3. Disequilibrium ? MRI ordered to rule out posterior circulation CVA ? Patient MRI was negative for acute CVA. On further discussion with patient her daughter as well as spouse patient reports gait disturbance in addition to being incontinent. Hat Steamer diagnosis of possible NPH was entertained patient was offered [facility] teleneurology consultation however he wanted to stick with the [facility]. Subsequently discussed with patient's family to follow-up with primary care physician to be referred to [facility] neurology 4. Hypophosphatemia ? Corrected per protocol 5. Acute transaminitis ? Ordered RUQ ultrasound for subsequent eval 6. Hypercalcemia ? Patient hydrated with subsequent monitoring of calcium levels ordered 7. Hypertension ? Blood pressure controlled, home medications continued with dose adjustment as needed 8. Obstructive sleep apnea ? Consistent use of PAP therapy encouraged 9. DVT prophylaxis ? SCDs only given patient low platelets count on admission Time spent in the patient's overall evaluation,decision-making process, review of diagnostic data, adjustment of management, discussion with other providers, nursing nursing and ancillary staff involved in patient's care documentation, 38 Minutes Charges/Coding Visit Charges Inpatient E&M: 05897 Subs Hosp L2
[2025-09-21 08:10] LABS: AST(SGOT) 101 U/L (<=37); Alanine Aminotransfer ALT/SGPT 114 U/L (<=46); Albumin, Serum 3.3 g/dL (3.4-4.8); Alkaline Phosphatase 77 U/L (40-129); Anion Gap 13 (5-15); BUN 14 mg/dL (4-19); BUN/Creat Ratio 13.0 RATIO (10-20); Bilirubin, Direct 0.18 mg/dL (0.00-0.30); Calcium,Total 10.1 mg/dL (7.6-11.0); Carbon Dioxide 22.4 mmol/L (21.0-32.0); Chloride 103 mmol/L (98-108); Estimated Creatinine Clearance 57.75 ml/min (50-250); Globulin 1.7 g/dL (2.2-4.2); Glucose 76 mg/dL (70-99); Magnesium 2.0 mg/dL (1.5-2.2); Potassium 4.2 mmol/L (3.3-5.1)
[2025-09-21 08:23] VITALS: BP 143/85; PULSE 66; RESP 16; TEMP 36.4; O2SAT 97
--- NOTE | 2025-09-21 08:33 | PCM.DC.SUM ---
Providers Date of Admission: 09/19/25 Date of Discharge: 09/21/25 Primary Care Physician: Dr. Gayatri Hector MD Reason For Visit: DISEQUILIBRIUM/ WEAKNESS Diagnosis Discharge Diagnosis (1) Vertigo: Status: Acute Code(s): R42 - Dizziness and giddiness Plan Patient is an 85-year-old gentleman who presented with progressive generalized weakness and intermittent fever 1. Fever ? Etiology not clear. Patient WBC count obtained on admission had lymphocytosis predominant a arrest from CBC with differential obtained on 09/17/2025.. Patient was empirically started on Levaquin culture sent. Also ordered D-dimer given patient recent long travel to rule out VTE which can be a cause of fever of unknown origin ? 05/21/2025 patient fever has resolved 2. Thrombocytopenia ? May be related to patient's suspected underlying viral illness will continue with monitoring ? 09/21/2025 patient platelet count improving 3. Disequilibrium ? MRI ordered to rule out posterior circulation CVA ? Patient MRI was negative for acute CVA. On further discussion with patient her daughter as well as spouse patient reports gait disturbance in addition to being incontinent. Rn Neurosurgical diagnosis of possible NPH was entertained patient was offered [facility] teleneurology consultation however he wanted to stick with the [facility]. Subsequently discussed with patient's family to follow-up with primary care physician to be referred to [facility] neurology 4. Hypophosphatemia ? Corrected per protocol 5. Acute transaminitis ? Ordered RUQ ultrasound for subsequent eval ? 09/21/2025 right upper quadrant ultrasound demonstrated. Hepatomegaly with increased hepatic echogenicity consistent with fatty infiltration. Left hepatic lobe cyst measuring 5.1 x 6.0 x 5.1 cm. Patient to follow-up with primary care physician for subsequent eval 6. Hypercalcemia ? Patient hydrated with subsequent monitoring of calcium levels ordered 7. Hypertension ? Blood pressure controlled, home medications continued with dose adjustment as needed 8. Obstructive sleep apnea ? Consistent use of PAP therapy encouraged 9. DVT prophylaxis ? 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 - Patient treated with tadalafil (patient has no useful for ED) Time spent in the patient's overall evaluation,decision-making process, review of diagnostic data, adjustment of management, discussion with other providers, nursing nursing and ancillary staff involved in patient's care documentation, 38 Minutes Medications at Discharge Home Medications lisinopril 5 mg tablet 5 mg PO DAILY htn 10/08/14 tadalafil 5 mg tablet 5 mg PO DAILY bph 05/30/19 meclizine 12.5 mg tablet 12.5 mg PO TID PRN dizziness #30 tabs 09/17/25 sildenafil 100 mg tablet 100 - 200 mg PO DAILY PRN erectile dysfunction 09/19/25 Physical Exam Narrative GENERAL: cooperative HEENT: Atraumatic; normocephalic EYES; Anicteric, Normal Conjunctiva NECK; supple, normal thyroid, RESPIRATORY: Diminished to auscultation CARDIOVASCULAR: Regular S1 S2, GI: soft, normoactive bowel sounds, : No Renal angle tenderness; EXTREMITIES: No edema, no clubbing, MUSCULOSKELETAL: no muscle wasting NEURO: Awake; no lateralizing signs. SKIN: No Rash PSYCH; Flat affect Weight / BMI Weight Weight: 88.9 kg Body Mass Index (BMI) 29.7 ABG / Lab / Microbiology Data 09/21/25 06:46 09/21/25 06:46 Laboratory: Laboratory Results - last 24 hr 09/19/25 20:32: Diff Path Review Reviewed 09/20/25 10:40: D-Dimer Quant (PE/DVT) 2.08 H*, Potassium 4.3 09/21/25 06:46: WBC 6.2, RBC 4.80, Hgb 15.0, Hct 44.9, MCV 93.5, MCH 31.3, MCHC 33.4, RDW Std Deviation 45.1 H, RDW Coeff of Martir 13.1, Plt Count 127 L, MPV 10.8, Immature Gran % (Auto) 0.300, Neut % (Auto) 22.9 L, Lymph % (Auto) 64.5 H, [place] % (Auto) 6.6, Eos % (Auto) 4.7, Baso % (Auto) 1.0, Absolute Neuts (auto) 1.4 L, Absolute Lymphs (auto) 3.98, Nucleated RBC % 0, Sodium 139, Potassium 4.2, Chloride 103, Carbon Dioxide 22.4, Anion Gap 13, BUN 14, Creatinine 1.05, Estim Creat Clear Calc 57.75, Est GFR (MDRD) Non-Af 70, BUN/Creatinine Ratio 13.0, Glucose 76, Calcium 10.1, Magnesium 2.0, Total Bilirubin 0.40, Direct Bilirubin 0.18, AST 101 H, ALT 114 H, Alkaline Phosphatase 77, Total Protein 5.0 L, Albumin 3.3 L, Globulin 1.7 L Microbiology: Microbiology 09/20/25 01:30 Sputum, Expectorated/Coughed Gram Stain - Final 09/19/25 23:15 Mucosa - Nasopharyngeal Respiratory Panel (PCR) - Final 09/19/25 22:28 Mucosa - Nose SARS-CoV-2, Influenza & RSV (PCR) - Final Radiography Diagnostic Testing: Radiology Impression Brain MRI 09/20/25 08:30 IMPRESSION: No acute brain abnormalities. Reading Location: [facility] Liver Ultrasound 09/20/25 09:42 IMPRESSION: Hepatomegaly with increased hepatic echogenicity consistent with fatty infiltration. Left hepatic lobe cyst measuring 5.1 x 6.0 x 5.1 cm. Reading Location: [address] Chest CTA 09/20/25 13:50 IMPRESSION: No acute abnormality is seen. Cysts seen in the left lobe of the liver. Reading Location: [facility]1 Venous Doppler Study 09/20/25 13:50 Interpretation Summary Deep veins of the lower extremities are bilaterally patent and compressible segmentally. There is no evidence of deep vein thrombosis on either side. Valvular competence appears intact within the proximal deep venous systems bilaterally. The great saphenous veins appear bilaterally patent and compressible segmentally. Ordering Physician: Robin Rdz Referring Physician: Gayatri Hector Performed By: Michael Richter RVT D/C Instructions Discharge Activity: Return to Normal Activity Call your doctor if you observe: Fever of 101 or Higher, Shortness of breath, Fainting spells and Chest pain DC O2, CPAP, BIPAP Needs Home O2 Discharge instructions: No Meaningful Use Info Meaningful Use Meaningful Use Diagnoses (Choose all that apply): None applicable Discharge Plan Admission Admit Date/Time: 09/19/25 22:16 Attending Provider: Robin Rdz Primary Care Provider: Gayatri Hector Consulting Providers: Verena Valentino Discharge Orders/Prescriptions Prescriptions: Continued lisinopril 5 MG tablet 5 mg PO DAILY tadalafil 5 MG tablet 5 mg PO DAILY sildenafil 100 mg tablet 100 - 200 mg PO DAILY PRN (Reason: erectile dysfunction) meclizine 12.5 mg tablet 12.5 mg PO TID PRN (Reason: dizziness) Qty: 30 0RF Rx Instructions: 1 to 2 tablets every 8 hours as needed for dizziness Referrals / Follow Up: Gayatri Hector MD [Primary Care Provider, Family Practice] - In 1 Week Artur Hardin MD [Non-Staff, Neurology] - Within 2 Weeks Disposition Disposition (needs filled in before D/C Order can be placed): Home, Self Care Charges/Coding Visit Charges Inpatient E&M: 53024 Disch Hosp >30min
== END 2025-09-21 11:25 | disposition home or self-care (01) ==
LOC: ED 20:07 → MS3 22:42
PROVIDERS: Admitting Provider Internal Medicine; Emergency Provider Emergency Medicine; PCP Pediatrics; Visit Provider Internal Medicine
DX: R42 Dizziness and giddiness (principal); R53.1 Weakness; R50.9 Fever, unspecified; R19.7 Diarrhea, unspecified; E83.52 Hypercalcemia; R74.01 Elevation of levels of liver transaminase levels; I10 Essential (primary) hypertension; E86.0 Dehydration; D72.819 Decreased white blood cell count, unspecified; D72.820 Lymphocytosis (symptomatic); D72.10 Eosinophilia, unspecified; D69.6 Thrombocytopenia, unspecified; Z79.899 Other long term (current) drug therapy; G47.33 Obstructive sleep apnea (adult) (pediatric); N40.1 Benign prostatic hyperplasia with lower urinary tract symptoms; N13.8 Other obstructive and reflux uropathy; R29.898 Other symptoms and signs involving the musculoskeletal system; R11.0 Nausea; R26.9 Unspecified abnormalities of gait and mobility; R05.9 Cough, unspecified; R41.82 Altered mental status, unspecified; H53.9 Unspecified visual disturbance; R29.700 NIHSS score 0; M79.10 Myalgia, unspecified site
CPT/HCPCS: 36415; 70496; 70498; 70553; 71045; 71275; 76705; 80048; 80053; 80076; 83735; 84100; 84132; 84145; 84443; 84484; 85025; 85379; 85652; 86140; 87040; 87070; 87086; 87205; 87631; 87633; 87641; 93005; 93970; 94668; 96361; 96365; 96366; 97161; 97165; 99221; 99285; A9575; Q9967; A4216; G0378